=== PATIENT | female | born 1945 | race Caucasian/White ===

== ENCOUNTER → 2016-08-10 | Outpatient (CLI) | payer MEDICARE, OTHER ==
--- NOTE | 2016-08-11 11:35 | MM ---
Reason for exam: screening (asymptomatic). Last mammogram was performed 1 year and 3 months ago. History: Patient is postmenopausal. Reductions of both breasts, 2008. Excisional biopsy of the right breast, 2000. Took estrogen for 5 years 6 months. Took progesterone for 5 years 6 months. Physical Findings: A clinical breast exam by your physician is recommended on an annual basis and results should be correlated with mammographic findings. MG 3D Screening Mammo W/Cad Bilateral CC and MLO view(s) were taken. Prior study comparison: April 23, 2015, bilateral MG screening mammo w CAD. There are scattered fibroglandular densities. Finding: There are stable heterogeneous calcifications in the right breast. No significant changes in finding since April 23, 2015. ASSESSMENT: Benign, BI-RAD 2 RECOMMENDATION: Routine screening mammogram of both breasts in 1 year.
== END ==
LOC: RADMAMWWP 16:46
PROVIDERS: ATTEND Obstetrics & Gynecology
DX: Z12.31 Encounter for screening mammogram for malignant neoplasm of breast (principal)
CPT/HCPCS: 77063; G0202

== ENCOUNTER → 2018-10-19 | Outpatient (CLI) | payer MEDICARE, OTHER ==
--- NOTE | 2018-10-19 14:21 | BD ---
EXAMINATION TYPE: Axial Bone Density DATE OF EXAM: 10/19/2018 COMPARISON: NONE CLINICAL HISTORY: disorder of bone Height: 4'11 Weight: 187 FRAX RISK QUESTIONS: History of Fracture in Adulthood: y Secondary Osteoporosis: RISK FACTORS HISTORY OF: Surgery to Spine/): L spine When: 1978 Diet low in dairy products/other sources of calcium: y Postmenopausal woman: y Lost more than 2 inches in height since high school: y MEDICATIONS: Thyroid Medications: Which medication: Levothyroxine How Lon years Additional Medications: irregular heart beat, heartburn, cholesterol Additional History: kyphotic , scoliosis EXAM MEASUREMENTS: Bone mineral densitometry was performed using the [employer] System. Bone mineral density about the R hip (g/cm2): 0.844 Bone mineral density about the L hip (g/cm2): 0.701 T Score values are as follows: -----R Neck: -1.4 -----L Neck: -2.4 -----R Total: -1.3 -----L Total: -2.1 Bone mineral density about the L Wrist (g/cm2): 0.576 T Score values are as follows: -----Dist. R+U: -1.6 -----Prox. R+U: -1.5 -----Radius total: -1.6 IMPRESSION: Osteopenia (T Score between -2.5 and -1). There is slightly increased risk of fracture and the patient may be considered for treatment. Re-Screen 2-5 years. NOTE: T-SCORE=SD OF THE YOUNG ADULT MEAN.
--- NOTE | 2018-10-20 09:56 | MM ---
Reason for exam: screening (asymptomatic). Last mammogram was performed 2 years and 2 months ago. History: Patient is postmenopausal. Reductions of both breasts, 2008. Excisional biopsy of the right breast, 2000. Took estrogen for 5 years 6 months. Took progesterone for 5 years 6 months. Physical Findings: A clinical breast exam by your physician is recommended on an annual basis and results should be correlated with mammographic findings. MG 3D Screening Mammo W/Cad Bilateral CC and MLO view(s) were taken. Prior study comparison: August 10, 2016, bilateral MG 3d screening mammo w/cad. May 15, 2015, right breast MG work up mamm w CAD RT. Benign appearing bilateral calcifications. There is chronic nodularity in the right breast. No significant changes when compared with prior studies. ASSESSMENT: Benign, BI-RAD 2 RECOMMENDATION: Routine screening mammogram of both breasts in 1 year.
== END | disposition home or self-care (01) ==
LOC: RADMAMWWP 11:45
PROVIDERS: ATTEND Family Medicine
DX: Z12.31 Encounter for screening mammogram for malignant neoplasm of breast (principal); M85.852 Other specified disorders of bone density and structure, left thigh; M85.9 Disorder of bone density and structure, unspecified
CPT/HCPCS: 77063; 77067; 77080

== ENCOUNTER 2019-05-24 08:41 | Day surgery (SDC) | payer MEDICARE, OTHER ==
[2019-05-22 10:20] VITALS: BMI 32.4
--- NOTE | 2019-05-24 07:50 | P.GSHP ---
History of Present Illness H&P Date: 05/24/19 CHIEF COMPLAINT: GERD and colon screen HISTORY OF PRESENT ILLNESS: The patient is a 74-year-old female who presents with gastroesophageal reflux disease and need for colon screen. Upper and lower endoscopy were offered for further evaluation and management. PAST MEDICAL HISTORY: Please see list. PAST SURGICAL HISTORY: Please see list. MEDICATIONS: Please see list. ALLERGIES: Please see list. SOCIAL HISTORY: No illicit drug use FAMILY HISTORY: No reports of Crohn disease or ulcerative colitis. REVIEW OF ORGAN SYSTEMS: CONSTITUTIONAL: No reports of fevers or chills. GI: Denies any blood in stools or constipation. PHYSICAL EXAM: VITAL SIGNS: Stable GENERAL: Well-developed pleasant in no acute distress. HEENT: No scleral icterus. Extraocular movements grossly intact. Moist buccal mucosa. NECK: Supple without lymphadenopathy. CHEST: Unlabored respirations. Equal bilateral excursions. CARDIOVASCULAR: Regular rate and rhythm. Distal 2+ pulses. ABDOMEN: Soft, nondistended. MUSCULOSKELETAL: No clubbing, cyanosis, or edema. ASSESSMENT: 1. Gastroesophageal reflux disease 2. Colon screen. PLAN: 1. Recommend proceeding with an upper and lower endoscopy Past Medical History Past Medical History: GERD/Reflux, Hyperlipidemia, Hypertension, Skin Disorder, Thyroid Disorder Additional Past Medical History / Comment(s): Migraines, arrythmias. Poor circulation. allergic to sun. Scoliosis. Arthritis, sinus issues, History of Any Multi-Drug Resistant Organisms: None Reported Date of last positivie culture/infection: Jan 2009 MDRO Source:: patient Past Surgical History: Back Surgery, Bariatric Surgery, Breast Surgery, Cholecystectomy Additional Past Surgical History / Comment(s): Lap band 01/23/13. Sinus surgery. COLONOSCOPY. BREAST REDUCTION. 2 RT NECK LYMPH NODES REMOVED AND SALIVARY GLAND REMOVAL Past Anesthesia/Blood Transfusion Reactions: No Reported Reaction Smoking Status: Never smoker - Past Family History Daughter(s) Family Medical History: Cancer Medications and Allergies Home Medications Medication Instructions Recorded Confirmed Type Aspirin 81 mg PO DAILY 09/11/13 05/22/19 History Multivitamin [Multivitamins] 1 each PO DAILY 09/11/13 05/22/19 History Acebutolol HCl [Sectral] 200 mg PO BID 05/22/19 05/22/19 History Atorvastatin [Lipitor] 40 mg PO HS 05/22/19 05/22/19 History Hydrochlorothiazide [Hydrodiuril] 12.5 mg PO DAILY PRN 05/22/19 05/22/19 History Levothyroxine Sodium [Synthroid] 112 mcg PO DAILY 05/22/19 05/22/19 History Omeprazole 20 mg PO DAILY 05/22/19 05/22/19 History Zolpidem [Ambien] 10 mg PO HS PRN 05/22/19 05/22/19 History Allergies Allergy/AdvReac Type Severity Reaction Status Date / Time No Known Allergies Allergy Verified 05/22/19 10:06
[~2019-05-24 08:41] MED LIST: LACTATED RINGERS 1,000 ML IV SCH; LIDOCAINE 1% 20 ML VIAL (10MG/ML) FOR IV START INTRADERMA PRN
[2019-05-24 09:09] VITALS: RESP 16
[2019-05-24 09:13] VITALS: TEMP 98.6
[2019-05-24] MEDS ORDERED: LIDOCAINE 1% INJ 10MG/ML (20 ML MDV) ONE (09:33)
[2019-05-24] MEDS ORDERED: PROPOFOL 10 MG/ML 20 ML VIAL IV ONE (09:33)
--- NOTE | 2019-05-24 09:49 | P.PCN ---
Date of Procedure: 05/24/19 Description of Procedure: PREOPERATIVE DIAGNOSIS: Gastroesophageal reflux disease. Morbid obesity. History of adjustable gastric band POSTOPERATIVE DIAGNOSIS: Morbid obesity. Gastritis. Gastroesophageal reflux disease. Diaphragmatic hiatal hernia History of adjustable gastric band OPERATION: Esophagogastroduodenoscopy with biopsies along antrum. SURGEON: Giovanna Huber MD ANESTHESIA: MAC. INDICATIONS: The patient is a 74-year-old female who presents with a history of reflux disease. Benefits and risks of the procedure were described. Informed consent was obtained. DESCRIPTION: The patient was brought into the endoscopy suite and laid in the left lateral decubitus position. An Olympus gastroscope was passed along the posterior oropharynx down to the distal esophagus where the squamocolumnar junction was encountered at 34 cm from the incisors. The stomach was entered and no bile reflux was found. Additional findings are listed below. Biopsies with cold forceps were obtained of the antrum. The first through third portion of the duodenum was examined and unremarkable. Retroflexion of the scope confirmed Hill grade 2 lower esophageal valve. The squamocolumnar junction demonstrated LA grade B erosive esophagitis. The stomach was desufflated. The patient tolerated the procedure well. FINDINGS: Squamocolumnar junction 34 cm from the incisors. Diaphragmatic hiatus at 38 cm. Presence of adjustable gastric band without erosion Hill grade 2 lower esophageal valve. LA grade B erosive esophagitis. No active duodenitis. Chronic gastritis RECOMMENDATIONS: Upper endoscopy as needed.
--- NOTE | 2019-05-24 10:09 | P.PCN ---
Date of Procedure: 05/24/19 Description of Procedure: PREOPERATIVE DIAGNOSIS: Colonoscopy screening POSTOPERATIVE DIAGNOSIS: Colonoscopy screening Tubular adenoma descending colon Tubular adenoma sigmoid colon Sigmoid diverticulosis Internal hemorrhoids, grade 2 OPERATION: Colonoscopy to the ileocecal valve and appendiceal orifice. Colonoscopy with hot snare polypectomies Colonoscopy with cold forceps biopsies SURGEON: Giovanna Huber MD. ANESTHESIA: MAC. INDICATIONS: The patient is an 74-year-old male who presents for colonoscopy screening. Last colonoscopy over 5 years. Benefits and risks were described and informed consent was obtained. DESCRIPTION OF PROCEDURE: The patient had undergone Suprep. She had been brought into the operating room and laid in the left lateral decubitus position. After adequate intravenous sedation, the rectum was examined with 2% lidocaine jelly. The prostate was unremarkable. External hemorrhoids were encountered. The rectal tone was within normal limits. No lesions were palpated in the rectal vault. An Olympus colonoscope was advanced until the ileocecal valve and appendiceal orifice were clearly viewed. The prep was fair. Sigmoid diverticulosis was encountered. Multiple colonic polyps were found and snare polypectomy. No evidence of focal colitis was found. Retroflexion of the scope demonstrated grade 2 internal hemorrhoids without active bleeding or inflammation. The colon was desufflated. The patient had tolerated the procedure well. Withdrawal time was over 6 minutes. FINDINGS: Aronchick preparation quality scale 2 (1-5) Internal hemorrhoids, grade 2 External hemorrhoids, grade 2 No arteriovenous malformations Sigmoid diverticulosis Removal of 3 polyps from the proximal, mid transverse colon and descending colon: - Snare polypectomy 15 cm from the anal verge, 5 mm tubulovillous adenoma polyp, sigmoid colon - Cold forceps biopsy at 30 cm from the anal verge, 4 mm polyp. - Cold forceps biopsy at 28 cm from the anal verge, 4 mm polyp. No focal colitis. RECOMMENDATIONS: Given severity of tubular adenomas, recommend repeat colonoscopy 2 years, 2021 Plan - Discharge Summary Discharge Rx Participant: No New Discharge Prescriptions: No Action Multivitamin [Multivitamins] 1 each PO DAILY Aspirin 81 mg PO DAILY Atorvastatin [Lipitor] 40 mg PO HS Zolpidem [Ambien] 10 mg PO HS PRN PRN Reason: Insomnia Levothyroxine Sodium [Synthroid] 112 mcg PO DAILY Hydrochlorothiazide [Hydrodiuril] 12.5 mg PO DAILY PRN PRN Reason: Edema Omeprazole 20 mg PO DAILY Acebutolol HCl [Sectral] 200 mg PO BID Discharge Medication List Aspirin 81 mg PO DAILY 09/11/13 [History] Multivitamin [Multivitamins] 1 each PO DAILY 09/11/13 [History] Acebutolol HCl [Sectral] 200 mg PO BID 05/22/19 [History] Atorvastatin [Lipitor] 40 mg PO HS 05/22/19 [History] Hydrochlorothiazide [Hydrodiuril] 12.5 mg PO DAILY PRN 05/22/19 [History] Levothyroxine Sodium [Synthroid] 112 mcg PO DAILY 05/22/19 [History] Omeprazole 20 mg PO DAILY 05/22/19 [History] Zolpidem [Ambien] 10 mg PO HS PRN 05/22/19 [History] Follow up Appointment(s)/Referral(s): Giovanna Huber MD [STAFF PHYSICIAN] - 06/06/19 Patient Instructions/Handouts: Colorectal Polyps (DC), Diverticulosis Diet (GEN), Diverticulosis (DC) Activity/Diet/Wound Care/Special Instructions: Repeat colonoscopy in 5 years, 2024 Discharge Disposition: HOME SELF-CARE
[2019-05-24 10:34] VITALS: BP 104/65; PULSE 62
== END 2019-05-24 10:58 | disposition home or self-care (01) ==
LOC: ORWHC2ENDO 08:41
PROVIDERS: ATTEND Surgery Plastic and Reconstructive Surgery
DX: Z12.11 Encounter for screening for malignant neoplasm of colon (principal); K63.5 Polyp of colon; K29.50 Unspecified chronic gastritis without bleeding; K22.10 Ulcer of esophagus without bleeding; K21.9 Gastro-esophageal reflux disease without esophagitis; K44.9 Diaphragmatic hernia without obstruction or gangrene; E66.01 Morbid (severe) obesity due to excess calories; Z68.31 Body mass index [BMI] 31.0-31.9, adult; K57.30 Diverticulosis of large intestine without perforation or abscess without bleeding; K64.1 Second degree hemorrhoids; Z98.84 Bariatric surgery status; E78.5 Hyperlipidemia, unspecified; I10 Essential (primary) hypertension; E07.9 Disorder of thyroid, unspecified; G43.909 Migraine, unspecified, not intractable, without status migrainosus; M41.9 Scoliosis, unspecified; M19.90 Unspecified osteoarthritis, unspecified site; Z90.49 Acquired absence of other specified parts of digestive tract; Z80.9 Family history of malignant neoplasm, unspecified; F39 Unspecified mood [affective] disorder; Z97.2 Presence of dental prosthetic device (complete) (partial); Z79.82 Long term (current) use of aspirin; Z79.890 Hormone replacement therapy; Z79.899 Other long term (current) drug therapy
CPT/HCPCS: 88305; 45380; 45385; 43239; J2001; J2704; 80053; 80061; 82306; 82525; 82607; 82728; 82746; 83036; 83540; 83550; 83735; 83970; 84100; 84134; 84255; 84425; 84443; 84590; 84630; 85027; 86141

== ENCOUNTER → 2019-12-08 | Outpatient (CLI) | payer MEDICARE, OTHER ==
--- NOTE | 2019-12-08 13:03 | FL ---
GASTRIC BANDING ESOPHAGRAM CLINICAL HISTORY: Pain Gastric banding esophagram was performed. The patient ingested thin liquid barium without difficulty or delay. Gastric band is noted to be in place. There is no evidence for leak or obstruction. No prolapse is identified. IMPRESSION: Normal-appearing gastric banding device without leak or obstruction.
== END | disposition home or self-care (01) ==
LOC: RADUSWWP 10:47
PROVIDERS: ATTEND Surgery Plastic and Reconstructive Surgery
DX: R13.10 Dysphagia, unspecified (principal)
CPT/HCPCS: 74220

== ENCOUNTER 2020-01-11 00:05 | Emergency (ER) | payer MEDICARE, OTHER ==
[2020-01-11] MEDS ORDERED: ONDANSETRON 4 MG/2 ML VIAL IVP STA (00:19)
[2020-01-11] MEDS ORDERED: SODIUM CHLORIDE 0.9% 500 ML 500 ML IV STA (00:19)
--- NOTE | 2020-01-11 00:38 | ED ---
General Adult HPI - General Chief complaint: Nausea/Vomiting/Diarrhea Stated complaint: vomiting Time Seen by Provider: 01/11/20 00:12 Source: patient, RN notes reviewed Mode of arrival: wheelchair Limitations: no limitations - History of Present Illness Initial comments: 74-year-old female with a past medical history of hyperlipidemia, hypertension, lap band reportedly 7 years ago presents to the emergency room for nausea vomiting. Patient states she has not had her lap band filled for 6 years. States that today it was filled by Dr. Manzano. Patient reports she thinks the band is too tight. States she has not been able to eat or drink anything since the procedure. States that about an hour prior to arrival she tried to drink some tea was unable to keep it down. States she vomited about [address] to this emergency room. Patient denies any associated abdominal pain. Patient has no other complaints at this time including shortness of breath, chest pain, abdominal pain, headache, or visual changes. - Related Data Home Medications Medication Instructions Recorded Confirmed Aspirin 81 mg PO DAILY 09/11/13 01/10/20 Multivitamin [Multivitamins] 1 each PO DAILY 09/11/13 01/10/20 Acebutolol HCl [Sectral] 200 mg PO BID 05/22/19 01/10/20 Atorvastatin [Lipitor] 40 mg PO HS 05/22/19 01/10/20 Levothyroxine Sodium [Synthroid] 112 mcg PO DAILY 05/22/19 01/10/20 Omeprazole 20 mg PO DAILY 05/22/19 01/10/20 Zolpidem [Ambien] 10 mg PO HS PRN 05/22/19 01/10/20 hydroCHLOROthiazide [Hydrodiuril] 12.5 mg PO DAILY PRN 05/22/19 01/10/20 Allergies Allergy/AdvReac Type Severity Reaction Status Date / Time No Known Allergies Allergy Verified 01/11/20 00:11 Review of Systems ROS Statement: Those systems with pertinent positive or pertinent negative responses have been documented in the HPI. ROS Other: All systems not noted in ROS Statement are negative. Past Medical History Past Medical History: GERD/Reflux, Hyperlipidemia, Hypertension, Skin Disorder, Thyroid Disorder Additional Past Medical History / Comment(s): Migraines, arrythmias. Poor circulation. allergic to sun. Scoliosis. Arthritis, sinus issues, History of Any Multi-Drug Resistant Organisms: None Reported Date of last positivie culture/infection: Jan 2009 MDRO Source:: patient Past Surgical History: Back Surgery, Bariatric Surgery, Breast Surgery, Cholecystectomy Additional Past Surgical History / Comment(s): Lap band 01/23/13. Sinus surgery. COLONOSCOPY. BREAST REDUCTION. 2 RT NECK LYMPH NODES REMOVED AND SALIVARY GLAND REMOVAL Past Anesthesia/Blood Transfusion Reactions: No Reported Reaction Past Psychological History: No Psychological Hx Reported Smoking Status: Never smoker Past Alcohol Use History: None Reported Past Drug Use History: None Reported - Past Family History Daughter(s) Family Medical History: Cancer General Exam Limitations: no limitations General appearance: alert, in no apparent distress Head exam: Present: atraumatic, normocephalic, normal inspection Eye exam: Present: normal appearance, PERRL, EOMI. Absent: scleral icterus, conjunctival injection, periorbital swelling ENT exam: Present: normal exam Neck exam: Present: normal inspection, full ROM. Absent: tenderness, meningismus, lymphadenopathy Respiratory exam: Present: normal lung sounds bilaterally. Absent: respiratory distress, wheezes, rales, rhonchi, stridor Cardiovascular Exam: Present: regular rate, normal rhythm, normal heart sounds. Absent: systolic murmur, diastolic murmur, rubs, gallop, clicks GI/Abdominal exam: Present: soft, normal bowel sounds. Absent: distended, tenderness, guarding, rebound, rigid Neurological exam: Present: alert Course Vital Signs 01/11/20 00:08 Temperature 99.3 F Pulse Rate 68 Respiratory 18 Rate Blood Pressure 190/100 O2 Sat by Pulse 98 Oximetry - Reevaluation(s) Reevaluation #1: 01/11/20 01:21 Dr. Huber at bedside draining lap band Medical Decision Making - Medical Decision Making Vitals are stable. CBC unremarkable. Leukocytosis likely reactive. Patient was given fluids. Dr. Huber at bedside drained patient's lap band. Patient tolerating orals. Natacha cleared patient for discharge home. This was prior to CMP resulting given lab is having difficulty resulting this. she'll return for any worsening symptoms and otherwise follow-up. - Lab Data Result diagrams: 01/11/20 00:31 Lab Results 01/11/20 Range/Units 00:31 WBC 12.4 H (3.8-10.6) k/uL RBC 5.41 H (3.80-5.40) m/uL Hgb 16.4 H (11.4-16.0) gm/dL Hct 50.4 H (34.0-46.0) % MCV 93.3 (80.0-100.0) fL MCH 30.3 (25.0-35.0) pg MCHC 32.5 (31.0-37.0) g/dL RDW 12.8 (11.5-15.5) % Plt Count 195 (150-450) k/uL Neutrophils % 74 % Lymphocytes % 17 % Monocytes % 8 % Eosinophils % 0 % Basophils % 0 % Neutrophils # 9.2 H (1.3-7.7) k/uL Lymphocytes # 2.1 (1.0-4.8) k/uL Monocytes # 1.0 (0-1.0) k/uL Eosinophils # 0.0 (0-0.7) k/uL Basophils # 0.1 (0-0.2) k/uL Disposition Clinical Impression: Vomiting Disposition: HOME SELF-CARE Condition: Good Instructions (If sedation given, give patient instructions): Acute Nausea and Vomiting (ED) Additional Instructions: Please follow up with Dr. Huber. Return to the emergency room for any worsening symptoms. Is patient prescribed a controlled substance at d/c from ED?: No Referrals: Jovan Yanez MD [Primary Care Provider] - 1-2 days Time of Disposition: 01:21
[2020-01-11 00:51] LABS: Basophils # (A) 0.1 k/uL (0-0.2); Basophils % (A) 0 %; Eosinophils % (A) 0 %; HCT 50.4 % (34.0-46.0); HGB 16.4 gm/dL (11.4-16.0); Lymphocytes # (A) 2.1 k/uL (1.0-4.8); Lymphocytes % (A) 17 %; MCH 30.3 pg (25.0-35.0); MCHC 32.5 g/dL (31.0-37.0); MCV 93.3 fL (80.0-100.0); Mean Platelet Volume 7.6; Monocytes % (A) 8 %; Neutrophils # (A) 9.2 k/uL (1.3-7.7); Neutrophils % (A) 74 %; Platelet Count 195 k/uL (150-450); RBC 5.41 m/uL (3.80-5.40); RDW 12.8 % (11.5-15.5); WBC 12.4 k/uL (3.8-10.6)
[2020-01-11] MEDS ORDERED: LIDOCAINE 1% INJ 10MG/ML (20 ML MDV) SQ ONE (01:15)
--- NOTE | 2020-01-11 01:36 | P.GSCN ---
History of Present Illness Consult date: 01/11/20 History of present illness: Patient presents following adjustment earlier today at the bariatric center. She reported drinking her liquids prior to discharge. She then went home and was unable to tolerate anything by mouth. She presents to the emergency room for intractable nausea and vomiting following her band adjustment. At bedside, the skin was cleansed with alcohol swab and localize with 10 mL 2% lidocaine using 23-gauge needle. Next a Mark per needle 20-gauge was used to access the port. All fluid, 9 mL normal saline removed. After the procedure, patient was able to tolerate liquids and had immediate relief. Recommend future band removal as patient has recurrent problems with her band. Also with severe kyphosis the spine alters the ankle and anatomy of her band. Patient stable from a surgical standpoint for discharge home liquid diet. Past Medical History Past Medical History: GERD/Reflux, Hyperlipidemia, Hypertension, Skin Disorder, Thyroid Disorder Additional Past Medical History / Comment(s): Migraines, arrythmias. Poor circulation. allergic to sun. Scoliosis. Arthritis, sinus issues, History of Any Multi-Drug Resistant Organisms: None Reported Year Discovered:: Jan 2009 MDRO Source:: patient Past Surgical History: Back Surgery, Bariatric Surgery, Breast Surgery, Cholecystectomy Additional Past Surgical History / Comment(s): Lap band 01/23/13. Sinus surgery. COLONOSCOPY. BREAST REDUCTION. 2 RT NECK LYMPH NODES REMOVED AND SALIVARY GLAND REMOVAL Past Anesthesia/Blood Transfusion Reactions: No Reported Reaction Past Psychological History: No Psychological Hx Reported Smoking Status: Never smoker Past Alcohol Use History: None Reported Past Drug Use History: None Reported - Past Family History Daughter(s) Family Medical History: Cancer Medications and Allergies Home Medications Medication Instructions Recorded Confirmed Type Aspirin 81 mg PO DAILY 09/11/13 01/10/20 History Multivitamin [Multivitamins] 1 each PO DAILY 09/11/13 01/10/20 History Acebutolol HCl [Sectral] 200 mg PO BID 05/22/19 01/10/20 History Atorvastatin [Lipitor] 40 mg PO HS 05/22/19 01/10/20 History Levothyroxine Sodium [Synthroid] 112 mcg PO DAILY 05/22/19 01/10/20 History Omeprazole 20 mg PO DAILY 05/22/19 01/10/20 History Zolpidem [Ambien] 10 mg PO HS PRN 05/22/19 01/10/20 History hydroCHLOROthiazide [Hydrodiuril] 12.5 mg PO DAILY PRN 05/22/19 01/10/20 History Allergies Allergy/AdvReac Type Severity Reaction Status Date / Time No Known Allergies Allergy Verified 01/11/20 00:11 Surgical - Exam Vital Signs Temp Pulse Resp BP Pulse Ox 99.3 F 68 18 190/100 98 01/11/20 00:08 01/11/20 00:08 01/11/20 00:08 01/11/20 00:08 01/11/20 00:08 Results - Labs 01/11/20 00:31 Abnormal Lab Results - Last 24 Hours (Table) 01/11/20 Range/Units 00:31 WBC 12.4 H (3.8-10.6) k/uL RBC 5.41 H (3.80-5.40) m/uL Hgb 16.4 H (11.4-16.0) gm/dL Hct 50.4 H (34.0-46.0) % Neutrophils # 9.2 H (1.3-7.7) k/uL
[2020-01-11 01:41] LABS: ALT 59 U/L (4-34); AST 65 U/L (14-36); African American GFR (CKD) >90 (>60 ml/min/1.73 sqM); Albumin 4.6 g/dL (3.5-5.0); Alkaline Phosphatase 75 U/L (38-126); Amylase 63 U/L (30-110); Anion Gap 8 mmol/L; Blood Urea Nitrogen 23 mg/dL (7-17); Calcium 9.8 mg/dL (8.4-10.2); Carbon Dioxide 30 mmol/L (22-30); Chloride 104 mmol/L (98-107); Glucose 110 mg/dL (74-99); Non-African American GFR(CKD) 89 (>60 ml/min/1.73 sqM); Potassium 4.1 mmol/L (3.5-5.1); Sodium 142 mmol/L (137-145); Total Bilirubin 1.2 mg/dL (0.2-1.3); Total Protein 7.9 g/dL (6.3-8.2)
[2020-01-11 01:57] VITALS: BP 157/85; PULSE 71; RESP 19; TEMP 97.8
== END 2020-01-11 01:47 | disposition home or self-care (01) ==
LOC: EC 00:05
DX: R11.10 Vomiting, unspecified (principal); K21.9 Gastro-esophageal reflux disease without esophagitis; E78.5 Hyperlipidemia, unspecified; M19.90 Unspecified osteoarthritis, unspecified site; I10 Essential (primary) hypertension; E07.9 Disorder of thyroid, unspecified; Z79.890 Hormone replacement therapy; Z79.82 Long term (current) use of aspirin; Z79.899 Other long term (current) drug therapy; Z86.69 Personal history of other diseases of the nervous system and sense organs
CPT/HCPCS: 36415; 80053; 82150; 83690; 85025; 99284; 96374; J2405; J2001

== ENCOUNTER → 2020-03-14 | Outpatient (CLI) | payer MEDICARE, OTHER ==
--- NOTE | 2020-03-18 10:17 | MM ---
Reason for exam: screening (asymptomatic). Last mammogram was performed 1 year and 5 months ago. History: Patient is postmenopausal. Reductions of both breasts, 2008. Excisional biopsy of the right breast, 2000. Took estrogen for 5 years 6 months. Took progesterone for 5 years 6 months. Physical Findings: A clinical breast exam by your physician is recommended on an annual basis and results should be correlated with mammographic findings. MG 3D Screening Mammo W/Cad Bilateral CC and MLO view(s) were taken. XCCL view(s) were taken of the right breast. Prior study comparison: October 19, 2018, bilateral MG 3d screening mammo w/cad. August 10, 2016, bilateral MG 3d screening mammo w/cad. There are scattered fibroglandular densities. Benign appearing bilateral calcifications. No significant changes when compared with prior studies. ASSESSMENT: Benign, BI-RAD 2 RECOMMENDATION: Routine screening mammogram of both breasts in 1 year.
== END | disposition home or self-care (01) ==
LOC: RADMAMWWP 13:20
PROVIDERS: ATTEND Family Medicine
DX: Z12.31 Encounter for screening mammogram for malignant neoplasm of breast (principal)
CPT/HCPCS: 77063; 77067

== ENCOUNTER 2020-04-02 18:44 | Inpatient (IN) | payer MEDICARE, OTHER ==
[2020-04-02] MEDS ORDERED: ACETAMINOPHEN TAB 500 MG TAB PO STA (19:29)
--- NOTE | 2020-04-02 19:39 | ED ---
General Adult HPI - General Chief complaint: Recheck/Abnormal Lab/Rx Stated complaint: Recheck Labs Time Seen by Provider: 04/02/20 19:00 Source: patient, RN notes reviewed, old records reviewed Mode of arrival: ambulatory Limitations: no limitations - History of Present Illness Initial comments: This is a 75-year-old female who presents emergency Department stating that her liver enzymes are elevated and her doctor told her come here. Patient states she's had a dry cough but no fever until she got here and noted that she did have a fever. Patient denies any difficulty breathing shortness of breath per patient denies any chest pain or palpitations. Patient denies any abdominal pain and definitively say she has no right upper quadrant or back pain. Patient denies any dysuria hematuria urinary frequency. Patient denies any headache patient denies numbness weakness. Patient denies any known exposure to cold. She states she has a mild sore throat - Related Data Home Medications Medication Instructions Recorded Confirmed Aspirin 81 mg PO DAILY 09/11/13 01/10/20 Multivitamin [Multivitamins] 1 each PO DAILY 09/11/13 01/10/20 Acebutolol HCl [Sectral] 200 mg PO BID 05/22/19 01/10/20 Atorvastatin [Lipitor] 40 mg PO HS 05/22/19 01/10/20 Levothyroxine Sodium [Synthroid] 112 mcg PO DAILY 05/22/19 01/10/20 Omeprazole 20 mg PO DAILY 05/22/19 01/10/20 Zolpidem [Ambien] 10 mg PO HS PRN 05/22/19 01/10/20 hydroCHLOROthiazide [Hydrodiuril] 12.5 mg PO DAILY PRN 05/22/19 01/10/20 Allergies Allergy/AdvReac Type Severity Reaction Status Date / Time No Known Allergies Allergy Verified 01/11/20 00:11 Review of Systems ROS Statement: Those systems with pertinent positive or pertinent negative responses have been documented in the HPI. ROS Other: All systems not noted in ROS Statement are negative. Past Medical History Past Medical History: GERD/Reflux, Hyperlipidemia, Hypertension, Skin Disorder, Thyroid Disorder Additional Past Medical History / Comment(s): Migraines, arrythmias. Poor circulation. allergic to sun. Scoliosis. Arthritis, sinus issues, History of Any Multi-Drug Resistant Organisms: None Reported Date of last positivie culture/infection: Jan 2009 MDRO Source:: patient Past Surgical History: Back Surgery, Bariatric Surgery, Breast Surgery, Cholecystectomy Additional Past Surgical History / Comment(s): Lap band 01/23/13. Sinus surgery. COLONOSCOPY. BREAST REDUCTION. 2 RT NECK LYMPH NODES REMOVED AND SALIVARY GLAND REMOVAL Past Anesthesia/Blood Transfusion Reactions: No Reported Reaction Past Psychological History: No Psychological Hx Reported Smoking Status: Never smoker Past Alcohol Use History: None Reported Past Drug Use History: None Reported - Past Family History Daughter(s) Family Medical History: Cancer General Exam - General Exam Comments Initial Comments: GENERAL: Patient is well-developed and well-nourished. Patient is nontoxic and well- hydrated and is in no acute distress. ENT: Neck is soft and supple. No significant lymphadenopathy is noted. Oropharynx is clear. Moist mucous membranes. Neck has full range of motion without eliciting any pain. EYES: The sclera were anicteric and conjunctiva were pink and moist. Extraocular movements were intact and pupils were equal round and reactive to light. Eyelids were unremarkable. PULMONARY: Unlabored respirations. Good breath sounds bilaterally. No audible rales rhonchi or wheezing was noted. CARDIOVASCULAR: There is a regular rate and rhythm without any murmurs gallops or rubs. ABDOMEN: Soft and nontender with normal bowel sounds. SKIN: Skin is clear with no lesions or rashes and otherwise unremarkable. NEUROLOGIC: Patient is alert and oriented x3. Cranial nerves II through XII are grossly intact. Motor and sensory are also intact. Normal speech, volume and content. Symmetrical smile. MUSCULOSKELETAL: Normal extremities with adequate strength and full range of motion. No lower extremity swelling or edema. No calf tenderness. LYMPHATICS: No significant lymphadenopathy is noted PSYCHIATRIC: Normal psychiatric evaluation. Limitations: no limitations Course Vital Signs 04/02/20 04/02/20 18:56 21:01 Temperature 100.5 F H 98.3 F Pulse Rate 87 74 Respiratory 18 16 Rate Blood Pressure 188/97 141/80 O2 Sat by Pulse 96 97 Oximetry Medical Decision Making - Medical Decision Making EKG shows normal sinus rhythm at 70 bpm [place] interval 176 QRS is 84 QT interval 370 QTC is 433. Patient's EKG shows no ST segment elevation or depression. CT of the chest shows no PE however does show changes that are consistent with cirrhosis of the liver as well as ascites in the abdomen. I spoke with she he wanted the patient admitted to admit the patient and I wrote admitting orders. I consult the GI - Lab Data Result diagrams: 04/02/20 19:36 04/02/20 19:36 Lab Results 04/02/20 04/02/20 04/02/20 Range/Units 19:36 19:36 19:36 WBC 5.1 (3.8-10.6) k/uL RBC 4.72 (3.80-5.40) m/uL Hgb 14.7 (11.4-16.0) gm/dL Hct 45.8 (34.0-46.0) % MCV 96.9 (80.0-100.0) fL MCH 31.1 (25.0-35.0) pg MCHC 32.1 (31.0-37.0) g/dL RDW 13.9 (11.5-15.5) % Plt Count 150 (150-450) k/uL MPV 7.9 Neutrophils % (Manual) 59 % Band Neuts % (Manual) 7 % Lymphocytes % (Manual) 18 % Monocytes % (Manual) 11 % Eosinophils % (Manual) 2 % Basophils % (Manual) 3 % Neutrophils # (Manual) 3.30 (1.3-7.7) k/uL Lymphocytes # (Manual) 0.92 L (1.0-4.8) k/uL Monocytes # (Manual) 0.56 (0-1.0) k/uL Eosinophils # (Manual) 0.10 (0-0.7) k/uL Basophils # (Manual) 0.15 (0-0.2) k/uL Nucleated RBCs 0 (0-0) /100 WBC Manual Slide Review Performed Poikilocytosis (manual Present PT 11.9 (9.0-12.0) sec INR 1.2 H (<1.2) APTT 26.4 (22.0-30.0) sec D-Dimer 1.10 H (<0.60) mg/L FEU Sodium (137-145) mmol/L Potassium (3.5-5.1) mmol/L Chloride (98-107) mmol/L Carbon Dioxide (22-30) mmol/L Anion Gap mmol/L BUN (7-17) mg/dL Creatinine (0.52-1.04) mg/dL Est GFR (CKD-EPI)AfAm (>60 ml/min/1.73 sqM) Est GFR (CKD-EPI)NonAf (>60 ml/min/1.73 sqM) Glucose (74-99) mg/dL Plasma Lactic Acid Tuan (0.7-2.0) mmol/L Calcium (8.4-10.2) mg/dL Magnesium (1.6-2.3) mg/dL Total Bilirubin (0.2-1.3) mg/dL AST (14-36) U/L ALT (4-34) U/L Alkaline Phosphatase (38-126) U/L Lactate Dehydrogenase (313-618) U/L C-Reactive Protein (<10.0) mg/L Total Protein (6.3-8.2) g/dL Albumin (3.5-5.0) g/dL Heterophile Antibody Negative (Negative) Influenza Type A RNA (Not Detectd) Influenza Type B (PCR) (Not Detectd) 04/02/20 04/02/20 04/02/20 Range/Units 19:36 19:36 19:36 WBC (3.8-10.6) k/uL RBC (3.80-5.40) m/uL Hgb (11.4-16.0) gm/dL Hct (34.0-46.0) % MCV (80.0-100.0) fL MCH (25.0-35.0) pg MCHC (31.0-37.0) g/dL RDW (11.5-15.5) % Plt Count (150-450) k/uL MPV Neutrophils % (Manual) % Band Neuts % (Manual) % Lymphocytes % (Manual) % Monocytes % (Manual) % Eosinophils % (Manual) % Basophils % (Manual) % Neutrophils # (Manual) (1.3-7.7) k/uL Lymphocytes # (Manual) (1.0-4.8) k/uL Monocytes # (Manual) (0-1.0) k/uL Eosinophils # (Manual) (0-0.7) k/uL Basophils # (Manual) (0-0.2) k/uL Nucleated RBCs (0-0) /100 WBC Manual Slide Review Poikilocytosis (manual PT (9.0-12.0) sec INR (<1.2) APTT (22.0-30.0) sec D-Dimer (<0.60) mg/L FEU Sodium 139 (137-145) mmol/L Potassium 3.9 (3.5-5.1) mmol/L Chloride 107 (98-107) mmol/L Carbon Dioxide 29 (22-30) mmol/L Anion Gap 3 mmol/L BUN 18 H (7-17) mg/dL Creatinine 0.63 (0.52-1.04) mg/dL Est GFR (CKD-EPI)AfAm >90 (>60 ml/min/1.73 sqM) Est GFR (CKD-EPI)NonAf 89 (>60 ml/min/1.73 sqM) Glucose 105 H (74-99) mg/dL Plasma Lactic Acid Tuan 1.3 (0.7-2.0) mmol/L Calcium 8.6 (8.4-10.2) mg/dL Magnesium 1.9 (1.6-2.3) mg/dL Total Bilirubin 2.5 H (0.2-1.3) mg/dL AST 925 H (14-36) U/L ALT 759 H (4-34) U/L Alkaline Phosphatase 214 H (38-126) U/L Lactate Dehydrogenase 1062 H (313-618) U/L C-Reactive Protein 11.0 H (<10.0) mg/L Total Protein 7.2 (6.3-8.2) g/dL Albumin 3.0 L (3.5-5.0) g/dL Heterophile Antibody (Negative) Influenza Type A RNA Not Detected (Not Detectd) Influenza Type B (PCR) Not Detected (Not Detectd) Disposition Clinical Impression: Cirrhosis, Ascites, Hepatitis Disposition: ADMITTED IP TO THIS HOSP Referrals: Jovan Yanez MD [Primary Care Provider] - 1-2 days Time of Disposition: 21:26
[2020-04-02 20:06] LABS: HCT 45.8 % (34.0-46.0); HGB 14.7 gm/dL (11.4-16.0); MCH 31.1 pg (25.0-35.0); MCHC 32.1 g/dL (31.0-37.0); MCV 96.9 fL (80.0-100.0); Mean Platelet Volume 7.9; Platelet Count 150 k/uL (150-450); RBC 4.72 m/uL (3.80-5.40); RDW 13.9 % (11.5-15.5); WBC 5.1 k/uL (3.8-10.6)
--- NOTE | 2020-04-02 20:17 | XR ---
EXAMINATION TYPE: XR chest 1V portable DATE OF EXAM: 04/02/2020 COMPARISON: 02/20/2019 HISTORY: Cough. Pneumonia. TECHNIQUE: FINDINGS: There is poor inspiration. There is no heart failure nor confluent pneumonic infiltrate. Co stophrenic angles are clear. Thoracic aorta is intact. IMPRESSION: No active cardiopulmonary disease. Inspiration decreased slightly compared to old exam.
[2020-04-02 20:18] LABS: African American GFR (CKD) >90 (>60 ml/min/1.73 sqM); Alkaline Phosphatase 214 U/L (38-126); Anion Gap 3 mmol/L; Blood Urea Nitrogen 18 mg/dL (7-17); Calcium 8.6 mg/dL (8.4-10.2); Carbon Dioxide 29 mmol/L (22-30); Chloride 107 mmol/L (98-107); Glucose 105 mg/dL (74-99); LDH 1062 U/L (313-618); Magnesium 1.9 mg/dL (1.6-2.3); Non-African American GFR(CKD) 89 (>60 ml/min/1.73 sqM); Potassium 3.9 mmol/L (3.5-5.1); Sodium 139 mmol/L (137-145); Total Bilirubin 2.5 mg/dL (0.2-1.3); Total Protein 7.2 g/dL (6.3-8.2)
[2020-04-02 20:21] LABS: AST 925 U/L (14-36)
[2020-04-02 20:28] LABS: INR 1.2 (<1.2)
[2020-04-02 20:29] LABS: Partial Thromboplastin Time 26.4 sec (22.0-30.0); Prothrombin Time 11.9 sec (9.0-12.0)
[2020-04-02 20:32] LABS: ALT 759 U/L (4-34)
[2020-04-02 20:33] LABS: Band Neutrophils % 7 %; Basophils # (M) 0.15 k/uL (0-0.2); Lymphocytes # (M) 0.92 k/uL (1.0-4.8); Monocytes # (M) 0.56 k/uL (0-1.0); Neutrophils % (M) 59 %; Nucleated Red Blood Cells 0 /100 WBC (0-0); Total Cells Counted 100
[2020-04-02 20:34] LABS: Poikilocytosis (M) Present
[2020-04-02 20:37] LABS: D-Dimer 1.1 mg/L FEU (<0.60)
--- NOTE | 2020-04-02 21:08 | CT ---
EXAMINATION TYPE: CT chest angio for PE DATE OF EXAM: 04/02/2020 COMPARISON: None HISTORY: Elevated d-dimer CT DLP: 410.5 mGycm Automated exposure control for dose reduction was used. CONTRAST: Performed with IV Contrast, patient injected with 100 mL of Isovue 370. There are 3-D post processed images. There is no mediastinal adenopathy. Thoracic aorta is intact. There is no aneurysm or dissection. The ascending aorta measures 3.4 cm. There are no hilar masses. There is normal contrast opacification o f the pulmonary arteries. I see no filling defect. Heart size is normal. There is no pericardial effusion. There is abdominal ascites. There is irregula r liver consistent with cirrhosis. There is gastric sleeve noted. The lungs are clear of consolidation. There is no evidence of a pulmonary mass. There is no pleural e ffusion. Thoracic vertebra have normal alignment. Posterior elements are intact. Sternum is intact. IMPRESSION: No evidence of pulmonary embolism. Abdominal ascites and changes in the liver consistent with cirrhosis.
[2020-04-02] MEDS ORDERED: SODIUM CHLORIDE 0.9% 1,000 ML IV ONE (21:26)
--- NOTE | 2020-04-02 21:53 | US ---
EXAMINATION TYPE: US liver DATE OF EXAM: 04/02/2020 COMPARISON: NONE CLINICAL HISTORY: Elevated liver enzymes. Elevated liver enzymes. Hx cholecystectomy and lap band eduardo alisson. EXAM MEASUREMENTS: Liver Length: 15.1 cm Gallbladder Wall: Cholecystectomy CBD: Not visualized Right Kidney: 11.0 x 5.9 x 4.9 cm *Very limited due to patient body habitus and bowel gas. Pancreas: Limited due to gas. Liver: Limited, appears coarse and heterogeneous. There appears to be fluid anterior to the liver. Gallbladder: Cholecystectomy Evidence for sonographic Bills's sign: No CBD: Obscured by gas. Right Kidney: No hydronephrosis or masses seen IMPRESSION: Exam limited. There is abdominal ascites. There is increased echogenicity in the liver co nsistent with cirrhosis and fatty infiltration. Liver is relatively small. No dilated ducts.
[2020-04-03] MEDS ORDERED: ATORVASTATIN 40 MG TAB PO SCH (01:00)
[2020-04-03] MEDS: ZOLPIDEM 5 MG TAB PO SCH ×2 (01:20→22:06)
[2020-04-03] MEDS: LEVOTHYROXINE 112 MCG TAB PO SCH ×2 (01:40→22:06)
[2020-04-03] MEDS: ACEBUTOLOL HCL 200 MG PO SCH ×3 (01:41→22:07)
[2020-04-03 05:22] LABS: Ferritin 515.3 ng/mL (10.0-291.0)
[2020-04-03] MEDS ORDERED: ASPIRIN 81 MG PO SCH (09:00)
[2020-04-03] MEDS: PIPERACILLIN-TAZOBACTAM 3.375 GM in SODIUM CHLORIDE 0.9% 100 ML IVPB SCH ×2 (09:18→16:20)
[2020-04-03] MEDS: PANTOPRAZOLE 40 MG TABLET PO SCH (09:43)
[2020-04-03 10:47] LABS: Hepatitis A Antibody IgM Non-Reactive (Non-Reactive); Hepatitis B Core IgM Non-Reactive (Non-Reactive); Hepatitis B Surface Antigen Non-Reactive (Non-Reactive); Hepatitis C IgG Antibody Non-Reactive (Non-Reactive)
[2020-04-03] MEDS: SODIUM CHLORIDE 0.9% 1,000 ML IV SCH (13:17)
[2020-04-03] MEDS ORDERED: HYDROmorphone 0.5 MG/0.5 ML SYRINGE IVP PRN (13:28)
[2020-04-03] MEDS ORDERED: ALPRAZolam 0.25 MG TAB PO PRN (13:28)
[2020-04-03] MEDS: IOPAMIDOL CONTRAST (ORAL USE) VIAL PO PRN ×2 (14:12→14:56)
--- NOTE | 2020-04-03 14:37 | P.GSHP ---
History of Present Illness H&P Date: 04/03/20 CHIEF COMPLAINT: Elevated LFTs HISTORY OF PRESENT ILLNESS: This is a 75-year-old female with a known past medical history of hyperlipidemia, GERD, hypertension, hypothyroidism, LAP-BAND and cholecystectomy. Patient came into the emergency room because of elevated liver enzymes. Patient reports that her primary care doctor told her to come to the hospital because her liver enzymes were elevated. She denies any any abdominal pain. She does report having dark urine. She reports a dry cough and no fever at home. But she did have a temp of 100.5 on admission. She has been on 2 rounds of antibiotics recently for upper respiratory tract infection. She had a CTA of the chest which was negative for PE. It did show abdominal ascites and changes in the liver that were consistent with cirrhosis. On admission she did have elevated liver enzymes total bili 2.5 AST 925 ALT 759 alk phos 214. She reports not having any history of liver cirrhosis or liver problems. She does take statin for her hyperlipidemia and does use Tylenol 1-2 tablets daily for sinus headaches occasionally. She denies any daily alcohol use or any history of heavy alcohol use. She denies any abdominal pain. She does report not having a bowel movement in about 5 days. She is passing gas. Denies any nausea or vomiting. PAST MEDICAL HISTORY: See list. PAST SURGICAL HISTORY: See list. MEDICATIONS: See list. ALLERGIES: See list. SOCIAL HISTORY: No illicit drug use. REVIEW OF SYSTEMS: CONSTITUTIONAL: Denies fever or chills. HEENT: Denies blurred vision, vision changes, or eye pain. Denies hemoptysis ENDOCRINE: Denies heat or cold intolerance. CARDIOVASCULAR: Denies chest pain or pressure. RESPIRATORY: No shortness of breath. GASTROINTESTINAL: Denies abdominal pain. Denies nausea or vomiting. NEURO: Denies history of seizures. PSYCH: No depression or suicidal ideation HEMATOLOGIC: Denies bleeding disorders. LYMPHATIC: The patient denies any lumps and bumps around the neck. GENITOURINARY: Denies any blood in urine or increased urinary frequency. MUSCULOSKELETAL: Denies myalgias. Denies joint swelling. Denies decreased range of motion beyond patients baseline. SKIN: Denies pruitis. Denies rash. PHYSICAL EXAM: VITAL SIGNS: Reviewed GENERAL: Well-developed in no acute distress. HEENT: No sclera icterus. Extraocular movements grossly intact. Moist buccal mucosa. Head is atraumatic, normocephalic. Hears conversational speech. No nasal drainage. NECK: Supple without lymphadenopathy. CHEST: Non-labored respirations and equal bilateral excursions. CARDIOVASCULAR: Regular rate with regular rhythm. Palpable 2+ radial pulses. ABDOMEN: Soft. Mildly distended. Nontender MUSCULOSKELETAL: No clubbing or cyanosis. NEUROLOGIC: No focal or lateralizing signs. Cranial nerves II through XII grossly intact. PSYCH: Appropriate affect. Alert and oriented to person, place and time. SKIN: Well perfused. Good skin turgor. LABORATORY DATA: WBC 5.1 hemoglobin 14.7 Total bilirubin 2.5 AST 925 ALT 759 alk phos 214 lactate dehydrogenase 1062 CRP 11 pro-calcitonin 0.20, Covid negative Flu negative Hepatitis panel negative Heterophile antibody negative IMAGING: CTA of the chest which was negative for PE. It did show abdominal ascites and changes in the liver that were consistent with cirrhosis. Liver ultrasound shows abdominal ascites. Increased echogenicity in the liver consistent with cirrhosis and fatty infiltration. Liver is relatively small. No dilated ducts. Cholecystectomy. ASSESSMENT: 1. Acute Hepatitis 2. Liver cirrhosis 3. Constipation. No bowel movement for 5 days. 4. History of cholecystectomy 5. History of LAP-BAND procedure 2012 6. Hyperlipidemia 7. Hypertension 8. Hypothyroidism 9. GERD PLAN: -Computed tomography scan of the abdomen and pelvis with oral contrast ordered by admitting service. Will follow-up on results -Agree with GI consult for hepatitis -Continue IV fluids -Continue to follow LFTs -Discontinued Lipitor due to elevated LFTs -Further recommendations forthcoming per surgeon Thank you for this consultation Physician State Editor note has been reviewed by physician. Signing provider agrees with the documented findings, assessment, and plan of care. Past Medical History Past Medical History: GERD/Reflux, Hyperlipidemia, Hypertension, Skin Disorder, Thyroid Disorder Additional Past Medical History / Comment(s): MIGRAINES, ARRYTHMIA, SCOLIOSIS History of Any Multi-Drug Resistant Organisms: MRSA Date of last positivie culture/infection: 2009 MDRO Source:: BREAST-UNKNOWN WHICH SIDE Past Surgical History: Back Surgery, Bariatric Surgery, Bladder Surgery, Breast Surgery, Cholecystectomy, Hysterectomy Additional Past Surgical History / Comment(s): Lap band 01/23/13. Sinus surgery. COLONOSCOPY. BREAST REDUCTION. 2 RT NECK LYMPH NODES REMOVED AND SALIVARY GLAND REMOVAL Past Anesthesia/Blood Transfusion Reactions: No Reported Reaction Past Psychological History: No Psychological Hx Reported Smoking Status: Never smoker Past Alcohol Use History: None Reported Past Drug Use History: None Reported - Past Family History Daughter(s) Family Medical History: Cancer Medications and Allergies Home Medications Medication Instructions Recorded Confirmed Type Aspirin 81 mg PO Q72H 09/11/13 04/02/20 History Acebutolol HCl [Sectral] 200 mg PO BID 05/22/19 04/02/20 History Atorvastatin [Lipitor] 40 mg PO HS 05/22/19 04/02/20 History Omeprazole 20 mg PO DAILY 05/22/19 04/02/20 History Zolpidem [Ambien] 10 mg PO HS 05/22/19 04/02/20 History Levothyroxine Sodium [Euthyrox] 112 mcg PO HS 04/02/20 04/02/20 History Allergies Allergy/AdvReac Type Severity Reaction Status Date / Time No Known Allergies Allergy Verified 04/02/20 23:55 Surgical - Exam Vital Signs Temp Pulse Resp BP Pulse Ox 100.5 F H 87 18 188/97 96 04/02/20 18:56 04/02/20 18:56 04/02/20 18:56 04/02/20 18:56 04/02/20 18:56 Results - Labs 04/02/20 19:36 04/02/20 19:36 Abnormal Lab Results - Last 24 Hours (Table) 04/02/20 04/02/20 04/02/20 Range/Units 19:36 19:36 19:36 Lymphocytes # (Manual) 0.92 L (1.0-4.8) k/uL INR 1.2 H (<1.2) D-Dimer 1.10 H (<0.60) mg/L FEU BUN 18 H (7-17) mg/dL Glucose 105 H (74-99) mg/dL Ferritin 515.3 H (10.0-291.0) ng/mL Total Bilirubin 2.5 H (0.2-1.3) mg/dL AST 925 H (14-36) U/L ALT 759 H (4-34) U/L Alkaline Phosphatase 214 H (38-126) U/L Lactate Dehydrogenase 1062 H (313-618) U/L C-Reactive Protein 11.0 H (<10.0) mg/L Albumin 3.0 L (3.5-5.0) g/dL Procalcitonin (0.02-0.09) ng/mL 04/02/20 Range/Units 19:36 Lymphocytes # (Manual) (1.0-4.8) k/uL INR (<1.2) D-Dimer (<0.60) mg/L FEU BUN (7-17) mg/dL Glucose (74-99) mg/dL Ferritin (10.0-291.0) ng/mL Total Bilirubin (0.2-1.3) mg/dL AST (14-36) U/L ALT (4-34) U/L Alkaline Phosphatase (38-126) U/L Lactate Dehydrogenase (313-618) U/L C-Reactive Protein (<10.0) mg/L Albumin (3.5-5.0) g/dL Procalcitonin 0.20 H (0.02-0.09) ng/mL Diabetes panel 04/02/20 Range/Units 19:36 Sodium 139 (137-145) mmol/L Potassium 3.9 (3.5-5.1) mmol/L Chloride 107 (98-107) mmol/L Carbon Dioxide 29 (22-30) mmol/L BUN 18 H (7-17) mg/dL Creatinine 0.63 (0.52-1.04) mg/dL Glucose 105 H (74-99) mg/dL Calcium 8.6 (8.4-10.2) mg/dL AST 925 H (14-36) U/L ALT 759 H (4-34) U/L Alkaline Phosphatase 214 H (38-126) U/L Total Protein 7.2 (6.3-8.2) g/dL Albumin 3.0 L (3.5-5.0) g/dL Calcium panel 04/02/20 Range/Units 19:36 Calcium 8.6 (8.4-10.2) mg/dL Albumin 3.0 L (3.5-5.0) g/dL Pituitary panel 04/02/20 Range/Units 19:36 Sodium 139 (137-145) mmol/L Potassium 3.9 (3.5-5.1) mmol/L Chloride 107 (98-107) mmol/L Carbon Dioxide 29 (22-30) mmol/L BUN 18 H (7-17) mg/dL Creatinine 0.63 (0.52-1.04) mg/dL Glucose 105 H (74-99) mg/dL Calcium 8.6 (8.4-10.2) mg/dL Adrenal panel 04/02/20 Range/Units 19:36 Sodium 139 (137-145) mmol/L Potassium 3.9 (3.5-5.1) mmol/L Chloride 107 (98-107) mmol/L Carbon Dioxide 29 (22-30) mmol/L BUN 18 H (7-17) mg/dL Creatinine 0.63 (0.52-1.04) mg/dL Glucose 105 H (74-99) mg/dL Calcium 8.6 (8.4-10.2) mg/dL Total Bilirubin 2.5 H (0.2-1.3) mg/dL AST 925 H (14-36) U/L ALT 759 H (4-34) U/L Alkaline Phosphatase 214 H (38-126) U/L Total Protein 7.2 (6.3-8.2) g/dL Albumin 3.0 L (3.5-5.0) g/dL
--- NOTE | 2020-04-03 14:40 | HP ---
HISTORY AND PHYSICAL DATE OF SERVICE: 04/03/2020 CHIEF COMPLAINT: Abdominal pain, ascites. HISTORY OF PRESENT ILLNESS: This is a 75-year-old woman with a past history of GERD, hypertension, hyperlipidemia, history of migraines, history of bariatric surgery being followed by Dr. Yanez, saw the patient previously had a colonoscopy by Dr. Huber during which adenoma was discovered. Currently, the patient complaining of progressive abdominal distention and pain for the last one week. Patient came to [facility]. Patient had multiple abnormalities including features of hepatitis and the patient also had elevated D- dimer. The CT angio showed no evidence of pulmonary embolism, but had evidence of some ascites. The patient admitted for further evaluation and treatment. Liver cirrhosis was also suspected on the abdominal ultrasound also. There is no history of any fever, rigors. No history of headache, loss of consciousness, seizures. COVID-19 testing is negative at this time. PAST MEDICAL HISTORY: History of GERD, hypertension, hyperlipidemia, history of hypothyroidism, migraine attacks, back surgery, history of bariatric surgery. MEDICATIONS: Prior to admission, home medications are: 1. Ambien. 2. Omeprazole. 3. Levothyroxine. 4. Lipitor. 5. Aspirin. 6. Sectral. Doses are reviewed. ALLERGIES: None. FAMILY HISTORY: History of cancer in the family. SOCIAL HISTORY: No history of smoking. No alcohol. REVIEW OF SYSTEMS: ENT: No diminished vision. Diminished hearing. CARDIOLOGY: No angina. RESPIRATION: As mentioned earlier. GI: As mentioned earlier. ; No dysuria. NERVOUS SYSTEM: No numbness or weakness. ALLERGY/IMMUNOLOGY: No asthma or hayfever. MUSCULOSKELETAL: As mentioned earlier. HEMATOLOGY/ONCOLOGY: As mentioned earlier. ENDOCRINE: As mentioned earlier. HYPOTHYROID: As mentioned earlier. CONSTITUTIONAL: As mentioned earlier. DERMATOLOGY: Negative. RHEUMATOLOGY: Negative. PSYCHIATRY: As mentioned earlier. PHYSICAL EXAM: Patient is alert, oriented x3. Pulse is 72, blood pressure 143/84, respiration 18, temperature 98.1, pulse ox 96% on room air. HEENT: Conjunctivae normal. CARDIOVASCULAR SYSTEM: Breath sounds diminished at the bases, a few scattered rhonchi. NECK: No jugular venous distension. MUSCULOSKELETAL: As mentioned earlier. RESPIRATION: Breath sounds diminished at the bases, a few scattered rhonchi, no crackles. ABDOMEN: Soft, mild diffuse distention, mild diffuse tenderness also present in the lower part. Otherwise, no guarding, no rigidity. No mass palpable. LEGS: No edema, no swelling. NERVOUS SYSTEM: As mentioned earlier. Moves all 4 limbs. No focal motor deficits. LYMPHATICS: No lymph node enlargement in the neck or axillae. SKIN: No ulcer, no rashes. JOINTS: No active deformity. LABS: CBC within normal limits. D-dimer is 1.10, ferritin is 515, total bilirubin is 2.5, AST is 925, ALT 759, alkaline phosphatase 214, LDH is 1062. CRP is 11. Albumin is 3. Procalcitonin 0.2. ASSESSMENT: 1. Abdominal pain and ascites for evaluation, possible cirrhosis of the liver. 2. Elevated AST ALT and bilirubin suggestive of hepatitis of undetermined etiology. 3. COVID-19 ruled out. 4. Elevated ferritin and inflammatory markers. 5. History of gastroesophageal reflux disease. 6. Hypertension. 7. Hyperlipidemia. 8. History of colonoscopy with polyps. 9. Migraines. 10.Scoliosis. 11.History of MRSA. 12.History of back surgery. 13.History of bariatric surgery and lap band 2013. 14.Obesity with body mass index of 37. 15.FULL CODE. RECOMMENDATION: In this 75-year-old woman who presented with multiple complex medical issues, will monitor the patient closely. I would recommend to continue the current medications. I would also recommend a CT scan of the abdomen and pelvis without contrast. Gastroenterology consultation. Surgical evaluation. Otherwise, also recommend Interventional Radiology for ascitic aspiration and diagnostic testing including culture. Other than that, repeat labs will be ordered. Home medication will be continued. The exact etiology of the elevated LFTs are unknown at this time. I recommend to avoid hepatotoxic medications. A copy of this will be forwarded to Dr. Yanez who is the primary physician. MMODL / IJN: [id number] /
--- NOTE | 2020-04-03 16:18 | CT ---
EXAMINATION TYPE: CT abdomen pelvis wo con DATE OF EXAM: 04/03/2020 HISTORY: abdominal pain and constipation CT DLP: 1085.4 mGycm. Automated Exposure Control for Dose Reduction was Utilized. TECHNIQUE: CT scan of the abdomen and pelvis is performed with oral but without IV contrast. COMPARISON: Liver ultrasound from yesterday. FINDINGS: Within the limitations of a non-contrast study, the following observations are made. LUNG BASES: No significant abnormality is appreciated. LIVER/GB: Cholecystectomy clips.1 liver is heterogeneously slightly hypodense relative to spleen cons istent with mild diffuse fatty infiltration. Small amount of perihepatic ascites along the right supe rior margin. Liver size normal. No biliary dilatation. PANCREAS: Mild generalized fat replaced atrophy. SPLEEN: No significant abnormality is seen. ADRENALS: No significant abnormality is seen. KIDNEYS: No significant abnormality is seen. BOWEL: Contrast reaches level of rectum. No suspicious small or large bowel dilatation. Lap band posi tion satisfactory. GENITAL ORGANS: Uterus surgically absent or markedly atrophic. Trace free fluid pelvis axial image 79 . LYMPH NODES: No greater than 1cm abdominal or pelvic lymph nodes are appreciated. Mildly prominent bu t subcentimeter lymph nodes throughout the mesentery. OSSEOUS STRUCTURES: Demineralization osseous structures. Moderate compression fracture with vertebrop lasty L1 level with extruded cement into adjacent disc spaces. Slight scoliotic curvature on coronal images. Facet arthropathy lower lumbar spine. OTHER: No significant additional abnormality is seen. IMPRESSION: No bowel obstruction. Mild perihepatic and pelvic ascites. Diffuse fatty infiltration of liver confirmed.
--- NOTE | 2020-04-03 17:25 | P.CONS ---
History of Present Illness - Reason for Consult Consult date: 04/03/20 Elevated liver enzymes Requesting physician: Adilson E Sheet - Chief Complaint Elevated liver enzymes - History of Present Illness 75-year-old female with a medical history significant for hyperlipidemia, prior lap band, GERD, hypertension, hypo-thyroidism and prior cholecystectomy presented to the hospital due to abnormal labs in the outpatient setting. The patient reports she was having routine blood work performed and was found to have elevation in her liver enzymes and sent to the hospital for further evaluation. Liver enzymes on admission with total bilirubin 2.5, alkaline phosphatase 214, AST 925 and ALT 759, INR 1.2 with a platelet count of 150,000. On questioning the patient denies any prior history of hepatitis, any prior blood transfusions, history of cirrhosis, family history of liver disease, alcohol abuse or any other risk factors. She denies any signs or symptoms of decompensated liver disease with no prior upper GI bleed, encephalopathy or a scites. She does however report that she underwent 3 courses of antibiotics recently for treatment of sinusitis. Computed tomography scan of the liver did not show any CBD stones or dilation with a small amount of ascites and changes of the liver suggestive of possible fatty liver cannot rule out cirrhosis. Review of Systems REVIEW OF SYSTEMS: CONSTITUTIONAL: Denies any fevers, chills, weight change or fatigue. CARDIOVASCULAR: Denies any chest pain, palpitations high or low blood pressures RESPIRATORY: Denies any shortness of breath, hemoptysis or cough. GENITOURINARY: No dysuria or hematuria. MUSCULOSKELETAL: No weakness reported. SKIN: Denies any new rashes or lesions, jaundice or pallor. PSYCHIATRIC: Denies any depression or anxiety. NEUROLOGY: Denies headache, denies any new focal deficits. EARS/NOSE/THROAT: No recent hearing change, congestion, nasal discharge or sore throat, has recently received antibiotic therapy for sinusitis. EYES: No pain in eyes, discharge or change in vision. GASTROINTESTINAL: As per HPI. Past Medical History Past Medical History: GERD/Reflux, Hyperlipidemia, Hypertension, Skin Disorder, Thyroid Disorder Additional Past Medical History / Comment(s): MIGRAINES, ARRYTHMIA, SCOLIOSIS History of Any Multi-Drug Resistant Organisms: MRSA Year Discovered:: 2009 MDRO Source:: BREAST-UNKNOWN WHICH SIDE Past Surgical History: Back Surgery, Bariatric Surgery, Bladder Surgery, Breast Surgery, Cholecystectomy, Hysterectomy Additional Past Surgical History / Comment(s): Lap band 01/23/13. Sinus surgery. COLONOSCOPY. BREAST REDUCTION. 2 RT NECK LYMPH NODES REMOVED AND SALIVARY GLAND REMOVAL Past Anesthesia/Blood Transfusion Reactions: No Reported Reaction Past Psychological History: No Psychological Hx Reported Smoking Status: Never smoker Past Alcohol Use History: None Reported Past Drug Use History: None Reported - Past Family History Daughter(s) Family Medical History: Cancer Medications and Allergies Home Medications Medication Instructions Recorded Confirmed Type Aspirin 81 mg PO Q72H 09/11/13 04/02/20 History Acebutolol HCl [Sectral] 200 mg PO BID 05/22/19 04/02/20 History Atorvastatin [Lipitor] 40 mg PO HS 05/22/19 04/02/20 History Omeprazole 20 mg PO DAILY 05/22/19 04/02/20 History Zolpidem [Ambien] 10 mg PO HS 05/22/19 04/02/20 History Levothyroxine Sodium [Euthyrox] 112 mcg PO HS 04/02/20 04/02/20 History Allergies Allergy/AdvReac Type Severity Reaction Status Date / Time No Known Allergies Allergy Verified 04/02/20 23:55 Physical Exam Vitals: Vital Signs Temp Pulse Pulse Pulse Resp BP BP 04/03/20 12:22 98.1 F 72 18 143/84 04/03/20 09:42 66 04/03/20 08:45 98.3 F 66 16 128/80 04/03/20 06:53 97.6 F 70 20 119/79 04/03/20 00:56 98.6 F 72 18 140/84 04/02/20 21:01 98.3 F 74 16 141/80 04/02/20 18:56 100.5 F H 87 18 188/97 Pulse Ox 04/03/20 12:22 96 04/03/20 09:42 04/03/20 08:45 96 04/03/20 06:53 96 04/03/20 00:56 96 04/02/20 21:01 97 04/02/20 18:56 96 Intake and Output 04/02/20 04/03/20 04/03/20 22:59 06:59 14:59 Other: Voiding Method Toilet # Voids 1 1 Weight 94.801 kg 94.801 kg On physical examination, patient appears comfortable in no apparent distress. HEAD: Normocephalic, atraumatic. EYES: No scleral icterus. No conjunctival injection. MOUTH: No lesions, tongue midline. NECK: Trachea midline, no gross abnormalities. CHEST: Clear to auscultation with no wheezing or rhonchi appreciated. HEART: Regular rate and rhythm. ABDOMEN: Soft, obese. Bowel sounds are positive. No organomegaly. No guarding or rigidity. EXTREMITIES: No pedal edema. SKIN: No rashes, no jaundice. NEUROLOGIC: Alert and oriented x3, no asterixis or encephalopathy. No focal deficits. Results CBC & Chem 7: 04/02/20 19:36 04/02/20 19:36 Labs: Abnormal Lab Results - Last 24 Hours (Table) 04/02/20 04/02/20 04/02/20 Range/Units 19:36 19:36 19:36 Lymphocytes # (Manual) 0.92 L (1.0-4.8) k/uL INR 1.2 H (<1.2) D-Dimer 1.10 H (<0.60) mg/L FEU BUN 18 H (7-17) mg/dL Glucose 105 H (74-99) mg/dL Ferritin 515.3 H (10.0-291.0) ng/mL Total Bilirubin 2.5 H (0.2-1.3) mg/dL AST 925 H (14-36) U/L ALT 759 H (4-34) U/L Alkaline Phosphatase 214 H (38-126) U/L Lactate Dehydrogenase 1062 H (313-618) U/L C-Reactive Protein 11.0 H (<10.0) mg/L Albumin 3.0 L (3.5-5.0) g/dL Procalcitonin (0.02-0.09) ng/mL 04/02/20 Range/Units 19:36 Lymphocytes # (Manual) (1.0-4.8) k/uL INR (<1.2) D-Dimer (<0.60) mg/L FEU BUN (7-17) mg/dL Glucose (74-99) mg/dL Ferritin (10.0-291.0) ng/mL Total Bilirubin (0.2-1.3) mg/dL AST (14-36) U/L ALT (4-34) U/L Alkaline Phosphatase (38-126) U/L Lactate Dehydrogenase (313-618) U/L C-Reactive Protein (<10.0) mg/L Albumin (3.5-5.0) g/dL Procalcitonin 0.20 H (0.02-0.09) ng/mL CT scan - abdomen: report reviewed (Computed tomography scan of the abdomen with no evidence of CBD dilation, status post cholecystectomy with a small amount of ascites and a fatty appearing liver however cannot rule out cirrhosis.) Assessment and Plan (1) Elevated liver enzymes Narrative/Plan: 75-year-old female with multiple medical comorbidities presenting due to abnormal labs and outpatient setting which showed significantly elevated liver enzymes. On presentation total bilirubin was 2.5, alkaline phosphatase 214, AST 925 and ALT 759 with an INR of 1.2 and a platelet count of 150,000. She denies any prior history of elevated liver enzymes, viral hepatitis, cirrhosis, decompensated liver disease, or transfusions, any significant alcohol use or abuse or family history of liver disease. She does however report that she underwent 3 courses of antibiotics for a sinus infection recently. Unclear etiology, full serology as well as extensive viral studies will be ordered, however liver enzymes may be elevated in the setting of drug-induced liver injury given recent antibiotics (patient is unclear what antibiotic she did receive). Current Visit: Yes Status: Acute Code(s): R74.8 - ABNORMAL LEVELS OF OTHER SERUM ENZYMES SNOMED Code(s): 666070413 (2) Hepatitis Current Visit: Yes Status: Acute Code(s): K75.9 - INFLAMMATORY LIVER DISEASE , UNSPECIFIED SNOMED Code(s): 323138216 Plan: Supportive care Okay for diet as tolerated Continue to monitor CBC, BMP, LFTs, INR and for any evidence of encephalopathy Ultrasound and computed tomography scan of the abdomen reviewed Full liver serologies including extended viral studies ordered Acute viral hepatitis panel negative Acetaminophen level requested to be added onto admission labs Surgical service following the patient Thank you for allowing us to participate in the care of the patient we will continue to follow
[2020-04-03] MEDS: HEPARIN SODIUM,PORCINE 5,000 UNIT/ML 1 ML VIAL SQ SCH (22:07)
[2020-04-04] MEDS: PIPERACILLIN-TAZOBACTAM 3.375 GM in SODIUM CHLORIDE 0.9% 100 ML IVPB SCH ×2 (00:52→08:37)
[2020-04-04 07:51] LABS: INR 1.3 (<1.2); Prothrombin Time 13.3 sec (9.0-12.0)
[2020-04-04 07:59] LABS: ALT 632 U/L (4-34); African American GFR (CKD) >90 (>60 ml/min/1.73 sqM); Albumin 2.5 g/dL (3.5-5.0); Alkaline Phosphatase 157 U/L (38-126); Anion Gap -1 mmol/L; Blood Urea Nitrogen 15 mg/dL (7-17); Calcium 7.8 mg/dL (8.4-10.2); Carbon Dioxide 30 mmol/L (22-30); Chloride 107 mmol/L (98-107); Glucose 86 mg/dL (74-99); Non-African American GFR(CKD) 86 (>60 ml/min/1.73 sqM); Potassium 4.1 mmol/L (3.5-5.1); Sodium 136 mmol/L (137-145); Total Bilirubin 2.8 mg/dL (0.2-1.3); Total Protein 6.2 g/dL (6.3-8.2)
[2020-04-04 08:07] LABS: AST 785 U/L (14-36)
[2020-04-04] MEDS: ACEBUTOLOL HCL 200 MG PO SCH (08:38)
[2020-04-04] MEDS: PANTOPRAZOLE 40 MG TABLET PO SCH (08:38)
[2020-04-04] MEDS: HEPARIN SODIUM,PORCINE 5,000 UNIT/ML 1 ML VIAL SQ SCH (08:39)
[2020-04-04] MEDS: SODIUM CHLORIDE 0.9% 1,000 ML IV SCH (08:42)
[2020-04-04 09:05] LABS: Basophils % (A) 1 %; Eosinophils # (A) 0.1 k/uL (0-0.7); Eosinophils % (A) 3 %; HCT 41.4 % (34.0-46.0); HGB 12.9 gm/dL (11.4-16.0); Lymphocytes % (A) 32 %; MCH 30.7 pg (25.0-35.0); MCHC 31.2 g/dL (31.0-37.0); MCV 98.5 fL (80.0-100.0); Monocytes # (A) 0.5 k/uL (0-1.0); Monocytes % (A) 15 %; Neutrophils # (A) 1.5 k/uL (1.3-7.7); Neutrophils % (A) 45 %; Platelet Count 120 k/uL (150-450); RDW 14.3 % (11.5-15.5); WBC 3.2 k/uL (3.8-10.6)
[2020-04-04 09:21] VITALS: BP 138/84; PULSE 69; RESP 16; TEMP 98.7
[2020-04-04] MEDS ORDERED: PHYTONADIONE 10 MG in SODIUM CHLORIDE 0.9% 50 ML IVPB STA (11:21)
[2020-04-04 11:47] LABS: % Iron Saturation 52.99 (12.00-45.00); Iron 124 ug/dL (50-170); Total Iron Binding Capacity 234 ug/dL (228-460)
--- NOTE | 2020-04-04 12:05 | P.PN ---
Progress Note - Text Progress Note Date: 04/04/20 Patient is resting comfortably in her bed. She denies a significant bowel pain. On exam vessels are stable. Abdomen soft with evidence of ascites. No surgical intervention is planned. Patient will be managed medically.
[2020-04-04] MEDS ORDERED: PHYTONADIONE ORAL 5 MG/5 ML ORAL.SYRG PO STA (12:12)
[2020-04-04 13:25] LABS: Protein, Total 5.7 g/dL (6.2-8.2)
--- NOTE | 2020-04-04 15:57 | P.PN ---
Subjective Progress Note Date: 04/04/20 Principal diagnosis: Elevated liver enzymes Patient seen lying in bed tolerating diet. No acute complaints. No abdominal pain. Objective - Vital Signs Vital signs: Vital Signs Temp 98.7 F 04/04/20 08:35 Pulse 69 04/04/20 08:35 Resp 16 04/04/20 08:35 BP 138/84 04/04/20 08:35 Pulse Ox 95 04/04/20 08:35 Intake & Output 04/03/20 04/04/20 04/04/20 18:59 06:59 18:59 Intake Total 600 Balance 600 Intake: Oral 600 Other: Voiding Method Toilet Toilet # Voids 1 2 1 # Bowel Movements 1 - Exam On physical examination, patient appears comfortable in no apparent distress. HEAD: Normocephalic, atraumatic. EYES: No scleral icterus. No conjunctival injection. MOUTH: No lesions, tongue midline. NECK: Trachea midline, no gross abnormalities. CHEST: Clear to auscultation with no wheezing or rhonchi appreciated. HEART: Regular rate and rhythm. ABDOMEN: Soft, obese. Bowel sounds are positive. No organomegaly. No guarding or rigidity. EXTREMITIES: No pedal edema. SKIN: No rashes, no jaundice. NEUROLOGIC: Alert and oriented x3. No focal deficits. - Labs CBC & Chem 7: 04/04/20 07:27 04/04/20 07:27 Labs: Abnormal Lab Results - Last 24 Hours (Table) 04/04/20 04/04/20 04/04/20 Range/Units 07:27 07:27 07:27 WBC 3.2 L (3.8-10.6) k/uL Plt Count 120 L (150-450) k/uL PT 13.3 H (9.0-12.0) sec INR 1.3 H (<1.2) Sodium 136 L (137-145) mmol/L Calcium 7.8 L (8.4-10.2) mg/dL Total Bilirubin 2.8 H (0.2-1.3) mg/dL AST 785 H (14-36) U/L ALT 632 H (4-34) U/L Alkaline Phosphatase 157 H (38-126) U/L Total Protein 6.2 L (6.3-8.2) g/dL Albumin 2.5 L (3.5-5.0) g/dL Microbiology - Last 24 Hours (Table) 04/02/20 19:36 Blood Culture - Preliminary Blood No Growth after 24 hours Assessment and Plan (1) Elevated liver enzymes Narrative/Plan: 75-year-old female with multiple medical comorbidities presenting due to abnormal labs and outpatient setting which showed significantly elevated liver enzymes. On presentation total bilirubin was 2.5, alkaline phosphatase 214, AST 925 and ALT 759 with an INR of 1.2 and a platelet count of 150,000. She denies any prior history of elevated liver enzymes, viral hepatitis, cirrhosis, decompensated liver disease, or transfusions, any significant alcohol use or abuse or family history of liver disease. She does however report that she underwent 3 courses of antibiotics for a sinus infection recently. Unclear etio logy, full serology as well as extensive viral studies will be ordered, however liver enzymes may be elevated in the setting of drug-induced liver injury given recent antibiotics (patient is unclear what antibiotic she did receive). Status: Acute Code(s): R74.8 - ABNORMAL LEVELS OF OTHER SERUM ENZYMES SNOMED Code(s): 390885764 (2) Hepatitis Status: Acute Code(s): K75.9 - INFLAMMATORY LIVER DISEASE, UNSPECIFIED SNOMED Code(s): 066220494 Plan: Supportive care Okay for diet as tolerated Continue to monitor CBC, BMP, LFTs, INR and for any evidence of encephalopathy Ultrasound and computed tomography scan of the abdomen reviewed Full liver serologies including extended viral studies ordered and pending Acute viral hepatitis panel negative Acetaminophen level negative Surgical service following the patient Patient asking for discharge, recommend follow-up with the GI clinic in 1 week for further management if discharged Thank you for allowing us to participate in the care of the patient we will continue to follow
[2020-04-04 18:16] LABS: Alpha Fetoprotein, Tumor Mkr 9.2 ng/mL (0.0-7.9)
--- NOTE | 2020-04-05 09:16 | DS ---
DISCHARGE SUMMARY FINAL DIAGNOSES: 1. Abdominal pain with ascites for evaluation of possible cirrhosis of the liver or chronic liver disease. 2. Elevated AST, ALT, bilirubin suggestive of hepatitis of undetermined etiology, rule out cirrhosis liver or chronic liver disease. 3. COVID-19 ruled out. 4. Elevated ferritin and inflammatory markers. 5. History of gastroesophageal reflux disease. 6. Hypertension. 7. Hyperlipidemia. 8. History of colonoscopy with polyps. 9. History of migraine. 10.History of scoliosis. 11.History of MRSA. 12.History of back surgery. 13.History of bariatric surgery and lap band in 2013. 14.Obesity with body mass index of 37. 15.FULL CODE. DISCHARGE DISPOSITION: The patient will be discharge in a stable condition with guarded prognosis: Total time taken 35 minutes. HISTORY OF PRESENT ILLNESS: This is a 75-year-old woman with a past medical history of multiple medical problems followed by Dr. Yanez in the outpatient setting. The patient had abdominal pain. The patient had features of elevated LFTs and some features of cirrhosis of the liver. The patient was seen by Surgery and Gastroenterology. LFTs are showing diminishing trend. The AST is 785 and ALT is 632 and total bilirubin is 2.8. Recommend the patient avoid Lipitor and hepatotoxic medication. Acute hepatitis panel. Influenza and COVID tests are negative. On exam, vitals are stable. CARDIOVASCULAR: S1, S2. ABDOMEN: Soft, nontender. NERVOUS SYSTEM: No focal deficits. DISCHARGE ADVICE: 1. Diet is cardiac diet. 2. Followup with Dr. Yanez in 1-2 days. 3. Follow up with Dr. Whelan in 1 week for surgery as recommended. 4. Follow up labs CBC, CMP in the outpatient setting. MEDICATIONS: Are as follows: 1. Aspirin 81 mg daily. 2. Levothyroxine 112 mcg p.o. q.h.s. 3. Sectral 200 mg p.o. b.i.d. 4. Ambien p.r.n. 5. Protonix 40 mg p.o. b.i.d. 6. Hold Lipitor 40 mg q.h.s. and continue to monitor the CBC, CMP in the outpatient setting. Once again, the patient will be discharged in a stable condition with guarded prognosis. MMODL / IJN: [id number] /
[2020-04-05 10:50] LABS: Ceruloplasmin 23.3 mg/dL (20.0-60.0)
[2020-04-05 13:37] LABS: HIV 2 AB Non-Reactive (Non-Reactive); HIV AB P24 Non-Reactive (Non-Reactive); HIV P24 AG Non-Reactive (Non-Reactive)
[2020-04-08 02:30] LABS: Herpes simplex I and/or II IgM 0.84 INDEX (<=0.90)
[2020-04-08 03:26] LABS: EBV - VCA IgM 27.7 U/mL (<36.0)
== END 2020-04-04 15:30 | disposition home or self-care (01) | DRG 433 ==
LOC: EC 18:44 → 6PED 21:26
PROVIDERS: ADMIT Internal Medicine; ATTEND Internal Medicine
DX: K74.60 Unspecified cirrhosis of liver (principal); R18.8 Other ascites; Z20.828 Contact with and (suspected) exposure to other viral communicable diseases; K21.9 Gastro-esophageal reflux disease without esophagitis; E66.9 Obesity, unspecified; G43.909 Migraine, unspecified, not intractable, without status migrainosus; E78.5 Hyperlipidemia, unspecified; E03.9 Hypothyroidism, unspecified; M41.9 Scoliosis, unspecified; K75.9 Inflammatory liver disease, unspecified; M19.90 Unspecified osteoarthritis, unspecified site; K59.00 Constipation, unspecified; R79.89 Other specified abnormal findings of blood chemistry; I10 Essential (primary) hypertension; Z68.37 Body mass index [BMI] 37.0-37.9, adult; Z79.82 Long term (current) use of aspirin; Z79.890 Hormone replacement therapy; Z86.14 Personal history of Methicillin resistant Staphylococcus aureus infection; Z80.9 Family history of malignant neoplasm, unspecified; Z79.899 Other long term (current) drug therapy; Z90.49 Acquired absence of other specified parts of digestive tract; Z90.710 Acquired absence of both cervix and uterus; Z98.84 Bariatric surgery status; Z98.890 Other specified postprocedural states; Z86.010 Personal history of colon polyps
CPT/HCPCS: 36415; 71045; 71275; 74176; 76705; 80053; 80074; 80329; 82103; 82105; 82390; 82728; 83516; 83540; 83550; 83605; 83615; 83735; 84145; 84165; 85025; 85379; 85610; 85730; 86038; 86140; 86308; 86376; 86645; 86665; 86694; 87040; 87390; 87502; 87635; 93005; 96360; 96361; 99285

== ENCOUNTER → 2021-05-28 | Outpatient (CLI) | payer MEDICARE, OTHER ==
--- NOTE | 2021-05-29 09:29 | MM ---
Reason for exam: screening (asymptomatic). Last mammogram was performed 1 year and 2 months ago. History: Patient is postmenopausal. Reductions of both breasts, 2008. Excisional biopsy of the right breast, 2000. Took estrogen for 5 years 6 months. Took progesterone for 5 years 6 months. Physical Findings: A clinical breast exam by your physician is recommended on an annual basis and results should be correlated with mammographic findings. MG 3D Screening Mammo W/Cad Bilateral CC and MLO view(s) were taken. Prior study comparison: March 14, 2020, bilateral MG 3d screening mammo w/cad. October 19, 2018, bilateral MG 3d screening mammo w/cad. Finding: New equal architectural distortion in the anterior position of the left breast on CC view. New finding since March 14, 2020 and October 19, 2018. ASSESSMENT: Incomplete: need additional imaging evaluation, BI-RAD 0 RECOMMENDATION: Special view mammogram of the left breast. (compression, standard ML) If lesion persists on supplemental views, image directed ultrasound is recommended. [facility] will attempt to contact patient to return for supplemental views and ultrasound if indicated.
== END | disposition home or self-care (01) ==
LOC: RADMAMWWP 07:24
PROVIDERS: ATTEND Family Medicine
DX: Z12.31 Encounter for screening mammogram for malignant neoplasm of breast (principal); Z78.0 Asymptomatic menopausal state
CPT/HCPCS: 77063; 77067

== ENCOUNTER → 2021-06-04 | Outpatient (CLI) | payer MEDICARE, OTHER ==
--- NOTE | 2021-06-04 11:03 | MM ---
Reason for exam: additional evaluation requested from abnormal screening. Last mammogram was performed less than 1 month ago. History: Patient is postmenopausal. Family history of breast cancer in paternal grandmother. Reductions of both breasts, 2008. Excisional biopsy of the right breast, 2000. Took estrogen for 10 years. Took progesterone for 10 years. Physical Findings: Nurse did not find any significant physical abnormalities on exam. MG 3D Work Up W/Cad LT Spot compression CC, spot compression LM, and LM view(s) were taken of the left breast. Prior study comparison: May 28, 2021, bilateral MG 3d screening mammo w/cad. March 14, 2020, bilateral MG 3d screening mammo w/cad. There are scattered fibroglandular densities. There is no discrete abnormality including area of concern. Post reduction scarring noted. These results were verbally communicated with the patient and result sheet given to the patient on 06/04/21. ASSESSMENT: Benign, BI-RAD 2 RECOMMENDATION: Return to routine screening mammogram schedule for both breasts.
== END | disposition home or self-care (01) ==
LOC: RADMAMWWP 08:12
PROVIDERS: ATTEND Family Medicine
DX: R92.8 Other abnormal and inconclusive findings on diagnostic imaging of breast (principal); Z78.0 Asymptomatic menopausal state; Z80.3 Family history of malignant neoplasm of breast
CPT/HCPCS: 77065; G0279; 77061

== ENCOUNTER 2021-08-06 08:33 | Day surgery (SDC) | payer MEDICARE, OTHER ==
[2021-08-04 12:56] VITALS: BMI 40.4
--- NOTE | 2021-08-06 08:15 | P.GSHP ---
History of Present Illness H&P Date: 08/06/21 CHIEF COMPLAINT: Colon screen HISTORY OF PRESENT ILLNESS: The patient is a 76-year-old female who presents for colon screen. Lower endoscopy was offered for further evaluation and management. PAST MEDICAL HISTORY: Please see list. PAST SURGICAL HISTORY: Please see list. MEDICATIONS: Please see list. ALLERGIES: Please see list. SOCIAL HISTORY: No illicit drug use FAMILY HISTORY: No reports of Crohn disease or ulcerative colitis. REVIEW OF ORGAN SYSTEMS: CONSTITUTIONAL: No reports of fevers or chills. PHYSICAL EXAM: VITAL SIGNS: Stable GENERAL: Well-developed pleasant in no acute distress. HEENT: No scleral icterus. Extraocular movements grossly intact. Moist buccal mucosa. NECK: Supple without lymphadenopathy. CHEST: Unlabored respirations. Equal bilateral excursions. CARDIOVASCULAR: Regular rate and rhythm. Distal 2+ pulses. ABDOMEN: Soft, nontender, nondistended. MUSCULOSKELETAL: No clubbing, cyanosis, or edema. ASSESSMENT: 1. Colon screen. PLAN: 1. Recommend proceeding with a lower endoscopy Past Medical History Past Medical History: GERD/Reflux, Hyperlipidemia, Hypertension, Liver Disease, Musculoskeletal Disorder, Osteoarthritis (OA), Thyroid Disorder Additional Past Medical History / Comment(s): MIGRAINES, ARRYTHMIA, SCOLIOSIS, hx colon polyps, hx elevated liver enzymes - sees Dr at [facility]. History of Any Multi-Drug Resistant Organisms: MRSA Date of last positivie culture/infection: 2009 MDRO Source:: BREAST-UNKNOWN WHICH SIDE Past Surgical History: Back Surgery, Bariatric Surgery, Bladder Surgery, Breast Surgery, Cholecystectomy, Hysterectomy Additional Past Surgical History / Comment(s): Lap band 01/23/13, sinus surgery, bladder suspension, COLONOSCOPY, BREAST REDUCTION, 2 RT NECK LYMPH NODES REMOVED AND SALIVARY GLAND REMOVAL. Past Anesthesia/Blood Transfusion Reactions: No Reported Reaction Past Psychological History: No Psychological Hx Reported Smoking Status: Never smoker Past Alcohol Use History: Occasional Past Drug Use History: None Reported - Past Family History Daughter(s) Family Medical History: Cancer Medications and Allergies Home Medications Medication Instructions Recorded Confirmed Type Acebutolol HCl [Sectral] 200 mg PO BID 05/22/19 08/04/21 History Levothyroxine Sodium [Euthyrox] 112 mcg PO HS 04/02/20 08/04/21 History Cholecalciferol [Vitamin D3 (25 4,000 unit PO DAILY 06/30/21 08/04/21 History Mcg = 1000 Iu)] Furosemide [Lasix] 20 mg PO DAILY PRN 06/30/21 08/04/21 History Ibuprofen [Motrin] 800 mg PO Q6H PRN 06/30/21 08/04/21 History Multivitamins, Thera [Multivitamin 1 tab PO DAILY 06/30/21 08/04/21 History (formulary)] Pantoprazole [Protonix] 40 mg PO QAM 06/30/21 08/04/21 History diphenhydrAMINE [Benadryl] 25 mg PO HS PRN 06/30/21 08/04/21 History Allergies Allergy/AdvReac Type Severity Reaction Status Date / Time No Known Allergies Allergy Verified 08/04/21 12:49
[2021-08-06] MEDS: LACTATED RINGERS 1,000 ML IV SCH ×2 (09:26→10:10)
[2021-08-06] MEDS ORDERED: LIDOCAINE 1% (10MG/ML) FOR IV START INTRADERMA ONE (09:26)
[2021-08-06 09:33] VITALS: RESP 16; TEMP 98.4
[2021-08-06] MEDS ORDERED: PROPOFOL 10 MG/ML 20 ML VIAL IV ONE (10:14)
[2021-08-06 10:59] VITALS: BP 134/75; PULSE 72
--- NOTE | 2021-08-08 22:11 | P.PCN ---
Date of Procedure: 08/06/21 Description of Procedure: PREOPERATIVE DIAGNOSIS: Personal history of colon polyps Family history malignant colon polyps Colonoscopy screening POSTOPERATIVE DIAGNOSIS: Personal history of colon polyps Family history malignant colon polyps Colonoscopy screening Tubular adenoma hepatic flexure Tubular adenoma transverse colon Tubular adenoma at rectum Sigmoid diverticulosis OPERATION: Colonoscopy to the ileocecal valve and appendiceal orifice, cecum Colonoscopy with hot snare polypectomy SURGEON: Giovanna Huber MD. ANESTHESIA: MAC. INDICATIONS: The patient is 76-year-old female who presents family history of malignant colon polyps and personal history of colon polyps. Her last colonoscopy was 5 years ago. Benefits and risks were described and informed consent was obtained. DESCRIPTION OF PROCEDURE: The patient had undergone Sutab prep. The patient had been brought into the operating room and laid in the left lateral decubitus position. After adequate intravenous sedation, the rectum was examined with 2% lidocaine jelly. No external hemorrhoids were encountered. The rectal tone was within normal limits. No lesions were palpated in the rectal vault. An Olympus colonoscope was advanced until the cecum, ileocecal valve and appendiceal orifice were clearly viewed. The prep was fair. Sigmoid diverticulosis was encountered. Colonic polyps were found and removed. No evidence of focal colitis was found. Retroflexion of the scope demonstrated grade 1 internal hemorrhoids without active bleeding or inflammation. The colon was desufflated. The patient had tolerated the procedure well. Withdrawal time was over 6 minutes. FINDINGS: Aronchick preparation quality scale 2 (1-5) Internal hemorrhoids, grade 1 No external hemorrhoids No arteriovenous malformations. Sigmoid diverticulosis Removal of 3 polyps: - Snare polypectomy at transverse colon, 5 mm tubulovillous adenoma polyp. - Snare polypectomy at hepatic flexure, 8 mm flat villous adenoma polyp. - Snare polypectomy at 10 cm from the anal verge, 4 mm flat villous adenoma polyp at rectum. No focal colitis. RECOMMENDATIONS: Repeat colonoscopy in 3 years, 2024. Plan - Discharge Summary Discharge Rx Participant: No New Discharge Prescriptions: Continue Acebutolol HCl [Sectral] 200 mg PO BID Levothyroxine Sodium [Euthyrox] 112 mcg PO HS Cholecalciferol [Vitamin D3 (25 Mcg = 1000 Iu)] 4,000 unit PO DAILY Pantoprazole [Protonix] 40 mg PO QAM Multivitamins, Thera [Multivitamin (formulary)] 1 tab PO DAILY diphenhydrAMINE [Benadryl] 25 mg PO HS PRN PRN Reason: allergies Ibuprofen [Motrin] 800 mg PO Q6H PRN PRN Reason: Pain Furosemide [Lasix] 20 mg PO DAILY PRN PRN Reason: Edema Discharge Medication List Acebutolol HCl [Sectral] 200 mg PO BID 05/22/19 [History] Levothyroxine Sodium [Euthyrox] 112 mcg PO HS 04/02/20 [History] Cholecalciferol [Vitamin D3 (25 Mcg = 1000 Iu)] 4,000 unit PO DAILY 06/30/21 [History] Furosemide [Lasix] 20 mg PO DAILY PRN 06/30/21 [History] Ibuprofen [Motrin] 800 mg PO Q6H PRN 06/30/21 [History] Multivitamins, Thera [Multivitamin (formulary)] 1 tab PO DAILY 06/30/21 [History] Pantoprazole [Protonix] 40 mg PO QAM 06/30/21 [History] diphenhydrAMINE [Benadryl] 25 mg PO HS PRN 06/30/21 [History] Follow up Appointment(s)/Referral(s): Giovanna Huber MD [STAFF PHYSICIAN] - As Needed Patient Instructions/Handouts: *Surgery [facility] - (Anesthesia) Endoscopy Discharge Instructions, Diverticulosis (DC), Colorectal Polyps (GEN), Diverticulosis Diet (GEN) Activity/Diet/Wound Care/Special Instructions: Repeat colonoscopy in 3 years, 2024 Discharge Disposition: HOME SELF-CARE
== END 2021-08-06 11:30 | disposition home or self-care (01) ==
LOC: ORWHC2ENDO 08:33
PROVIDERS: ATTEND Surgery Plastic and Reconstructive Surgery
DX: Z12.11 Encounter for screening for malignant neoplasm of colon (principal); K63.5 Polyp of colon; Z86.010 Personal history of colon polyps; Z80.0 Family history of malignant neoplasm of digestive organs; K57.30 Diverticulosis of large intestine without perforation or abscess without bleeding; I10 Essential (primary) hypertension; K21.9 Gastro-esophageal reflux disease without esophagitis; E78.5 Hyperlipidemia, unspecified; K76.9 Liver disease, unspecified; M19.90 Unspecified osteoarthritis, unspecified site; E07.9 Disorder of thyroid, unspecified; Z90.49 Acquired absence of other specified parts of digestive tract; Z98.84 Bariatric surgery status; Z80.9 Family history of malignant neoplasm, unspecified
CPT/HCPCS: 88305; 45385; J2704

== ENCOUNTER → 2022-09-02 | Outpatient (CLI) | payer MEDICARE, OTHER ==
[2022-09-02 15:53] VITALS: BP 155/96; PULSE 84; TEMP 98.4; BMI 36.6
--- NOTE | 2022-09-02 16:06 | P.HPBAR ---
Bariatric H&P - History & Physicial H&P Date: 09/02/22 History & Physicial: Visit/CC: lap band Patient initial contact: Initial weight: 98.248 kg Initial weight in pounds: 216.60 Height: 5 ft 4 in Initial BMI: 37.1 Last weight: Current weight: 96.615 kg Current weight in pounds: 213.00 Current BMI: 36.6 [place] body weight (based on NIH guidelines): 54.431 kg Excess body weight loss: 3.7% The patient is a 77 year-old F who presents for Bariatric Assessment. She is looking to have her band out. She reports troubles with her band and is seeking removal. Band has been present for more than 8 to 10 years. Past Medical History Past Medical History: GERD/Reflux, Hyperlipidemia, Hypertension, Skin Disorder, Thyroid Disorder Additional Past Medical History / Comment(s): MIGRAINES, ARRYTHMIA, SCOLIOSIS History of Any Multi-Drug Resistant Organisms: MRSA Year Discovered:: 2009 MDRO Source:: BREAST-UNKNOWN WHICH SIDE Past Surgical History: Back Surgery, Bariatric Surgery, Bladder Surgery, Breast Surgery, Cholecystectomy, Hysterectomy Additional Past Surgical History / Comment(s): Lap band 01/23/13. Sinus surgery. COLONOSCOPY. BREAST REDUCTION. 2 RT NECK LYMPH NODES REMOVED AND SALIVARY GLAND REMOVAL Past Anesthesia/Blood Transfusion Reactions: No Reported Reaction Past Psychological History: No Psychological Hx Reported Smoking Status: Never smoker Past Alcohol Use History: None Reported Past Drug Use History: None Reported - Past Family History Daughter(s) Family Medical History: Cancer Surgical - Exam Vital Signs Temp Pulse BP 98.4 F 84 155/96 09/02/22 15:44 09/02/22 15:44 09/02/22 15:44 Bariatric Checklist Checklist: Plan: Checklist: EGD: 1. Hiatal hernia: 2. H. Pylori: HgbA1c: Vitamin D: Smoking: Never smoker Primary care physician referral: Dr Yanez Psychiatry clearance: Cardiology clearance: Sleep study: Diet journal: VTE risk score: VTE risk level: Rehab needs at discharge:
== END ==
LOC: BARWHC3 14:34
PROVIDERS: ATTEND Surgery Plastic and Reconstructive Surgery
DX: E66.01 Morbid (severe) obesity due to excess calories (principal); Z68.36 Body mass index [BMI] 36.0-36.9, adult; K21.9 Gastro-esophageal reflux disease without esophagitis; E78.5 Hyperlipidemia, unspecified; I10 Essential (primary) hypertension
CPT/HCPCS: 99211

== ENCOUNTER → 2022-09-09 | Outpatient (CLI) | payer MEDICARE, OTHER ==
--- NOTE | 2022-09-10 09:20 | MM ---
Reason for Exam: Screening (asymptomatic). Last mammogram was performed 1 year(s) and 4 month(s) ago. Patient History: Menarche at age 13. First Full-Term at age 21. Left ovary removed at age 69. Right ovary removed at age 69. Hysterectomy at age 69. Postmenopausal. Patient used Estrogen for 10 years. Patient used Progesterone for 10 years. 2008, Bilateral Reduction. 2000, Excisional Biopsy on the Right side. Paternal grandmother had breast cancer. Risk Values: Rola 5 year model risk: 1.9%. NCI Lifetime model risk: 3.8%. Prior Study Comparison: 03/14/2020 Bilateral Screening Mammogram, [facility]. 05/28/2021 Bilateral Screening Mammogram, [facility]. 06/04/2021 Left Diagnostic Mammogram, [facility]. Tissue Density: There are scattered fibroglandular densities. Findings: Analyzed By CAD. There are a few scattered small benign-appearing round and dystrophic calcifications bilaterally redemonstrated. Stable distortion in the outer aspect right breast stable distortion inferiorly in the left breast. There is Prominent vessel in the inferior outer left breast near skin lesion. There is no suspicious new group of microcalcifications or new suspicious mass in either breast. Overall Assessment: Benign, BI-RAD 2 Management: Screening Mammogram of both breasts in 1 year. . Patient should continue monthly self-breast exams. A clinical breast exam by your physician is recommended on an annual basis. This exam should not preclude additional follow-up of suspicious palpable abnormalities. Note on Rola scores and lifetime risk: 1. A Rola score greater than 3% is considered moderate risk. If this is the case, consider specialist referral to assess eligibility for a risk reducing agent. 2. If overall lifetime risk for the development of breast cancer is 20% or higher, the patient may qualify for future screening with alternating mammogram and breast MRI. Electronically signed and approved by: Omari Villegas M.D.
== END | disposition home or self-care (01) ==
LOC: RADMAMWWP 13:20
PROVIDERS: ATTEND Family Medicine
DX: Z12.31 Encounter for screening mammogram for malignant neoplasm of breast (principal); Z78.0 Asymptomatic menopausal state; Z80.3 Family history of malignant neoplasm of breast
CPT/HCPCS: 77063; 77067

== ENCOUNTER → 2022-10-07 | Outpatient (CLI) | payer MEDICARE, OTHER ==
[2022-10-07 15:38] VITALS: BP 137/83; PULSE 79; TEMP 98.5; BMI 34.3
--- NOTE | 2022-10-07 16:16 | P.BASOAP ---
Subjective Progress Note Date: 10/07/22 She is losing weight. EKG reviewed. Her port is present. Recommend port removal. Objective - Vital Signs Vital signs: Vital Signs Temp 98.5 F 10/07/22 15:35 Pulse 79 10/07/22 15:35 Resp BP 137/83 10/07/22 15:35 Pulse Ox FiO2 Intake & Output 10/06/22 10/07/22 10/07/22 18:59 06:59 18:59 Weight 90.718 kg Assessment/Plan Plan: Date: 10/07/22 Initial Weight: 98.248 kg Initial BMI: 37.1 Current Weight: 90.718 kg Current BMI: 34.3 Type of Surgery: Total Volume in Band: 9 Previous Volume: Volume Removed: Volume Added: Band Size:
== END ==
LOC: BARWHC3 14:53
PROVIDERS: ATTEND Surgery Plastic and Reconstructive Surgery
DX: E66.01 Morbid (severe) obesity due to excess calories (principal); Z68.34 Body mass index [BMI] 34.0-34.9, adult
CPT/HCPCS: 99211

== ENCOUNTER → 2022-10-07 | Outpatient (CLI) | payer MEDICARE, OTHER ==
[2022-10-08 02:15] LABS: African American GFR (CKD) 97.5 (60.0-200.0); Albumin 3.5 g/dL (3.8-4.9); Albumin/Globulin Ratio 1.35 (1.60-3.17); Anion Gap 8.1 mmol/L (10.00-18.00); BUN/Creat Ratio 26.14 Ratio (12.00-20.00); Blood Urea Nitrogen 18.3 mg/dL (9.0-27.0); Calcium 8.9 mg/dL (8.7-10.3); Carbon Dioxide 31.9 mmol/L (20.0-27.5); Globulin 2.6 g/dL (1.6-3.3); Non-African American GFR(CKD) 84.2 (60.0-200.0); Potassium 4.3 mmol/L (3.5-5.5); Total Bilirubin 1.7 mg/dL (0.30-1.20); Total Protein 6.1 g/dL (6.2-8.2)
[2022-10-08 02:19] LABS: Basophils # (A) 0.03 X 10*3/uL (0.00-0.10); Basophils % (A) 0.5 %; Eosinophils # (A) 0.13 X 10*3/uL (0.04-0.35); Eosinophils % (A) 2.3 %; HCT 42.4 % (37.2-46.3); HGB 13.8 g/dL (12.0-15.0); Immature Grans, Automated 0.2 %; Lymphocytes # (A) 0.74 X 10*3/uL (0.90-5.00); MCH 33.9 pg (27.0-32.0); MCHC 32.5 g/dL (32.0-37.0); MCV 104.2 fL (80.0-97.0); Monocytes % (A) 17.6 %; NRBC Per 100 WBC 0 /100 WBCS (0.0-0.0); Neutrophils # (A) 3.77 X 10*3/uL (1.80-7.70); Neutrophils % (A) 66.4 %; Platelet Count 108 X 10*3/uL (140-440); RBC 4.07 X 10*6/uL (4.10-5.20); RDW 14.5 % (11.5-14.5); WBC 5.68 X 10*3/uL (4.50-10.00)
== END | disposition home or self-care (01) ==
LOC: LABPAT 16:23
PROVIDERS: ATTEND Surgery Plastic and Reconstructive Surgery
DX: Z01.812 Encounter for preprocedural laboratory examination (principal)
CPT/HCPCS: 80053; 85025

== ENCOUNTER → 2022-11-24 | Outpatient (CLI) | payer MEDICARE, OTHER ==
[2022-11-24 13:53] LABS: African American GFR (CKD) >90 (>60 ml/min/1.73 sqM); Blood Urea Nitrogen 16 mg/dL (7-17); Non-African American GFR(CKD) 89 (>60 ml/min/1.73 sqM)
--- NOTE | 2022-11-24 23:17 | CT ---
EXAMINATION TYPE: CT chest w con DATE OF EXAM: 11/24/2022 COMPARISON: Chest x-ray 09/10/2022 HISTORY: h/o pneumonia CT DLP: 716 mGycm, Automated exposure control for dose reduction was used. CONTRAST: Performed injected with 100 mL of Isovue 300. TECHNIQUE: Axial images were obtained at 5 mm thick sections. Reconstructed images are reviewed on [employer] computer in the coronal plane. FINDINGS: Portion of the thyroid visualized is normal. There is elevation of the right diaphragm. There is some streak opacities at the lung bases. Correlat e for atelectasis. No suspicious lung nodules or focal infiltrates are present. No enlarged mediastinal or hilar adenopathy is evident. The ascending aorta diameter at the level o f the main pulmonary artery is 3.4 cm. The main pulmonary artery diameter at the bifurcation is 2.[address] sections are obtained through the upper abdomen. Ascites is present. There is some lobatio n of the liver. Consider cirrhosis. IMPRESSIONS: 1. Mild streak atelectasis bilateral lung bases. 2. Elevation of the right diaphragm. 3. Ascites
== END | disposition home or self-care (01) ==
LOC: RADCTMAIN 12:27
PROVIDERS: ATTEND Internal Medicine
DX: J98.11 Atelectasis (principal); J98.6 Disorders of diaphragm; J18.9 Pneumonia, unspecified organism; R18.8 Other ascites
CPT/HCPCS: 82565; 84520; 71260; 36415; Q9967

== ENCOUNTER → 2022-12-16 | Outpatient (CLI) | payer MEDICARE, OTHER ==
[2022-12-16 10:12] VITALS: BP 137/86; PULSE 109; TEMP 98; BMI 35.2
--- NOTE | 2022-12-17 21:57 | P.BASOAP ---
Subjective Progress Note Date: 12/16/22 Patient presents complaining of increased abdominal swelling. CT of the abdomen and pelvis which demonstrated moderate abdominal ascites including severe liver cirrhosis. Recommend follow-up with a pharmacy cashier due to accelerated liver disease. Also, removal of adjustable gastric band is now contraindicated in light of acute liver disease. Do recommend close management of her primary care provider. Recommend follow-up as needed. Again elective surgical removal of adjustable gastric band contraindicated with accelerated liver disease. Objective - Vital Signs Vital signs: Vital Signs Temp 98 F 12/16/22 10:03 Pulse 109 H 12/16/22 10:03 Resp BP 137/86 12/16/22 10:03 Pulse Ox FiO2 Assessment/Plan Plan: Date: 12/16/22 Initial Weight: 98.248 kg Initial BMI: 37.1 Current Weight: 92.986 kg Current BMI: 35.2 Type of Surgery: Total Volume in Band: 9 Previous Volume: Volume Removed: Volume Added: Band Size:
== END ==
LOC: BARWHC3 09:48
PROVIDERS: ATTEND Surgery Plastic and Reconstructive Surgery
DX: Z53.9 Procedure and treatment not carried out, unspecified reason (principal)
CPT/HCPCS: 99211

== ENCOUNTER 2023-01-18 12:08 | Inpatient (IN) | payer MEDICARE, OTHER ==
[2023-01-18 13:11] LABS: ALT 15 U/L (4-34); AST 30 U/L (14-36); African American GFR (CKD) >90 (>60 ml/min/1.73 sqM); Albumin 3.4 g/dL (3.5-5.0); Alkaline Phosphatase 50 U/L (38-126); Anion Gap 8 mmol/L; Blood Urea Nitrogen 21 mg/dL (7-17); Calcium 8.7 mg/dL (8.4-10.2); Carbon Dioxide 33 mmol/L (22-30); Chloride 99 mmol/L (98-107); Glucose 121 mg/dL (74-99); Non-African American GFR(CKD) 85 (>60 ml/min/1.73 sqM); Sodium 140 mmol/L (137-145); Total Bilirubin 2.3 mg/dL (0.2-1.3); Total Protein 6.9 g/dL (6.3-8.2)
[2023-01-18 13:20] LABS: Basophils % (A) 0 %; Eosinophils # (A) 0.1 k/uL (0-0.7); Eosinophils % (A) 1 %; HCT 48.5 % (34.0-46.0); HGB 15.5 gm/dL (11.4-16.0); Hypochromasia Slight; Lymphocytes # (A) 0.6 k/uL (1.0-4.8); Lymphocytes % (A) 9 %; MCH 34.2 pg (25.0-35.0); Macrocytosis Marked; Mean Platelet Volume 7.8; Monocytes # (A) 0.7 k/uL (0-1.0); Monocytes % (A) 11 %; NT-Pro-B-Type Natriuretic Pept 723 pg/mL; Neutrophils % (A) 78 %; Platelet Count 148 k/uL (150-450); RBC 4.53 m/uL (3.80-5.40); RDW 15.1 % (11.5-15.5); WBC 6.5 k/uL (3.8-10.6)
--- NOTE | 2023-01-18 13:29 | ED ---
General Adult HPI - General Chief complaint: Shortness of Breath Stated complaint: liver/SOB Time Seen by Provider: 01/18/23 13:10 Source: patient, RN notes reviewed, old records reviewed Mode of arrival: ambulatory Limitations: no limitations - History of Present Illness Initial comments: 78-year-old female presents for evaluation of progressive dyspnea, and abdominal distention. Patient states her symptoms have progressed over the past several months. She reports a cough which is been present for the past 4 months she reports this is dry nature. She also has had increasing abdominal distention and states she had an outpatient CAT scan showing abdominal ascites. She reports bilateral lower extremity edema. No fever. No central chest pain. - Related Data Home Medications Medication Instructions Recorded Confirmed Levothyroxine Sodium [Euthyrox] 112 mcg PO HS 04/02/20 12/16/22 Cholecalciferol [Vitamin D3 (25 2,000 unit PO DAILY 06/30/21 12/16/22 Mcg = 1000 Iu)] Furosemide [Lasix] 20 mg PO DAILY PRN 06/30/21 12/16/22 Ibuprofen [Motrin] 800 mg PO Q6H PRN 06/30/21 12/16/22 Multivitamins, Thera [Multivitamin 1 tab PO DAILY 06/30/21 12/16/22 (formulary)] Pantoprazole [Protonix] 80 mg PO QAM 06/30/21 12/16/22 Acebutolol HCl [Sectral] 400 mg PO DAILY 09/02/22 12/16/22 Ascorbic Acid [Vitamin C] 250 mg PO DAILY 09/02/22 12/16/22 Atorvastatin [Lipitor] 20 mg PO DAILY 09/02/22 12/16/22 Cyanocobalamin (Vitamin B-12) 1,000 mcg PO DAILY 09/02/22 12/16/22 [Vitamin B-12] Ubidecarenone [Co Q-10] 200 mg PO DAILY 09/02/22 12/16/22 Vitamin E Acetate [Vitamin E] 180 mg PO DAILY 09/02/22 12/16/22 azaTHIOprine [Imuran] 50 mg PO DAILY 09/02/22 12/16/22 Albuterol Nebulized [Ventolin 2.5 mg INHALATION BID 12/16/22 12/16/22 Nebulized] Levofloxacin [Levaquin] 750 mg PO DAILY 12/16/22 12/16/22 Nystatin 1 applic TOPICAL BID 12/16/22 12/16/22 predniSONE 5 mg PO DIRECTED 12/16/22 12/16/22 Allergies Allergy/AdvReac Type Severity Reaction Status Date / Time No Known Allergies Allergy Verified 01/18/23 12:26 Review of Systems ROS Statement: Those systems with pertinent positive or pertinent negative responses have been documented in the HPI. ROS Other: All systems not noted in ROS Statement are negative. Past Medical History Past Medical History: GERD/Reflux, Hyperlipidemia, Hypertension, Pneumonia, Skin Disorder, Thyroid Disorder Additional Past Medical History / Comment(s): MIGRAINES, ARRYTHMIA, SCOLIOSIS History of Any Multi-Drug Resistant Organisms: MRSA Date of last positivie culture/infection: 2009 MDRO Source:: BREAST-UNKNOWN WHICH SIDE Past Surgical History: Back Surgery, Bariatric Surgery, Bladder Surgery, Breast Surgery, Cholecystectomy, Hysterectomy Additional Past Surgical History / Comment(s): Lap band 01/23/13. Sinus surgery. COLONOSCOPY. BREAST REDUCTION. 2 RT NECK LYMPH NODES REMOVED AND SALIVARY GLAND REMOVAL Past Anesthesia/Blood Transfusion Reactions: No Reported Reaction Past Psychological History: No Psychological Hx Reported Smoking Status: Never smoker Past Alcohol Use History: None Reported Past Drug Use History: None Reported - Past Family History Daughter(s) Family Medical History: Cancer General Exam Limitations: no limitations General appearance: alert, in distress Head exam: Present: atraumatic, normocephalic Eye exam: Present: normal appearance, PERRL Neck exam: Present: normal inspection. Absent: tenderness, meningismus Respiratory exam: Present: respiratory distress, rales, decreased breath sounds Cardiovascular Exam: Present: regular rate, normal rhythm GI/Abdominal exam: Present: distended, rigid. Absent: tenderness Extremities exam: Present: pedal edema Neurological exam: Present: alert, oriented X3, CN II-XII intact. Absent: motor sensory deficit Psychiatric exam: Present: normal affect, normal mood Skin exam: Present: warm, dry, intact. Absent: cyanosis, diaphoretic Course Vital Signs 01/18/23 01/18/23 12:26 13:08 Temperature 97.5 F L Pulse Rate 81 80 Respiratory 16 18 Rate Blood Pressure 126/81 110/88 O2 Sat by Pulse 80 L 93 L Oximetry - Reevaluation(s) Reevaluation #1: 01/18/23 1400 Patient has followed with Dr. Thomas from gastroenterology and is aware that Dr. Thomas is not currently available this week for gastroenterology evaluation. Medical Decision Making - Medical Decision Making Was pt. sent in by a medical professional or institution (JEFF Dickson, ORAL SURGERY PHYSICIAN, urgent care, hospital, or halfway...) When possible be specific @ -No Did you speak to anyone other than the patient for history (EMS, parent, family, police, friend...)? What history was obtained from this source @ -No Did you review nursing and triage notes (agree or disagree)? Why? @ -I reviewed and agree with nursing and triage notes Were old charts reviewed (outside hosp., previous admission, EMS record, old EKG , old radiological studies, urgent care reports/EKG's, halfway records)? Report findings @ -No old charts were reviewed Differential Diagnosis (chest pain, altered mental status, abdominal pain women, abdominal pain men, vaginal bleeding, weakness, fever, dyspnea, syncope, headache, dizziness, GI bleed, back pain, seizure, CVA, palpatations, mental health, musculoskeletal)? @ -Differential Dyspnea: Coronary syndrome, arrhythmia, tamponade, asthma, COPD, pulmonary embolism, pneumonia, pneumothorax, pulmonary effusion, anaphylaxis, diabetic ketoacidosis, flailed chest, pulmonary contusion, diaphragmatic rupture, anemia, neuromusc ular, this is not meant to be an all-inclusive list. EKG interpreted by me (3pts min.). @ Sinus rhythm rate of 81, MA interval 171, QRS duration 102, QTC 314, no ST segment elevation. X-rays interpreted by me (1pt min.). @ -[Chest x-ray showing diminished lung volumes, no large effusion, no focal pneumonia CT interpreted by me (1pt min.). @ -None done U/S interpreted by me (1pt. min.). @ To sound of the abdomen has been ordered, results pending What testing was considered but not performed or refused? (CT, X-rays, U/S, lab s)? Why? @ -None What meds were considered but not given or refused? Why? @ -None Did you discuss the management of the patient with other professionals (professionals i.e. JEFF Dickson, ORAL SURGERY PHYSICIAN, lab, RT, psych nurse, director social service, ct technician, teacher, boat officer, lining caser)? Give summary @ -Is discussed with Dr. Mathur who will admit Was smoking cessation discussed for >3mins.? @ -No Was critical care preformed (if so, how long)? @ -No Were there social determinants of health that impacted care today? How? (H omelessness, low income, unemployed, alcoholism, drug addiction, transportation, low edu. Level, literacy, decrease access to med. care, long-term, rehab)? @ -No Was there de-escalation of care discussed even if they declined (Discuss DNR or withdrawal of care, Hospice)? DNR status @ -No What co-morbidities impacted this encounter? (DM, HTN, Smoking, COPD, CAD, Cancer, CVA, ARF, Chemo, Hep., AIDS, mental health diagnosis, sleep apnea, morbid obesity)? @ -Nonalcoholic fatty liver disease, hypertension Was patient admitted / discharged? Hospital course, mention meds given and route, prescriptions, significant lab abnormalities, going to OR and other pertinent info. @ -78-year-old female with increased dyspnea, increased abdominal distention. I do feel that her dyspnea is related to abdominal distention. She had an outpatient CT which showed ascites this was of the chest and was not encompassing the entire abdomen. I will order ultrasound of the abdomen to confirm this diagnosis, these results are pending. She'll be admitted to internal medicine with likely plan for paracentesis. Undiagnosed new problem with uncertain prognosis? @ -No Drug Therapy requiring intensive monitoring for toxicity (Heparin, Nitro, Insulin, Cardizem)? @ -No Were any procedures done? @ -No Diagnosis/symptom? @ -Dyspnea secondary to abdominal distention and ascites Acute, or Chronic, or Acute on Chronic? @Acute Uncomplicated (without systemic symptoms) or Complicated (systemic symptoms)? @ -default Side effects of treatment? @ -No Exacerbation, Progression, or Severe Exacerbation? @ -No Poses a threat to life or bodily function? How? (Chest pain, [place], [place], pneumonia, PE, COPD, DKA, ARF, appy, cholecystitis, CVA, Diverticulitis, Homicidal, Suicidal, threat to staff... and all critical care pts) @ -[Yes, worsening dyspnea, respiratory failure - Lab Data Result diagrams: 01/18/23 12:53 01/18/23 12:53 Lab Results 0901/18/23 01/18/23 Range/Units 12:53 12:53 12:53 WBC 6.5 (3.8-10.6) k/uL RBC 4.53 (3.80-5.40) m/uL Hgb 15.5 (11.4-16.0) gm/dL Hct 48.5 H (34.0-46.0) % MCV 107.0 H (80.0-100.0) fL MCH 34.2 (25.0-35.0) pg MCHC 32.0 (31.0-37.0) g/dL RDW 15.1 (11.5-15.5) % Plt Count 148 L (150-450) k/uL MPV 7.8 Neutrophils % 78 % Lymphocytes % 9 % Monocytes % 11 % Eosinophils % 1 % Basophils % 0 % Neutrophils # 5.0 (1.3-7.7) k/uL Lymphocytes # 0.6 L (1.0-4.8) k/uL Monocytes # 0.7 (0-1.0) k/uL Eosinophils # 0.1 (0-0.7) k/uL Basophils # 0.0 (0-0.2) k/uL Manual Slide Review Performed Hypochromasia Slight Macrocytosis Marked A Sodium 140 (137-145) mmol/L Potassium 4.0 (3.5-5.1) mmol/L Chloride 99 (98-107) mmol/L Carbon Dioxide 33 H (22-30) mmol/L Anion Gap 8 mmol/L BUN 21 H (7-17) mg/dL Creatinine 0.67 (0.52-1.04) mg/dL Est GFR (CKD-EPI)AfAm >90 (>60 ml/min/1.73 sqM) Est GFR (CKD-EPI)NonAf 85 (>60 ml/min/1.73 sqM) Glucose 121 H (74-99) mg/dL Calcium 8.7 (8.4-10.2) mg/dL Total Bilirubin 2.3 H (0.2-1.3) mg/dL AST 30 (14-36) U/L ALT 15 (4-34) U/L Alkaline Phosphatase 50 (38-126) U/L Troponin I <0.012 (0.000-0.034) ng/mL NT-Pro-B Natriuret Pep 723 pg/mL Total Protein 6.9 (6.3-8.2) g/dL Albumin 3.4 L (3.5-5.0) g/dL Disposition Clinical Impression: Ascites, Dyspnea Disposition: ADMITTED IP TO THIS HOSP Condition: Stable Is patient prescribed a controlled substance at d/c from ED?: No Referrals: Jovan Yanez MD [Primary Care Provider] - 1-2 days Time of Disposition: 15:53
--- NOTE | 2023-01-18 13:38 | XR ---
EXAMINATION TYPE: XR chest 2V DATE OF EXAM: 01/18/2023 COMPARISON: 04/02/2020 HISTORY: Shortness of breath TECHNIQUE: Frontal and lateral views of the chest are obtained. FINDINGS: Scattered senescent parenchymal changes noted. Lung volumes are diminished. There is basilar atelecta sis or developing infiltrate. Heart size is stable. Mediastinal structures are stable and grossly unremarkable. No evidence for hilar prominence. Degenerative changes dorsal spine. IMPRESSION: 1. Diminished lung volumes limit evaluation. Increased basilar markings may reflect atelectasis and l ess likely infiltrate.
[2023-01-18] MEDS ORDERED: FUROSEMIDE 10 MG/ML 4 ML VIAL IV STA (14:03)
[2023-01-18] MEDS ORDERED: NALOXONE 0.4 MG/ML 1 ML VIAL IV PRN (15:53)
[2023-01-18] MEDS ORDERED: ACETAMINOPHEN TAB 325 MG TAB PO PRN (15:53)
--- NOTE | 2023-01-18 17:50 | US ---
EXAMINATION TYPE: US abdomen limited DATE OF EXAM: 01/18/2023 COMPARISON: 04/02/20 CLINICAL INDICATION: Female, 78 years old with history of Abdominal distention; abd distention. Arabella cystectomy TECHNIQUE: Multiple sonographic images of the right upper quadrant are obtained. FINDINGS: EXAM MEASUREMENTS: Liver Length: 11.9 cm Gallbladder Wall: Surgically absent CBD: 0.17 cm Right Kidney: 10.8 x 4.7 x 4.7 cm DENTAL TECHNICIAN NOTES: Pancreas: Not well seen. Appears wnl Liver: Nodular appearance compatible with cirrhosis. No suspicious observation period Gallbladder: Surgically absent Evidence for sonographic Bills's sign: No CBD: Not well seen Right Kidney: wnl Large amount of free fluid seen in RUQ IMPRESSION: Hepatic cirrhosis with large abdominal ascites.
[2023-01-18] MEDS: LEVOTHYROXINE 112 MCG TAB PO SCH (19:43)
[2023-01-18] MEDS: PANTOPRAZOLE 40 MG TABLET PO SCH (19:43)
[2023-01-18] MEDS: FUROSEMIDE 10 MG/ML 4 ML VIAL IV SCH (19:43)
[2023-01-18] MEDS: ACEBUTOLOL HCL 200 MG PO SCH (20:48)
--- NOTE | 2023-01-18 22:41 | P.HPIM ---
History of Present Illness H&P Date: 01/18/23 Chief Complaint: Short of breath Pleasant 78-year-old patient who follows with Dr. Yanez. Patient presents with increasing shortness of breath going for at least 2 months. Also got a significant cough. Appetite is okay. No fever or chills. Abdomen has been getting distended. Ultrasound in the ER showed the patient to have hepatic cirrhosis with ascites. Patient has also lower extremity edema. Has a known history of LAP-BAND and is followed by Dr. Manzano, seen last month. In the present of cirrhosis and large ascites she stated removal of LAP- BAND is contraindicated. Patient is informed that GI services not available in the hospital. Review of systems: GEN.: Tired EYES: None HEENT: None NECK: None RESPIRATORY: Short of breath CARDIOVASCULAR: None GASTROINTESTINAL: Angelo distention GENITOURINARY: None MUSCULOSKELETAL: Joint pains LYMPHATICS: None HEMATOLOGICAL: None PSYCHIATRY: None NEUROLOGICAL: None. Past medical history to include: GERD, hypertension, hyperlipidemia, hypothyroid, arrhythmia, scoliosis, LAP-BAND in 2012 Social history: Lives alone. Does use a 4 wheeled walker. No smoking or alcohol. Physical examination: VITAL SIGNS: 97.5, 85, 18, 105/62, 93% on 2 L GENERAL: BMI 39.1, sitting up in a chair awake tired. EYES: [Pupils equal. Conjunctiva pale l. HEENT: External appearance of nose and ears normal, oral cavity grossly normal. NECK: JVD unable to assess; masses not palpable. HEART: First and second heart sounds are normal; edema present. LUNGS: Respiratory rate increased; increased breath sound. ABDOMEN: Soft, distended, liver spleen not palpable, no masses palpable. PSYCH: Alert and oriented x3; mood and affect normal. MUSCULOSKELETAL:No Clubbing/cyanosis;muscles-grossly intact. OA NEUROLOGICAL: Cranial nerves grossly intact; no facial asymmetry, power and sensation grossly intact. LYMPHATICS: No lymph nodes palpable in the axilla and neck INVESTIGATIONS, reviewed in the clinical context: January 18: White count 6.5 hemoglobin 15.5 platelets 148 sodium 140 potassium BUN 21 creatinine 0.67 Troponin I less than 0.012 ProBNP 723 EKG tracing personally reviewed by me-normal sinus rhythm. Chest x-ray film personally reviewed by me-possible elevation of right diaphragm. Possible cardiomegaly. Assessment and plan: -Acute on chronic shortness of breath because of progressive ascites secondary cirrhosis. -Cirrhosis. Cause unknown. GI services available hospital. Further workup outpatient. -Suspect secondary portal hypertension from cirrhosis. -Moderate to severe ascites secondary to cirrhosis. A large volume paracentesis is by interventional radiologist IV Lasix. Aldactone 100 mg twice a day. Fluid restriction. -LAP-BAND. Patient being followed by Dr. Manzano. Patient was seen last month by her and LAP-BAND report is a contraindication setting of ascites and cirrhosis. -Chronic gait dysfunction uses a 4 wheel walker -GERD PPI -Hypothyroid Levothyroxine 112 g a day Care was discussed with the patient. Questions answered. Given the complexity and severity of patient's condition expect the patient to be in the hospital at least for 2 overnights Past Medical History Past Medical History: GERD/Reflux, Hyperlipidemia, Hypertension, Pneumonia, Skin Disorder, Thyroid Disorder Additional Past Medical History / Comment(s): MIGRAINES, ARRYTHMIA, SCOLIOSIS History of Any Multi-Drug Resistant Organisms: MRSA Date of last positivie culture/infection: 2009 MDRO Source:: BREAST-UNKNOWN WHICH SIDE Past Surgical History: Back Surgery, Bariatric Surgery, Bladder Surgery, Breast Surgery, Cholecystectomy, Hysterectomy Additional Past Surgical History / Comment(s): Lap band 01/23/13. Sinus surgery. COLONOSCOPY. BREAST REDUCTION. 2 RT NECK LYMPH NODES REMOVED AND SALIVARY GLAND REMOVAL Past Anesthesia/Blood Transfusion Reactions: No Reported Reaction Past Psychological History: No Psychological Hx Reported Smoking Status: Never smoker Past Alcohol Use History: None Reported Past Drug Use History: None Reported - Past Family History Daughter(s) Family Medical History: Cancer Medications and Allergies Home Medications Medication Instructions Recorded Confirmed Type Levothyroxine Sodium [Euthyrox] 112 mcg PO HS 04/02/20 01/18/23 History Furosemide [Lasix] 20 mg PO DAILY PRN 06/30/21 01/18/23 History Pantoprazole [Protonix] 40 mg PO BID 06/30/21 01/18/23 History Acebutolol HCl [Sectral] 200 mg PO BID 09/02/22 01/18/23 History Atorvastatin [Lipitor] 20 mg PO DAILY 09/02/22 01/18/23 History azaTHIOprine [Imuran] 50 mg PO DAILY 09/02/22 01/18/23 History Ipratropium-Albuterol Nebulize 3 ml INHALATION RT-Q6H PRN 01/18/23 01/18/23 History [Duoneb 0.5 mg-3 mg/3 ml Soln] Spironolactone 50 mg PO DAILY 01/18/23 01/18/23 History Allergies Allergy/AdvReac Type Severity Reaction Status Date / Time No Known Allergies Allergy Verified 01/18/23 16:33 Physical Exam Vitals: Vital Signs Temp Pulse Resp BP Pulse Ox 01/18/23 18:15 75 18 117/79 97 01/18/23 17:30 87 18 01/18/23 17:00 79 18 01/18/23 16:30 77 18 01/18/23 16:00 78 18 01/18/23 15:30 85 18 106/72 01/18/23 13:30 84 16 110/88 01/18/23 13:08 80 18 110/88 93 L 01/18/23 12:26 97.5 F L 81 16 126/81 80 L Intake and Output 01/18/23 01/18/23 01/18/23 06:59 14:59 22:59 Other: Weight 93.894 kg Results CBC & Chem 7: 01/18/23 12:53 01/18/23 12:53 Labs: Abnormal Lab Results - Last 24 Hours (Table) 01/18/23 01/18/23 Range/Units 12:53 12:53 Hct 48.5 H (34.0-46.0) % MCV 107.0 H (80.0-100.0) fL Plt Count 148 L (150-450) k/uL Lymphocytes # 0.6 L (1.0-4.8) k/uL Macrocytosis Marked A Carbon Dioxide 33 H (22-30) mmol/L BUN 21 H (7-17) mg/dL Glucose 121 H (74-99) mg/dL Total Bilirubin 2.3 H (0.2-1.3) mg/dL Albumin 3.4 L (3.5-5.0) g/dL
[2023-01-19] MEDS: SPIRONOLACTONE 25 MG TAB PO SCH ×3 (01:08→21:23)
[2023-01-19 05:49] LABS: African American GFR (CKD) >90 (>60 ml/min/1.73 sqM); Anion Gap 6 mmol/L; Blood Urea Nitrogen 22 mg/dL (7-17); Calcium 8.5 mg/dL (8.4-10.2); Carbon Dioxide 30 mmol/L (22-30); Chloride 101 mmol/L (98-107); Glucose 100 mg/dL (74-99); Non-African American GFR(CKD) 85 (>60 ml/min/1.73 sqM); Potassium 4.4 mmol/L (3.5-5.1); Sodium 137 mmol/L (137-145)
--- NOTE | 2023-01-19 08:16 | CT ---
EXAMINATION TYPE: CT abdomen pelvis w con DATE OF EXAM: 01/19/2023 COMPARISON: 04/03/2020 HISTORY: Abdominal pain, questionable mass CT DLP: 2687.6 mGycm CONTRAST: CT scan of the abdomen and pelvis is performed without Oral Contrast and with IV Contrast, patient in jected with 100ml mL of Isovue 300. FINDINGS: LUNG BASES-: No visible nodule. No infiltrate. LIVER/GB: The gallbladder is surgically absent. Diffuse nodularity of the liver felt to reflect und erlying cirrhotic liver disease. No space occupying hepatic lesion. Biliary tree is of normal caliber . PANCREAS: No inflammation. No distinct mass. SPLEEN: No splenic enlargement. No lesion seen. ADRENALS: No nodule. No thickening. KIDNEYS/BLADDER: No hydronephrosis. No nephrolithiasis. No distinct renal mass. Urinary bladder g rossly unremarkable. BOWEL: Normal appendix. Normal bowel caliber. No inflammation. Gastric banding device noted to be i n place. GENITAL ORGANS: Hysterectomy changes noted. No evidence for definite adnexal mass. LYMPH NODES: No greater than 1cm abdominal or pelvic lymph nodes are appreciated. AORTA: No significant abnormality. OSSEOUS STRUCTURES: No significant abnormality is seen. OTHER: There is a large amount of ascites throughout the abdomen and pelvis. IMPRESSION: 1. Massive ascites noted. 2. Cirrhotic liver disease.
[2023-01-19] MEDS ORDERED: SPIRONOLACTONE 25 MG TAB PO SCH (09:00)
[2023-01-19] MEDS ORDERED: ATORVASTATIN 20 MG TAB PO SCH (09:00)
[2023-01-19] MEDS: IPRATROPIUM-ALBUTEROL 3 ML NEB INHALATION PRN ×2 (09:23→12:18)
[2023-01-19] MEDS: ACEBUTOLOL HCL 200 MG PO SCH ×2 (10:00→22:33)
[2023-01-19] MEDS: FUROSEMIDE 10 MG/ML 4 ML VIAL IV SCH ×2 (10:24→21:19)
[2023-01-19] MEDS: azaTHIOprine 50 MG TAB PO SCH (10:24)
[2023-01-19] MEDS: PANTOPRAZOLE 40 MG TABLET PO SCH ×2 (10:25→21:19)
[2023-01-19 10:59] LABS: INR 1.2 (<1.2); Prothrombin Time 11.9 sec (9.0-12.0)
--- NOTE | 2023-01-19 13:31 | CA ---
Transthoracic Echo Report Name: Glendy Soto Age: 78 Gender: F : 1945 Exam Date: 01/19/2023 10:08 Exam Location: [facility] Ht (in): 61 Wt (lb): 207 Ordering Physician: Javier Mathur MD Attending/Referring Phys: Scientific Investigator Peggy Melendez [facility] Procedure CPT: Indications: Cardiomegaly Cardiac Hx: Technical Quality: Technically difficult study Contrast 1: Total Dose (mL): Contrast 2: Total Dose (mL): MEASUREMENTS (Male / Female) Normal Values 2D ECHO LV Diastolic Diameter PLAX 3.8 cm 4.2 - 5.9 / 3.9 - 5.3 cm LV Systolic Diameter PLAX 2.3 cm IVS Diastolic Thickness 0.7 cm 0.6 - 1.0 / 0.6 - 0.9 cm LVPW Diastolic Thickness 0.8 cm 0.6 - 1.0 / 0.6 - 0.9 cm LV Relative Wall Thickness 0.4 LVOT Diameter 2.0 cm Ascending Aorta Diameter 3.1 cm M-MODE Aortic Root Diameter MM 2.7 cm LA Systolic Diameter MM 4.9 cm LA Ao Ratio MM 1.8 AV Cusp Separation MM 1.8 cm DOPPLER AV Peak Velocity 202.2 cm/s AV Peak Gradient 16.4 mmHg AV Mean Velocity 162.5 cm/s AV Mean Gradient 11.2 mmHg AV Velocity Time Integral 35.9 cm LVOT Peak Velocity 185.4 cm/s LVOT Peak Gradient 13.8 mmHg LVOT Velocity Time Integral 35.4 cm LVOT Stroke Volume 115.7 cm??? LVOT Stroke Volume Index 60.4 ml/m??? LVOT Cardiac Index 4997.4 cm???/min???m??? AV Area Cont Eq vti 3.2 cm??? AV Area Cont Eq pk 3.0 cm??? Mitral E Point Velocity 58.3 cm/s Mitral A Point Velocity 70.7 cm/s Mitral E to A Ratio 0.8 MV Deceleration Time 195.9 ms LV E' Lateral Velocity 10.9 cm/s Mitral E to LV E' Lateral Ratio 5.4 LV E' Septal Velocity 8.2 cm/s Mitral E to LV E' Septal Ratio 7.1 TR Peak Velocity 178.7 cm/s TR Peak Gradient 12.8 mmHg Right Atrial Pressure 8.0 mmHg Pulmonary Artery Systolic Pressu 20.8 mmHg Right Ventricular Systolic Press 20.8 mmHg FINDINGS Left Ventricle Normal Left ventricular size, wall thickness, systolic function with no obvious regional wall motion abnormalities. Left ventricular ejection fraction is estimated at 60-65%. Right Ventricle Right ventricle not well visualized. Right Atrium Normal right atrial size. Left Atrium Normal left atrial size. Mitral Valve Mitral valve not well visualized. Trace mitral regurgitation. Aortic Valve Trileaflet aortic valve. Aortic valve sclerosis. No aortic regurgitation. Tricuspid Valve Tricuspid valve not well visualized. Trace tricuspid regurgitation. Pulmonic Valve Pulmonic valve not well visualized. Pericardium No pericardial effusion. Aorta Normal size aortic root and proximal ascending aorta. CONCLUSIONS Technically difficult study. 1. Normal left ventricle size and systolic function 2. Limited Doppler study with trace mitral and tricuspid regurgitation Previewed by: Dr. Kvng Geronimo MD (Electronically Signed) Final Date: 19 January 2023 13:31
--- NOTE | 2023-01-19 17:48 | P.PN ---
Progress Note - Text Progress Note Date: 01/19/23 Chief Complaint: Short of breath Pleasant 78-year-old patient who follows with Dr. Yanez. Patient presents with increasing shortness of breath going for at least 2 months. Also got a significant cough. Appetite is okay. No fever or chills. Abdomen has been getting distended. Ultrasound in the ER showed the patient to have hepatic cirrhosis with ascites. Patient has also lower extremity edema. Has a known history of LAP-BAND and is followed by Dr. Manzano, seen last month. In the present of cirrhosis and large ascites she stated removal of LAP- BAND is contraindicated. Patient is informed that GI services not available in the hospital. January 19: Patient seen in the ER today. Breathing paracentesis. Computed tomography scan of the abdomen provided no new information. Some improvement in shortness of breath. Active Medications Acetaminophen (Acetaminophen Tab 325 Mg Tab) 650 mg PO Q6HR PRN PRN Reason: Mild Pain or Fever > 100.5 Albuterol/Ipratropium (Ipratropium-Albuterol 3 Ml Neb) 3 ml INHALATION RT-Q6H PRN PRN Reason: Shortness Of Breath Last Admin: 01/19/23 12:18 Dose: 3 ml Azathioprine (Azathioprine 50 Mg Tab) 50 mg PO DAILY [facility] Last Admin: 01/19/23 10:24 Dose: 50 mg Furosemide (Furosemide 10 Mg/Ml 4 Ml Vial) 40 mg IV Q12HR [facility] Last Admin: 01/19/23 10:24 Dose: 40 mg Levothyroxine Sodium (Levothyroxine 112 Mcg Tab) 112 mcg PO HS [facility] Last Admin: 01/18/23 19:43 Dose: 112 mcg Naloxone HCl (Naloxone 0.4 Mg/Ml 1 Ml Vial) 0.2 mg IV Q2M PRN PRN Reason: Opioid Reversal Non-Formulary Medication (Acebutolol Hcl [Sectral]) 200 mg PO BID [facility] Last Admin: 01/19/23 10:00 Dose: Not Given Pantoprazole Sodium (Pantoprazole 40 Mg Tablet) 40 mg PO BID [facility] Last Admin: 01/19/23 10:25 Dose: 40 mg Spironolactone (Spironolactone 25 Mg Tab) 100 mg PO BID [facility] Last Admin: 01/19/23 10:25 Dose: 100 mg Past medical history to include: GERD, hypertension, hyperlipidemia, hypothyroid, arrhythmia, scoliosis, LAP-BAND in 2013 Social history: Lives alone. Does use a 4 wheeled walker. No smoking or alcohol. Physical examination: VITAL SIGNS: 97.9, 84, 18, 11 2 x 73, 94% on 2 L GENERAL: BMI 39.1, sitting up in a chair awake EYES: [Pupils equal. Conjunctiva pale l. HEENT: External appearance of nose and ears normal, oral cavity grossly normal. NECK: JVD unable to assess; masses not palpable. HEART: First and second heart sounds are normal; edema present. LUNGS: Respiratory rate increased; increased breath sound. ABDOMEN: Soft, distended, liver spleen not palpable, no masses palpable. PSYCH: Alert and oriented x3; mood and affect normal. MUSCULOSKELETAL:No Clubbing/cyanosis;muscles-grossly intact. OA INVESTIGATIONS, reviewed in the clinical context: January 18: White count 6.5 hemoglobin 15.5 platelets 148 sodium 140 potassium BUN 21 creatinine 0.67 Troponin I less than 0.012 ProBNP 723 EKG tracing personally reviewed by me-normal sinus rhythm. Chest x-ray film personally reviewed by me-possible elevation of right diaphragm. Possible cardiomegaly. Assessment and plan: -Acute on chronic shortness of breath because of progressive ascites secondary cirrhosis: Slow to respond. Continue diuresis. Pending paracentesis. -Cirrhosis. Cause unknown. GI services not available in the hospital. Further workup outpatient. -Suspect secondary portal hypertension from cirrhosis. -Moderate to severe ascites secondary to cirrhosis. Pending paracentesis - by interventional radiologist IV Lasix. Aldactone 100 mg twice a day. Fluid restriction. -LAP-BAND. Patient being followed by Dr. Manzano. Patient was seen last month by her and LAP-BAND report is a contraindication setting of ascites and cirrhosis. -Chronic gait dysfunction uses a 4 wheel walker -GERD PPI -Hypothyroid Levothyroxine 112 g a day Discussed with patient and family at the bedside. Pending paracentesis. Diuresis to continue. Past Medical History Past Medical History: GERD/Reflux, Hyperlipidemia, Hypertension, Pneumonia, Skin Disorder, Thyroid Disorder Additional Past Medical History / Comment(s): MIGRAINES, ARRYTHMIA, SCOLIOSIS History of Any Multi-Drug Resistant Organisms: MRSA Date of last positivie culture/infection: 2009 MDRO Source:: BREAST-UNKNOWN WHICH SIDE Past Surgical History: Back Surgery, Bariatric Surgery, Bladder Surgery, Breast Surgery, Cholecystectomy, Hysterectomy Additional Past Surgical History / Comment(s): Lap band 01/23/13. Sinus surgery. COLONOSCOPY. BREAST REDUCTION. 2 RT NECK LYMPH NODES REMOVED AND SALIVARY GLAND REMOVAL Past Anesthesia/Blood Transfusion Reactions: No Reported Reaction Past Psychological History: No Psychological Hx Reported Smoking Status: Never smoker Past Alcohol Use History: None Reported Past Drug Use History: None Reported - Past Family History Daughter(s) Family Medical History: Cancer Medications and Allergies Home Medications Medication Instructions Recorded Confirmed Type Levothyroxine Sodium [Euthyrox] 112 mcg PO HS 04/02/20 01/18/23 History Furosemide [Lasix] 20 mg PO DAILY PRN 06/30/21 01/18/23 History Pantoprazole [Protonix] 40 mg PO BID 06/30/21 01/18/23 History Acebutolol HCl [Sectral] 200 mg PO BID 09/02/22 01/18/23 History Atorvastatin [Lipitor] 20 mg PO DAILY 09/02/22 01/18/23 History azaTHIOprine [Imuran] 50 mg PO DAILY 09/02/22 01/18/23 History Ipratropium-Albuterol Nebulize 3 ml INHALATION RT-Q6H PRN 01/18/23 01/18/23 History [Duoneb 0.5 mg-3 mg/3 ml Soln] Spironolactone 50 mg PO DAILY 01/18/23 01/18/23 History Allergies Allergy/AdvReac Type Severity Reaction Status Date / Time No Known Allergies Allergy Verified 01/18/23 16:33
[2023-01-19] MEDS: LEVOTHYROXINE 112 MCG TAB PO SCH (21:19)
[2023-01-20 05:04] LABS: Basophils % (A) 0 %; Eosinophils # (A) 0.1 k/uL (0-0.7); Eosinophils % (A) 1 %; HCT 42.6 % (34.0-46.0); HGB 13.6 gm/dL (11.4-16.0); Hypochromasia Slight; Lymphocytes # (A) 0.5 k/uL (1.0-4.8); Lymphocytes % (A) 9 %; MCH 34.4 pg (25.0-35.0); MCHC 31.9 g/dL (31.0-37.0); MCV 107.8 fL (80.0-100.0); Macrocytosis Marked; Mean Platelet Volume 7.8; Monocytes # (A) 0.7 k/uL (0-1.0); Monocytes % (A) 14 %; Neutrophils # (A) 4.1 k/uL (1.3-7.7); Neutrophils % (A) 74 %; Platelet Count 107 k/uL (150-450); RBC 3.95 m/uL (3.80-5.40); RDW 15.2 % (11.5-15.5); WBC 5.5 k/uL (3.8-10.6)
[2023-01-20 05:14] LABS: African American GFR (CKD) 85 (>60 ml/min/1.73 sqM); Blood Urea Nitrogen 20 mg/dL (7-17); Calcium 8.2 mg/dL (8.4-10.2); Chloride 94 mmol/L (98-107); Glucose 112 mg/dL (74-99); Non-African American GFR(CKD) 74 (>60 ml/min/1.73 sqM); Potassium 3.9 mmol/L (3.5-5.1); Sodium 138 mmol/L (137-145)
[2023-01-20 05:21] LABS: Anion Gap 6 mmol/L; Carbon Dioxide 38 mmol/L (22-30)
[2023-01-20] MEDS: PANTOPRAZOLE 40 MG TABLET PO SCH ×2 (09:16→22:11)
[2023-01-20] MEDS: FUROSEMIDE 10 MG/ML 4 ML VIAL IV SCH ×3 (09:16→22:11)
[2023-01-20] MEDS: azaTHIOprine 50 MG TAB PO SCH (09:16)
[2023-01-20] MEDS: ACEBUTOLOL HCL 200 MG PO SCH ×2 (09:16→22:12)
[2023-01-20] MEDS: SPIRONOLACTONE 25 MG TAB PO SCH ×2 (09:16→22:11)
[2023-01-20 12:16] VITALS: BMI 39.1
--- NOTE | 2023-01-20 12:30 | US ---
Ultrasound-guided paracentesis. DATE OF EXAM: 01/20/2023 CLINICAL HISTORY: Ascites The procedure was discussed with the patient. The risks, complications, benefits, and alternatives we re discussed and any questions were answered. Informed consent was obtained. The patient was placed s upine on the ultrasound table and prepped and draped in the usual sterile fashion. All elements of maximal barrier technique were utilized. Under ultrasound guidance, access into the right lower quadrant was obtained, via the paracentesis catheter system and direct ultrasound guidanc e. Approximately 8.1 liters of straw-colored fluid was removed. The patient was stable throughout the pr ocedure and remained stable upon discharge from Department of Radiology. IMPRESSION: Successful paracentesis under ultrasound guidance.
--- NOTE | 2023-01-20 13:09 | CDI ---
Documentation Clarification Form Date: 01/20/2023 12:30:16 PM From: Cyndee Ziegler RN, CCDS Phone: [phone] Admit Date: 01/18/2023 03:53:00 PM Patient Name: Glendy Soto Visit Number: [id number] Discharge Date: ATTENTION: The Clinical Documentation Specialists (CDI) and [facility] Coding Staff appreciate your assistance in clarifying documentation. Please respond to the clarification below the line at the bottom and electronically sign. The CDI & [facility] Coding staff will review the response and follow-up if needed. Please note: Queries are made part of the Legal Health Record. If you have any questions, please contact the author of this message via ITS. Dr. Javier Mathur Your patient has acute on chronic shortness of breath documentation in the H/P and subsequent progress notes. Based on this information and the findings below, is there an additional diagnosis that is clinically appropriate for this patient? History/Risk Factors: GERD/Reflux, Hyperlipidemia, Hypertension, Thyroid Disorder Clinical Indicators: 78-year-old male presents with increasing shortness of breath, progressive dyspnea, and abdominal distention, going for at least 2 months. 01/18 Vital signs: 126/81 8116 97.5 80% RA, 93% 2/L Chest x-ray showing diminished lung volumes, no large effusion, no focal pneumonia. 01/18 Abdomen US: Hepatic cirrhosis with large abdominal ascites. 01/18 WBC 6.5, BUN 21, Cr 067 01/18 Respiratory exam ED: respiratory distress, rales decreased breath sounds. 01/19 Abdomen/pelvis CT: Massive ascites noted. Cirrhotic liver disease. Treatment: Duoneb 0.5 Mg-3 Mg/3 ml Arlene Q6H PRN Lasix 40 MG IV Q 12HR Aldactone 100MG PO BID Is there an additional diagnosis that is clinically appropriate for this patient? [ + ] Acute Hypoxic Respiratory Failure (pO2 <60 mm Hg or SpO2 <91% on room air) [ ] Acute Hypercapnic Respiratory Failure (pCO2 >50 and pH <7.35) [ ] Acute on Chronic Hypoxic Respiratory Failure [ ] Other Diagnosis, please specify [ ] Unable to determine (Template Last Revised: July 2020) MTDD
[2023-01-20] MEDS: ALBUMIN HUMAN 25% 50 ML in EMPTY BAG 1 BAG IVPB SCH ×4 (13:25→17:57)
--- NOTE | 2023-01-20 15:54 | P.PN ---
Progress Note - Text Progress Note Date: 01/20/23 Chief Complaint: Short of breath Pleasant 78-year-old patient who follows with Dr. Yanez. Patient presents with increasing shortness of breath going for at least 2 months. Also got a significant cough. Appetite is okay. No fever or chills. Abdomen has been getting distended. Ultrasound in the ER showed the patient to have hepatic cirrhosis with ascites. Patient has also lower extremity edema. Has a known history of LAP-BAND and is followed by Dr. Manzano, seen last month. In the present of cirrhosis and large ascites she stated removal of LAP- BAND is contraindicated. Patient is informed that GI services not available in the hospital. January 19: Patient seen in the ER today. Breathing paracentesis. Computed tomography scan of the abdomen provided no new information. Some improvement in shortness of breath. January 20: 8.1 L of straw-colored paracentesis is done today. Albumin IV ordered. Postprocedure right diet. Breathing better. On diuretics. Active Medications Acetaminophen (Acetaminophen Tab 325 Mg Tab) 650 mg PO Q6HR PRN PRN Reason: Mild Pain or Fever > 100.5 Albuterol/Ipratropium (Ipratropium-Albuterol 3 Ml Neb) 3 ml INHALATION RT-Q6H PRN PRN Reason: Shortness Of Breath Last Admin: 01/19/23 12:18 Dose: 3 ml Azathioprine (Azathioprine 50 Mg Tab) 50 mg PO DAILY [facility] Last Admin: 01/20/23 09:16 Dose: 50 mg Furosemide (Furosemide 10 Mg/Ml 4 Ml Vial) 40 mg IV Q12HR [facility] Last Admin: 01/20/23 13:05 Dose: Not Given Albumin Human 50 ml/ IV (Solution) 50 mls @ 50 mls/hr IVPB Q1H [facility] Stop: 01/20/23 16:59 Last Admin: 01/20/23 14:53 Dose: 50 mls/hr Levothyroxine Sodium (Levothyroxine 112 Mcg Tab) 112 mcg PO HS [facility] Last Admin: 01/19/23 21:19 Dose: 112 mcg Naloxone HCl (Naloxone 0.4 Mg/Ml 1 Ml Vial) 0.2 mg IV Q2M PRN PRN Reason: Opioid Reversal Non-Formulary Medication (Acebutolol Hcl [Sectral]) 200 mg PO BID [facility] Last Admin: 01/20/23 09:16 Dose: 200 mg Pantoprazole Sodium (Pantoprazole 40 Mg Tablet) 40 mg PO BID [facility] Last Admin: 01/20/23 09:16 Dose: 40 mg Spironolactone (Spironolactone 25 Mg Tab) 100 mg PO BID [facility] Last Admin: 01/20/23 09:16 Dose: Not Given Past medical history to include: GERD, hypertension, hyperlipidemia, hypothyroid, arrhythmia, scoliosis, LAP-BAND in 2012 Social history: Lives alone. Does use a 4 wheeled walker. No smoking or alcohol. Physical examination: VITAL SIGNS: 98.3, 73, 16, 99/64, 93% on 3 L GENERAL: BMI 39.1, laying in bed, tired EYES: [Pupils equal. Conjunctiva pale l. HEENT: External appearance of nose and ears normal, oral cavity grossly normal. NECK: JVD unable to assess; masses not palpable. HEART: First and second heart sounds are normal; edema present. LUNGS: Respiratory rate increased; increased breath sound. ABDOMEN: Soft, distended, liver spleen not palpable, no masses palpable. PSYCH: Alert and oriented x3; mood and affect normal. MUSCULOSKELETAL:No Clubbing/cyanosis;muscles-grossly intact. OA INVESTIGATIONS, reviewed in the clinical context: January 20: White count 5.5 hemoglobin 10.6 platelets 107 potassium 3.9 creatinine 0.78 January 18: White count 6.5 hemoglobin 15.5 platelets 148 sodium 140 potassium BUN 21 creatinine 0.67 Troponin I less than 0.012 ProBNP 723 EKG tracing personally reviewed by me-normal sinus rhythm. Chest x-ray film personally reviewed by me-possible elevation of right diaphragm. Possible cardiomegaly. Assessment and plan: -Acute on chronic shortness of breath because of progressive ascites secondary cirrhosis: Better Continue diuresis. Underwent paracentesis. -Cirrhosis. Cause unknown. GI services not available in the hospital. Further workup outpatient. -Suspect secondary portal hypertension from cirrhosis. -Moderate to severe ascites secondary to cirrhosis. Today underwent paracentesis. 8.1 L removed. IV Lasix. Aldactone 100 mg twice a day. Fluid restriction. -LAP-BAND. Patient being followed by Dr. Manzano. Patient was seen last month by her and LAP-BAND report is a contraindication setting of ascites and cirrhosis. -Chronic gait dysfunction uses a 4 wheel walker -GERD PPI -Hypothyroid Levothyroxine 112 g a day Paracentesis done today. IV albumin. Repeat labs tomorrow. Hopefully discharge tomorrow. Past Medical History Past Medical History: GERD/Reflux, Hyperlipidemia, Hypertension, Pneumonia, Skin Disorder, Thyroid Disorder Additional Past Medical History / Comment(s): MIGRAINES, ARRYTHMIA, SCOLIOSIS History of Any Multi-Drug Resistant Organisms: MRSA Date of last positivie culture/infection: 2009 MDRO Source:: BREAST-UNKNOWN WHICH SIDE Past Surgical History: Back Surgery, Bariatric Surgery, Bladder Surgery, Breast Surgery, Cholecystectomy, Hysterectomy Additional Past Surgical History / Comment(s): Lap band 01/23/13. Sinus surgery. COLONOSCOPY. BREAST REDUCTION. 2 RT NECK LYMPH NODES REMOVED AND SALIVARY GLAND REMOVAL Past Anesthesia/Blood Transfusion Reactions: No Reported Reaction Past Psychological History: No Psychological Hx Reported Smoking Status: Never smoker Past Alcohol Use History: None Reported Past Drug Use History: None Reported - Past Family History Daughter(s) Family Medical History: Cancer Medications and Allergies Home Medications Medication Instructions Recorded Confirmed Type Levothyroxine Sodium [Euthyrox] 112 mcg PO HS 04/02/20 01/18/23 History Furosemide [Lasix] 20 mg PO DAILY PRN 06/30/21 01/18/23 History Pantoprazole [Protonix] 40 mg PO BID 06/30/21 01/18/23 History Acebutolol HCl [Sectral] 200 mg PO BID 09/02/22 01/18/23 History Atorvastatin [Lipitor] 20 mg PO DAILY 09/02/22 01/18/23 History azaTHIOprine [Imuran] 50 mg PO DAILY 09/02/22 01/18/23 History Ipratropium-Albuterol Nebulize 3 ml INHALATION RT-Q6H PRN 01/18/23 01/18/23 History [Duoneb 0.5 mg-3 mg/3 ml Soln] Spironolactone 50 mg PO DAILY 01/18/23 01/18/23 History Allergies Allergy/AdvReac Type Severity Reaction Status Date / Time No Known Allergies Allergy Verified 01/18/23 16:33
[2023-01-20] MEDS: LEVOTHYROXINE 112 MCG TAB PO SCH (22:41)
[2023-01-21 06:25] LABS: African American GFR (CKD) >90 (>60 ml/min/1.73 sqM); Blood Urea Nitrogen 18 mg/dL (7-17); Calcium 8.1 mg/dL (8.4-10.2); Chloride 96 mmol/L (98-107); Glucose 121 mg/dL (74-99); Non-African American GFR(CKD) >90 (>60 ml/min/1.73 sqM); Potassium 3.8 mmol/L (3.5-5.1); Sodium 138 mmol/L (137-145)
[2023-01-21 06:32] LABS: Anion Gap 5 mmol/L
[2023-01-21 07:10] LABS: Carbon Dioxide 37 mmol/L (22-30)
[2023-01-21] MEDS: FUROSEMIDE 10 MG/ML 4 ML VIAL IV SCH (08:59)
[2023-01-21] MEDS: ACEBUTOLOL HCL 200 MG PO SCH (08:59)
[2023-01-21] MEDS: SPIRONOLACTONE 25 MG TAB PO SCH (08:59)
[2023-01-21] MEDS: PANTOPRAZOLE 40 MG TABLET PO SCH (10:39)
[2023-01-21] MEDS: azaTHIOprine 50 MG TAB PO SCH (10:39)
[2023-01-21 13:50] LABS: LDH, Body Fluid Source Paracentesis Fl; T. Protein, Body Fluid Source Paracentesis Fl; Total Protein, Body Fluid 1760 mg/dL
--- NOTE | 2023-01-21 15:28 | P.DS ---
Providers Date of admission: 01/18/23 15:53 Expected date of discharge: 01/21/23 Attending physician: Javier Mathur Primary care physician: [facility] Hospital Course: Chief Complaint: Short of breath Pleasant 78-year-old patient who follows with Dr. Yanez. Patient presents with increasing shortness of breath going for at least 2 months. Also got a significant cough. Appetite is okay. No fever or chills. Abdomen has been getting distended. Ultrasound in the ER showed the patient to have hepatic cirrhosis with ascites. Patient has also lower extremity edema. Has a known history of LAP-BAND and is followed by Dr. Manzano, seen last month. In the present of cirrhosis and large ascites she stated removal of LAP- BAND is contraindicated. Patient is informed that GI services not available in the hospital. January 19: Patient seen in the ER today. Breathing paracentesis. Computed tomography scan of the abdomen provided no new information. Some improvement in shortness of breath. January 20: 8.1 L of straw-colored paracentesis is done today. Albumin IV ordered. Postprocedure right diet. Breathing better. On diuretics. January 21: His pulse ox 86% room air. Likely underlying COPD. We will arrange for home oxygen. Medications reviewed. Patient follow-up with Dr. Yazan Thomas outpatient. Discussed. Discussed with social welfare research worker. And the nurse. Discussion and discharge planning more than 35 minutes Past medical history to include: GERD, hypertension, hyperlipidemia, hypothyroid, arrhythmia, scoliosis, LAP-BAND in 2012 Social history: Lives alone. Does use a 4 wheeled walker. No smoking or alcohol. Physical examination: VITAL SIGNS: 38.9, 89, 18, 98/64, 86% room air. GENERAL: BMI 39.1, laying in bed, tired EYES: [Pupils equal. Conjunctiva pale l. HEENT: External appearance of nose and ears normal, oral cavity grossly normal. NECK: JVD unable to assess; masses not palpable. HEART: First and second heart sounds are normal; edema present. LUNGS: Respiratory rate increased; increased breath sound. ABDOMEN: Soft, much less distended., liver spleen not palpable, no masses palpable. PSYCH: Alert and oriented x3; mood and affect normal. MUSCULOSKELETAL:No Clubbing/cyanosis;muscles-grossly intact. OA INVESTIGATIONS, reviewed in the clinical context: January 20: White count 5.5 hemoglobin 10.6 platelets 107 potassium 3.9 creatinine 0.78 January 18: White count 6.5 hemoglobin 15.5 platelets 148 sodium 140 potassium BUN 21 creatinine 0.67 Troponin I less than 0.012 ProBNP 723 EKG tracing personally reviewed by me-normal sinus rhythm. Chest x-ray film personally reviewed by me-possible elevation of right diaphragm. Possible cardiomegaly. Assessment and plan: -Acute on chronic shortness of breath because of progressive ascites secondary cirrhosis: Better Continue diuresis. Underwent paracentesis. -Probably underlying COPD in a nonsmoker, likely from restrictive lung disease. Causing chronic hypoxic respiratory failure. Arrange home oxygen -Cirrhosis. Cause unknown. GI services not available in the hospital. Further workup outpatient. -Suspect secondary portal hypertension from cirrhosis. -Moderate to severe ascites secondary to cirrhosis. Today underwent paracentesis. 8.1 L removed. IV Lasix. Aldactone 100 mg twice a day. Fluid restriction. -LAP-BAND. Patient being followed by Dr. Manzano. Patient was seen last month by her and LAP-BAND report is a contraindication setting of ascites and cirrhosis. -Chronic gait dysfunction uses a 4 wheel walker -GERD PPI -Hypothyroid Levothyroxine 112 g a day Disposition: Home Past Medical History Past Medical History: GERD/Reflux, Hyperlipidemia, Hypertension, Pneumonia, Skin Disorder, Thyroid Disorder Additional Past Medical History / Comment(s): MIGRAINES, ARRYTHMIA, SCOLIOSIS History of Any Multi-Drug Resistant Organisms: MRSA Date of last positivie culture/infection: 2009 MDRO Source:: BREAST-UNKNOWN WHICH SIDE Past Surgical History: Back Surgery, Bariatric Surgery, Bladder Surgery, Breast Surgery, Cholecystectomy, Hysterectomy Additional Past Surgical History / Comment(s): Lap band 01/23/13. Sinus surgery. COLONOSCOPY. BREAST REDUCTION. 2 RT NECK LYMPH NODES REMOVED AND SALIVARY GLAND REMOVAL Past Anesthesia/Blood Transfusion Reactions: No Reported Reaction Past Psychological History: No Psychological Hx Reported Smoking Status: Never smoker Past Alcohol Use History: None Reported Past Drug Use History: None Reported - Past Family History Daughter(s) Family Medical History: Cancer Medications and Allergies Home Medications Medication Instructions Recorded Confirmed Type Levothyroxine Sodium [Euthyrox] 112 mcg PO HS 04/02/20 01/18/23 History Furosemide [Lasix] 20 mg PO DAILY PRN 06/30/21 01/18/23 History Pantoprazole [Protonix] 40 mg PO BID 06/30/21 01/18/23 History Acebutolol HCl [Sectral] 200 mg PO BID 09/02/22 01/18/23 History Atorvastatin [Lipitor] 20 mg PO DAILY 09/02/22 01/18/23 History azaTHIOprine [Imuran] 50 mg PO DAILY 09/02/22 01/18/23 History Ipratropium-Albuterol Nebulize 3 ml INHALATION RT-Q6H PRN 01/18/23 01/18/23 History [Duoneb 0.5 mg-3 mg/3 ml Soln] Spironolactone 50 mg PO DAILY 01/18/23 01/18/23 History Allergies Allergy/AdvReac Type Severity Reaction Status Date / Time No Known Allergies Allergy Verified 01/18/23 16:33 Patient Condition at Discharge: Stable Plan - Discharge Summary Discharge Rx Participant: Yes New Discharge Prescriptions: New Spironolactone [Aldactone] 100 mg PO BID #60 tab Continue Levothyroxine Sodium [Euthyrox] 112 mcg PO HS azaTHIOprine [Imuran] 50 mg PO DAILY Ipratropium-Albuterol Nebulize [Duoneb 0.5 mg-3 mg/3 ml Soln] 3 ml INHALATION RT-Q6H PRN PRN Reason: Shortness Of Breath Pantoprazole [Protonix] 40 mg PO BID Acebutolol HCl [Sectral] 200 mg PO BID Atorvastatin [Lipitor] 20 mg PO DAILY Changed Furosemide [Lasix] 20 mg PO DAILY #30 tab Discontinued Spironolactone 50 mg PO DAILY Discharge Medication List Levothyroxine Sodium [Euthyrox] 112 mcg PO HS 04/02/20 [History] Pantoprazole [Protonix] 40 mg PO BID 06/30/21 [History] Acebutolol HCl [Sectral] 200 mg PO BID 09/02/22 [History] Atorvastatin [Lipitor] 20 mg PO DAILY 09/02/22 [History] azaTHIOprine [Imuran] 50 mg PO DAILY 09/02/22 [History] Ipratropium-Albuterol Nebulize [Duoneb 0.5 mg-3 mg/3 ml Soln] 3 ml INHALATION RT-Q6H PRN 01/18/23 [History] Furosemide [Lasix] 20 mg PO DAILY #30 tab 01/21/23 [Rx] Spironolactone [Aldactone] 100 mg PO BID #60 tab 01/21/23 [Rx] Follow up Appointment(s)/Referral(s): [facility] [NON-STAFF] - 1 Week Jovan Yanez MD [Primary Care Provider] - 01/28/23 3:00 pm (appointment is in the [place] office) Tata Thomas MD [STAFF PHYSICIAN] - 02/11/23 3:00 pm Patient Instructions/Handouts: Spironolactone (By mouth), Furosemide (By mouth) Activity/Diet/Wound Care/Special Instructions: fluid restrict 1800 cc/day
[2023-01-21 15:42] VITALS: BP 98/64; PULSE 89; TEMP 98.9
[2023-01-21 15:53] VITALS: RESP 18
== END 2023-01-21 17:17 | disposition home health service (06) | DRG 432 ==
LOC: EC 12:08 → 5NMEDONC 15:53
PROVIDERS: ADMIT Hospitalist; ATTEND Hospitalist
PROC: 0W9G3ZZ Drainage of Peritoneal Cavity, Percutaneous Approach (ICD-10-PCS; principal; 2023-01-20)
DX: K74.60 Unspecified cirrhosis of liver (principal); J96.21 Acute and chronic respiratory failure with hypoxia; R18.8 Other ascites; K76.6 Portal hypertension; E03.9 Hypothyroidism, unspecified; E78.5 Hyperlipidemia, unspecified; I10 Essential (primary) hypertension; Z87.01 Personal history of pneumonia (recurrent); J44.9 Chronic obstructive pulmonary disease, unspecified; Z60.2 Problems related to living alone; K21.9 Gastro-esophageal reflux disease without esophagitis; Z98.84 Bariatric surgery status; M41.9 Scoliosis, unspecified; Z79.890 Hormone replacement therapy; Z79.899 Other long term (current) drug therapy; R26.9 Unspecified abnormalities of gait and mobility; Z86.14 Personal history of Methicillin resistant Staphylococcus aureus infection; Z79.624 Long term (current) use of inhibitors of nucleotide synthesis
CPT/HCPCS: 36415; 49083; 71046; 74177; 76705; 80048; 80053; 82042; 83615; 83880; 84157; 84484; 85025; 85610; 87070; 87075; 87205; 89050; 93005; 93306; 94760; 96374; 96376; 99285

== ENCOUNTER 2023-03-17 11:45 | Inpatient (IN) | payer MEDICARE, OTHER ==
--- NOTE | 2023-03-17 11:51 | ED ---
General Adult HPI - General Source: RN notes reviewed <Elly Mcbride - Last Filed: 03/17/23 16:02> - General Source: patient, RN notes reviewed Limitations: no limitations <Roberto Quintero - Last Filed: 03/17/23 18:36> - General Stated complaint: swollen left leg Time Seen by Provider: 03/17/23 11:48 - History of Present Illness Initial comments: 78-year-old female presents to the emergency department with left leg swelling 3 days. She denies injury or trauma. She admits she takes Lasix. She does report feeling slightly short of breath. (Elly Mcbride) Patient is a pleasant 78-year-old female presenting to the emergency department with concerns with left leg swelling. Onset of symptoms was around 3-4 days ago. Patient has chronic dyspnea without any change in her chronic dyspnea. Patient states there is mild discomfort in the leg, increased with movement. Patient states she does have history of chronic liver disease and has had previous paracentesis. Patient had some swelling at that time as well. No chest pain. (Roberto Quintero) - Related Data Home Medications Medication Instructions Recorded Confirmed Levothyroxine Sodium [Euthyrox] 112 mcg PO HS 04/02/20 01/18/23 Pantoprazole [Protonix] 40 mg PO BID 06/30/21 01/18/23 Acebutolol HCl [Sectral] 200 mg PO BID 09/02/22 01/18/23 Atorvastatin [Lipitor] 20 mg PO DAILY 09/02/22 01/18/23 azaTHIOprine [Imuran] 50 mg PO DAILY 09/02/22 01/18/23 Ipratropium-Albuterol Nebulize 3 ml INHALATION RT-Q6H PRN 01/18/23 01/18/23 [Duoneb 0.5 mg-3 mg/3 ml Soln] Previous Rx's Medication Instructions Recorded Furosemide [Lasix] 20 mg PO DAILY #30 tab 01/21/23 Spironolactone [Aldactone] 100 mg PO BID #60 tab 01/21/23 Allergies Allergy/AdvReac Type Severity Reaction Status Date / Time No Known Allergies Allergy Verified 03/17/23 12:39 Review of Systems ROS Other: All systems not noted in ROS Statement are negative. <Elly Mcbride - Last Filed: 03/17/23 16:02> ROS Other: All systems not noted in ROS Statement are negative. Constitutional: Denies: fever Eyes: Denies: eye pain ENT: Denies: ear pain Respiratory: Reports: as per HPI. Denies: cough Cardiovascular: Denies: chest pain Endocrine: Denies: fatigue Gastrointestinal: Denies: abdominal pain Genitourinary: Denies: urgency Musculoskeletal: Denies: back pain Skin: Denies: rash Neurological: Denies: weakness <Roberto Quintero - Last Filed: 03/17/23 18:36> ROS Statement: Those systems with pertinent positive or pertinent negative responses have been documented in the HPI. Past Medical History Past Medical History: GERD/Reflux, Hyperlipidemia, Hypertension, Pneumonia, Skin Disorder, Thyroid Disorder Additional Past Medical History / Comment(s): MIGRAINES, ARRYTHMIA, SCOLIOSIS, ascites History of Any Multi-Drug Resistant Organisms: MRSA Date of last positivie culture/infection: 2009 MDRO Source:: BREAST-UNKNOWN WHICH SIDE Past Surgical History: Back Surgery, Bariatric Surgery, Bladder Surgery, Breast Surgery, Cholecystectomy, Hysterectomy Additional Past Surgical History / Comment(s): Lap band 01/23/13. Sinus surgery. COLONOSCOPY. BREAST REDUCTION. 2 RT NECK LYMPH NODES REMOVED AND SALIVARY GLAND REMOVAL Past Anesthesia/Blood Transfusion Reactions: No Reported Reaction Past Psychological History: No Psychological Hx Reported Smoking Status: Never smoker Past Alcohol Use History: None Reported Past Drug Use History: None Reported - Past Family History Daughter(s) Family Medical History: Cancer <Elly Mcbride - Last Filed: 03/17/23 16:02> General Exam <Elly Mcbride - Last Filed: 03/17/23 16:02> Limitations: no limitations General appearance: alert, in no apparent distress Head exam: Present: normocephalic Eye exam: Present: normal appearance Neck exam: Present: normal inspection Respiratory exam: Present: normal lung sounds bilaterally Cardiovascular Exam: Present: regular rate, normal rhythm Expanded Peripheral pulses: 2+: Dorsalis Pedis (R), Dorsalis Pedis (L) GI/Abdominal exam: Present: soft. Absent: distended, tenderness Extremities exam: Present: pedal edema (Left leg moderate, right leg mild). Absent: calf tenderness Neurological exam: Present: alert Psychiatric exam: Present: normal affect, normal mood Skin exam: Present: normal color <Roberto Quintero - Last Filed: 03/17/23 18:36> - General Exam Comments Initial Comments: Visual Physical Exam Vital signs reviewed General: Well-appearing, nontoxic, no acute distress. Head: Normocephalic, atraumatic Eyes: PERRLA, EOMI ENT: Airway patent Chest: Nonlabored breathing Skin: No visual rash, normal skin tone Neuro: Alert and oriented 3 Musculoskeletal: No gross abnormalities I performed the quick note portion of this exam, verbal signature Elly Mcbride PA-C (Elly Mcbride) Course Vital Signs 03/17/23 03/17/23 03/17/23 12:32 18:21 18:28 Temperature 99.5 F Pulse Rate 85 82 82 Respiratory 20 Rate Blood Pressure 125/82 O2 Sat by Pulse 96 Oximetry Medical Decision Making - Lab Data Result diagrams: 03/17/23 13:05 03/17/23 13:05 <Elly Mcbride - Last Filed: 03/17/23 16:02> - Lab Data Result diagrams: 03/17/23 13:05 03/17/23 13:05 <Roberto Quintero - Last Filed: 03/17/23 18:36> - Medical Decision Making Was pt. sent in by a medical professional or institution (JEFF Dickson, REPORTING MANAGER, urgent care, hospital, or [facility]...) When possible be specific @ -No Did you speak to anyone other than the patient for history (EMS, parent, family, police, friend...)? What history was obtained from this source @ -Family is present and helps confirm history Did you review nursing and triage notes (agree or disagree)? Why? @ -I reviewed and agree with nursing and triage notes Were old charts reviewed (outside hosp., previous admission, EMS record, old EKG, old radiological studies, urgent care reports/EKG's, [facility] records)? Report findings @ -No old charts were reviewed Differential Diagnosis (chest pain, altered mental status, abdominal pain women, abdominal pain men, vaginal bleeding, weakness, fever, dyspnea, syncope, headache, dizziness, GI bleed, back pain, seizure, CVA, palpatations, mental health, musculoskeletal)? @ -ifferential Muculoskeletal Muscular strain, contusion,ligamentsprain, fracture, arthritis, septic arthriis, bursiis, cellulitis, muscle spasm, nerve copression,DVT, arterial occlusion, herpes zoster, lectrolyt abnormality, tumor.... This is not meant to be in all inclusive list EKG interpreted by me (pts in.). @ -As above X-rays interpreted by me (1pt min.). @ -Chest x-ray shows limited inspiration. Possible lower mild opacities CT interpreted by me (1pt min.). report reviewed uS interpreted by me (1pt. min.).report reviewed @ -None done What testing was considered but not performed or refused? (CT, X-rays, U/S, l abs)? Why? @ -None Wht eds were considered but not given or refused? Why?@ -None Did you discuss the management of the patien wth other professionals (professionals i.e. , PA, REPORTING MANAGER, lab, RT, psych nurse, social media senior associate, certified professional controller, teacher, logistics officer, case checker)? Give summary @ -[ case was discussed with Dr. Mathur who will admit covering Dr. Yanez. He agrees with heparin and is made aware of platelet count. Case also discussed with Dr. Marquis, who will consult. Was smoking cessation discussed for >3mins.? @ -No Was critical care preformed (if so, how long)? @ -32 minutes of critical care time Were there social determinants of health that impacted care today? How? (Homelessness, low income, unemployed, alcoholism, drug addiction, transportation, low edu. Level, literacy, decrease access to med. care, correction, rehab)? @ -No Was there de-escalation of care discussed even if they declined (Discuss DNR or withdrawal of care, Hospice)? DNR status @ -No What co-morbidities impacted this encounter? (DM, HTN, Smoking, COPD, CAD, Cancer, CVA, ARF, Chemo, Hep., AIDS, mental health diagnosis, sleep apnea, morbid obesity)? @ -None Was patient admitted / discharged? Hospital course, mention meds given and route, prescriptions, significant lab abnormalities, going to OR and other pertinent info. @ - Patient reevaluated. Patient and family updated on results and plan. Patient will be admitted. Heparin started. Uniagnose new problem with uncertain prognosis? @ -No Drug Therapy requiring intensive moitoringfor toxicity (Heparin, Nitro, Inuln, Cardizem)? @patient will need monitoring for IV heparine any procedures done? @ -[No Dagnosis/symptom? @ -Proximal left leg DVT Acute, or Chronic, or Acute on Chronic? @ -Acute Uncomplicated (without systemic symptoms) or Complicated (systemic symptoms)? @ -default Side effects of treatment? @ -No Excebation, Progression, or Severe Exacerbation? @ -No Poses a threat to life or bodily function? How? (Chest pain, [place], [place], pneumonia, PE, COPD, DKA, ARF, appy, cholecystitis, CVA, Diverticulitis, Homicidal, Suicidal, threat to staff... and all critical care pts) @ -No (Roberto Quintero) - Lab Data Lab Results 03/17/23 03/17/23 03/17/23 Range/Units 13:05 13:05 13:05 WBC 7.9 (3.8-10.6) k/uL RBC 3.57 L (3.80-5.40) m/uL Hgb 12.5 (11.4-16.0) gm/dL Hct 36.7 (34.0-46.0) % MCV 102.9 H (80.0-100.0) fL MCH 35.0 (25.0-35.0) pg MCHC 34.0 (31.0-37.0) g/dL RDW 15.1 (11.5-15.5) % Plt Count 84 L (150-450) k/uL MPV 8.5 Neutrophils % 77 % Lymphocytes % 7 % Monocytes % 13 % Eosinophils % 0 % Basophils % 0 % Neutrophils # 6.1 (1.3-7.7) k/uL Lymphocytes # 0.6 L (1.0-4.8) k/uL Monocytes # 1.0 (0-1.0) k/uL Eosinophils # 0.0 (0-0.7) k/uL Basophils # 0.0 (0-0.2) k/uL Manual Slide Review Performed Macrocytosis Slight Sodium 135 L (137-145) mmol/L Potassium 3.2 L (3.5-5.1) mmol/L Chloride 92 L (98-107) mmol/L Carbon Dioxide 36 H (22-30) mmol/L Anion Gap 7 mmol/L BUN 28 H (7-17) mg/dL Creatinine 0.63 (0.52-1.04) mg/dL Est GFR (CKD-EPI)AfAm >90 (>60 ml/min/1.73 sqM) Est GFR (CKD-EPI)NonAf 87 (>60 ml/min/1.73 sqM) Glucose 111 H (74-99) mg/dL Calcium 8.3 L (8.4-10.2) mg/dL Total Bilirubin 2.8 H (0.2-1.3) mg/dL AST 26 (14-36) U/L ALT 12 (4-34) U/L Alkaline Phosphatase 48 (38-126) U/L NT-Pro-B Natriuret Pep 1180 pg/mL Total Protein 6.0 L (6.3-8.2) g/dL Albumin 3.0 L (3.5-5.0) g/dL Influenza Type A (PCR) Not Detected (Not Detectd) Influenza Type B (PCR) Not Detected (Not Detectd) RSV (PCR) Not Detected (Not Detectd) SARS-CoV-2 (PCR) Not Detected (Not Detectd) Critical Care Time Critical Care Time: Yes Total Critical Care Time: 32 <Roberto Quintero - Last Filed: 03/17/23 18:36> Disposition <Elly Mcbride - Last Filed: 03/17/23 16:02> Is patient prescribed a controlled substance at d/c from ED?: No Time of Disposition: 18:35 <Roberto Quintero - Last Filed: 03/17/23 18:36> Clinical Impression: Deep vein thrombosis of proximal end of left lower extremity Disposition: ADMITTED IP TO THIS HOSP Referrals: Jovan Yanez MD [Primary Care Provider] - 1-2 days
[2023-03-17 13:27] LABS: ALT 12 U/L (4-34); AST 26 U/L (14-36); African American GFR (CKD) >90 (>60 ml/min/1.73 sqM); Alkaline Phosphatase 48 U/L (38-126); Anion Gap 7 mmol/L; Blood Urea Nitrogen 28 mg/dL (7-17); Calcium 8.3 mg/dL (8.4-10.2); Carbon Dioxide 36 mmol/L (22-30); Chloride 92 mmol/L (98-107); Glucose 111 mg/dL (74-99); Non-African American GFR(CKD) 87 (>60 ml/min/1.73 sqM); Potassium 3.2 mmol/L (3.5-5.1); Sodium 135 mmol/L (137-145); Total Bilirubin 2.8 mg/dL (0.2-1.3)
[2023-03-17 13:32] LABS: NT-Pro-B-Type Natriuretic Pept 1180 pg/mL
--- NOTE | 2023-03-17 13:34 | XR ---
EXAMINATION TYPE: XR chest 2V DATE OF EXAM: 03/17/2023 COMPARISON: 01/18/2023 TECHNIQUE: PA and lateral views submitted. HISTORY: Leg swelling FINDINGS: Limited inspiration with bilateral consolidation and tiny effusion. No overt failure or pneumothorax. Previous lap band surgery suggested prominent bowel loops in the upper abdomen. Hypertrophic and deg enerative change of the spine with wedge fractures of thoracolumbar junction of indeterminate age. IMPRESSION: 1. Limited inspiration with bilateral lower lobe infiltrate or atelectasis and tiny effusion.
[2023-03-17 13:36] LABS: Basophils % (A) 0 %; Eosinophils % (A) 0 %; HCT 36.7 % (34.0-46.0); HGB 12.5 gm/dL (11.4-16.0); Lymphocytes # (A) 0.6 k/uL (1.0-4.8); Lymphocytes % (A) 7 %; MCV 102.9 fL (80.0-100.0); Macrocytosis Slight; Mean Platelet Volume 8.5; Monocytes % (A) 13 %; Neutrophils # (A) 6.1 k/uL (1.3-7.7); Neutrophils % (A) 77 %; RBC 3.57 m/uL (3.80-5.40); RDW 15.1 % (11.5-15.5); WBC 7.9 k/uL (3.8-10.6)
[2023-03-17 14:04] LABS: Platelet Count 84 k/uL (150-450)
--- NOTE | 2023-03-17 15:49 | US ---
EXAMINATION TYPE: US venous doppler duplex LE LT DATE OF EXAM: 03/17/2023 3:37 PM COMPARISON: NONE CLINICAL INDICATION: Female, 78 years old with history of swelling; Swelling x 4 days. No hx of DVT. Patient does not take blood thinners. SIDE PERFORMED: Left TECHNIQUE: The lower extremity deep venous system is examined utilizing real time linear array sonog lia with graded compression, doppler sonography and color-flow sonography. VESSELS IMAGED: Common Femoral Vein Deep Femoral Vein Greater Saphenous Vein * Femoral Vein Popliteal Vein Small Saphenous Vein * Proximal Calf Veins (* superficial vessels) Left Leg: Positive for DVT. Internal echoes seen from CFV/GSV down through femoral vein, deep femo ral vein, popliteal vein, and prox calf veins. Color flow not seen within veins visualized. Veins jeniffer ged do not compress. IMPRESSION: Positive deep venous thrombosis throughout the left lower extremity. Findings called to and discussed with Dr. Roberto Quintero at 3:47 PM on 03/17/2023.
[2023-03-17] MEDS ORDERED: IPRATROPIUM-ALBUTEROL 3 ML NEB INHALATION STA (17:20)
--- NOTE | 2023-03-17 17:25 | CT ---
EXAMINATION TYPE: CT abdomen pelvis w con DATE OF EXAM: 03/17/2023 COMPARISON: 01/19/2023 HISTORY: 78-year-old female left leg swelling and edema, venous embolism TECHNIQUE: Contiguous axial scanning of the abdomen and pelvis following administration of 100 ml Iso nikia 300 IV contrast. Delayed images through the kidneys and coronal/sagittal reconstructions perform ed. CT DLP: 1555.8 mGycm Automated exposure control for dose reduction was used. FINDINGS: The heart is borderline enlarged without pericardial effusion. r large caliber to the main right and left pulmonary arteries and 2.6 cm suggesting pulmonary hypertension. Volume loss at the lung bases l ikely relating to elevated hemidiaphragms with secondary patchy bibasilar opacities, likely large are as of subsegmental atelectasis. No pleural effusion. Shrunken, cirrhotic morphology of the liver. Portal venous system is patent. No focal liver lesion se en. Cholecystectomy clips. A lap band device is present. 2.2 cm cortical cyst medial left kidney. Somewhat delayed excretion of contrast material. Correlate w ith patient's kidney function to exclude JENAE. Spleen borderline enlarged at 13.6 cm. Mildly atrophic pancreas. No dilated small bowel or free air. There is large abdominal ascites. No obvious abdominal adenopathy . The ascites fluid has increased from prior. Moderate stool in the right-sided colon. Sigmoid divert iculosis. Ongoing generalized anasarca change. Small umbilical hernia containing ascites fluid redemonstrated m easuring 3.2 cm wide. Bladder partially distended. Uterus appears surgically absent. There is pelvic floor relaxation. Ther e is increased size of the mid to lower left common iliac vein as well as the left external iliac vei n, see if the, and femoral vein. Some surrounding fat stranding is present here as well. Diffuse generalized soft tissue swelling left lower extremity along with edema along the deeper fasci al planes. Bones: Degenerative changes both hips. There is vertebroplasty change L1. Osteopenia. Moderately adva nced spondylotic changes lumbar spine. IMPRESSION: 1. FINDINGS OF LEFT COMMON AND EXTERNAL ILIAC VEIN THROMBOSIS. DVT CONTINUES INTO THE LEFT CFV AND FE MORAL VEIN. SECONDARY MARKED LEFT LOWER EXTREMITY SWELLING. 2. WORSENING LARGE ABDOMINOPELVIC ASCITES. ONGOING GENERALIZED ANASARCA. 3. CIRRHOTIC MORPHOLOGY OF THE LIVER. 4. SIGMOID DIVERTICULOSIS. 5. SUSPECT PROMINENT PATCHY BIBASILAR OPACITIES SECONDARY TO ELEVATED HEMIDIAPHRAGMS FROM THE LARGE A SCITES FLUID. 6. CORRELATE WITH RENAL FUNCTION TO EXCLUDE JENAE. THERE IS SLIGHTLY DELAYED EXCRETION OF CONTRAST FROM THE KIDNEYS.
[2023-03-17] MEDS ORDERED: HEPARIN SODIUM 1,000 UN/ML (10ML VL) IV ONE (18:36)
[2023-03-17] MEDS ORDERED: HEPARIN SODIUM 1,000 UN/ML (10ML VL) IV PRN (18:36)
[2023-03-17] MEDS ORDERED: NALOXONE 0.4 MG/ML 1 ML VIAL IV PRN (18:36)
[2023-03-17] MEDS ORDERED: ACETAMINOPHEN TAB 325 MG TAB PO PRN (18:36)
[2023-03-17] MEDS ORDERED: HYDROmorphone 0.5 MG/0.5 ML SYRINGE IVP PRN (18:36)
[2023-03-17] MEDS ORDERED: PANTOPRAZOLE 40 MG/10 ML VIAL IV SCH (18:45)
[2023-03-17] MEDS: HEPARIN SOD,PORK IN 0.45% NACL 25,000 UNIT in 0.45% NACL 1 250ML.BAG IV SCH (19:15)
[2023-03-17 19:33] LABS: INR 1.2 (<1.2); Prothrombin Time 12.3 sec (10.0-12.5)
[2023-03-17] MEDS ORDERED: ALPRAZolam 0.25 MG TAB PO PRN (21:54)
[2023-03-17] MEDS ORDERED: MELATONIN 3 MG TABLET PO PRN (21:54)
[2023-03-17] MEDS ORDERED: CALCIUM CARBONATE 500 MG CHEWABLE PO PRN (21:54)
[2023-03-17] MEDS ORDERED: ONDANSETRON 4 MG/2 ML VIAL IVP PRN (21:54)
--- NOTE | 2023-03-17 21:56 | P.HPIM ---
History of Present Illness H&P Date: 03/17/23 Chief Complaint: Left leg swelling Pleasant 78-year-old patient who follows with Dr. Yanez. Also Dr. Yazan Thomas for a cirrhosis. Prior paracentesis. Has underlying COPD with home oxygen. Patient does take diuretics for ascites. 3-4 days notice increasing swelling of the left lower extreme D. Extended up to the groin. No shortness of breath. No fever no chills. No pain. Computed tomography scan in the ER showed left common and external iliac vein thrombosis DVT into the left, femoral vein and femoral vein. Started IV heparin. Vascular Dr. Marquis was consulted. Review of systems: GEN.: Tired EYES: None HEENT: None NECK: None RESPIRATORY: None CARDIOVASCULAR: None GASTROINTESTINAL: Some distention GENITOURINARY: None MUSCULOSKELETAL: Joint pains LYMPHATICS: None HEMATOLOGICAL: None PSYCHIATRY: None NEUROLOGICAL: None. Past medical history to include: GERD, hypertension, hyperlipidemia, hypothyroid, arrhythmia, scoliosis, LAP-BAND in 2013. Cirrhosis. Ascites. Social history: Lives alone. Does use a 4 wheeled walker. No smoking or alcohol. Physical examination: VITAL SIGNS: 98.7, 82, 18, 100/66, 97% on 2 L GENERAL: Reclining in bed, awake EYES: [Pupils equal. Conjunctiva pale l. HEENT: External appearance of nose and ears normal, oral cavity grossly normal. NECK: JVD unable to assess; masses not palpable. HEART: First and second heart sounds are normal; edema present. LUNGS: Respiratory rate increased; increased breath sound. ABDOMEN: Soft, no distention, liver spleen not palpable, no masses palpable. PSYCH: Alert and oriented x3; mood and affect normal. MUSCULOSKELETAL:No Clubbing/cyanosis;muscles-grossly intact. OA NEUROLOGICAL: Cranial nerves grossly intact; no facial asymmetry, power and sensation grossly intact. LYMPHATICS: No lymph nodes palpable in the axilla and neck EXTREMITY: Left extremity swollen compared to the right INVESTIGATIONS, reviewed in the clinical context: March 17 dose: White count 7.9 hemoglobin 12.5 platelets 84 sodium 135 potassium 3.2 BUN 28 creatinine 0.63 albumin 3 Chest x-ray film personally reviewed by me-possible atelectasis Venous Doppler left lower extremity: Positive for DVT., And femoral joselito, great saphenous vein down to femoral vein. The femoral vein. Popliteal vein. Proximal calf veins. Computed tomography scan abdomen and pelvis with contrast: Some suggestion of pulmonary hypertension. Some elevation of hemidiaphragm. Mildly atrophic pancreas. Spleen enlarged to 13.6 cm. Large abdominal ascites. Left common and external iliac vein thrombosis DVT. Extending into the left common femoral vein and femoral vein. Cirrhosis. Sigmoid diverticulosis. Assessment and plan: -Acute DVT Left common and external iliac vein thrombosis DVT. Extending into the left common femoral vein and femoral vein, precipitated in a patient with decreased activity. IV heparin. We'll order MARTA stockings. Vascular surgery consulted for possible thrombolysis/evacuation - COPD in a nonsmoker, likely from restrictive lung disease. Causing chronic hypoxic respiratory failure. home oxygen -IV heparin monitoring Follow PTT -Chronic thrombocytopenia due to underlying cirrhosis -Cirrhosis. Cause unknown. Follows with Dr. Yazan Thomas Salt diet. Diuretics. 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 Splenomegaly -Large ascites secondary to cirrhosis. Aldactone 100 mg twice a day. Fluid restriction. -LAP-BAND. Patient being followed by Dr. Manzano. Patient was seen last month by her and LAP-BAND report is a contraindication setting of ascites and cirrhosis. -Chronic gait dysfunction uses a 4 wheel walker -GERD PPI -Hypothyroid Levothyroxine 112 g a day -Full code-discussed with the patient Discussed with patient. Past Medical History Past Medical History: GERD/Reflux, Hyperlipidemia, Hypertension, Pneumonia, Skin Disorder, Thyroid Disorder Additional Past Medical History / Comment(s): MIGRAINES, ARRYTHMIA, SCOLIOSIS, ascites History of Any Multi-Drug Resistant Organisms: MRSA Date of last positivie culture/infection: 2009 MDRO Source:: BREAST-UNKNOWN WHICH SIDE Past Surgical History: Back Surgery, Bariatric Surgery, Bladder Surgery, Breast Surgery, Cholecystectomy, Hysterectomy Additional Past Surgical History / Comment(s): Lap band 01/23/13. Sinus surgery. COLONOSCOPY. BREAST REDUCTION. 2 RT NECK LYMPH NODES REMOVED AND SALIVARY GLAND REMOVAL Past Anesthesia/Blood Transfusion Reactions: No Reported Reaction Past Psychological History: No Psychological Hx Reported Smoking Status: Never smoker Past Alcohol Use History: None Reported Past Drug Use History: None Reported - Past Family History Daughter(s) Family Medical History: Cancer Medications and Allergies Home Medications Medication Instructions Recorded Confirmed Type Levothyroxine Sodium [Euthyrox] 112 mcg PO DAILY 04/02/20 03/17/23 History Pantoprazole [Protonix] 40 mg PO BID 06/30/21 03/17/23 History Acebutolol HCl [Sectral] 200 mg PO BID 09/02/22 03/17/23 History Atorvastatin [Lipitor] 20 mg PO DAILY 09/02/22 03/17/23 History azaTHIOprine [Imuran] 50 mg PO DAILY 09/02/22 03/17/23 History Ipratropium-Albuterol Nebulize 3 ml INHALATION RT-Q6H PRN 01/18/23 03/17/23 History [Duoneb 0.5 mg-3 mg/3 ml Soln] Furosemide [Lasix] 20 mg PO BID 03/17/23 03/17/23 History Spironolactone [Aldactone] 25 mg PO DAILY 03/17/23 03/17/23 History Allergies Allergy/AdvReac Type Severity Reaction Status Date / Time No Known Allergies Allergy Verified 03/17/23 12:39 Physical Exam Vitals: Vital Signs Temp Pulse Pulse Resp BP BP Pulse Ox 03/17/23 20:00 98.7 F 82 18 100/66 97 03/17/23 19:23 98.5 F 03/17/23 19:05 81 18 97/64 97 03/17/23 18:28 82 03/17/23 18:21 82 03/17/23 12:32 99.5 F 85 20 125/82 96 Intake and Output 03/17/23 03/17/23 03/17/23 06:59 14:59 22:59 Other: Weight 86.183 kg Results CBC & Chem 7: 03/17/23 13:05 03/17/23 13:05 Labs: Abnormal Lab Results - Last 24 Hours (Table) 03/17/23 03/17/23 03/17/23 Range/Units 13:05 13:05 19:14 RBC 3.57 L (3.80-5.40) m/uL MCV 102.9 H (80.0-100.0) fL Plt Count 84 L (150-450) k/uL Lymphocytes # 0.6 L (1.0-4.8) k/uL INR 1.2 H (<1.2) Sodium 135 L (137-145) mmol/L Potassium 3.2 L (3.5-5.1) mmol/L Chloride 92 L (98-107) mmol/L Carbon Dioxide 36 H (22-30) mmol/L BUN 28 H (7-17) mg/dL Glucose 111 H (74-99) mg/dL Calcium 8.3 L (8.4-10.2) mg/dL Total Bilirubin 2.8 H (0.2-1.3) mg/dL Total Protein 6.0 L (6.3-8.2) g/dL Albumin 3.0 L (3.5-5.0) g/dL
[2023-03-18 02:41] LABS: Basophils % (A) 0 %; Eosinophils % (A) 0 %; HCT 34.9 % (34.0-46.0); HGB 11.4 gm/dL (11.4-16.0); Lymphocytes # (A) 0.5 k/uL (1.0-4.8); Lymphocytes % (A) 8 %; MCH 34.6 pg (25.0-35.0); MCHC 32.8 g/dL (31.0-37.0); MCV 105.5 fL (80.0-100.0); Macrocytosis Moderate; Monocytes # (A) 0.9 k/uL (0-1.0); Monocytes % (A) 13 %; Neutrophils # (A) 5.3 k/uL (1.3-7.7); Neutrophils % (A) 75 %; RBC 3.31 m/uL (3.80-5.40); RDW 15.2 % (11.5-15.5)
[2023-03-18 02:48] LABS: Platelet Count 78 k/uL (150-450)
[2023-03-18] MEDS ORDERED: POTASSIUM CHLORIDE ER 20 MEQ TAB.ER PO STA (07:50)
[2023-03-18] MEDS ORDERED: LACTULOSE 20 GM/30 ML CUP PO PRN (09:00)
--- NOTE | 2023-03-18 09:08 | P.GSCN ---
History of Present Illness Consult date: 03/18/23 Reason for Consult: Left lower extremity DVT Requesting physician: Roberto Quintero History of present illness: This is a pleasant 78-year-old female who presented to the emergency department with concerns of left lower extremity swelling. She has a past medical history including chronic liver disease, hyperlipidemia, hypertension, hypothyroidism, and GERD. Patient states she started noticing her left foot swelling more 3-4 days ago and then it continued up her leg and into her thigh. She states the swelling into her thigh made it difficult for her to move her leg. She states that while laying down she does not have any pain however she does have some discomfort with ambulating. She had a venous duplex of the left lower extremity and that reported positive deep venous thrombosis throughout the left lower ext remity. She also underwent a CT of the abdomen and pelvis that reported left common and external iliac vein thrombosis with DVT continuing through the common femoral vein and femoral vein. She was started on IV heparin. She denies any previous history of DVT or pulmonary embolism. Denies any family history of clotting disorders or known DVTs. She does state that she leaks more of a sedentary life due to low back pain and numbness that radiates down the left lower extremity. She currently denies any shortness of breath, chest pain, or abdominal pain. Denies any pain in her left lower extremity. She has been afebrile. Review of Systems A 14 point review systems was completed all pertinent positives and negatives as stated in the HPI. Past Medical History Past Medical History: GERD/Reflux, Hyperlipidemia, Hypertension, Pneumonia, Skin Disorder, Thyroid Disorder Additional Past Medical History / Comment(s): MIGRAINES, ARRYTHMIA, SCOLIOSIS, ascites History of Any Multi-Drug Resistant Organisms: MRSA Year Discovered:: 2009 MDRO Source:: BREAST-UNKNOWN WHICH SIDE Past Surgical History: Back Surgery, Bariatric Surgery, Bladder Surgery, Breast Surgery, Cholecystectomy, Hysterectomy Additional Past Surgical History / Comment(s): Lap band 01/23/13. Sinus surgery. COLONOSCOPY. BREAST REDUCTION. 2 RT NECK LYMPH NODES REMOVED AND SALIVARY GLAND REMOVAL Past Anesthesia/Blood Transfusion Reactions: No Reported Reaction Past Psychological History: No Psychological Hx Reported Smoking Status: Never smoker Past Alcohol Use History: None Reported Past Drug Use History: None Reported - Past Family History Daughter(s) Family Medical History: Cancer Medications and Allergies Home Medications Medication Instructions Recorded Confirmed Type Levothyroxine Sodium [Euthyrox] 112 mcg PO DAILY 04/02/20 03/17/23 History Pantoprazole [Protonix] 40 mg PO BID 06/30/21 03/17/23 History Acebutolol HCl [Sectral] 200 mg PO BID 09/02/22 03/17/23 History Atorvastatin [Lipitor] 20 mg PO DAILY 09/02/22 03/17/23 History azaTHIOprine [Imuran] 50 mg PO DAILY 09/02/22 03/17/23 History Ipratropium-Albuterol Nebulize 3 ml INHALATION RT-Q6H PRN 01/18/23 03/17/23 History [Duoneb 0.5 mg-3 mg/3 ml Soln] Furosemide [Lasix] 20 mg PO BID 03/17/23 03/17/23 History Spironolactone [Aldactone] 25 mg PO DAILY 03/17/23 03/17/23 History Allergies Allergy/AdvReac Type Severity Reaction Status Date / Time No Known Allergies Allergy Verified 03/17/23 12:39 Surgical - Exam Vital Signs Temp Pulse Resp BP Pulse Ox 99.5 F 85 20 125/82 96 03/17/23 12:32 03/17/23 12:32 03/17/23 12:32 03/17/23 12:32 03/17/23 12:32 General appearance: The patient is alert, oriented, appears in no acute distress. Obese. HET: Head is normocephalic and atraumatic. Pupils are equal and reactive. Neck: Supple. Heart: Regular. Lungs: Equal expansion, normal respiratory effort. Abdomen: Soft, nontender, nondistended. Extremities: Left lower extremity swelling from thigh down through the foot. Erythema along her cheung, with pitting edema. Palpable DP pulse. Neurological: No focal deficits. Alert and oriented 3. Results - Labs 03/18/23 02:21 03/17/23 13:05 Abnormal Lab Results - Last 24 Hours (Table) 03/17/23 03/17/23 03/17/23 Range/Units 13:05 13:05 19:14 RBC 3.57 L (3.80-5.40) m/uL MCV 102.9 H (80.0-100.0) fL Plt Count 84 L (150-450) k/uL Lymphocytes # 0.6 L (1.0-4.8) k/uL INR 1.2 H (<1.2) APTT (22.0-30.0) sec Sodium 135 L (137-145) mmol/L Potassium 3.2 L (3.5-5.1) mmol/L Chloride 92 L (98-107) mmol/L Carbon Dioxide 36 H (22-30) mmol/L BUN 28 H (7-17) mg/dL Glucose 111 H (74-99) mg/dL Calcium 8.3 L (8.4-10.2) mg/dL Total Bilirubin 2.8 H (0.2-1.3) mg/dL Total Protein 6.0 L (6.3-8.2) g/dL Albumin 3.0 L (3.5-5.0) g/dL 03/18/23 03/18/23 Range/Units 02:21 02:21 RBC 3.31 L (3.80-5.40) m/uL MCV 105.5 H (80.0-100.0) fL Plt Count 78 L (150-450) k/uL Lymphocytes # 0.5 L (1.0-4.8) k/uL INR (<1.2) APTT >200.0 H* (22.0-30.0) sec Sodium (137-145) mmol/L Potassium (3.5-5.1) mmol/L Chloride (98-107) mmol/L Carbon Dioxide (22-30) mmol/L BUN (7-17) mg/dL Glucose (74-99) mg/dL Calcium (8.4-10.2) mg/dL Total Bilirubin (0.2-1.3) mg/dL Total Protein (6.3-8.2) g/dL Albumin (3.5-5.0) g/dL Diabetes panel 03/17/23 Range/Units 13:05 Sodium 135 L (137-145) mmol/L Potassium 3.2 L (3.5-5.1) mmol/L Chloride 92 L (98-107) mmol/L Carbon Dioxide 36 H (22-30) mmol/L BUN 28 H (7-17) mg/dL Creatinine 0.63 (0.52-1.04) mg/dL Glucose 111 H (74-99) mg/dL Calcium 8.3 L (8.4-10.2) mg/dL AST 26 (14-36) U/L ALT 12 (4-34) U/L Alkaline Phosphatase 48 (38-126) U/L Total Protein 6.0 L (6.3-8.2) g/dL Albumin 3.0 L (3.5-5.0) g/dL Calcium panel 03/17/23 Range/Units 13:05 Calcium 8.3 L (8.4-10.2) mg/dL Albumin 3.0 L (3.5-5.0) g/dL Pituitary panel 03/17/23 Range/Units 13:05 Sodium 135 L (137-145) mmol/L Potassium 3.2 L (3.5-5.1) mmol/L Chloride 92 L (98-107) mmol/L Carbon Dioxide 36 H (22-30) mmol/L BUN 28 H (7-17) mg/dL Creatinine 0.63 (0.52-1.04) mg/dL Glucose 111 H (74-99) mg/dL Calcium 8.3 L (8.4-10.2) mg/dL Adrenal panel 03/17/23 Range/Units 13:05 Sodium 135 L (137-145) mmol/L Potassium 3.2 L (3.5-5.1) mmol/L Chloride 92 L (98-107) mmol/L Carbon Dioxide 36 H (22-30) mmol/L BUN 28 H (7-17) mg/dL Creatinine 0.63 (0.52-1.04) mg/dL Glucose 111 H (74-99) mg/dL Calcium 8.3 L (8.4-10.2) mg/dL Total Bilirubin 2.8 H (0.2-1.3) mg/dL AST 26 (14-36) U/L ALT 12 (4-34) U/L Alkaline Phosphatase 48 (38-126) U/L Total Protein 6.0 L (6.3-8.2) g/dL Albumin 3.0 L (3.5-5.0) g/dL - Imaging Comments: Left lower extremity venous duplex: Positive deep venous thrombosis throughout the left lower extremity CT abdomen and pelvis with contrast: No findings of left common and external iliac vein thrombosis. DVT continues into the left CF the and femoral vein. Secondary marked left lower extremity swelling. Worsening large abdominopelvic ascites. Ongoing generalized anasarca. Cirrhotic morphology of the liver. Sigmoid diverticulosis. Suspect prominent patchy bibasal or alcohol 50s secondary to elevated hemidiaphragm from the large ascites fluid. Correlate with renal function to exclude AK I. There is slightly delayed excretion of contrast from the kidneys. Assessment and Plan Assessment: 1. Extensive left lower extremity deep venous thrombosis 2. Thrombocytopenia likely secondary to underlying chronic liver disease 3. Ascites 4. Chronic liver disease 5. Hypothyroidism 6. Hypertension 7. Hyperlipidemia Plan: 1. Continue heparin drip for now, may transition to oral anticoagulation of your choice 2. Patient may continue heart healthy diet 3. Please apply left lower extremity thigh-high compression stocking and elevate left lower extremity 4. No plans for surgical intervention at this time. Will have patient follow- up with Dr. Marquis next week, if swelling does not improve consider thrombectomy at that time. 6. Rest of medical management per primary medical team Thank you for this consultation. The impression and plan of care has been dictated as directed. I performed a history and examination of this patient, discussed the same with the dictator. I agree with the dictator's note ,documented as a scribe. Any additional findings or plans will be noted.
--- NOTE | 2023-03-18 09:12 | US ---
EXAMINATION TYPE: US abdomen limited DATE OF EXAM: 03/18/2023 COMPARISON: CT abdomen pelvis 03/17/2023 CLINICAL INDICATION: Female, 78 years old with history of assess for fluid pocket please; ascites Technique: Multiple grayscale ultrasound images of the 4 quadrants of the abdomen for the assessment of ascites was obtained. FINDINGS/IMPRESSION: Moderate volume ascites.
[2023-03-18] MEDS: IPRATROPIUM-ALBUTEROL 3 ML NEB INHALATION PRN ×3 (11:00→20:59)
[2023-03-18 12:09] LABS: African American GFR (CKD) >90 (>60 ml/min/1.73 sqM); Anion Gap 5 mmol/L; Blood Urea Nitrogen 26 mg/dL (7-17); Calcium 8.3 mg/dL (8.4-10.2); Carbon Dioxide 38 mmol/L (22-30); Chloride 94 mmol/L (98-107); Glucose 123 mg/dL (74-99); Non-African American GFR(CKD) >90 (>60 ml/min/1.73 sqM); Potassium 3.8 mmol/L (3.5-5.1); Sodium 137 mmol/L (137-145)
[2023-03-18 12:24] LABS: Basophils # (A) 0.02 X 10*3/uL (0.00-0.10); Basophils % (A) 0.3 %; Elliptocytes 2+; Eosinophils # (A) 0.03 X 10*3/uL (0.04-0.35); Eosinophils % (A) 0.4 %; HCT 37.4 % (37.2-46.3); Lymphocytes # (A) 0.53 X 10*3/uL (0.90-5.00); Lymphocytes % (A) 7.5 %; MCH 34.5 pg (27.0-32.0); MCHC 32.1 g/dL (32.0-37.0); MCV 107.5 FL (80.0-97.0); Macrocytosis (M) 2+; Mean Platelet Volume 11.1 FL (9.5-12.2); Monocytes # (A) 1.47 X 10*3/uL (0.20-1.00); Monocytes % (A) 20.8 %; NRBC Per 100 WBC 0 X 10*3/uL (0.00-0.01); Neutrophils % (A) 70.7 %; Platelet Count 88 X 10*3/uL (140-440); RBC 3.48 X 10*6/uL (4.10-5.20); RDW 15.2 % (11.5-14.5); WBC 7.07 X 10*3/uL (4.50-10.00)
--- NOTE | 2023-03-18 15:10 | P.PN ---
Progress Note - Text Progress Note Date: 03/18/23 Chief Complaint: Left leg swelling Pleasant 78-year-old patient who follows with Dr. Yanez. Also Dr. Yazan Thomas for a cirrhosis. Prior paracentesis. Has underlying COPD with home oxygen. Patient does take diuretics for ascites. 3-4 days notice increasing swelling of the left lower extreme D. Extended up to the groin. No shortness of breath. No fever no chills. No pain. Computed tomography scan in the ER showed left common and external iliac vein thrombosis DVT into the left, femoral vein and femoral vein. Started IV heparin. Vascular Dr. Marquis was consulted. March 18: Patient remains on IV heparin. Seen by Dr. Marquis from vascular. Not fitting further intervention. This point. Continue with IV heparin until tomorrow morning. To stabilize the blood clot. We'll hold the heparin for 4 hours prior to paracentesis. Then we will change release manager to oral anticoagulation. Patient be given IV albumin following the paracentesis. Discussed with patient. Active Medications Acetaminophen (Acetaminophen Tab 325 Mg Tab) 650 mg PO Q6HR PRN PRN Reason: Mild Pain or Fever > 100.5 Albuterol/Ipratropium (Ipratropium-Albuterol 3 Ml Neb) 3 ml INHALATION RT-QID PRN PRN Reason: Shortness Of Breath Or Wheezing Last Admin: 03/18/23 15:06 Dose: 3 ml Alprazolam (Alprazolam 0.25 Mg Tab) 0.25 mg PO Q6HR PRN PRN Reason: Anxiety Calcium Carbonate/Glycine (Calcium Carbonate 500 Mg Chewable) 1,000 mg PO Q4HR PRN PRN Reason: Dyspepsia Heparin Sodium (Porcine) (Heparin Sodium 1,000 Un/Ml (10ml Vl)) 0 unit IV PER PROTOCOL PRN; Protocol PRN Reason: Low PTT Hydromorphone HCl (Hydromorphone 0.5 Mg/0.5 Ml Syringe) 0.5 mg IVP Q3HR PRN PRN Reason: Moderate Pain (Scale 4 to 6) Heparin Sodium/Sodium Chloride (25,000 unit/ Sodium Chloride) 250 mls @ 15.513 mls/hr IV .Q16H7M CARO; Protocol Last Titration: 03/18/23 05:36 Dose: 14 units/kg/hr, 12.066 mls/hr Albumin Human 50 ml/ IV (Solution) 50 mls @ 200 mls/hr IVPB Q15M [facility] Stop: 03/19/23 14:59 Lactulose (Lactulose 20 Gm/30 Ml Cup) 20 gm PO DAILY PRN PRN Reason: Constipation Melatonin (Melatonin 3 Mg Tablet) 3 mg PO HS PRN PRN Reason: Insomnia Naloxone HCl (Naloxone 0.4 Mg/Ml 1 Ml Vial) 0.2 mg IV Q2M PRN PRN Reason: Opioid Reversal Ondansetron HCl (Ondansetron 4 Mg/2 Ml Vial) 4 mg IVP Q8HR PRN PRN Reason: Nausea And Vomiting Past medical history to include: GERD, hypertension, hyperlipidemia, hypothyroid, arrhythmia, scoliosis, LAP-BAND in 2012. Cirrhosis. Ascites. Social history: Lives alone. Does use a 4 wheeled walker. No smoking or alcohol. Physical examination: VITAL SIGNS: 98.4, 86, 16, 99/62, 99% on 2 L GENERAL: Reclining in bed, awake EYES: [Pupils equal. Conjunctiva pale l. HEENT: External appearance of nose and ears normal, oral cavity grossly normal. NECK: JVD unable to assess; masses not palpable. HEART: First and second heart sounds are normal; edema present. LUNGS: Respiratory rate increased; increased breath sound. ABDOMEN: Soft, no distention, liver spleen not palpable, no masses palpable. PSYCH: Alert and oriented x3; mood and affect normal. MUSCULOSKELETAL:No Clubbing/cyanosis;muscles-grossly intact. OA EXTREMITY: Left extremity swollen compared to the right INVESTIGATIONS, reviewed in the clinical context: March 18: White count 7.0 hemoglobin 12 platelets 88 potassium 3.8 creatinine 0.5 for March 17 dose: White count 7.9 hemoglobin 12.5 platelets 84 sodium 135 potassium 3.2 BUN 28 creatinine 0.63 albumin 3 Chest x-ray film personally reviewed by me-possible atelectasis Venous Doppler left lower extremity: Positive for DVT., And femoral joselito, great saphenous vein down to femoral vein. The femoral vein. Popliteal vein. Proximal calf veins. Computed tomography scan abdomen and pelvis with contrast: Some suggestion of pulmonary hypertension. Some elevation of hemidiaphragm. Mildly atrophic pancreas. Spleen enlarged to 13.6 cm. Large abdominal ascites. Left common and external iliac vein thrombosis DVT. Extending into the left common femoral vein and femoral vein. Cirrhosis. Sigmoid diverticulosis. Assessment and plan: -Acute DVT Left common and external iliac vein thrombosis DVT. Extending into the left common femoral vein and femoral vein, precipitated in a patient with decreased activity. IV heparin. MARTA stockings. Seen by Dr. Marquis from vascular: No further surgical intervention presently - COPD in a nonsmoker, likely from restrictive lung disease. Causing chronic hypoxic respiratory failure. home oxygen -IV heparin monitoring Follow PTT -Chronic thrombocytopenia due to underlying cirrhosis Follow CBC -Chronic Cirrhosis. Cause unknown. Follows outpatient Dr. Yazan Thomas Restricted Salt diet. Diuretics. 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 With Splenomegaly -Large ascites secondary to cirrhosis.: Slow to respond Aldactone 100 mg twice a day. Fluid restriction. For paracentesis tomorrow followed by albumin -LAP-BAND. Patient being followed by Dr. Manzano. Patient was seen last month by her and LAP-BAND report is a contraindication setting of ascites and cirrhosis. -Chronic gait dysfunction uses a 4 wheel walker -GERD PPI -Hypothyroid Levothyroxine 112 g a day -Full code-discussed with the patient For paracentesis tomorrow and will change release manager to oral anticoagulation. Discussed with patient.
[2023-03-18] MEDS: ATORVASTATIN 20 MG TAB PO SCH (16:52)
[2023-03-18] MEDS: PANTOPRAZOLE 40 MG TABLET PO SCH (16:52)
[2023-03-18] MEDS: SPIRONOLACTONE 25 MG TAB PO SCH (16:53)
[2023-03-18] MEDS: LEVOTHYROXINE 112 MCG TAB PO SCH (17:22)
[2023-03-18] MEDS: FUROSEMIDE 20 MG TAB PO SCH (17:52)
[2023-03-18] MEDS: azaTHIOprine 50 MG TAB PO SCH (17:52)
[2023-03-18] MEDS: ACEBUTOLOL 200 MG PO SCH (20:55)
[2023-03-18] MEDS: HEPARIN SOD,PORK IN 0.45% NACL 25,000 UNIT in 0.45% NACL 1 250ML.BAG IV SCH (20:56)
[2023-03-18] MEDS ORDERED: ACEBUTOLOL HCL 200 MG PO SCH (21:00)
[2023-03-19] MEDS: HEPARIN SOD,PORK IN 0.45% NACL 25,000 UNIT in 0.45% NACL 1 250ML.BAG IV SCH (03:19)
[2023-03-19] MEDS: LEVOTHYROXINE 112 MCG TAB PO SCH (05:50)
[2023-03-19] MEDS: IPRATROPIUM-ALBUTEROL 3 ML NEB INHALATION PRN ×2 (07:21→15:33)
[2023-03-19] MEDS ORDERED: APIXABAN 5 MG TAB PO SCH (10:30)
[2023-03-19] MEDS: ALBUMIN HUMAN 25% 50 ML in EMPTY BAG 1 BAG IVPB SCH ×6 (10:38→15:13)
[2023-03-19 10:52] VITALS: TEMP 98.7
[2023-03-19 11:16] VITALS: RESP 24
[2023-03-19] MEDS: azaTHIOprine 50 MG TAB PO SCH (12:04)
[2023-03-19] MEDS: ATORVASTATIN 20 MG TAB PO SCH (12:04)
--- NOTE | 2023-03-19 12:14 | US ---
Ultrasound-guided paracentesis. DATE OF EXAM: 03/19/2023 CLINICAL HISTORY: Ascites The procedure was discussed with the patient. The risks, complications, benefits, and alternatives we re discussed and any questions were answered. Informed consent was obtained. The patient was placed s upine on the ultrasound table and prepped and draped in the usual sterile fashion. All elements of maximal barrier technique were utilized. Under ultrasound guidance, access into the right lower quadrant was obtained, via the paracentesis catheter system and direct ultrasound guidanc e. Approximately 8.2 liters of straw-colored fluid was removed. The patient was stable throughout the pr ocedure and remained stable upon discharge from Department of Radiology. IMPRESSION: Successful paracentesis under ultrasound guidance.
[2023-03-19] MEDS: ACEBUTOLOL 200 MG PO SCH (12:16)
[2023-03-19] MEDS: PANTOPRAZOLE 40 MG TABLET PO SCH ×2 (12:26→16:14)
[2023-03-19] MEDS: FUROSEMIDE 20 MG TAB PO SCH ×2 (12:29→15:12)
[2023-03-19 12:53] VITALS: BP 88/51
[2023-03-19] MEDS: SPIRONOLACTONE 25 MG TAB PO SCH (13:56)
[2023-03-19 15:15] VITALS: BMI 37.0
[2023-03-19 15:38] VITALS: PULSE 80
--- NOTE | 2023-03-19 16:45 | P.DS ---
Providers Date of admission: 03/17/23 18:36 Expected date of discharge: 03/19/23 Attending physician: Javier Mathur Consults: 03/17/23 18:36 Consult Physician Urgent Consulting Provider: Regine Marquis Consult Reason/Comments: dvt Do you want consulting provider notified?: Already Contacted Primary care physician: [facility] Course: Chief Complaint: Left leg swelling Pleasant 78-year-old patient who follows with Dr. Yanez. Also Dr. Yazan Thomas for a cirrhosis. Prior paracentesis. Has underlying COPD with home oxygen. Patient does take diuretics for ascites. 3-4 days notice increasing swelling of the left lower extreme D. Extended up to the groin. No shortness of breath. No fever no chills. No pain. Computed tomography scan in the ER showed left common and external iliac vein thrombosis DVT into the left, femoral vein and femoral vein. Started IV heparin. Vascular Dr. Marquis was consulted. March 18: Patient remains on IV heparin. Seen by Dr. Marquis from vascular. Not fitting further intervention. This point. Continue with IV heparin until tomorrow morning. To stabilize the blood clot. We'll hold the heparin for 4 hours prior to paracentesis. Then we will record changer to oral anticoagulation. Patient be given IV albumin following the paracentesis. Discussed with patient. March 19: Patient had paracentesis done today 8.2 L removed. Stroke alert. Postprocedure given IV albumin. Patient exertion eliquis in because of cirrhosis dose will be half. I.e. off eliquis. Discussed with pharmacy. Discussed with patient. And the nurse. MARTA stockings. Discussion and discharge planning more than 35 minutes Past medical history to include: GERD, hypertension, hyperlipidemia, hypothyroid, arrhythmia, scoliosis, LAP-BAND in 2012. Cirrhosis. Ascites. Social history: Lives alone. Does use a 4 wheeled walker. No smoking or alcohol. Physical examination: VITAL SIGNS: 98.7, 70, 24, 93/66,. 93% room air GENERAL: Reclining in bed, comfortable EYES: [Pupils equal. Conjunctiva pale HEENT: External appearance of nose and ears normal, oral cavity grossly normal. NECK: JVD unable to assess; masses not palpable. HEART: First and second heart sounds are normal; edema present. LUNGS: Respiratory rate normal; decreased breath sound. ABDOMEN: Soft, no distention, liver spleen not palpable, no masses palpable. PSYCH: Alert and oriented x3; mood and affect normal. MUSCULOSKELETAL:No Clubbing/cyanosis;muscles-grossly intact. OA EXTREMITY: Left extremity swollen compared to the right INVESTIGATIONS, reviewed in the clinical context: March 18: White count 7.0 hemoglobin 12 platelets 88 potassium 3.8 creatinine 0.5 for March 17 dose: White count 7.9 hemoglobin 12.5 platelets 84 sodium 135 potassium 3.2 BUN 28 creatinine 0.63 albumin 3 Chest x-ray film personally reviewed by me-possible atelectasis Venous Doppler left lower extremity: Positive for DVT., And femoral joselito, great saphenous vein down to femoral vein. The femoral vein. Popliteal vein. Proximal calf veins. Computed tomography scan abdomen and pelvis with contrast: Some suggestion of pulmonary hypertension. Some elevation of hemidiaphragm. Mildly atrophic pancreas. Spleen enlarged to 13.6 cm. Large abdominal ascites. Left common and external iliac vein thrombosis DVT. Extending into the left common femoral vein and femoral vein. Cirrhosis. Sigmoid diverticulosis. Assessment and plan: -Acute DVT Left common and external iliac vein thrombosis DVT. Extending into the left common femoral vein and femoral vein, precipitated in a patient with decreased activity. IV heparin. MARTA stockings. Seen by Dr. Marquis from vascular: No further surgical intervention presently Eliquis 5 mg twice a day for 7 days then 2.5 mg twice a day because of underlying cirrhosis - COPD in a nonsmoker, likely from restrictive lung disease. Causing chronic hypoxic respiratory failure. home oxygen -IV heparin monitoring Follow PTT -Chronic thrombocytopenia due to underlying cirrhosis Follow CBC -Chronic Cirrhosis. Cause unknown. Follows outpatient Dr. Yazan Thomas Restricted Salt diet. Diuretics. 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 With Splenomegaly -Large ascites secondary to cirrhosis.: Aldactone 100 mg twice a day. Fluid restriction. 8.2 L of ascites removed. Followed by albumin. -LAP-BAND. Patient being followed by Dr. Manzano. Patient was seen last month by her and LAP-BAND report is a contraindication setting of ascites and cirrhosis. -Chronic gait dysfunction uses a 4 wheel walker -GERD PPI -Hypothyroid Levothyroxine 112 g a day -Full code- Disposition: Home Plan - Discharge Summary Discharge Rx Participant: No New Discharge Prescriptions: New Apixaban [Eliquis] 2.5 mg PO BID #60 tab Apixaban [Eliquis] 5 mg PO BID #14 tab Continue Levothyroxine Sodium [Euthyrox] 112 mcg PO DAILY azaTHIOprine [Imuran] 50 mg PO DAILY Ipratropium-Albuterol Nebulize [Duoneb 0.5 mg-3 mg/3 ml Soln] 3 ml INHALATION RT-Q6H PRN PRN Reason: Shortness Of Breath Pantoprazole [Protonix] 40 mg PO BID Acebutolol HCl [Sectral] 200 mg PO BID Atorvastatin [Lipitor] 20 mg PO DAILY Furosemide [Lasix] 20 mg PO BID Changed Spironolactone [Aldactone] 25 mg PO BID #0 Discharge Medication List Levothyroxine Sodium [Euthyrox] 112 mcg PO DAILY 04/02/20 [History] Pantoprazole [Protonix] 40 mg PO BID 06/30/21 [History] Acebutolol HCl [Sectral] 200 mg PO BID 09/02/22 [History] Atorvastatin [Lipitor] 20 mg PO DAILY 09/02/22 [History] azaTHIOprine [Imuran] 50 mg PO DAILY 09/02/22 [History] Ipratropium-Albuterol Nebulize [Duoneb 0.5 mg-3 mg/3 ml Soln] 3 ml INHALATION RT-Q6H PRN 01/18/23 [History] Furosemide [Lasix] 20 mg PO BID 03/17/23 [History] Apixaban [Eliquis] 2.5 mg PO BID #60 tab 03/19/23 [Rx] Apixaban [Eliquis] 5 mg PO BID #14 tab 03/19/23 [Rx] Spironolactone [Aldactone] 25 mg PO BID #0 03/19/23 [Rx] Follow up Appointment(s)/Referral(s): Jovan Yanez MD [Primary Care Provider] - 03/24/23 11:00 am (appointment is with Maral LOU) Regine Marquis DO [STAFF PHYSICIAN] - 1 Week (please call the office on Wednesday to schedule a follow up appointment. ) Activity/Diet/Wound Care/Special Instructions: fluid restrict 1800 cc/day low salt diet cbc/bmp - 7 days
== END 2023-03-19 19:03 | disposition home or self-care (01) | DRG 300 ==
LOC: EC 11:45 → 5NMEDONC 18:36
PROVIDERS: ADMIT Hospitalist; ATTEND Hospitalist
PROC: 0W9G3ZZ Drainage of Peritoneal Cavity, Percutaneous Approach (ICD-10-PCS; principal; 2023-03-19)
DX: I82.422 Acute embolism and thrombosis of left iliac vein (principal); J96.11 Chronic respiratory failure with hypoxia; R18.8 Other ascites; I82.412 Acute embolism and thrombosis of left femoral vein; K21.9 Gastro-esophageal reflux disease without esophagitis; Z71.3 Dietary counseling and surveillance; J44.9 Chronic obstructive pulmonary disease, unspecified; Z20.822 Contact with and (suspected) exposure to COVID-19; K74.60 Unspecified cirrhosis of liver; G43.909 Migraine, unspecified, not intractable, without status migrainosus; R26.9 Unspecified abnormalities of gait and mobility; Z99.81 Dependence on supplemental oxygen; Z79.890 Hormone replacement therapy; E03.9 Hypothyroidism, unspecified; I10 Essential (primary) hypertension; D69.59 Other secondary thrombocytopenia; E78.5 Hyperlipidemia, unspecified; M41.9 Scoliosis, unspecified; Z86.14 Personal history of Methicillin resistant Staphylococcus aureus infection; Z87.01 Personal history of pneumonia (recurrent); K59.00 Constipation, unspecified; Z79.624 Long term (current) use of inhibitors of nucleotide synthesis; Z79.899 Other long term (current) drug therapy; Z98.84 Bariatric surgery status
CPT/HCPCS: 36415; 49083; 71046; 74177; 76705; 80048; 80053; 83880; 85025; 85610; 85730; 87636; 94640; 94760; 96365; 96366; 96375; 99291

== ENCOUNTER 2023-05-05 10:55 | Observation (INO) | payer MEDICARE, OTHER ==
--- NOTE | 2023-05-05 10:58 | ED ---
General Adult HPI - General Source: patient, RN notes reviewed Mode of arrival: ambulatory Limitations: no limitations <Art Sneed - Last Filed: 05/05/23 10:57> - General Source: RN notes reviewed, old records reviewed Mode of arrival: ambulatory Limitations: no limitations - History of Present Illness -: days(s) Location: head Radiation: non-radiation Severity scale (1-10): 4 Quality: burning Consistency: constant Improves with: none Worsens with: none Associated Symptoms: denies other symptoms Treatments Prior to Arrival: none <Rocky Sharma - Last Filed: 05/09/23 13:25> - General Stated complaint: Abn labs Time Seen by Provider: 05/05/23 10:57 - History of Present Illness Initial comments: 78-year-old female sent emergency Department with chief complaint of abdominal discomfort. 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 Patient states last time was approximatelymal one month ago last time she had this done. Patient states she feels like she is to have drained again. (Art Sneed) This is a 78-year-old female sent to the emergency department for evaluation of abdominal pain with liver failure needing paracentesis for ascites (Rocky Sharma) - Related Data Home Medications Medication Instructions Recorded Confirmed Levothyroxine Sodium [Euthyrox] 112 mcg PO DAILY 04/02/20 05/05/23 Pantoprazole [Protonix] 40 mg PO BID 06/30/21 05/05/23 Acebutolol HCl [Sectral] 200 mg PO HS 09/02/22 05/05/23 azaTHIOprine [Imuran] 50 mg PO DAILY 09/02/22 05/05/23 Ipratropium-Albuterol Nebulize 3 ml INHALATION RT-QID 01/18/23 05/05/23 [Duoneb 0.5 mg-3 mg/3 ml Soln] Apixaban [Eliquis] 2.5 mg PO BID 05/05/23 05/05/23 Previous Rx's Medication Instructions Recorded Furosemide [Lasix] 40 mg PO BID #60 tablet 05/07/23 Spironolactone [Aldactone] 100 mg PO DAILY #30 tab 05/07/23 Allergies Allergy/AdvReac Type Severity Reaction Status Date / Time No Known Allergies Allergy Verified 05/05/23 11:44 Review of Systems ROS Other: All systems not noted in ROS Statement are negative. <Art Sneed - Last Filed: 05/05/23 10:57> ROS Other: All systems not noted in ROS Statement are negative. <Rocky Sharma - Last Filed: 05/09/23 13:25> ROS Statement: Those systems with pertinent positive or pertinent negative responses have been documented in the HPI. Past Medical History Past Medical History: GERD/Reflux, Hyperlipidemia, Hypertension, Pneumonia, Skin Disorder, Thyroid Disorder Additional Past Medical History / Comment(s): MIGRAINES, ARRYTHMIA, SCOLIOSIS, ascites History of Any Multi-Drug Resistant Organisms: MRSA Date of last positivie culture/infection: 2009 MDRO Source:: BREAST-UNKNOWN WHICH SIDE Past Surgical History: Back Surgery, Bariatric Surgery, Bladder Surgery, Breast Surgery, Cholecystectomy, Hysterectomy Additional Past Surgical History / Comment(s): Lap band 01/23/13. Sinus surgery. COLONOSCOPY. BREAST REDUCTION. 2 RT NECK LYMPH NODES REMOVED AND SALIVARY GLAND REMOVAL Past Anesthesia/Blood Transfusion Reactions: No Reported Reaction Smoking Status: Former smoker - Past Family History Daughter(s) Family Medical History: Cancer <Art Sneed - Last Filed: 05/05/23 10:57> General Exam <Art Sneed - Last Filed: 05/05/23 10:57> General appearance: alert, in no apparent distress Head exam: Present: atraumatic, normocephalic, normal inspection Eye exam: Present: normal appearance, PERRL, EOMI. Absent: scleral icterus, con junctival injection, periorbital swelling ENT exam: Present: normal exam, mucous membranes moist Neck exam: Present: normal inspection. Absent: tenderness, meningismus, lymphadenopathy Respiratory exam: Present: normal lung sounds bilaterally. Absent: respiratory distress, wheezes, rales, rhonchi, stridor Cardiovascular Exam: Present: regular rate, normal rhythm, normal heart sounds. Absent: systolic murmur, diastolic murmur, rubs, gallop, clicks GI/Abdominal exam: Present: soft, normal bowel sounds. Absent: distended, tenderness, guarding, rebound, rigid Extremities exam: Present: normal inspection, full ROM, normal capillary refill. Absent: tenderness, pedal edema, joint swelling, calf tenderness Back exam: Present: normal inspection Neurological exam: Present: alert, oriented X3, CN II-XII intact Psychiatric exam: Present: normal affect, normal mood Skin exam: Present: warm, dry, intact, normal color. Absent: rash <Rocky Sharma - Last Filed: 05/09/23 13:25> - General Exam Comments Initial Comments: Visual Physical Exam Vital signs reviewed General: Well-appearing, nontoxic, no acute distress. Head: Normocephalic, atraumatic Eyes: PERRLA, EOMI ENT: Airway patent Chest: Nonlabored breathing Skin: No visual rash, normal skin tone Neuro: Alert and oriented 3 Musculoskeletal: No gross abnormalities (Art Sneed) Course <Rocky Sharma - Last Filed: 05/09/23 13:25> Vital Signs 05/05/23 05/05/23 11:42 16:44 Temperature 98 F Pulse Rate 78 Respiratory 18 Rate Blood Pressure 101/60 125/89 O2 Sat by Pulse 95 Oximetry - Reevaluation(s) Reevaluation #1: 05/05/23 20:15 Medical record is reviewed (Rocyk Sharma) Reevaluation #2: 05/05/23 20:15 Patient symptoms are improving (Rocky Sharma) Reevaluation #3: 05/05/23 20:15 Patient informed results and questions answered (Rocky Sharma) Reevaluation #4: 05/05/23 20:15 Was pt. sent in by a medical professional or institution (, PA, [employer], urgent care, hospital, or snf...) When possible be specific @ -no Did you speak to anyone other than the patient for history (EMS, parent, family, police, friend...)? What history was obtained from this source @ -no Did you review nursing and triage notes (agree or disagree)? Why? @ -agree Are old charts reviewed (outside hosp., previous admission, EMS record, old EKG, old radiological studies, urgent care reports/EKG's, snf records)? Report findings @ -yes Differential Diagnosis (chest pain, altered mental status, abdominal pain women, abdominal pain men, vaginal bleeding, weakness, fever, dyspnea, syncope, headache, dizziness, GI bleed, back pain, seizure, CVA, palpatations, mental health, musculoskeletal)? @ -prior EKG interpreted by me (3pts min.). @ -no X-rays interpreted by me (1pt min.). @ -no CT interpreted by me (1pt min.). @ -no U/S interpreted by me (1pt. min.). @ -no What testing was considered but not performed or refused? (CT, X-rays, U/S, labs)? Why? @ -none What meds were considered but not given or refused? Why? @ -none Did you discuss the management of the patient with other professionals (professionals i.e. Dr., PA, [employer], lab, RT, psych nurse, manager social work, sales record clerk, teacher, property disposal officer, correctional counselor/case manager)? Give summary @ -no Was smoking cessation discussed for >3mins.? @ -no Was critical care preformed (if so, how long)? @ -no Were there social determinants of health that impacted care today? How? (Homelessness, low income, unemployed, alcoholism, drug addiction, transportation, low edu. Level, literacy, decrease access to med. care, fpc, rehab)? @ -none Was there de-escalation of care discussed even if they declined (Discuss DNR or withdrawal of care, Hospice)? DNR status @ -no What co-morbidities impacted this encounter? (DM, HTN, Smoking, COPD, CAD, Cancer, CVA, ARF, Chemo, Hep., AIDS, mental health diagnosis, sleep apnea, morbid obesity)? @ -none Was patient admitted / discharged? Hospital course, mention meds given and route, prescriptions, significant lab abnormalities, going to OR and other pertinent info. @ - 78 female to the emergency department for evaluation today. Patient will be admitted for abdominal pain with ascites and paracentesis Admitted Undiagnosed new problem with uncertain prognosis? @ -no Drug Therapy requiring intensive monitoring for toxicity (Heparin, Nitro, Insulin, Cardizem)? @ -no Were any procedures done? @ -no Diagnosis/symptom? @ -Liver failure with ascites Acute, or Chronic, or Acute on Chronic? @ -Acute Uncomplicated (without systemic symptoms) or Complicated (systemic symptoms)? @ -Complicated Side effects of treatment? @ -no Exacerbation, Progression, or Severe Exacerbation? @ -exacerbation Poses a threat to life or bodily function? How? (Chest pain, USA, NM, pneumonia, PE, COPD, DKA, ARF, appy, cholecystitis, CVA, Diverticulitis, Homicidal, Suicidal, threat to staff... and all critical care pts) @ -yes significant chronic disease (Rocky Sharma) Reevaluation #5: 05/05/23 20:16 Differential Abdominal Pain Women: Appendicitis, Cholecystitis, diverticulosis, ischemic bowel, pancreatitis, hepatitis, UTI, gastroenteritis, AAA, incarcerated hernia, bowel obstruction, constipation, inflammatory bowel, hepatitis, peptic ulcer disease, splenic infarction, perforated viscus, vulvitis, ovarian torsion, PID, kidney stone, placenta abruption, this is not meant to be an all-inclusive list (Rocky Sharma) - Consultations Consultation #1: spoke w Dr Mathur who agrees to admit this patient (Rocky Sharma) Medical Decision Making <Art Sneed - Last Filed: 05/05/23 10:57> - Lab Data Result diagrams: 05/06/23 05:50 05/06/23 05:50 <Rokcy Sharma - Last Filed: 05/09/23 13:25> - Medical Decision Making I completed the quick note portion of this chart signed Art Sneed PA-C (Art Sneed) 78 female to the emergency department for evaluation today. Patient will be admitted for abdominal pain with ascites and paracentesis (Rocky Sharma) - Lab Data Lab Results 05/05/23 05/05/23 05/05/23 Range/Units 11:45 11:45 11:45 WBC 4.7 (3.8-10.6) k/uL RBC 3.87 (3.80-5.40) m/uL Hgb 13.6 (11.4-16.0) gm/dL Hct 41.0 (34.0-46.0) % MCV 105.9 H (80.0-100.0) fL MCH 35.1 H (25.0-35.0) pg MCHC 33.2 (31.0-37.0) g/dL RDW 13.9 (11.5-15.5) % Plt Count 160 D (150-450) k/uL MPV 7.8 Neutrophils % 70 % Lymphocytes % 15 % Monocytes % 11 % Eosinophils % 1 % Basophils % 1 % Neutrophils # 3.3 (1.3-7.7) k/uL Lymphocytes # 0.7 L (1.0-4.8) k/uL Monocytes # 0.5 (0-1.0) k/uL Eosinophils # 0.1 (0-0.7) k/uL Basophils # 0.0 (0-0.2) k/uL Macrocytosis Moderate PT 12.0 (10.0-12.5) sec INR 1.1 (<1.2) APTT 25.5 (22.0-30.0) sec Sodium 136 L (137-145) mmol/L Potassium 3.2 L (3.5-5.1) mmol/L Chloride 91 L (98-107) mmol/L Carbon Dioxide 39 H (22-30) mmol/L Anion Gap 6 mmol/L BUN 25 H (7-17) mg/dL Creatinine 0.88 (0.52-1.04) mg/dL Est GFR (CKD-EPI)AfAm 74 (>60 ml/min/1.73 sqM) Est GFR (CKD-EPI)NonAf 64 (>60 ml/min/1.73 sqM) Glucose 104 H (74-99) mg/dL Calcium 8.5 (8.4-10.2) mg/dL Total Bilirubin 1.9 H (0.2-1.3) mg/dL AST 31 (14-36) U/L ALT 13 (4-34) U/L Alkaline Phosphatase 51 (38-126) U/L Total Protein 6.6 (6.3-8.2) g/dL Albumin 3.4 L (3.5-5.0) g/dL Lipase 54 (23-300) U/L Disposition <Art Sneed - Last Filed: 05/05/23 10:57> Is patient prescribed a controlled substance at d/c from ED?: No Time of Disposition: 17:25 <Rocky Sharma - Last Filed: 05/09/23 13:25> Clinical Impression: Ascites, Hepatitis, Abdominal pain Disposition: ADMITTED IP TO THIS HOSP
[2023-05-05 12:17] LABS: ALT 13 U/L (4-34); AST 31 U/L (14-36); African American GFR (CKD) 74 (>60 ml/min/1.73 sqM); Albumin 3.4 g/dL (3.5-5.0); Alkaline Phosphatase 51 U/L (38-126); Anion Gap 6 mmol/L; Blood Urea Nitrogen 25 mg/dL (7-17); Calcium 8.5 mg/dL (8.4-10.2); Carbon Dioxide 39 mmol/L (22-30); Chloride 91 mmol/L (98-107); Glucose 104 mg/dL (74-99); Lipase 54 U/L (23-300); Non-African American GFR(CKD) 64 (>60 ml/min/1.73 sqM); Potassium 3.2 mmol/L (3.5-5.1); Sodium 136 mmol/L (137-145); Total Bilirubin 1.9 mg/dL (0.2-1.3); Total Protein 6.6 g/dL (6.3-8.2)
[2023-05-05 12:31] LABS: Basophils % (A) 1 %; Eosinophils # (A) 0.1 k/uL (0-0.7); Eosinophils % (A) 1 %; HGB 13.6 gm/dL (11.4-16.0); Lymphocytes # (A) 0.7 k/uL (1.0-4.8); Lymphocytes % (A) 15 %; MCH 35.1 pg (25.0-35.0); MCHC 33.2 g/dL (31.0-37.0); MCV 105.9 fL (80.0-100.0); Macrocytosis Moderate; Mean Platelet Volume 7.8; Monocytes # (A) 0.5 k/uL (0-1.0); Monocytes % (A) 11 %; Neutrophils # (A) 3.3 k/uL (1.3-7.7); Neutrophils % (A) 70 %; RBC 3.87 m/uL (3.80-5.40); RDW 13.9 % (11.5-15.5); WBC 4.7 k/uL (3.8-10.6)
[2023-05-05 12:34] LABS: Platelet Count 160 k/uL (150-450)
[2023-05-05 12:38] LABS: INR 1.1 (<1.2); Partial Thromboplastin Time 25.5 sec (22.0-30.0)
[2023-05-05] MEDS ORDERED: NALOXONE 0.4 MG/ML 1 ML VIAL IV PRN (17:24)
[2023-05-05] MEDS ORDERED: ONDANSETRON 4 MG/2 ML VIAL IVP PRN (17:24)
[2023-05-05] MEDS ORDERED: POTASSIUM BICARBONATE/CIT AC 20 MEQ TABLET.EFF PO ONE (17:24)
[2023-05-05] MEDS ORDERED: MORPHINE SULFATE 4 MG/ML SYRINGE IV PRN (17:24)
[2023-05-05] MEDS: APIXABAN 2.5 MG TABLET PO SCH (22:07)
[2023-05-05] MEDS: ACEBUTOLOL HCL 200 MG PO SCH (22:07)
[2023-05-05] MEDS: PANTOPRAZOLE 40 MG TABLET PO SCH (22:07)
[2023-05-06] MEDS ORDERED: IPRATROPIUM-ALBUTEROL 3 ML NEB INHALATION PRN (02:43)
[2023-05-06] MEDS: SPIRONOLACTONE 25 MG TAB PO SCH ×2 (06:44→09:54)
[2023-05-06] MEDS: LEVOTHYROXINE 112 MCG TAB PO SCH ×2 (06:44→09:53)
[2023-05-06] MEDS: PANTOPRAZOLE 40 MG TABLET PO SCH ×3 (06:44→16:51)
[2023-05-06] MEDS: IPRATROPIUM-ALBUTEROL 3 ML NEB INHALATION SCH ×4 (08:15→18:18)
[2023-05-06] MEDS ORDERED: FUROSEMIDE 20 MG TAB PO SCH (09:00)
[2023-05-06] MEDS: azaTHIOprine 50 MG TAB PO SCH (09:58)
[2023-05-06] MEDS: APIXABAN 2.5 MG TABLET PO SCH (10:01)
--- NOTE | 2023-05-06 10:30 | US ---
EXAMINATION TYPE: US abdomen limited DATE OF EXAM: 05/06/2023 COMPARISON: 03/17/2023 CLINICAL INDICATION: Female, 78 years old with history of assess for fluid pocket please; Hx ascites with drainage Technique: Grayscale imaging of the abdomen for ascites. Findings: Anechoic free fluid seen in all 4 quadrants the abdomen. IMPRESSION: Moderate ascites.
[2023-05-06 10:58] LABS: Basophils # (A) 0.04 X 10*3/uL (0.00-0.10); Basophils % (A) 1.3 %; Eosinophils # (A) 0.05 X 10*3/uL (0.04-0.35); Eosinophils % (A) 1.6 %; HCT 33.1 % (37.2-46.3); HGB 10.5 g/dL (12.0-15.0); Lymphocytes # (A) 0.57 X 10*3/uL (0.90-5.00); Lymphocytes % (A) 17.9 %; MCH 34.8 pg (27.0-32.0); MCHC 31.7 g/dL (32.0-37.0); MCV 109.6 FL (80.0-97.0); Mean Platelet Volume 10.9 FL (9.5-12.2); Monocytes # (A) 0.55 X 10*3/uL (0.20-1.00); Monocytes % (A) 17.3 %; NRBC Per 100 WBC 0 X 10*3/uL (0.00-0.01); Neutrophils # (A) 1.96 X 10*3/uL (1.80-7.70); Neutrophils % (A) 61.6 %; Platelet Count 99 X 10*3/uL (140-440); RBC 3.02 X 10*6/uL (4.10-5.20); RDW 14.5 % (11.5-14.5); WBC 3.18 X 10*3/uL (4.50-10.00)
[2023-05-06 11:09] LABS: ALT 6 U/L (8-44); AST 18 U/L (13-35); Albumin 2.7 g/dL (3.8-4.9); Albumin/Globulin Ratio 1.29 Ratio (1.60-3.17); Alkaline Phosphatase 35 U/L (41-126); Blood Urea Nitrogen 20.3 mg/dL (9.0-27.0); Calcium 8.4 mg/dL (8.7-10.3); Carbon Dioxide 36.1 mmol/L (21.6-31.8); Chloride 98 mmol/L (96-109); Globulin 2.1 g/dL (1.6-3.3); Glucose 86 mg/dL (70-110); Magnesium 1.6 mg/dL (1.5-2.4); Phosphorus 3.2 mg/dL (2.4-5.1); Potassium 3.6 mmol/L (3.5-5.5); Sodium 144 mmol/L (135-145); Total Bilirubin 1.1 mg/dL (0.3-1.2); Total Protein 4.8 g/dL (6.2-8.2)
[2023-05-06] MEDS: FUROSEMIDE 20 MG TAB PO SCH (16:04)
--- NOTE | 2023-05-06 21:38 | P.HPIM ---
History of Present Illness H&P Date: 05/06/23 Chief Complaint: Abdominal distention Pleasant 78-year-old patient who follows with Dr. Yanez. Dr. Yazan Thomas for - cirrhosis. Prior paracentesis. Has underlying COPD with home oxygen. March 2023: Computed tomography scan in the ER showed left common and external iliac vein thrombosis DVT into the left, femoral vein and femoral vein. On eliquis Patient is about 6 weeks ago had his last paracentesis. Now presents with progressive increasing distending abdomen with ascites. Some decrease appetite. No edema. No fever and chills. Tired. Does use a 4 wheeled walker. Review of systems: GEN.: Tired EYES: None HEENT: None NECK: None RESPIRATORY: None CARDIOVASCULAR: Edema GASTROINTESTINAL: distention GENITOURINARY: None MUSCULOSKELETAL: Joint pains LYMPHATICS: None HEMATOLOGICAL: None PSYCHIATRY: None NEUROLOGICAL: None. Past medical history to include: GERD, hypertension, hyperlipidemia, hypothyroid, arrhythmia, scoliosis, LAP-BAND in 2013. Cirrhosis. Ascites. Social history: Lives alone. Does use a 4 wheeled walker. No smoking or alcohol. Physical examination: VITAL SIGNS: 98, 82, 17, 81/46, 94% on 2 L GENERAL: Reclining in bed, awake EYES: [Pupils equal. Conjunctiva pale l. HEENT: External appearance of nose and ears normal, oral cavity grossly normal. NECK: JVD unable to assess; masses not palpable. HEART: First and second heart sounds are normal; edema present. LUNGS: Respiratory rate increased; increased breath sound. ABDOMEN: Soft, no distention, liver spleen not palpable, no masses palpable. PSYCH: Alert and oriented x3; mood and affect normal. MUSCULOSKELETAL:No Clubbing/cyanosis;muscles-grossly intact. OA NEUROLOGICAL: Cranial nerves grossly intact; no facial asymmetry, power and sensation grossly intact. LYMPHATICS: No lymph nodes palpable in the axilla and neck EXTREMITY: Left extremity swollen compared to the right INVESTIGATIONS, reviewed in the clinical context: 05/06/2023: White count 3.1 hemoglobin 10.5 platelets 99 sodium 144 potassium 3.6 creatinine 1 albumin 2.7 Doppler ultrasound: Moderate ascites March 2023 Venous Doppler left lower extremity: Positive for DVT., And femoral joselito, great saphenous vein down to femoral vein. The femoral vein. Popliteal vein. Proximal calf veins. Computed tomography scan abdomen and pelvis with contrast: Some suggestion of pulmonary hypertension. Some elevation of hemidiaphragm. Mildly atrophic pancreas. Spleen enlarged to 13.6 cm. Large abdominal ascites. Left common and external iliac vein thrombosis DVT. Extending into the left common femoral vein and femoral vein. Cirrhosis. Sigmoid diverticulosis. Assessment and plan: --Large ascites secondary to cirrhosis.: Aldactone 100 mg a day. Fluid restriction. Lasix During paracentesis -Acute DVT Left common and external iliac vein thrombosis DVT. Extending into the left common femoral vein and femoral vein, precipitated in a patient with decreased activity. Eliquis was held for paracentesis - COPD in a nonsmoker, likely from restrictive lung disease. Causing chronic hypoxic respiratory failure. home oxygen -Chronic thrombocytopenia due to underlying cirrhosis Follow CBC -Chronic Cirrhosis. Cause unknown. Follows outpatient Dr. Yazan Thomas Restricted Salt diet. Diuretics. 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 With Splenomegaly -LAP-BAND. Patient being followed by Dr. Manzano. Patient was seen last month by her and LAP-BAND report is a contraindication setting of ascites and cirrhosis. -Chronic gait dysfunction uses a 4 wheel walker -GERD PPI -Hypothyroid Levothyroxine 112 g a day -Full code- Increased diuretics. Pending paracentesis. Eliquis held. Fluid restriction Past Medical History Past Medical History: GERD/Reflux, Hyperlipidemia, Hypertension, Pneumonia, Skin Disorder, Thyroid Disorder Additional Past Medical History / Comment(s): MIGRAINES, ARRYTHMIA, SCOLIOSIS, ascites History of Any Multi-Drug Resistant Organisms: MRSA Date of last positivie culture/infection: 2009 MDRO Source:: BREAST-UNKNOWN WHICH SIDE Past Surgical History: Back Surgery, Bariatric Surgery, Bladder Surgery, Breast Surgery, Cholecystectomy, Hysterectomy Additional Past Surgical History / Comment(s): Lap band 01/23/13. Sinus surgery. COLONOSCOPY. BREAST REDUCTION. 2 RT NECK LYMPH NODES REMOVED AND SALIVARY GLAND REMOVAL Past Anesthesia/Blood Transfusion Reactions: No Reported Reaction Past Psychological History: No Psychological Hx Reported Smoking Status: Never smoker Past Alcohol Use History: None Reported Past Drug Use History: None Reported - Past Family History Daughter(s) Family Medical History: Cancer Medications and Allergies Home Medications Medication Instructions Recorded Confirmed Type Levothyroxine Sodium [Euthyrox] 112 mcg PO DAILY 04/02/20 05/05/23 History Pantoprazole [Protonix] 40 mg PO BID 06/30/21 05/05/23 History Acebutolol HCl [Sectral] 200 mg PO HS 09/02/22 05/05/23 History azaTHIOprine [Imuran] 50 mg PO DAILY 09/02/22 05/05/23 History Ipratropium-Albuterol Nebulize 3 ml INHALATION RT-QID 01/18/23 05/05/23 History [Duoneb 0.5 mg-3 mg/3 ml Soln] Furosemide [Lasix] 20 mg PO DAILY 03/17/23 05/05/23 History Apixaban [Eliquis] 2.5 mg PO BID 05/05/23 05/05/23 History Spironolactone [Aldactone] 25 mg PO AC-BRKFST 05/05/23 05/05/23 History Allergies Allergy/AdvReac Type Severity Reaction Status Date / Time No Known Allergies Allergy Verified 05/05/23 11:44 Physical Exam Vitals: Vital Signs Temp Pulse Pulse Resp BP BP Pulse Ox 05/06/23 08:57 97/62 05/06/23 08:55 95/60 05/06/23 08:27 84 05/06/23 08:15 80 05/06/23 08:00 98.2 F 74 17 88/48 97 05/06/23 03:23 94 05/06/23 03:17 94 L 05/06/23 03:12 94 05/06/23 01:27 92/59 05/06/23 00:56 98.0 F 82 17 81/46 94 L 05/05/23 20:55 97.9 F 83 15 131/87 93 L 05/05/23 16:44 125/89 05/05/23 11:42 98 F 78 18 101/60 95 Intake and Output 05/05/23 05/06/23 05/06/23 22:59 06:59 14:59 Intake Total 100 Balance 100 Intake: Oral 100 Other: # Voids 1 Weight 81.647 kg Results CBC & Chem 7: 05/06/23 05:50 05/06/23 05:50 Labs: Abnormal Lab Results - Last 24 Hours (Table) 05/05/23 05/05/23 Range/Units 11:45 11:45 MCV 105.9 H (80.0-100.0) fL MCH 35.1 H (25.0-35.0) pg Lymphocytes # 0.7 L (1.0-4.8) k/uL Sodium 136 L (137-145) mmol/L Potassium 3.2 L (3.5-5.1) mmol/L Chloride 91 L (98-107) mmol/L Carbon Dioxide 39 H (22-30) mmol/L BUN 25 H (7-17) mg/dL Glucose 104 H (74-99) mg/dL Total Bilirubin 1.9 H (0.2-1.3) mg/dL Albumin 3.4 L (3.5-5.0) g/dL Thrombosis Risk Factor Assmnt - Choose All That Apply Any of the Below Risk Factors Present?: No Other Risk Factors: No Thrombosis Risk Factor Assessment Level: Very Low Risk
[2023-05-06] MEDS: ACEBUTOLOL HCL 200 MG PO SCH (21:52)
[2023-05-06] MEDS ORDERED: IPRATROPIUM-ALBUTEROL 3 ML NEB INHALATION STA (23:47)
[2023-05-07] MEDS: PANTOPRAZOLE 40 MG TABLET PO SCH ×2 (06:14→16:52)
[2023-05-07] MEDS: LEVOTHYROXINE 112 MCG TAB PO SCH (06:15)
[2023-05-07] MEDS: IPRATROPIUM-ALBUTEROL 3 ML NEB INHALATION SCH ×3 (08:36→15:48)
[2023-05-07] MEDS ORDERED: SPIRONOLACTONE 25 MG TAB PO SCH (09:00)
[2023-05-07] MEDS: FUROSEMIDE 20 MG TAB PO SCH ×2 (09:02→16:52)
[2023-05-07] MEDS: azaTHIOprine 50 MG TAB PO SCH (09:03)
[2023-05-07] MEDS: ALBUMIN HUMAN 25% 50 ML in EMPTY BAG 1 BAG IVPB SCH ×4 (13:33→17:33)
[2023-05-07 17:06] VITALS: BP 92/60; PULSE 79; RESP 17; TEMP 98.5
--- NOTE | 2023-05-07 21:25 | P.DS ---
Providers Date of admission: 05/05/23 17:26 Expected date of discharge: 05/07/23 Attending physician: Javier Mathur Primary care physician: Jovan [facility] Course: Chief Complaint: Abdominal distention Pleasant 78-year-old patient who follows with Dr. Yanez. Dr. Yazan Thomas for - cirrhosis. Prior paracentesis. Has underlying COPD with home oxygen. March 2023: Computed tomography scan in the ER showed left common and external iliac vein thrombosis DVT into the left, femoral vein and femoral vein. On eliquis Patient is about 6 weeks ago had his last paracentesis. Now presents with progressive increasing distending abdomen with ascites. Some decrease appetite. No edema. No fever and chills. Tired. Does use a 4 wheeled walker. 05/07/2023: Large-volume paracentesis carried out. 50 g of albumin was given after that. Patient diuretics have been adjusted. Fluid restriction. Patient to follow-up with Dr. Yazan Thomas upon discharge. Past medical history to include: GERD, hypertension, hyperlipidemia, hypothyroid, arrhythmia, scoliosis, LAP-BAND in 2012. Cirrhosis. Ascites. Social history: Lives alone. Does use a 4 wheeled walker. No smoking or alcohol. Physical examination: VITAL SIGNS: 98.5, 79, 17, 92/60, 98% on 2 L GENERAL: Reclining in bed, awake EYES: [Pupils equal. Conjunctiva pale l. HEENT: External appearance of nose and ears normal, oral cavity grossly normal. NECK: JVD unable to assess; masses not palpable. HEART: First and second heart sounds are normal; edema present. LUNGS: Respiratory rate increased; increased breath sound. ABDOMEN: Soft, less distention, liver spleen not palpable, no masses palpable. PSYCH: Alert and oriented x3; mood and affect normal. MUSCULOSKELETAL:No Clubbing/cyanosis;muscles-grossly intact. OA NEUROLOGICAL: Cranial nerves grossly intact; no facial asymmetry, power and sensation grossly intact. EXTREMITY: Left extremity swollen compared to the right INVESTIGATIONS, reviewed in the clinical context: 05/06/2023: White count 3.1 hemoglobin 10.5 platelets 99 sodium 144 potassium 3.6 creatinine 1 albumin 2.7 Doppler ultrasound: Moderate ascites March 2023 Venous Doppler left lower extremity: Positive for DVT., And femoral joselito, great saphenous vein down to femoral vein. The femoral vein. Popliteal vein. Proximal calf veins. Computed tomography scan abdomen and pelvis with contrast: Some suggestion of p ulmonary hypertension. Some elevation of hemidiaphragm. Mildly atrophic pancreas. Spleen enlarged to 13.6 cm. Large abdominal ascites. Left common and external iliac vein thrombosis DVT. Extending into the left common femoral vein and femoral vein. Cirrhosis. Sigmoid diverticulosis. Assessment and plan: --Large ascites secondary to cirrhosis.: Aldactone 100 mg a day. Fluid restriction. 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 Extending into the left common femoral vein and femoral vein, precipitated in a patient with decreased activity. Eliquis - COPD in a nonsmoker, likely from restrictive lung disease. Causing chronic hypoxic respiratory failure. home oxygen -Chronic thrombocytopenia due to underlying cirrhosis Follow CBC -Chronic Cirrhosis. Cause unknown. Follows outpatient Dr. Yazan Thomas Restricted Salt diet. Diuretics. 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 With Splenomegaly -LAP-BAND. Patient being followed by Dr. Manzano. Patient was seen last month by her and LAP-BAND report is a contraindication setting of ascites and cirrhosis. -Chronic gait dysfunction uses a 4 wheel walker -GERD PPI -Hypothyroid Levothyroxine 112 g a day -Full code- Disposition: Home Past Medical History Past Medical History: GERD/Reflux, Hyperlipidemia, Hypertension, Pneumonia, Skin Disorder, Thyroid Disorder Additional Past Medical History / Comment(s): MIGRAINES, ARRYTHMIA, SCOLIOSIS, ascites History of Any Multi-Drug Resistant Organisms: MRSA Date of last positivie culture/infection: 2009 MDRO Source:: BREAST-UNKNOWN WHICH SIDE Past Surgical History: Back Surgery, Bariatric Surgery, Bladder Surgery, Breast Surgery, Cholecystectomy, Hysterectomy Additional Past Surgical History / Comment(s): Lap band 01/23/13. Sinus surgery. COLONOSCOPY. BREAST REDUCTION. 2 RT NECK LYMPH NODES REMOVED AND SALIVARY GLAND REMOVAL Past Anesthesia/Blood Transfusion Reactions: No Reported Reaction Past Psychological History: No Psychological Hx Reported Smoking Status: Never smoker Past Alcohol Use History: None Reported Past Drug Use History: None Reported Plan - Discharge Summary Discharge Rx Participant: Yes New Discharge Prescriptions: New Spironolactone [Aldactone] 100 mg PO DAILY #30 tab Furosemide [Lasix] 40 mg PO BID #60 tablet Continue Levothyroxine Sodium [Euthyrox] 112 mcg PO DAILY azaTHIOprine [Imuran] 50 mg PO DAILY Ipratropium-Albuterol Nebulize [Duoneb 0.5 mg-3 mg/3 ml Soln] 3 ml INHALATION RT-QID Pantoprazole [Protonix] 40 mg PO BID Acebutolol HCl [Sectral] 200 mg PO HS Apixaban [Eliquis] 2.5 mg PO BID Discontinued Spironolactone [Aldactone] 25 mg PO AC-BRKFST Furosemide [Lasix] 20 mg PO DAILY Discharge Medication List Levothyroxine Sodium [Euthyrox] 112 mcg PO DAILY 04/02/20 [History] Pantoprazole [Protonix] 40 mg PO BID 06/30/21 [History] Acebutolol HCl [Sectral] 200 mg PO HS 09/02/22 [History] azaTHIOprine [Imuran] 50 mg PO DAILY 09/02/22 [History] Ipratropium-Albuterol Nebulize [Duoneb 0.5 mg-3 mg/3 ml Soln] 3 ml INHALATION RT-QID 01/18/23 [History] Apixaban [Eliquis] 2.5 mg PO BID 05/05/23 [History] Furosemide [Lasix] 40 mg PO BID #60 tablet 05/07/23 [Rx] Spironolactone [Aldactone] 100 mg PO DAILY #30 tab 05/07/23 [Rx] Follow up Appointment(s)/Referral(s): Jovan Yanez MD [Primary Care Provider] - 1-2 days (office closed at time of discharge Please call to schedule appointment ) Tata Thomas MD [STAFF PHYSICIAN] - 2 Weeks (office not answereing Please call to schedule appointment) Patient Instructions/Handouts: Ascites (DC), Paracentesis (DC) Activity/Diet/Wound Care/Special Instructions: fluid restrict 1500 cc/day
--- NOTE | 2023-05-11 09:28 | US ---
EXAMINATION TYPE: US paracentesis abd w/image DATE OF EXAM: 05/07/2023 10:26 AM CLINICAL INDICATION:Female, 78 years old with history of ascites; COMPARISON: 03/19/2023 ATTENDING: Dr. Tyree Portillo PROCEDURE: Informed consent was obtained. The risks of the procedure were extensively explained incl uding risk of damage to surrounding bowel with perforation and need for additional procedures. Proced ure was performed in the ultrasound procedure suite. Ultrasound imaging of the abdomen demonstrate as citic fluid. An appropriate access site was localized to the right lower abdomen. Timeout was taken p er protocol. The skin was prepped and draped in the usual sterile fashion and then locally anesthetiz ed with 1% lidocaine. The peritoneal cavity was then accessed via a 5-[place] one-step needle/cathete r. Approximately 8600 cc of clear straw-colored fluid was obtained. Postprocedural imaging of the a bdomen demonstrate a minimal amount of abdominal fluid. Patient tolerated procedure well without immediate complication. Hemostasis at the procedural site w as obtained with a sterile bandage placed. The patient was monitored in the holding area following th e procedure and was subsequently discharged in stable condition. IMPRESSION: Ultrasound guided paracentesis, with approximately 8600 cc of clear straw-colored fluid drained. No immediate complications were evident.
== END 2023-05-07 19:00 | disposition home or self-care (01) ==
LOC: EC 10:55 → 5NMEDONC 17:26 → 4SSUR 19:01
PROVIDERS: ADMIT Hospitalist; ATTEND Hospitalist
DX: K74.60 Unspecified cirrhosis of liver (principal); D69.59 Other secondary thrombocytopenia; E03.9 Hypothyroidism, unspecified; E78.5 Hyperlipidemia, unspecified; I10 Essential (primary) hypertension; I82.429 Acute embolism and thrombosis of unspecified iliac vein; J96.11 Chronic respiratory failure with hypoxia; J98.4 Other disorders of lung; K72.90 Hepatic failure, unspecified without coma; K76.6 Portal hypertension; Z79.01 Long term (current) use of anticoagulants; Z79.624 Long term (current) use of inhibitors of nucleotide synthesis; Z79.890 Hormone replacement therapy; Z79.899 Other long term (current) drug therapy; Z87.891 Personal history of nicotine dependence; Z90.710 Acquired absence of both cervix and uterus; Z98.84 Bariatric surgery status
CPT/HCPCS: 36415; 94640 ×4; 94760; 80053 ×2; 83690; 83735; 84100; 85025 ×2; 85610; 85730; 76705; 49083; G0378 ×4; J7500 ×2; P9047

== ENCOUNTER 2023-06-24 08:39 | Day surgery (SDC) | payer MEDICARE, OTHER ==
[2023-06-24 09:22] LABS: Mean Platelet Volume 7.9; Platelet Count 117 k/uL (150-450)
[2023-06-24 09:26] LABS: INR 1.1 (<1.2); Prothrombin Time 11.8 sec (10.0-12.5)
[2023-06-24 09:52] VITALS: TEMP 97.8
[2023-06-24 09:53] LABS: African American GFR (CKD) 82 (>60 ml/min/1.73 sqM); Non-African American GFR(CKD) 72 (>60 ml/min/1.73 sqM)
[2023-06-24] MEDS: ALBUMIN HUMAN 25% 50 ML in EMPTY BAG 1 BAG IVPB SCH (09:56)
[2023-06-24 10:53] VITALS: BP 91/43; PULSE 70; RESP 2
--- NOTE | 2023-06-24 11:46 | US ---
EXAMINATION TYPE: US paracentesis abd w/image DATE OF EXAM: 06/24/2023 9:59 AM CLINICAL INDICATION:Female, 78 years old with history of ascites; COMPARISON: 05/07/2023. ATTENDING: Dr. Tyree Portillo PROCEDURE: Informed consent was obtained. The risks of the procedure were extensively explained incl uding risk of damage to surrounding bowel with perforation and need for additional procedures. Proced ure was performed in the ultrasound procedure suite. Ultrasound imaging of the abdomen demonstrate as citic fluid. An appropriate access site was localized to the right lower abdomen. Timeout was taken p er protocol. The skin was prepped and draped in the usual sterile fashion and then locally anesthetiz ed with 1% lidocaine. The peritoneal cavity was then accessed via a 5-Greek one-step needle/cathete r. Approximately 7700 cc of clear straw-colored fluid was obtained. Postprocedural imaging of the a bdomen demonstrate a minimal amount of abdominal fluid. Patient tolerated procedure well without immediate complication. Hemostasis at the procedural site w as obtained with a sterile bandage placed. The patient was monitored in the holding area following th e procedure and was subsequently discharged in stable condition. IMPRESSION: Ultrasound guided paracentesis, with approximately 7700 cc of clear straw-colored fluid drained. No immediate complications were evident.
== END 2023-06-24 11:25 | disposition home or self-care (01) ==
LOC: RADPROMAIN 08:39
PROVIDERS: ATTEND Internal Medicine
DX: K70.31 Alcoholic cirrhosis of liver with ascites (principal); K71.51 Toxic liver disease with chronic active hepatitis with ascites; I10 Essential (primary) hypertension; E78.5 Hyperlipidemia, unspecified; E03.9 Hypothyroidism, unspecified; K21.9 Gastro-esophageal reflux disease without esophagitis; J45.909 Unspecified asthma, uncomplicated; E56.9 Vitamin deficiency, unspecified; J90 Pleural effusion, not elsewhere classified; J45.991 Cough variant asthma; Z79.01 Long term (current) use of anticoagulants; Z79.899 Other long term (current) drug therapy; Z79.890 Hormone replacement therapy
CPT/HCPCS: 82565; 85049; 85610; 36415; 49083; P9047

== ENCOUNTER 2023-07-05 12:22 | Day surgery (SDC) | payer MEDICARE, OTHER ==
[2023-07-05 13:09] VITALS: TEMP 98.2
[2023-07-05 14:10] VITALS: BP 101/68; PULSE 69; RESP 20
--- NOTE | 2023-07-05 14:12 | XR ---
EXAMINATION TYPE: XR chest 1V portable DATE OF EXAM: 07/05/2023 1:58 PM CLINICAL INDICATION:Female, 78 years old with history of post thora; COMPARISON: Chest radiographs from 03/17/2023 TECHNIQUE: XR chest 1V portable Frontal view of the chest. FINDINGS: Lungs/Pleura: Decrease in right pleural effusion, There is no evidence of left pleural effusion, foca l consolidation, or pneumothorax. Pulmonary vascularity: Unremarkable. Heart/mediastinum: Cardiomediastinal silhouette is unremarkable. Musculoskeletal: No acute osseous pathology. Other findings: Gastric lap band is present. IMPRESSION: Decreased right pleural effusion no evidence for pneumothorax.
--- NOTE | 2023-07-05 14:20 | US ---
EXAMINATION TYPE: US thoracentesis DATE OF EXAM: 07/05/2023 1:57 PM CLINICAL INDICATION:Female, 78 years old with history of J90 pleural effusion; COMPARISON: 03/17/2023 ATTENDING: Dr. Tyree Portillo PROCEDURE: Informed consent was obtained. The risks of the procedure were extensively explained incl uding risk of pneumothorax and need for chest tube placement. Procedure was performed in the Ultraso und procedure suite. Ultrasound imaging of the chest demonstrates right pleural effusion. An approp riate access site was localized to the posterior right pleural space. Timeout was taken per protocol . The skin was prepped and draped in the usual sterile fashion and then locally anesthetized with 1% lidocaine. The pleural cavity was then accessed via a 5-[place] Island[place] one-step needle/catheter. Approxima tely 1200 cc of clear straw-colored fluid was obtained. Samples were sent to the lab for analysis. P ostprocedural imaging of the chest demonstrate a decreased amount of pleural fluid. Patient tolerated procedure well without immediate complication. Hemostasis at the procedural site w as obtained with a sterile bandage placed. Immediate following the procedure, an inspiratory and expi ratory chest x-ray was reviewed. No post procedure pneumothorax was identified. The patient was monit ored in the holding area for approximately one hour following the procedure and was subsequently disc harged in stable condition. IMPRESSION: Ultrasound guided thoracentesis, with approximately 1200 cc of clear straw-colored fluid drained. Pathology results pending. No immediate complications were evident.
[2023-07-05 20:29] LABS: Appearance,BF Cloudy (Clear)
[2023-07-06 00:53] LABS: Glucose, BF Source Pleural fluid; Glucose, Body Fluid 106 mg/dL; LDH, Body Fluid Source Pleural fluid; T. Protein, Body Fluid Source Pleural fluid; Total Protein, Body Fluid 1850 mg/dL
== END 2023-07-05 14:31 | disposition home or self-care (01) ==
LOC: RADPROMAIN 12:22
PROVIDERS: ATTEND Internal Medicine
DX: J90 Pleural effusion, not elsewhere classified (principal)
CPT/HCPCS: 32555; 71045; 82945; 83615; 84157; 87070; 87075; 87116; 87205; 87206; 88108; 88305; 89050

== ENCOUNTER 2023-07-21 12:51 | Day surgery (SDC) | payer MEDICARE, OTHER ==
[2023-07-21 13:41] LABS: Platelet Count 115 k/uL (150-450)
[2023-07-21 13:54] LABS: African American GFR (CKD) >90 (>60 ml/min/1.73 sqM); Glucose 120 mg/dL (74-99); Non-African American GFR(CKD) 84 (>60 ml/min/1.73 sqM)
[2023-07-21 13:57] LABS: Prothrombin Time 10.6 sec (10.0-12.5)
[2023-07-21 14:00] VITALS: TEMP 97.6
[2023-07-21] MEDS: ALBUMIN HUMAN 25% 50 ML in EMPTY BAG 1 BAG IVPB SCH (14:22)
[2023-07-21 16:22] VITALS: BP 98/63; PULSE 70; RESP 16
--- NOTE | 2023-07-22 15:35 | US ---
EXAMINATION TYPE: US paracentesis abd w/image DATE OF EXAM: 07/21/2023 2:21 PM CLINICAL INDICATION:Female, 78 years old with history of R18.8 OTHER ASCITES; COMPARISON: 06/24/2023 ATTENDING: Dr. Tyree Portillo PROCEDURE: Informed consent was obtained. The risks of the procedure were extensively explained incl uding risk of damage to surrounding bowel with perforation and need for additional procedures. Proced ure was performed in the ultrasound procedure suite. Ultrasound imaging of the abdomen demonstrate as citic fluid. An appropriate access site was localized to the right lower abdomen. Timeout was taken p er protocol. The skin was prepped and draped in the usual sterile fashion and then locally anesthetiz ed with 1% lidocaine. The peritoneal cavity was then accessed via a 5-[place]izen [place] one-step needle/cathete r. Approximately 7500 cc of clear straw-colored fluid was obtained. Postprocedural imaging of the ab domen demonstrate a minimal amount of abdominal fluid. Patient tolerated procedure well without immediate complication. Hemostasis at the procedural site w as obtained with a sterile bandage placed. The patient was monitored in the holding area following th e procedure and was subsequently discharged in stable condition. IMPRESSION: Ultrasound guided paracentesis, with approximately 7500 cc of clear straw-colored fluid drained. No i mmediate complications were evident.
== END 2023-07-21 15:50 | disposition home or self-care (01) ==
LOC: RADPROMAIN 12:51
PROVIDERS: ATTEND Internal Medicine Gastroenterology
DX: R18.8 Other ascites (principal)
CPT/HCPCS: 82565; 82947; 85049; 85610; 36415; 49083; P9047

== ENCOUNTER 2023-08-25 12:48 | Day surgery (SDC) | payer MEDICARE, OTHER ==
[2023-08-25 13:39] LABS: African American GFR (CKD) 76 (>60 ml/min/1.73 sqM); Non-African American GFR(CKD) 66 (>60 ml/min/1.73 sqM)
[2023-08-25 13:54] LABS: INR 1.1 (<1.2); Platelet Count 196 k/uL (150-450); Prothrombin Time 11.7 sec (10.0-12.5)
[2023-08-25 14:08] VITALS: RESP 18; TEMP 98.4
[2023-08-25] MEDS: ALBUMIN HUMAN 25% 50 ML in EMPTY BAG 1 BAG IVPB SCH (14:13)
--- NOTE | 2023-08-25 16:58 | US ---
EXAMINATION TYPE: US paracentesis abd w/image DATE OF EXAM: 08/25/2023 2:04 PM CLINICAL INDICATION:Female, 78 years old with history of R18.8 OTHER ASCITES; COMPARISON: 07/21/2023 ATTENDING: Dr. Tyree Portillo PROCEDURE: Informed consent was obtained. The risks of the procedure were extensively explained incl uding risk of damage to surrounding bowel with perforation and need for additional procedures. Proced ure was performed in the ultrasound procedure suite. Ultrasound imaging of the abdomen demonstrate as citic fluid. An appropriate access site was localized to the right lower abdomen. Timeout was taken p er protocol. The skin was prepped and draped in the usual sterile fashion and then locally anesthetiz ed with 1% lidocaine. The peritoneal cavity was then accessed via a 5-Martiniquais one-step needle/cathete r. Approximately 8900 cc of clear straw-colored fluid was obtained. Postprocedural imaging of the a bdomen demonstrate a minimal amount of abdominal fluid. Patient tolerated procedure well without immediate complication. Hemostasis at the procedural site w as obtained with a sterile bandage placed. The patient was monitored in the holding area following th e procedure and was subsequently discharged in stable condition. IMPRESSION: Ultrasound guided paracentesis, with approximately 8900 cc of clear straw-colored fluid drained. No immediate complications were evident.
[2023-08-25 17:29] VITALS: BP 75/41; PULSE 76
== END 2023-08-25 16:20 | disposition home or self-care (01) ==
LOC: RADPROMAIN 12:48
PROVIDERS: ATTEND Internal Medicine Gastroenterology
DX: R18.8 Other ascites (principal)
CPT/HCPCS: 82565; 85049; 85610; 36415; 49083; P9047

== ENCOUNTER 2023-08-25 16:19 | Observation (INO) | payer MEDICARE, OTHER ==
--- NOTE | 2023-08-25 16:50 | ED ---
General Adult HPI - General Chief complaint: Recheck/Abnormal Lab/Rx Stated complaint: Low blood pressure Time Seen by Provider: 08/25/23 16:32 Source: patient, family, RN/MD Mode of arrival: wheelchair Limitations: no limitations - History of Present Illness Initial comments: Dictation was produced using V[employer] dictation software. please excuse any gramma tical, word or spelling errors. Chief Complaint: 78-year-old female presents with hypertension History of Present Illness: Patient 78-year-old female she apparently gets paracenteses every 4 to 5 weeks. This time she was unable to make it last week and decided to get it today. She had 9 L of ascites removed. She typically gets around 11 L however she started to become hypotensive. She was given albumin 50 g. She was then brought to the emergency department. Patient has no complaints at this time. States that her ascites is secondary to liver toxicity from statin use. The ROS documented in this emergency department record has been reviewed and confirmed by me. Those systems with pertinent positive or negative responses have been documented in the HPI. All other systems are other negative and/or noncontributory. - Related Data Home Medications Medication Instructions Recorded Confirmed Levothyroxine Sodium [Euthyrox] 112 mcg PO DAILY 04/02/20 08/25/23 Pantoprazole [Protonix] 40 mg PO BID 06/30/21 08/25/23 Acebutolol HCl [Sectral] 200 mg PO HS 09/02/22 08/25/23 azaTHIOprine [Imuran] 50 mg PO DAILY 09/02/22 08/25/23 Ipratropium-Albuterol Nebulize 3 ml INHALATION RT-QID 01/18/23 08/25/23 [Duoneb 0.5 mg-3 mg/3 ml Soln] Apixaban [Eliquis] 5 mg PO BID 05/05/23 08/25/23 Furosemide [Lasix] 40 mg PO BID 06/15/23 08/25/23 Previous Rx's Medication Instructions Recorded Spironolactone [Aldactone] 100 mg PO DAILY #30 tab 05/07/23 Allergies Allergy/AdvReac Type Severity Reaction Status Date / Time No Known Allergies Allergy Verified 08/25/23 13:28 Review of Systems ROS Statement: Those systems with pertinent positive or pertinent negative responses have been documented in the HPI. ROS Other: All systems not noted in ROS Statement are negative. Past Medical History Past Medical History: GERD/Reflux, Hyperlipidemia, Hypertension, Pneumonia, Skin Disorder, Thyroid Disorder Additional Past Medical History / Comment(s): MIGRAINES, ARRYTHMIA, SCOLIOSIS, ascites History of Any Multi-Drug Resistant Organisms: MRSA Date of last positivie culture/infection: 2009 MDRO Source:: BREAST-UNKNOWN WHICH SIDE Past Surgical History: Back Surgery, Bariatric Surgery, Bladder Surgery, Breast Surgery, Cholecystectomy, Hysterectomy Additional Past Surgical History / Comment(s): Lap band 01/23/13. Sinus surgery. COLONOSCOPY. BREAST REDUCTION. 2 RT NECK LYMPH NODES REMOVED AND SALIVARY GLAND REMOVAL Past Anesthesia/Blood Transfusion Reactions: No Reported Reaction Past Psychological History: No Psychological Hx Reported Smoking Status: Never smoker Past Alcohol Use History: None Reported Past Drug Use History: None Reported - Past Family History Daughter(s) Family Medical History: Cancer General Exam - General Exam Comments Initial Comments: PHYSICAL EXAM: General Impression: Alert and oriented x3, not in acute distress HEENT: Normocephalic atraumatic, extra-ocular movements intact, pupils equal and reactive to light bilaterally, mucous membranes moist. Cardiovascular: Heart regular rate and rhythm Chest: Able to complete full sentences, no retractions, no tachypnea Abdomen: abdomen soft, non-tender, non-distended, no organomegaly Musculoskeletal: Pulses present and equal in all extremities, no peripheral edema Motor: no focal deficits noted Neurological: CN II-XII grossly intact, no focal motor or sensory deficits noted Skin: Intact with no visualized rashes Psych: Normal affect and mood Limitations: no limitations Course Vital Signs 08/25/23 08/25/23 08/25/23 16:23 16:47 17:12 Temperature 98.1 F Pulse Rate 79 84 82 Respiratory 18 20 16 Rate Blood Pressure 69/43 77/47 83/49 O2 Sat by Pulse 94 L 96 97 Oximetry 08/25/23 18:45 Temperature Pulse Rate 78 Respiratory 20 Rate Blood Pressure 77/50 O2 Sat by Pulse 95 Oximetry Medical Decision Making - Medical Decision Making Was pt. sent in by a medical professional or institution (, PA, FLAME PLANER, urgent care, hospital, or penitentiary...) When possible be specific @ -No Did you speak to anyone other than the patient for history (EMS, parent, family, police, friend...)? What history was obtained from this source @ -No Did you review nursing and triage notes (agree or disagree)? Why? @ -I reviewed and agree with nursing and triage notes Were old charts reviewed (outside hosp., previous admission, EMS record, old EKG, old radiological studies, urgent care reports/EKG's, penitentiary records)? Report findings @ -No old charts were reviewed Differential Diagnosis (chest pain, altered mental status, abdominal pain women, abdominal pain men, vaginal bleeding, musculoskeletal, weakness, fever, dyspnea, syncope, headache, dizziness, GI bleed, back pain, seizure, CVA, p alpatations, mental health)? @ -Not applicable EKG interpreted by me (3pts min.). @ -None done X-rays interpreted by me (1pt min.). @ -None done CT interpreted by me (1pt min.). @ -None done U/S interpreted by me (1pt. min.). @ -None done What testing was considered but not performed or refused? (CT, X-rays, U/S, labs)? Why? @ -None What meds were considered but not given or refused? Why? @ -None Did you discuss the management of the patient with other professionals (professionals i.e. , PA, FLAME PLANER, lab, RT, psych nurse, group social worker, bass singer, teacher, guest services officer, shoe caser)? Give summary @ -Case discussed with hospitalist for admission Was smoking cessation discussed for >3mins.? @ -No Was critical care preformed (if so, how long)? @ -No Were there social determinants of health that impacted care today? How? (Homelessness, low income, unemployed, alcoholism, drug addiction, transportation, low edu. Level, literacy, decrease access to med. care, [facility], rehab)? @ -No Was there de-escalation of care discussed even if they declined (Discuss DNR or withdrawal of care, Hospice)? DNR status @ -No What co-morbidities impacted this encounter? (DM, HTN, Smoking, COPD, CAD, Cancer, CVA, ARF, Chemo, Hep., AIDS, mental health diagnosis, sleep apnea, morbid obesity)? @ -None Was patient admitted / discharged? Hospital course, mention meds given and route, prescriptions, significant lab abnormalities, going to OR and other pertinent info. @ -78-year-old female presents emergency department for low blood pressure during and after paracentesis. Vital signs upon arrival shows blood pressure 69/43. She was given 1 L of normal saline with improvement to 83/49 however r epeat blood pressures after that still 77/50. Patient labs are unremarkable. Will be admitted for continued IV fluids and medical monitoring. Undiagnosed new problem with uncertain prognosis? @ -No Drug Therapy requiring intensive monitoring for toxicity (Heparin, Nitro, Insulin, Cardizem)? @ -No Were any procedures done? @ -No Diagnosis/symptom? Acute, or Chronic, or Acute on Chronic? Uncomplicated (without systemic symptoms) or Complicated (systemic symptoms)? @ -Hypotension status post paracentesis Side effects of treatment? @ -No Exacerbation, Progression, or Severe Exacerbation? @ -No Poses a threat to life or bodily function? How? (Chest pain, USA, MS, pneumonia, PE, COPD, DKA, ARF, appy, cholecystitis, CVA, Diverticulitis, Homicidal, Suicidal, threat to staff... and all critical care pts) @ -yes - Lab Data Result diagrams: 08/25/23 16:47 08/25/23 16:47 Lab Results 08/25/23 08/25/23 08/25/23 Range/Units 16:47 16:47 16:47 WBC 3.4 L (3.8-10.6) k/uL RBC 2.66 L (3.80-5.40) m/uL Hgb 9.9 L (11.4-16.0) gm/dL Hct 28.4 L (34.0-46.0) % MCV 106.8 H (80.0-100.0) fL MCH 37.2 H (25.0-35.0) pg MCHC 34.8 (31.0-37.0) g/dL RDW 14.9 (11.5-15.5) % Plt Count 114 L (150-450) k/uL MPV 8.1 Neutrophils % 79 % Lymphocytes % 11 % Monocytes % 8 % Eosinophils % 1 % Basophils % 0 % Neutrophils # 2.7 (1.3-7.7) k/uL Lymphocytes # 0.4 L (1.0-4.8) k/uL Monocytes # 0.3 (0-1.0) k/uL Eosinophils # 0.0 (0-0.7) k/uL Basophils # 0.0 (0-0.2) k/uL Macrocytosis Moderate PT 12.3 (10.0-12.5) sec INR 1.1 (<1.2) APTT 22.6 (22.0-30.0) sec Sodium 139 (137-145) mmol/L Potassium 3.2 L (3.5-5.1) mmol/L Chloride 96 L (98-107) mmol/L Carbon Dioxide 38 H (22-30) mmol/L Anion Gap 5 mmol/L BUN 26 H (7-17) mg/dL Creatinine 0.81 (0.52-1.04) mg/dL Est GFR (CKD-EPI)AfAm 82 (>60 ml/min/1.73 sqM) Est GFR (CKD-EPI)NonAf 71 (>60 ml/min/1.73 sqM) Glucose 92 (74-99) mg/dL Calcium 8.7 (8.4-10.2) mg/dL Magnesium 1.8 (1.6-2.3) mg/dL Total Bilirubin 1.5 H (0.2-1.3) mg/dL AST 21 (14-36) U/L ALT 9 (4-34) U/L Alkaline Phosphatase 40 (38-126) U/L Total Protein 5.9 L (6.3-8.2) g/dL Albumin 3.6 (3.5-5.0) g/dL Disposition Clinical Impression: Hypotension Disposition: ADMITTED IP TO THIS HOSP Condition: Fair Referrals: Jovan Yanez MD [Primary Care Provider] - 1-2 days Decision Time: 19:14
[2023-08-25 16:51] VITALS: TEMP 98.1
[2023-08-25] MEDS: SODIUM CHLORIDE 0.9% 500 ML 500 ML IV STA (16:56)
[2023-08-25 17:23] LABS: Basophils % (A) 0 %; Eosinophils % (A) 1 %; HCT 28.4 % (34.0-46.0); HGB 9.9 gm/dL (11.4-16.0); Lymphocytes # (A) 0.4 k/uL (1.0-4.8); Lymphocytes % (A) 11 %; MCH 37.2 pg (25.0-35.0); MCHC 34.8 g/dL (31.0-37.0); MCV 106.8 fL (80.0-100.0); Macrocytosis Moderate; Mean Platelet Volume 8.1; Monocytes # (A) 0.3 k/uL (0-1.0); Monocytes % (A) 8 %; Neutrophils # (A) 2.7 k/uL (1.3-7.7); Neutrophils % (A) 79 %; Platelet Count 114 k/uL (150-450); RBC 2.66 m/uL (3.80-5.40); RDW 14.9 % (11.5-15.5); WBC 3.4 k/uL (3.8-10.6)
[2023-08-25 17:24] LABS: ALT 9 U/L (4-34); AST 21 U/L (14-36); African American GFR (CKD) 82 (>60 ml/min/1.73 sqM); Albumin 3.6 g/dL (3.5-5.0); Alkaline Phosphatase 40 U/L (38-126); Anion Gap 5 mmol/L; Blood Urea Nitrogen 26 mg/dL (7-17); Calcium 8.7 mg/dL (8.4-10.2); Carbon Dioxide 38 mmol/L (22-30); Chloride 96 mmol/L (98-107); Glucose 92 mg/dL (74-99); Magnesium 1.8 mg/dL (1.6-2.3); Non-African American GFR(CKD) 71 (>60 ml/min/1.73 sqM); Potassium 3.2 mmol/L (3.5-5.1); Sodium 139 mmol/L (137-145); Total Bilirubin 1.5 mg/dL (0.2-1.3); Total Protein 5.9 g/dL (6.3-8.2)
[2023-08-25 17:26] LABS: INR 1.1 (<1.2); Partial Thromboplastin Time 22.6 sec (22.0-30.0); Prothrombin Time 12.3 sec (10.0-12.5)
[2023-08-25] MEDS: SODIUM CHLORIDE 0.9% 500 ML 500 ML IV ONE (18:35)
[2023-08-25] MEDS ORDERED: NALOXONE 0.4 MG/ML 1 ML VIAL IV PRN (19:11)
[2023-08-25] MEDS: SODIUM CHLORIDE 0.9% 1,000 ML IV SCH (22:00)
[2023-08-26 06:14] VITALS: RESP 18
[2023-08-26] MEDS: ALBUMIN HUMAN 25% 50 ML in EMPTY BAG 1 BAG IVPB SCH (10:36)
[2023-08-26] MEDS: PANTOPRAZOLE 40 MG TABLET PO SCH (10:44)
[2023-08-26] MEDS: APIXABAN 5 MG TAB PO SCH (11:47)
[2023-08-26] MEDS: azaTHIOprine 50 MG TAB PO SCH (11:48)
[2023-08-26] MEDS: LEVOTHYROXINE 112 MCG TAB PO SCH (11:48)
--- NOTE | 2023-08-26 12:23 | P.HPIM ---
History of Present Illness H&P Date: 08/26/23 History of present illness; patient is 78-year-old lady with past medical significant for cirrhosis, COPD, DVT who presented to the ER because of hypotension following paracentesis. Patient normally gets paracentesis every 4 to 5 weeks, normally follows with Dr. Rogers. Patient had paracentesis yesterday with removal of 9 L of fluid, during the procedure patient became hypotensive. Patient was given albumin and was sent to the ER for further evaluation. Patient denies any abdominal pain , there is no complaint of nausea, vomiting. Denies any diaphoresis or dizziness. There was no complaint of chest pain or shortness of breath. Patient denies any blood in her stools. There was no complaint of altered bowel movements. Initial lab work done in the ER showed WBC 3.4, hemoglobin 0.9, platelet count 114, sodium 139, potassium 3.2, BUN 26, creatinine 0.81, bilirubin 1.5, EKG done in the ER showed heart rate of 84, no ST segment elevation or depression seen, no T-wave inversions seen. Patient admitted to internal medicine service REVIEW OF SYSTEMS: CONSTITUTIONAL: No fever, no malaise, no fatigue. HEENT: No recent visual problems or hearing problems. Denied any sore throat. CARDIOVASCULAR: No chest pain, orthopnea, PND, no palpitations, no syncope. PULMONARY: As mentioned above GASTROINTESTINAL: As mentioned above NEUROLOGICAL: No headaches, no weakness, no numbness. HEMATOLOGICAL: Denies any bleeding or petechiae. GENITOURINARY: Denies any burning micturition, frequency, or urgency. MUSCULOSKELETAL/RHEUMATOLOGICAL: Denies any joint pain, swelling, or any muscle pain. ENDOCRINE: Denies any polyuria or polydipsia. The rest of the 14-point review of systems is negative. PHYSICAL EXAMINATION: GENERAL: The patient is alert and oriented x3, not in any acute distress. Well developed, well nourished. HEENT: Pupils are round and equally reacting to light. EOMI. No scleral icterus. No conjunctival pallor. Normocephalic, atraumatic. No pharyngeal erythema. No t hyromegaly. CARDIOVASCULAR: S1 and S2 present. No murmurs, rubs, or gallops. PULMONARY: Chest is clear to auscultation, no wheezing or crackles. ABDOMEN: distended, nontender normoactive bowel sounds. No palpable organomegaly. MUSCULOSKELETAL: No joint swelling or deformity. EXTREMITIES: No cyanosis, clubbing, or pedal edema. NEUROLOGICAL: Gross neurological examination did not reveal any focal deficits. SKIN: No rashes. 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 Extending into the left common femoral vein and femoral vein, precipitated in a patient with decreased activity. COPD chronic hypoxic respiratory failure. Chronic thrombocytopenia due to underlying cirrhosis secondary portal hypertension from cirrhosis. With Splenomegaly Chronic gait dysfunction -GERD Hypothyroid Hypokalemia Thrombocytopenia Monitor vital signs Monitor CBC Monitor CMP Continue telemetry monitoring Avoid hepatotoxic agents Resume Synthroid Resume Eliquis Continue Protonix Strict I's and O's, daily weights Ordered IV albumin Consult GI Labs and medication were reviewed.. Continue same treatment. Continue with symptomatic treatment. Resume home medication. Monitor labs and vitals. DVT and GI prophylaxis. Further recommendations as per clinical course of the patient Dictation was produced using [employer] dictation software. please excuse any grammatical, word or spelling errors. Past Medical History Past Medical History: GERD/Reflux, Hyperlipidemia, Hypertension, Pneumonia, Skin Disorder, Thyroid Disorder Additional Past Medical History / Comment(s): MIGRAINES, ARRYTHMIA, SCOLIOSIS, ascites History of Any Multi-Drug Resistant Organisms: MRSA Date of last positivie culture/infection: 2009 MDRO Source:: BREAST-UNKNOWN WHICH SIDE Past Surgical History: Back Surgery, Bariatric Surgery, Bladder Surgery, Breast Surgery, Cholecystectomy, Hysterectomy Additional Past Surgical History / Comment(s): Lap band 01/23/13. Sinus surgery. COLONOSCOPY. BREAST REDUCTION. 2 RT NECK LYMPH NODES REMOVED AND SALIVARY GLAND REMOVAL Past Anesthesia/Blood Transfusion Reactions: No Reported Reaction Past Psychological History: No Psychological Hx Reported Smoking Status: Never smoker Past Alcohol Use History: None Reported Past Drug Use History: None Reported - Past Family History Daughter(s) Family Medical History: Cancer Medications and Allergies Home Medications Medication Instructions Recorded Confirmed Type Levothyroxine Sodium [Euthyrox] 112 mcg PO DAILY 04/02/20 08/25/23 History Pantoprazole [Protonix] 40 mg PO DAILY 06/30/21 08/25/23 History Acebutolol HCl [Sectral] 200 mg PO HS 09/02/22 08/25/23 History azaTHIOprine [Imuran] 50 mg PO DAILY 09/02/22 08/25/23 History Apixaban [Eliquis] 5 mg PO BID 05/05/23 08/25/23 History Spironolactone [Aldactone] 100 mg PO DAILY #30 tab 05/07/23 08/25/23 Rx Furosemide [Lasix] 40 mg PO BID 06/15/23 08/25/23 History Allergies Allergy/AdvReac Type Severity Reaction Status Date / Time No Known Allergies Allergy Verified 08/25/23 19:58 Physical Exam Vitals: Vital Signs Temp Pulse Resp BP Pulse Ox 08/26/23 09:00 72 18 96/62 99 08/26/23 08:00 73 18 93/62 98 08/26/23 07:47 100 08/26/23 05:44 69 18 93/61 100 08/26/23 03:00 73 16 95/60 97 08/26/23 02:00 91/59 08/26/23 01:00 94/55 08/26/23 00:00 96/69 08/25/23 23:00 77/57 08/25/23 22:00 78/50 08/25/23 21:38 76 18 91/57 98 08/25/23 21:00 84/51 08/25/23 20:00 84/54 08/25/23 18:45 78 20 77/50 95 08/25/23 18:20 85/51 08/25/23 17:12 82 16 83/49 97 08/25/23 16:47 84 20 77/47 96 08/25/23 16:23 98.1 F 79 18 69/43 94 L Intake and Output 08/25/23 08/26/23 08/26/23 22:59 06:59 14:59 Other: Weight 72.575 kg Results CBC & Chem 7: 08/25/23 16:47 08/25/23 16:47 Labs: Abnormal Lab Results - Last 24 Hours (Table) 08/25/23 08/25/23 Range/Units 16:47 16:47 WBC 3.4 L (3.8-10.6) k/uL RBC 2.66 L (3.80-5.40) m/uL Hgb 9.9 L (11.4-16.0) gm/dL Hct 28.4 L (34.0-46.0) % MCV 106.8 H (80.0-100.0) fL MCH 37.2 H (25.0-35.0) pg Plt Count 114 L (150-450) k/uL Lymphocytes # 0.4 L (1.0-4.8) k/uL Potassium 3.2 L (3.5-5.1) mmol/L Chloride 96 L (98-107) mmol/L Carbon Dioxide 38 H (22-30) mmol/L BUN 26 H (7-17) mg/dL Total Bilirubin 1.5 H (0.2-1.3) mg/dL Total Protein 5.9 L (6.3-8.2) g/dL
[2023-08-26] MEDS: IPRATROPIUM-ALBUTEROL 3 ML NEB INHALATION SCH (15:35)
--- NOTE | 2023-08-26 16:01 | P.CONS ---
History of Present Illness - Reason for Consult Consult date: 08/26/23 Ascites Requesting physician: Gabriel Rios - Chief Complaint Hypotension - History of Present Illness Is a pleasant 78-year-old female with a history of nonalcoholic fatty liver disease who was getting her scheduled paracentesis and had 8.9 L removed and apparently was hypotensive after. She was sent over to the emergency department for further evaluation. Patient denies any shortness of breath, chest pain, abdominal pain, nausea or vomiting. States that she generally gets her paracentesis about every 4 weeks however she missed a week and it had been 5 weeks. They took off a little more fluid than normal and she was found to be hypotensive. She is on Lasix 40 mg twice daily and Aldactone 100 mg daily for maintenance of her ascites. She is currently on her #2 back of albumin. Review of Systems REVIEW OF SYSTEMS: CARDIOPULMONARY: No chest pain or shortness of breath. Gastrointestinal: No abdominal pain. No nausea or vomiting. No hematemesis, coffee-ground emesis. No rectal bleeding, or melena. GENITOURINARY: No dysuria or hematuria. MUSCULOSKELETAL: Reports normal range of motion., Joint pain. SKIN: No rashes. No jaundice. ENDOCRINE: No chills, fevers. No excessive weight gain or loss. No polydipsia or polyuria. PSYCHIATRIC: Unremarkable. NEUROLOGY: No change in mental status. Denies dizziness, headache. ENT: Vision unremarkable. CONSTITUTIONAL: No recent weight loss. No fever, chills, night sweats. Past Medical History Past Medical History: GERD/Reflux, Hyperlipidemia, Hypertension, Pneumonia, Skin Disorder, Thyroid Disorder Additional Past Medical History / Comment(s): MIGRAINES, ARRYTHMIA, SCOLIOSIS, ascites History of Any Multi-Drug Resistant Organisms: MRSA Year Discovered:: 2009 MDRO Source:: BREAST-UNKNOWN WHICH SIDE Past Surgical History: Back Surgery, Bariatric Surgery, Bladder Surgery, Breast Surgery, Cholecystectomy, Hysterectomy Additional Past Surgical History / Comment(s): Lap band 01/23/13. Sinus surgery. COLONOSCOPY. BREAST REDUCTION. 2 RT NECK LYMPH NODES REMOVED AND SALIVARY GLAND REMOVAL Past Anesthesia/Blood Transfusion Reactions: No Reported Reaction Past Psychological History: No Psychological Hx Reported Smoking Status: Never smoker Past Alcohol Use History: None Reported Past Drug Use History: None Reported - Past Family History Daughter(s) Family Medical History: Cancer Medications and Allergies Home Medications Medication Instructions Recorded Confirmed Type Levothyroxine Sodium [Euthyrox] 112 mcg PO DAILY 04/02/20 08/25/23 History Pantoprazole [Protonix] 40 mg PO DAILY 06/30/21 08/25/23 History Acebutolol HCl [Sectral] 200 mg PO HS 09/02/22 08/25/23 History azaTHIOprine [Imuran] 50 mg PO DAILY 09/02/22 08/25/23 History Apixaban [Eliquis] 5 mg PO BID 05/05/23 08/25/23 History Spironolactone [Aldactone] 100 mg PO DAILY #30 tab 05/07/23 08/25/23 Rx Furosemide [Lasix] 40 mg PO BID 06/15/23 08/25/23 History Allergies Allergy/AdvReac Type Severity Reaction Status Date / Time No Known Allergies Allergy Verified 08/25/23 19:58 Physical Exam Vitals: Vital Signs Temp Pulse Resp BP Pulse Ox 08/26/23 09:00 72 18 96/62 99 08/26/23 08:00 73 18 93/62 98 08/26/23 07:47 100 08/26/23 05:44 69 18 93/61 100 08/26/23 03:00 73 16 95/60 97 08/26/23 02:00 91/59 08/26/23 01:00 94/55 08/26/23 00:00 96/69 08/25/23 23:00 77/57 08/25/23 22:00 78/50 08/25/23 21:38 76 18 91/57 98 08/25/23 21:00 84/51 08/25/23 20:00 84/54 08/25/23 18:45 78 20 77/50 95 08/25/23 18:20 85/51 08/25/23 17:12 82 16 83/49 97 08/25/23 16:47 84 20 77/47 96 08/25/23 16:23 98.1 F 79 18 69/43 94 L Intake and Output 08/25/23 08/26/23 08/26/23 22:59 06:59 14:59 Other: Weight 72.575 kg General appearance: The patient is alert, oriented, appears in no acute distress. HET: Head is normocephalic and atraumatic. Conjunctiva pink. Sclera anicteric. Neck: Supple without lymphadenopathy. Trachea midline. Heart: Regular. Lungs: Equal expansion, normal respiratory effort. Abdomen: Soft, nontender, ascites, nondistended. Skin: No rashes. No jaundice. Extremities: Normal skin color and turgor. No pedal edema. Neurological: No focal deficits. Alert and oriented x3. Results CBC & Chem 7: 08/25/23 16:47 08/25/23 16:47 Labs: Abnormal Lab Results - Last 24 Hours (Table) 08/25/23 08/25/23 Range/Units 16:47 16:47 WBC 3.4 L (3.8-10.6) k/uL RBC 2.66 L (3.80-5.40) m/uL Hgb 9.9 L (11.4-16.0) gm/dL Hct 28.4 L (34.0-46.0) % MCV 106.8 H (80.0-100.0) fL MCH 37.2 H (25.0-35.0) pg Plt Count 114 L (150-450) k/uL Lymphocytes # 0.4 L (1.0-4.8) k/uL Potassium 3.2 L (3.5-5.1) mmol/L Chloride 96 L (98-107) mmol/L Carbon Dioxide 38 H (22-30) mmol/L BUN 26 H (7-17) mg/dL Total Bilirubin 1.5 H (0.2-1.3) mg/dL Total Protein 5.9 L (6.3-8.2) g/dL Assessment and Plan (1) Ascites Narrative/Plan: 78-year-old female with a history of cirrhosis of the liver from nonalcoholic fatty liver disease with ascites who has been getting ongoing paracentesis every 4 weeks. Unfortunately patient had missed a week and apparently had more fluid than usual. They removed 8.9 L of fluid and patient had become hypotensive. Patient is now received 2 bags of albumin and blood pressures have improved. There is no abdominal pain, fevers or chills. Recommend continuing diuretics as scheduled. Follow-up with Dr. Thomas as scheduled. And continue with paracentesis, and apparently patient will be going every 2 weeks instead of every 4 weeks. Current Visit: No Status: Acute Code(s): R18.8 - OTHER ASCITES SNOMED Code(s): 398040408 (2) Hypotension Current Visit: Yes Status: Acute Code(s): I95.9 - HYPOTENSION, UNSPECIFIED SNOMED Code(s): 17356151 (3) Cirrhosis Current Visit: No Status: Acute Code(s): K74.60 - UNSPECIFIED CIRRHOSIS OF LIVER SNOMED Code(s): 73280503 Plan: 1. Continue symptomatic and supportive care 2. Agree with albumin 3. Agree with more frequent paracentesis to avoid large-volume paracentesis and hypotension 4. Continue diuretics as ordered 5. Patient may have a low-sodium diet 6. Recommend outpatient follow-up with gastroenterology. Patient is otherwise cleared by gastroenterology Thank you for this consultation, we will sign off at this time. Dr. Yazan Thomas I agree with the dictator's note, documented as a scribe by Ariadne Barber.
[2023-08-26 16:37] VITALS: BP 104/62; PULSE 78
[2023-08-26] MEDS ORDERED: APIXABAN 5 MG TAB PO SCH (21:00)
[2023-08-27] MEDS ORDERED: LEVOTHYROXINE 112 MCG TAB PO SCH (06:30)
[2023-08-27] MEDS ORDERED: azaTHIOprine 50 MG TAB PO SCH (09:00)
--- NOTE | 2023-08-28 08:47 | P.DS ---
Providers Date of admission: 08/25/23 19:12 Expected date of discharge: 08/26/23 Attending physician: Blake Orellana Consults: 08/26/23 09:13 Consult Physician Urgent Consulting Provider: Tata Thomas Consult Reason/Comments: ascites Do you want consulting provider notified?: Yes Primary care physician: 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 Extending into the left common femoral vein and femoral vein, precipitated in a patient with decreased activity. COPD chronic hypoxic respiratory failure. Chronic thrombocytopenia due to underlying cirrhosis secondary portal hypertension from cirrhosis. With Splenomegaly Chronic gait dysfunction -GERD Hypothyroid Hypokalemia Thrombocytopenia Hospital course; patient is 78-year-old lady with past medical significant for cirrhosis, COPD, DVT who presented to the ER because of hypotension following paracentesis. Kenny stephan normally gets paracentesis every 4 to 5 weeks, normally follows with Dr. Rogers. Patient had paracentesis yesterday with removal of 9 L of fluid, during the procedure patient became hypotensive. Patient was given albumin and was sent to the ER for further evaluation. Patient denies any abdominal pain , there is no complaint of nausea, vomiting. Denies any diaphoresis or dizziness. There was no complaint of chest pain or shortness of breath. Patient denies any blood in her stools. There was no complaint of altered bowel movements. Initial lab work done in the ER showed WBC 3.4, hemoglobin 0.9, platelet count 114, sodium 139, potassium 3.2, BUN 26, creatinine 0.81, bilirubin 1.5, EKG done in the ER showed heart rate of 84, no ST segment elevation or depression seen, no T-wave inversions seen. Patient admitted to internal medicine service Patient was eval by GI, they recommended frequent paracentesis to avoid large- volume paracentesis and hypotension. Patient was doing much better. GI cleared the patient for discharge PHYSICAL EXAMINATION: GENERAL: The patient is alert and oriented x3, not in any acute distress. Well developed, well nourished. HEENT: Pupils are round and equally reacting to light. EOMI. No scleral icterus. No conjunctival pallor. Normocephalic, atraumatic. No pharyngeal erythema. No thyromegaly. CARDIOVASCULAR: S1 and S2 present. No murmurs, rubs, or gallops. PULMONARY: Chest is clear to auscultation, no wheezing or crackles. ABDOMEN: distended, nontender normoactive bowel sounds. No palpable organomegaly. MUSCULOSKELETAL: No joint swelling or deformity. EXTREMITIES: No cyanosis, clubbing, or pedal edema. NEUROLOGICAL: Gross neurological examination did not reveal any focal deficits. SKIN: No rashes. Dictation was produced using [employer] dictation software. please excuse any grammatical, word or spelling errors. Patient Condition at Discharge: Fair Plan - Discharge Summary New Discharge Prescriptions: Continue Levothyroxine Sodium [Euthyrox] 112 mcg PO DAILY azaTHIOprine [Imuran] 50 mg PO DAILY Furosemide [Lasix] 40 mg PO BID Pantoprazole [Protonix] 40 mg PO DAILY Acebutolol HCl [Sectral] 200 mg PO HS Apixaban [Eliquis] 5 mg PO BID Spironolactone [Aldactone] 100 mg PO DAILY #30 tab Discharge Medication List Levothyroxine Sodium [Euthyrox] 112 mcg PO DAILY 04/02/20 [History] Pantoprazole [Protonix] 40 mg PO DAILY 06/30/21 [History] Acebutolol HCl [Sectral] 200 mg PO HS 09/02/22 [History] azaTHIOprine [Imuran] 50 mg PO DAILY 09/02/22 [History] Apixaban [Eliquis] 5 mg PO BID 05/05/23 [History] Spironolactone [Aldactone] 100 mg PO DAILY #30 tab 05/07/23 [Rx] Furosemide [Lasix] 40 mg PO BID 06/15/23 [History] Follow up Appointment(s)/Referral(s): Jovan Yanez MD [Primary Care Provider] - 1-2 days Tata Thomas MD [STAFF PHYSICIAN] - 1 Week Patient Instructions/Handouts: Ascites (ED) Activity/Diet/Wound Care/Special Instructions: Outpatient follow up with GI. Discharge Disposition: HOME SELF-CARE
== END 2023-08-26 19:02 | disposition home or self-care (01) ==
LOC: EC 16:19 → 3SCARD 19:12 → 5NMEDONC 08-26 11:10
PROVIDERS: ADMIT Hospitalist; ATTEND Hospitalist
DX: R18.8 Other ascites (principal); I95.9 Hypotension, unspecified; K74.60 Unspecified cirrhosis of liver; J44.9 Chronic obstructive pulmonary disease, unspecified; J96.11 Chronic respiratory failure with hypoxia; K21.9 Gastro-esophageal reflux disease without esophagitis; E78.5 Hyperlipidemia, unspecified; I10 Essential (primary) hypertension; D69.59 Other secondary thrombocytopenia; K76.6 Portal hypertension; R16.1 Splenomegaly, not elsewhere classified; R26.9 Unspecified abnormalities of gait and mobility; E03.9 Hypothyroidism, unspecified; E87.6 Hypokalemia; Z86.718 Personal history of other venous thrombosis and embolism; Z79.890 Hormone replacement therapy; Z79.899 Other long term (current) drug therapy; Z79.624 Long term (current) use of inhibitors of nucleotide synthesis; Z79.01 Long term (current) use of anticoagulants
CPT/HCPCS: 96361 ×2; 96365; 96366; 99285; 36415; 94640; 94760; 93005; 80053; 83735; 85025; 85610; 85730; G0378 ×3; J7500; P9047

== ENCOUNTER 2023-09-08 08:14 | Day surgery (SDC) | payer MEDICARE, OTHER ==
[2023-09-08 09:00] VITALS: RESP 18; TEMP 98
[2023-09-08 09:04] LABS: Mean Platelet Volume 8.7; Platelet Count 130 k/uL (150-450)
[2023-09-08 09:15] LABS: Prothrombin Time 11.1 sec (10.0-12.5)
[2023-09-08 09:18] LABS: African American GFR (CKD) 86 (>60 ml/min/1.73 sqM); Non-African American GFR(CKD) 75 (>60 ml/min/1.73 sqM)
[2023-09-08] MEDS: ALBUMIN HUMAN 25% 50 ML in EMPTY BAG 1 BAG IVPB SCH (10:45)
--- NOTE | 2023-09-08 11:22 | US ---
Ultrasound-guided paracentesis. DATE OF EXAM: 09/08/2023 CLINICAL HISTORY: Ascites The procedure was discussed with the patient. The risks, complications, benefits, and alternatives we re discussed and any questions were answered. Informed consent was obtained. The patient was placed s upine on the ultrasound table and prepped and draped in the usual sterile fashion. All elements of maximal barrier technique were utilized. Under ultrasound guidance, access into the right lower quadrant was obtained, via the paracentesis catheter system and direct ultrasound guidanc e. Approximately 7.4 liters of straw-colored fluid was removed. The patient was stable throughout the pr ocedure and remained stable upon discharge from Department of Radiology. IMPRESSION: Successful paracentesis under ultrasound guidance.
[2023-09-08 11:38] VITALS: PULSE 78
[2023-09-08 12:29] VITALS: BP 105/66
== END 2023-09-08 11:35 | disposition home or self-care (01) ==
LOC: RADPROMAIN 08:14
PROVIDERS: ATTEND Internal Medicine Gastroenterology
DX: R18.8 Other ascites (principal)
CPT/HCPCS: 82565; 85049; 85610; 36415; 49083; P9047

== ENCOUNTER 2023-09-10 16:41 | Observation (INO) | payer MEDICARE, OTHER ==
--- NOTE | 2023-09-10 17:18 | ED ---
General Adult HPI - General Chief complaint: Neuro Symptoms/Deficit Stated complaint: Bilateral leg swelling Time Seen by Provider: 09/10/23 16:47 Source: patient, RN notes reviewed, old records reviewed Mode of arrival: EMS Limitations: no limitations - History of Present Illness Initial comments: 78-year-old female history of DVT on Eliquis presenting with right-sided numbness and tingling. Symptoms began prior to arrival and are currently resolved with the exception of some tingling to the right foot. There was reported weakness on the right side as well which is also resolved. Patient has history of liver failure with fluid overload and abdominal ascites requiring paracentesis. She is on continuous oxygen. She denies headache. Denies chest pain or abdominal pain. Denies fever. - Related Data Home Medications Medication Instructions Recorded Confirmed Levothyroxine Sodium [Euthyrox] 112 mcg PO DAILY 04/02/20 09/08/23 Pantoprazole [Protonix] 40 mg PO DAILY 06/30/21 09/08/23 azaTHIOprine [Imuran] 50 mg PO DAILY 09/02/22 09/08/23 Apixaban [Eliquis] 5 mg PO BID 05/05/23 09/08/23 Furosemide [Lasix] 40 mg PO BID 06/15/23 09/08/23 Previous Rx's Medication Instructions Recorded Spironolactone [Aldactone] 100 mg PO DAILY #30 tab 05/07/23 Allergies Allergy/AdvReac Type Severity Reaction Status Date / Time No Known Allergies Allergy Verified 08/27/23 13:06 Review of Systems ROS Statement: Those systems with pertinent positive or pertinent negative responses have been documented in the HPI. ROS Other: All systems not noted in ROS Statement are negative. Past Medical History Past Medical History: GERD/Reflux, Hyperlipidemia, Hypertension, Pneumonia, Skin Disorder, Thyroid Disorder Additional Past Medical History / Comment(s): MIGRAINES, ARRYTHMIA, SCOLIOSIS, ascites, cirrhosis History of Any Multi-Drug Resistant Organisms: MRSA Date of last positivie culture/infection: 2009 MDRO Source:: BREAST-UNKNOWN WHICH SIDE Past Surgical History: Cholecystectomy, Hysterectomy, Orthopedic Surgery Additional Past Surgical History / Comment(s): Lap band 01/23/13. Sinus surgery. COLONOSCOPY. BREAST REDUCTION. 2 RT NECK LYMPH NODES REMOVED AND SALIVARY GLAND REMOVAL Past Anesthesia/Blood Transfusion Reactions: No Reported Reaction Past Psychological History: No Psychological Hx Reported Smoking Status: Never smoker Past Alcohol Use History: None Reported Past Drug Use History: None Reported - Past Family History Daughter(s) Family Medical History: Cancer General Exam Limitations: no limitations General appearance: alert, in no apparent distress Head exam: Present: atraumatic, normocephalic Eye exam: Present: normal appearance, PERRL ENT exam: Present: normal exam Neck exam: Present: normal inspection. Absent: tenderness, meningismus Respiratory exam: Present: normal lung sounds bilaterally, decreased breath sounds. Absent: respiratory distress Cardiovascular Exam: Present: regular rate, normal rhythm GI/Abdominal exam: Present: soft, distended. Absent: tenderness Extremities exam: Present: pedal edema (Worse on the left) Neurological exam: Present: alert, oriented X3, CN II-XII intact. Absent: motor sensory deficit Psychiatric exam: Present: normal affect, normal mood Skin exam: Present: warm, dry, intact. Absent: cyanosis, diaphoretic Course Vital Signs 09/10/23 09/10/23 09/10/23 16:49 16:53 17:53 Temperature 98 F Pulse Rate 104 H 100 80 Respiratory 20 20 16 Rate Blood Pressure 104/66 104/66 95/45 O2 Sat by Pulse 98 98 96 Oximetry 09/10/23 19:21 Temperature Pulse Rate 83 Respiratory 20 Rate Blood Pressure 85/53 O2 Sat by Pulse 98 Oximetry - Reevaluation(s) Reevaluation #1: 09/10/23 20:10 Patient reevaluated, resting comfortably, no further weakness or numbness. Medical Decision Making - Medical Decision Making Was pt. sent in by a medical professional or institution (, PA, VASCULAR RADIOLOGIST, urgent care, hospital, or prison...) When possible be specific @ -No Did you speak to anyone other than the patient for history (EMS, parent, family, police, friend...)? What history was obtained from this source @ -No Did you review nursing and triage notes (agree or disagree)? Why? @ -I reviewed and agree with nursing and triage notes Were old charts reviewed (outside hosp., previous admission, EMS record, old EKG, old radiological studies, urgent care reports/EKG's, prison records)? Report findings @ -No old charts were reviewed Differential CVA Ischemic stroke, hemorrhagic stroke, brain tumor, atypical migraine, Wernicke's encephalopathy, seizure, multiple sclerosis, meningitis, encephalitis, hypoglycemia, Guillain-Huang, electrolytes disturbance, myasthenia gravis.... This is not meant to be an all-inclusive list EKG interpreted by me (3pts min.). @EKG: Sinus rhythm rate of 99, MA interval 191, QRS duration 93, QTc [address] segment elevation. X-rays interpreted by me (1pt min.). @ -[Chest x-ray negative for acute cardiopulmonary disease. CT interpreted by me (1pt min.). @CT brain negative for intracranial hemorrhage or mass effect U/S interpreted by me (1pt. min.). @ -None done What testing was considered but not performed or refused? (CT, X-rays, U/S, labs)? Why? @ -None What meds were considered but not given or refused? Why? @ -None Did you discuss the management of the patient with other professionals (professionals i.e. , PA, VASCULAR RADIOLOGIST, lab, RT, psych nurse, social science research assistant, assistant sales director, teacher, compliance officer, special education case manager)? Give summary @ -No Was smoking cessation discussed for >3mins.? @ -No Was critical care preformed (if so, how long)? @ -No Were there social determinants of health that impacted care today? How? (Homelessness, low income, unemployed, alcoholism, drug addiction, transportation, low edu. Level, literacy, decrease access to med. care, residential, rehab)? @ -No Was there de-escalation of care discussed even if they declined (Discuss DNR or withdrawal of care, Hospice)? DNR status @ -No What co-morbidities impacted this encounter? (DM, HTN, Smoking, COPD, CAD, Cancer, CVA, ARF, Chemo, Hep., AIDS, mental health diagnosis, sleep apnea, morbid obesity)? @ -Nonalcoholic fatty liver with liver failure, ascites Was patient admitted / discharged? Hospital course, mention meds given and route, prescriptions, significant lab abnormalities, going to OR and other pertinent info. @ -78-year-old female presenting with right-sided numbness and weakness, resolved at the time of arrival. Concerning for CVA or TIA. Patient taken for CT imaging which is negative for intracranial hemorrhage or mass effect. She has baseline lab abnormalities including anemia and hypoalbuminemia. Given aspirin and IV fluids in the emergency department. She will benefit from admission with neurology consultation. Case discussed with Charlie denis [facility]. Undiagnosed new problem with uncertain prognosis? @ -No Drug Therapy requiring intensive monitoring for toxicity (Heparin, Nitro, Insulin, Cardizem)? @ -No Were any procedures done? @ -No Diagnosis/symptom? @ -TIA Acute, or Chronic, or Acute on Chronic? @ -Acute Uncomplicated (without systemic symptoms) or Complicated (systemic symptoms)? @ -Default Side effects of treatment? @ -No Exacerbation, Progression, or Severe Exacerbation? @ -No Poses a threat to life or bodily function? How? (Chest pain, [place], [place], pneumonia, PE, COPD, DKA, ARF, appy, cholecystitis, CVA, Diverticulitis, Homicidal, Suicidal, threat to staff... and all critical care pts) @ -[Yes, CVA - Lab Data Result diagrams: 09/10/23 17:12 09/10/23 17:12 Lab Results 09/10/23 09/10/23 09/10/23 Range/Units 17:12 17:12 17:12 WBC 4.1 (3.8-10.6) k/uL RBC 2.98 L (3.80-5.40) m/uL Hgb 10.4 L (11.4-16.0) gm/dL Hct 31.7 L (34.0-46.0) % MCV 106.4 H (80.0-100.0) fL MCH 34.9 (25.0-35.0) pg MCHC 32.8 (31.0-37.0) g/dL RDW 13.9 (11.5-15.5) % Plt Count 112 L (150-450) k/uL MPV 8.7 Neutrophils % 76 % Lymphocytes % 11 % Monocytes % 11 % Eosinophils % 1 % Basophils % 1 % Neutrophils # 3.1 (1.3-7.7) k/uL Lymphocytes # 0.4 L (1.0-4.8) k/uL Monocytes # 0.4 (0-1.0) k/uL Eosinophils # 0.1 (0-0.7) k/uL Basophils # 0.0 (0-0.2) k/uL Macrocytosis Moderate PT 11.4 (10.0-12.5) sec INR 1.0 (<1.2) APTT 25.9 (22.0-30.0) sec Sodium 137 (137-145) mmol/L Potassium 3.8 (3.5-5.1) mmol/L Chloride 97 L (98-107) mmol/L Carbon Dioxide 40 H (22-30) mmol/L Anion Gap 0 mmol/L BUN 26 H (7-17) mg/dL Creatinine 0.83 (0.52-1.04) mg/dL Est GFR (CKD-EPI)AfAm 79 (>60 ml/min/1.73 sqM) Est GFR (CKD-EPI)NonAf 69 (>60 ml/min/1.73 sqM) Glucose 117 H (74-99) mg/dL Calcium 8.3 L (8.4-10.2) mg/dL Total Bilirubin 0.8 (0.2-1.3) mg/dL AST 24 (14-36) U/L ALT 11 (4-34) U/L Alkaline Phosphatase 43 (38-126) U/L Creatine Kinase 49 (30-135) U/L Troponin I (0.000-0.034) ng/mL Total Protein 5.6 L (6.3-8.2) g/dL Albumin 3.0 L (3.5-5.0) g/dL 09/10/23 Range/Units 17:12 WBC (3.8-10.6) k/uL RBC (3.80-5.40) m/uL Hgb (11.4-16.0) gm/dL Hct (34.0-46.0) % MCV (80.0-100.0) fL MCH (25.0-35.0) pg MCHC (31.0-37.0) g/dL RDW (11.5-15.5) % Plt Count (150-450) k/uL MPV Neutrophils % % Lymphocytes % % Monocytes % % Eosinophils % % Basophils % % Neutrophils # (1.3-7.7) k/uL Lymphocytes # (1.0-4.8) k/uL Monocytes # (0-1.0) k/uL Eosinophils # (0-0.7) k/uL Basophils # (0-0.2) k/uL Macrocytosis PT (10.0-12.5) sec INR (<1.2) APTT (22.0-30.0) sec Sodium (137-145) mmol/L Potassium (3.5-5.1) mmol/L Chloride (98-107) mmol/L Carbon Dioxide (22-30) mmol/L Anion Gap mmol/L BUN (7-17) mg/dL Creatinine (0.52-1.04) mg/dL Est GFR (CKD-EPI)AfAm (>60 ml/min/1.73 sqM) Est GFR (CKD-EPI)NonAf (>60 ml/min/1.73 sqM) Glucose (74-99) mg/dL Calcium (8.4-10.2) mg/dL Total Bilirubin (0.2-1.3) mg/dL AST (14-36) U/L ALT (4-34) U/L Alkaline Phosphatase (38-126) U/L Creatine Kinase (30-135) U/L Troponin I <0.012 (0.000-0.034) ng/mL Total Protein (6.3-8.2) g/dL Albumin (3.5-5.0) g/dL Disposition Clinical Impression: Hypotension, Ascites, Transient cerebral ischemia Disposition: ADMITTED IP TO THIS HOSP Condition: Stable Is patient prescribed a controlled substance at d/c from ED?: No Referrals: Jovan Yanez MD [Primary Care Provider] - 1-2 days Time of Disposition: 20:12
[2023-09-10 17:25] LABS: Basophils % (A) 1 %; Eosinophils # (A) 0.1 k/uL (0-0.7); Eosinophils % (A) 1 %; HCT 31.7 % (34.0-46.0); HGB 10.4 gm/dL (11.4-16.0); Lymphocytes # (A) 0.4 k/uL (1.0-4.8); Lymphocytes % (A) 11 %; MCH 34.9 pg (25.0-35.0); MCHC 32.8 g/dL (31.0-37.0); MCV 106.4 fL (80.0-100.0); Macrocytosis Moderate; Mean Platelet Volume 8.7; Monocytes # (A) 0.4 k/uL (0-1.0); Monocytes % (A) 11 %; Neutrophils # (A) 3.1 k/uL (1.3-7.7); Neutrophils % (A) 76 %; Platelet Count 112 k/uL (150-450); RBC 2.98 m/uL (3.80-5.40); RDW 13.9 % (11.5-15.5); WBC 4.1 k/uL (3.8-10.6)
[2023-09-10 17:34] LABS: Partial Thromboplastin Time 25.9 sec (22.0-30.0); Prothrombin Time 11.4 sec (10.0-12.5)
--- NOTE | 2023-09-10 17:56 | CT ---
EXAMINATION TYPE: CT brain wo con DATE OF EXAM: 09/10/2023 COMPARISON: None INDICATION: weakness DLP: 1091.4 mGycm, Automated exposure control for dose reduction was used. CONTRAST: None CT of the brain is performed utilizing 3 mm thick sections through the posterior fossa and 3 mm thick sections through the remaining calvarium. Study is performed within 24 hours of arrival to the hosp ital. No abnormal hyperdensity is present to suggest an acute intracranial hemorrhage. No mass lesion is evident. No acute infarcts are evident. Ventricles and sulci are appropriate for the patient age. Paranasal sinuses and mastoid air cells within the [id number] are clear. IMPRESSION: 1. No acute intracranial process. Follow-up MRI can be performed as clinically indicated.
--- NOTE | 2023-09-10 18:15 | XR ---
EXAMINATION TYPE: XR chest 2V DATE OF EXAM: 09/10/2023 COMPARISON: 07/05/2023 INDICATION: Acute mental status changes TECHNIQUE: Frontal and lateral views of the chest are obtained. FINDINGS: The heart size is normal. The pulmonary vasculature is normal. Some minimal linear opacities may be at the diaphragms. Some mild atelectasis may be present.. LAP-B AND position is stable from comparison IMPRESSION: 1. Suggestion of mild platelike atelectasis bilateral lung bases
[2023-09-10 19:29] LABS: ALT 11 U/L (4-34); AST 24 U/L (14-36); African American GFR (CKD) 79 (>60 ml/min/1.73 sqM); Alkaline Phosphatase 43 U/L (38-126); Anion Gap 0 mmol/L; Blood Urea Nitrogen 26 mg/dL (7-17); Calcium 8.3 mg/dL (8.4-10.2); Carbon Dioxide 40 mmol/L (22-30); Chloride 97 mmol/L (98-107); Creatine Kinase 49 U/L (30-135); Glucose 117 mg/dL (74-99); Non-African American GFR(CKD) 69 (>60 ml/min/1.73 sqM); Potassium 3.8 mmol/L (3.5-5.1); Sodium 137 mmol/L (137-145); Total Bilirubin 0.8 mg/dL (0.2-1.3); Total Protein 5.6 g/dL (6.3-8.2)
[2023-09-10] MEDS ORDERED: NALOXONE 0.4 MG/ML 1 ML VIAL IV PRN (20:12)
[2023-09-10] MEDS: SODIUM CHLORIDE 0.9% 500 ML 500 ML IV ONE (20:13)
[2023-09-10] MEDS: ASPIRIN 325 MG TAB PO STA (21:05)
[2023-09-10] MEDS: SODIUM CHLORIDE 0.9% 1,000 ML IV SCH (21:06)
[2023-09-10] MEDS: IPRATROPIUM-ALBUTEROL 3 ML NEB INHALATION PRN (23:35)
[2023-09-11] MEDS: PANTOPRAZOLE 40 MG TABLET PO SCH (09:19)
[2023-09-11] MEDS: LEVOTHYROXINE 112 MCG TAB PO SCH (09:19)
[2023-09-11] MEDS: ASPIRIN 81 MG PO SCH (09:19)
[2023-09-11] MEDS: APIXABAN 5 MG TAB PO SCH (12:53)
--- NOTE | 2023-09-11 13:45 | CA ---
Transthoracic Echo Report Name: Glendy Soto Age: 78 Gender: F : 1945 Exam Date: 09/11/2023 11:09 Exam Location: [facility] Ht (in): 60 Wt (lb): 155 Ordering Physician: Gabriel Rios MD Attending/Referring Phys: Gambling Box Person Yamini Matamoros RDCS Procedure CPT: Indications: Right-sided numbness Cardiac Hx: Technical Quality: Fair Contrast 1: Total Dose (mL): Contrast 2: Total Dose (mL): MEASUREMENTS (Male / Female) Normal Values 2D ECHO LV Diastolic Diameter PLAX 3.5 cm 4.2 - 5.9 / 3.9 - 5.3 cm LV Systolic Diameter PLAX 2.4 cm IVS Diastolic Thickness 1.3 cm 0.6 - 1.0 / 0.6 - 0.9 cm LVPW Diastolic Thickness 1.3 cm 0.6 - 1.0 / 0.6 - 0.9 cm LV Relative Wall Thickness 0.7 RV Internal Dim ED PLAX 3.1 cm LA Systolic Diameter LX 4.2 cm 3.0 - 4.0 / 2.7 - 3.8 cm LA Volume 41.3 cm??? 18 - 58 / 22 - 52 cm??? LA Volume Index 23.6 cm???/m??? 16 - 28 cm???/m??? M-MODE Aortic Root Diameter MM 2.9 cm MV E Point Septal Separation 0.3 cm AV Cusp Separation MM 2.3 cm DOPPLER AV Peak Velocity 136.2 cm/s AV Peak Gradient 7.4 mmHg MV Area PHT 2.9 cm??? Mitral E Point Velocity 69.1 cm/s Mitral A Point Velocity 66.4 cm/s Mitral E to A Ratio 1.0 MV Deceleration Time 263.9 ms FINDINGS Left Ventricle Left ventricular ejection fraction is estimated at 60-65 %. No obvious regional wall motion abnormalities. Mildly increased left ventricular wall thickness. Right Ventricle Normal right ventricular size and function. Unable to estimate the right ventricular systolic pressure. Right Atrium Normal right atrial size. No right atrial thrombus or mass seen. Left Atrium Mildly increased left atrial diameter. No left atrial thrombus or mass present. Mitral Valve Mitral valve thickened. No mitral stenosis, or prolapse.trace mitral regurgitation. Aortic Valve Trileaflet aortic valve. Thickened aortic valve without stenosis.aortic valve sclerosis. Tricuspid Valve Structurally normal tricuspid valve. No tricuspid regurgitation. Pulmonic Valve Structurally normal pulmonic valve. No pulmonic regurgitation. Pericardium No pericardial effusion. Aorta Normal size aortic root and proximal ascending aorta. CONCLUSIONS 1. Normal ventricle size and systolic function with mild left ventricular hypertrophy 2. Trace mitral regurgitation Previewed by: Dr. Kvng Geronimo MD (Electronically Signed) Final Date: 11 Sep 2023 13:44
--- NOTE | 2023-09-11 14:01 | P.HPIM ---
History of Present Illness H&P Date: 09/11/23 History of present illness; patient is a 78-year-old lady with past medical history significant for cirrhosis, COPD, DVT who presented to the ER because of complaint of right-sided tingling and numbness. Patient stated that she started experiencing that she was having right-sided numbness and tingling. There was no complaint of slurred speech. There was no complaint of facial droop patient did complain of weakness of right side. Before coming to the hospital patient symptoms improved patient only has some residual numbness in right foot. There was no complaint of chest pain. Denies any shortness of breath. There was no complaint of nausea, vomiting or abdominal pain. Because of symptoms, patient presented to ER Initial lab work done in the ER showed WBC 4.1, hemoglobin 10.4, platelet count 05/10/2011, sodium 137 potassium 3.8, BUN 26, creatinine 0.83, glucose 117, calcium 8.3, EKG done in the ER showed heart rate of 99, no ST segment elevation or depression seen, no T-wave inversions seen. Chest x-ray done in the ER showed mild platelike right atelectasis at bilateral lung bases CT head done showed no acute intracranial process Patient admitted to internal medicine service REVIEW OF SYSTEMS: CONSTITUTIONAL: No fever, no malaise, no fatigue. HEENT: No recent visual problems or hearing problems. Denied any sore throat. CARDIOVASCULAR: No chest pain, orthopnea, PND, no palpitations, no syncope. PULMONARY: No shortness of breath, no cough, no hemoptysis. GASTROINTESTINAL: No diarrhea, no nausea, no vomiting, no abdominal pain. NEUROLOGICAL: As mentioned above HEMATOLOGICAL: Denies any bleeding or petechiae. GENITOURINARY: Denies any burning micturition, frequency, or urgency. MUSCULOSKELETAL/RHEUMATOLOGICAL: Denies any joint pain, swelling, or any muscle pain. ENDOCRINE: Denies any polyuria or polydipsia. The rest of the 14-point review of systems is negative. PHYSICAL EXAMINATION: GENERAL: The patient is alert and oriented x3, not in any acute distress. Well developed, well nourished. HEENT: Pupils are round and equally reacting to light. EOMI. No scleral icterus. No conjunctival pallor. Normocephalic, atraumatic. No pharyngeal erythema. No thyromegaly. CARDIOVASCULAR: S1 and S2 present. No murmurs, rubs, or gallops. PULMONARY: Chest is clear to auscultation, no wheezing or crackles. ABDOMEN: Distended, no tenderness, normoactive bowel sounds. No palpable organomegaly. MUSCULOSKELETAL: No joint swelling or deformity. EXTREMITIES: No cyanosis, clubbing, or pedal edema. NEUROLOGICAL: Gross neurological examination did not reveal any focal deficits. SKIN: No rashes. 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 Extending into the left common femoral vein and femoral vein, precipitated in a patient with decreased activity. COPD chronic hypoxic respiratory failure. Chronic thrombocytopenia due to underlying cirrhosis secondary portal hypertension from cirrhosis. With Splenomegaly Chronic gait dysfunction -GERD Hypothyroid Hypokalemia Thrombocytopenia Monitor vital signs Monitor CBC Monitor CMP Continue telemetry monitoring Continue neurochecks Ordered 2D echo Ordered ultrasound of carotids Resume home meds Consult neurology Labs and medication were reviewed.. Continue same treatment. Continue with symptomatic treatment. Resume home medication. Monitor labs and vitals. DVT and GI prophylaxis. Further recommendations as per clinical course of the patient Dictation was produced using [employer] dictation software. please excuse any grammatical, word or spelling errors. Past Medical History Past Medical History: GERD/Reflux, Hyperlipidemia, Pneumonia, Skin Disorder, Thyroid Disorder Additional Past Medical History / Comment(s): MIGRAINES, ARRYTHMIA, SCOLIOSIS, ascites, cirrhosis History of Any Multi-Drug Resistant Organisms: MRSA Date of last positivie culture/infection: 2009 MDRO Source:: BREAST-UNKNOWN WHICH SIDE Past Surgical History: Cholecystectomy, Hysterectomy, Orthopedic Surgery Additional Past Surgical History / Comment(s): Lap band 01/23/13. Sinus surgery. COLONOSCOPY. BREAST REDUCTION. 2 RT NECK LYMPH NODES REMOVED AND SALIVARY GLAND REMOVAL. bladder lift Past Anesthesia/Blood Transfusion Reactions: No Reported Reaction Past Psychological History: No Psychological Hx Reported Additional Psychological History / Comment(s): flat affect, flat tone of voice Smoking Status: Never smoker Past Alcohol Use History: None Reported Past Drug Use History: None Reported - Past Family History Daughter(s) Family Medical History: Cancer Medications and Allergies Home Medications Medication Instructions Recorded Confirmed Type Levothyroxine Sodium [Euthyrox] 112 mcg PO DAILY 04/02/20 09/10/23 History Pantoprazole [Protonix] 40 mg PO DAILY 06/30/21 09/10/23 History azaTHIOprine [Imuran] 50 mg PO DAILY 09/02/22 09/10/23 History Apixaban [Eliquis] 5 mg PO BID 05/05/23 09/10/23 History Spironolactone [Aldactone] 100 mg PO DAILY #30 tab 05/07/23 09/10/23 Rx Furosemide [Lasix] 40 mg PO BID 06/15/23 09/10/23 History Ipratropium-Albuterol Nebulize 3 ml INHALATION RT-QID PRN 09/10/23 09/10/23 History [Duoneb 0.5 mg-3 mg/3 ml Soln] Allergies Allergy/AdvReac Type Severity Reaction Status Date / Time No Known Allergies Allergy Verified 09/10/23 20:37 Physical Exam Vitals: Vital Signs Temp Pulse Pulse Resp BP BP Pulse Ox 09/11/23 08:35 77 97 09/11/23 07:00 98.3 F 77 16 86/54 100 09/11/23 02:01 98.4 F 85 15 92/61 97 09/10/23 23:44 87 09/10/23 23:36 85 09/10/23 23:00 98.3 F 89 15 87/54 93 L 09/10/23 22:19 74 13 86/56 100 09/10/23 21:48 85 20 89/52 99 09/10/23 19:21 83 20 85/53 98 09/10/23 17:53 80 16 95/45 96 09/10/23 16:53 100 20 104/66 98 09/10/23 16:49 98 F 104 H 20 104/66 98 Intake and Output 09/10/23 09/11/23 09/11/23 22:59 06:59 14:59 Other: Voiding Method External Catheter Weight 70.307 kg Results CBC & Chem 7: 09/10/23 17:12 09/10/23 17:12 Labs: Abnormal Lab Results - Last 24 Hours (Table) 09/10/23 09/10/23 Range/Units 17:12 17:12 RBC 2.98 L (3.80-5.40) m/uL Hgb 10.4 L (11.4-16.0) gm/dL Hct 31.7 L (34.0-46.0) % MCV 106.4 H (80.0-100.0) fL Plt Count 112 L (150-450) k/uL Lymphocytes # 0.4 L (1.0-4.8) k/uL Chloride 97 L (98-107) mmol/L Carbon Dioxide 40 H (22-30) mmol/L BUN 26 H (7-17) mg/dL Glucose 117 H (74-99) mg/dL Calcium 8.3 L (8.4-10.2) mg/dL Total Protein 5.6 L (6.3-8.2) g/dL Albumin 3.0 L (3.5-5.0) g/dL
--- NOTE | 2023-09-11 14:11 | US ---
EXAMINATION TYPE: US carotid duplex BILAT DATE OF EXAM: 09/11/2023 Exam done portable COMPARISON: NONE CLINICAL INDICATION: Female, 78 years old with history of Right-sided numbness; TECHNIQUE: Carotid duplex ultrasound examination. Indirect Doppler criteria was utilized. FINDINGS: EXAM MEASUREMENTS: RIGHT: Peak Systolic Velocity (PSV) cm/sec ----- Right CCA: 55.2 ----- Right ICA: 56.5 ----- Right ECA: 80.9 ICA/CCA ratio: 1.0 RIGHT: End Diastole cm/sec ----- Right CCA: 19.7 ----- Right ICA: 24.8 ----- Right ECA: 11.5 LEFT: Peak Systolic Velocity (PSV) cm/sec ----- Left CCA: 70.8 ----- Left ICA: 101.0 ----- Left ECA: 83.2 ICA/CCA ratio: 1.4 LEFT: End Diastole cm/sec ----- Left CCA: 24.4 ----- Left ICA: 33.6 ----- Left ECA: 16.0 VERTEBRALS (direction of flow): Right Vertebral: Antegrade Left Vertebral: Antegrade Rhythm: Normal No significant stenosis IMPRESSION: No significant flow-limiting stenosis based on velocities. Criteria for Assigning % of Stenosis / Diameter reduction (Estimation based on the indirect measurements of the internal carotid artery velocities (ICA PSV). 1. Normal (no stenosis)=ICA PSV < 125 cm/s: ratio < 2.0: ICA EDV<40 cm/s. 2. Less than 50% stenosis=ICA PSV < 125 cm/s: ratio < 2.0: ICA EDV<40 cm/s. 3. 50 to 69% stenosis=ICA PSV of 125 to 230 cm/s: ration 2.0 ? 4.0: ICA EDV 40-100 cm/s. 4. Greater than 70% stenosis to near occlusion= ICA PSV > 230 cm/s: ratio > 4.0: ICA EDV > 100 cm/s. 5. Near occlusion= ICA PSV velocities may be low or undetectable: variable ratio and ICA EDV. 6. Total occlusion=unable to detect flow.
[2023-09-11 23:08] LABS: Chol/HDL Ratio 3.29 Ratio; LDL Cholesterol,Calculated 102.2 mg/dL (0.0-131.0)
[2023-09-12 08:24] VITALS: RESP 16
--- NOTE | 2023-09-12 08:53 | P.CNNES ---
History of Present Illness Consult date: 09/11/23 Requesting physician: Tyree Terrell Reason for Consult: TIA History of Present Illness: Patient is a 78-year-old right-handed female came to the hospital by ambulance yesterday at 4:41 PM for lightheadedness. EMS flowsheet not available in the chart. Patient states that she came because she had just done with her dishes, heading to the living room when at around little after 1 PM, she felt funny, had felt lightheaded. Then she had a warmth sensation started from top and inside of the head to the right side and then went down her right arm and leg to the right foot. Her foot felt about two thirds sleep. Patient also felt weak, like will fall down or pass out, therefore she sat down. She called her daughter, who called the ambulance. Patient was not confused, not disoriented. She felt her heart was beating irregular. Patient states that her symptoms were still present when she came here to the hospital. However overnight the symptoms have gone away. At present she has no symptoms. Patient has history of irregular heart rate, for which she is on Eliquis, which she claims is because of "blood clots in the legs". She was also on acebutolol, but her pulmonologist stopped this medication recently. Vital signs arrival blood pressure 104/66 pulse rate 104 temperature 98.0. Blood test shows normal WBC, hemoglobin 10.4 with elevated MCV 106.4. Platelets are 1 and 12. PT PTT normal, sodium and potassium are normal, renal functions are normal hepatic panel normal. CK, troponin negative. EKG shows sinus rhythm with occasional supraventricular premature complexes. CT head revealed no acute intracranial process. I personally reviewed CT head agree with the findings. Chest x-ray showed suggestion of mild platelike atelectasis bilateral lung bases. Patient's home medications include Eliquis 5 mg twice daily, Imuran 50 mg daily, pantoprazole, levothyroxine, spironolactone, Lasix and DuoNeb. Patient denies any tobacco use, no alcohol. She has hypertension and hyperlipidemia but no diabetes. She lives by herself. She has been using walker all the time since last fall. Review of Systems Constitutional: Denies chills ([place] cold), Denies fever Eyes: denies blurred vision, denies diplopia, denies pain, denies loss of vision Ears: deny: decreased hearing, ear discharge Ears, nose, mouth and throat: Reports headache (hx of migraines, does have sinus [place]), Reports sinus pressure, Reports vertigo (in am some days when gets up, gets spinning for a short while and goes away), Denies sore throat Cardiovascular: Denies chest pain, Denies shortness of breath Respiratory: Reports cough, Reports excessive sputum Gastrointestinal: Denies abdominal pain, Denies diarrhea, Denies nausea, Denies vomiting Genitourinary: Denies dysuria, Denies urge incontinence Musculoskeletal: Reports low back pain, Denies neck pain Integumentary: Denies pruritus, Denies rash Neurological: Reports as per HPI Psychiatric: Denies anxiety, Denies depression Hematologic/Lymphatic: Reports easy bruising, Denies easy bleeding Past Medical History Past Medical History: GERD/Reflux, Hyperlipidemia, Pneumonia, Skin Disorder, Thyroid Disorder Additional Past Medical History / Comment(s): MIGRAINES, ARRYTHMIA, SCOLIOSIS, ascites, cirrhosis History of Any Multi-Drug Resistant Organisms: MRSA Date of last positivie culture/infection: 2009 MDRO Source:: BREAST-UNKNOWN WHICH SIDE Past Surgical History: Cholecystectomy, Hysterectomy, Orthopedic Surgery Additional Past Surgical History / Comment(s): Lap band 01/23/13. Sinus surgery. COLONOSCOPY. BREAST REDUCTION. 2 RT NECK LYMPH NODES REMOVED AND SALIVARY GLAND REMOVAL. bladder lift Past Anesthesia/Blood Transfusion Reactions: No Reported Reaction Past Psychological History: No Psychological Hx Reported Additional Psychological History / Comment(s): flat affect, flat tone of voice Smoking Status: Never smoker Past Alcohol Use History: None Reported Past Drug Use History: None Reported - Past Family History Daughter(s) Family Medical History: Cancer Medications and Allergies Home Medications Medication Instructions Recorded Confirmed Type Levothyroxine Sodium [Euthyrox] 112 mcg PO DAILY 04/02/20 09/10/23 History Pantoprazole [Protonix] 40 mg PO DAILY 06/30/21 09/10/23 History azaTHIOprine [Imuran] 50 mg PO DAILY 09/02/22 09/10/23 History Apixaban [Eliquis] 5 mg PO BID 05/05/23 09/10/23 History Spironolactone [Aldactone] 100 mg PO DAILY #30 tab 05/07/23 09/10/23 Rx Furosemide [Lasix] 40 mg PO BID 06/15/23 09/10/23 History Ipratropium-Albuterol Nebulize 3 ml INHALATION RT-QID PRN 09/10/23 09/10/23 His tory [Duoneb 0.5 mg-3 mg/3 ml Soln] Allergies Allergy/AdvReac Type Severity Reaction Status Date / Time No Known Allergies Allergy Verified 09/10/23 20:37 Physical Examination - Vital Signs Vital Signs: Vital Signs Temp Pulse Pulse Resp BP BP Pulse Ox 09/11/23 09:01 76 09/11/23 08:35 77 97 09/11/23 07:00 98.3 F 77 16 86/54 100 09/11/23 02:01 98.4 F 85 15 92/61 97 09/10/23 23:44 87 09/10/23 23:36 85 09/10/23 23:00 98.3 F 89 15 87/54 93 L 09/10/23 22:19 74 13 86/56 100 09/10/23 21:48 85 20 89/52 99 09/10/23 19:21 83 20 85/53 98 09/10/23 17:53 80 16 95/45 96 09/10/23 16:53 100 20 104/66 98 09/10/23 16:49 98 F 104 H 20 104/66 98 Intake and Output 09/10/23 09/11/23 09/11/23 22:59 06:59 14:59 Other: Voiding Method External Catheter External Catheter Weight 70.307 kg Patient is an elderly female, very pleasant, in no acute distress. Patient is alert awake oriented to time place and person. Speech and language functions are normal. Patient can name and repeat very well. No aphasia or dysarthria. Attention, concentration and fund of knowledge is adequate. On cranial nerve examination, pupils are equal, round and reacting to light, visual [place] are full on confrontation, with no neglect on double simultaneous stimulation. Extraocular muscles are intact with no nystagmus. Face is symmetric, tongue protrudes to the midline. Palatal elevation and sensation normal, hearing and shoulder shrug normal, facial sensation normal. On muscle strength testing, there is no pronator drift and the strength is normal in arms and legs distally and proximally. Deep tendon reflexes are symmetric, but hypoactive and plantars downgoing. Sensory to touch is equal with no neglect on double simultaneous stimulation. Cerebellar function showed no ataxia for [id number] testing. No dysdiadochokinesia. No ataxia for [id number] testing on either side. Tone and bulk of muscles normal. Gait deferred.. On general examination, there is no carotid bruit or murmur, S1-S2 audible. Chest is clear on consultation. Abdomen is soft nontender. No organomegaly, bowel sounds present. Peripheral pulses are present. No peripheral edema. Results - Laboratory Findings CBC and BMP: 09/10/23 17:12 09/10/23 17:12 Abnormal Lab Findings: Abnormal Labs 09/10/23 09/10/23 17:12 17:12 RBC 2.98 L Hgb 10.4 L Hct 31.7 L MCV 106.4 H Plt Count 112 L Lymphocytes # 0.4 L Chloride 97 L Carbon Dioxide 40 H BUN 26 H Glucose 117 H Calcium 8.3 L Total Protein 5.6 L Albumin 3.0 L Assessment and Plan Assessment: * Possible TIA, manifesting with numbness/warmth sensation right side of the [place] dy. Symptoms started at around 1 PM and then went away overnight. At present her NIH stroke scale is 0. * Hypertension * Hyperlipidemia * Macrocytic anemia * History of DVT, on Eliquis * Thrombocytopenia Plan: * Patient has history of DVT, will be resumed on Eliquis 5 mg twice daily. * Carotid Doppler revealed no significant flow-limiting stenosis based on velocities. Antegrade flow in both vertebral arteries. * 2D echo revealed normal ventricle size and systolic function with mild left ventricular hypertrophy. EF is normal 60 to 65%. No obvious regional wall motion abnormalities. Mildly increased left atrial diameter. * Fasting lipid panel with cholesterol 168, LDL 102, HDL 51, triglycerides 74. Start Lipitor 20 mg daily. * Hemoglobin A1c 4.8 * Blood pressure is well-controlled. * Because of thrombocytopenia, perhaps continue Eliquis, and no need for antiplatelet medication. * All stroke workup has essentially come back negative. * Telemetry monitoring. * DVT prophylaxis: Patient on Eliquis. * Neurologically clear for discharge. Thank you for the consult
--- NOTE | 2023-09-12 12:45 | P.DS ---
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 Extending into the left common femoral vein and femoral vein, precipitated in a patient with decreased activity. COPD chronic hypoxic respiratory failure. Chronic thrombocytopenia due to underlying cirrhosis secondary portal hypertension from cirrhosis. With Splenomegaly Chronic gait dysfunction -GERD Hypothyroid Hypokalemia Thrombocytopenia Hospital course; patient is a 78-year-old lady with past medical history significant for cirrhosis, COPD, DVT who presented to the ER because of complaint of right-sided tingling and numbness. Patient stated that she started experiencing that she was having right-sided numbness and tingling. There was no complaint of slurred speech. There was no complaint of facial droop patient did complain of weakness of right side. Before coming to the hospital patient symptoms improved patient only has some residual numbness in right foot. There was no complaint of chest pain. Denies any shortness of breath. There was no complaint of nausea, vomiting or abdominal pain. Because of symptoms, patient presented to ER Initial lab work done in the ER showed WBC 4.1, hemoglobin 10.4, platelet count 05/10/2011, sodium 137 potassium 3.8, BUN 26, creatinine 0.83, glucose 117, calcium 8.3, EKG done in the ER showed heart rate of 99, no ST segment elevation or depression seen, no T-wave inversions seen. Chest x-ray done in the ER showed mild platelike right atelectasis at bilateral lung bases CT head done showed no acute intracranial process Patient admitted to internal medicine service 09/11. Patient seen and examined. 2D echo done showed normal ventricle size and systolic function with mild LV hypertrophy. Ultrasound carotids done showed no significant flow-limiting stenosis. Neurology recommended keeping patient on Eliquis and Lipitor. Patient was cleared for discharge PHYSICAL EXAMINATION: GENERAL: The patient is alert and oriented x3, not in any acute distress. Well developed, well nourished. HEENT: Pupils are round and equally reacting to light. EOMI. No scleral icterus. No conjunctival pallor. Normocephalic, atraumatic. No pharyngeal erythema. No thyromegaly. CARDIOVASCULAR: S1 and S2 present. No murmurs, rubs, or gallops. PULMONARY: Chest is clear to auscultation, no wheezing or crackles. ABDOMEN: Distended , normoactive bowel sounds. No palpable organomegaly. MUSCULOSKELETAL: No joint swelling or deformity. EXTREMITIES: No cyanosis, clubbing, or pedal edema. NEUROLOGICAL: Gross neurological examination did not reveal any focal deficits. SKIN: No rashes. Dictation was produced using [employer] dictation software. please excuse any grammatical, word or spelling errors. Patient Condition at Discharge: Stable Plan - Discharge Summary New Discharge Prescriptions: No Action Levothyroxine Sodium [Euthyrox] 112 mcg PO DAILY azaTHIOprine [Imuran] 50 mg PO DAILY Furosemide [Lasix] 40 mg PO BID Ipratropium-Albuterol Nebulize [Duoneb 0.5 mg-3 mg/3 ml Soln] 3 ml INHALATION RT-QID PRN PRN Reason: Shortness Of Breath Pantoprazole [Protonix] 40 mg PO DAILY Apixaban [Eliquis] 5 mg PO BID Spironolactone [Aldactone] 100 mg PO DAILY #30 tab Discharge Medication List Levothyroxine Sodium [Euthyrox] 112 mcg PO DAILY 04/02/20 [History] Pantoprazole [Protonix] 40 mg PO DAILY 06/30/21 [History] azaTHIOprine [Imuran] 50 mg PO DAILY 09/02/22 [History] Apixaban [Eliquis] 5 mg PO BID 05/05/23 [History] Spironolactone [Aldactone] 100 mg PO DAILY #30 tab 05/07/23 [Rx] Furosemide [Lasix] 40 mg PO BID 06/15/23 [History] Ipratropium-Albuterol Nebulize [Duoneb 0.5 mg-3 mg/3 ml Soln] 3 ml INHALATION RT-QID PRN 09/10/23 [History] Follow up Appointment(s)/Referral(s): Jovan Yanez MD [Primary Care Provider] - 1-2 days
[2023-09-12 15:06] VITALS: BP 102/68; PULSE 60; TEMP 97.7
[2023-09-12] MEDS ORDERED: ATORVASTATIN 20 MG TAB PO SCH (21:00)
== END 2023-09-12 15:21 | disposition home or self-care (01) ==
LOC: EC 16:41 → 6NMEDSUR 20:12
PROVIDERS: ADMIT Hospitalist; ATTEND Hospitalist
DX: R20.0 Anesthesia of skin (principal); I95.9 Hypotension, unspecified; R18.8 Other ascites; K21.9 Gastro-esophageal reflux disease without esophagitis; E78.5 Hyperlipidemia, unspecified; I10 Essential (primary) hypertension; D53.9 Nutritional anemia, unspecified; D69.59 Other secondary thrombocytopenia; K74.60 Unspecified cirrhosis of liver; J96.11 Chronic respiratory failure with hypoxia; K76.6 Portal hypertension; R16.1 Splenomegaly, not elsewhere classified; E03.9 Hypothyroidism, unspecified; E87.6 Hypokalemia; J44.9 Chronic obstructive pulmonary disease, unspecified; R26.9 Unspecified abnormalities of gait and mobility; Z86.718 Personal history of other venous thrombosis and embolism; Z79.01 Long term (current) use of anticoagulants; Z79.890 Hormone replacement therapy; Z79.899 Other long term (current) drug therapy; Z79.624 Long term (current) use of inhibitors of nucleotide synthesis
CPT/HCPCS: 96360; 96361; 99285; 36415; 94640 ×5; 94760 ×2; 93005; 93306; 80061; 80053; 82607; 82550; 82746; 84484; 85025; 85610; 85730; 83036; 71046; 93880; 70450; G0378 ×3

== ENCOUNTER 2023-09-22 13:05 | Day surgery (SDC) | payer MEDICARE, OTHER ==
[2023-09-22 13:47] LABS: Platelet Count 156 k/uL (150-450)
[2023-09-22 13:51] LABS: Prothrombin Time 11.2 sec (10.0-12.5)
[2023-09-22] MEDS: ALBUMIN HUMAN 25% 50 ML in EMPTY BAG 1 BAG IVPB SCH (13:57)
[2023-09-22 14:03] LABS: African American GFR (CKD) >90 (>60 ml/min/1.73 sqM); Non-African American GFR(CKD) 79 (>60 ml/min/1.73 sqM)
[2023-09-22 14:30] VITALS: TEMP 98.2
[2023-09-22 15:22] VITALS: PULSE 85
[2023-09-22 16:14] VITALS: BP 94/69; RESP 18
--- NOTE | 2023-09-23 13:12 | US ---
EXAMINATION TYPE: US paracentesis abd w/image DATE OF EXAM: 09/22/2023 2:29 PM CLINICAL INDICATION:Female, 78 years old with history of R18.8 OTHER ASCITES; COMPARISON: 09/08/2023 ATTENDING: Dr. Tyree Portillo PROCEDURE: Informed consent was obtained. The risks of the procedure were extensively explained incl uding risk of damage to surrounding bowel with perforation and need for additional procedures. Proced ure was performed in the ultrasound procedure suite. Ultrasound imaging of the abdomen demonstrate as citic fluid. An appropriate access site was localized to the right lower abdomen. Timeout was taken p er protocol. The skin was prepped and draped in the usual sterile fashion and then locally anesthetiz ed with 1% lidocaine. The peritoneal cavity was then accessed via a 5-Bel[place]ian one-step needle/cathete r. Approximately 9100 cc of clear straw-colored fluid was obtained. Postprocedural imaging of the a bdomen demonstrate a minimal amount of abdominal fluid. Patient tolerated procedure well without immediate complication. Hemostasis at the procedural site w as obtained with a sterile bandage placed. The patient was monitored in the holding area following th e procedure and was subsequently discharged in stable condition. IMPRESSION: Ultrasound guided paracentesis, with approximately 9100 cc of clear straw-colored fluid drained. No immediate complications were evident.
== END 2023-09-22 16:10 | disposition home or self-care (01) ==
LOC: RADPROMAIN 13:05
PROVIDERS: ATTEND Internal Medicine Gastroenterology
DX: R18.8 Other ascites (principal)
CPT/HCPCS: 82565; 85049; 85610; 36415; 49083; P9047

== ENCOUNTER 2023-10-06 12:31 | Day surgery (SDC) | payer MEDICARE, OTHER ==
[2023-10-06 14:00] LABS: Mean Platelet Volume 8.2; Platelet Count 145 k/uL (150-450)
[2023-10-06 14:18] LABS: African American GFR (CKD) 67 (>60 ml/min/1.73 sqM); Non-African American GFR(CKD) 58 (>60 ml/min/1.73 sqM)
[2023-10-06 14:27] VITALS: RESP 16; TEMP 98
[2023-10-06 14:36] LABS: Prothrombin Time 10.6 sec (10.0-12.5)
[2023-10-06] MEDS: ALBUMIN HUMAN 25% 50 ML in EMPTY BAG 1 BAG IVPB SCH (15:00)
[2023-10-06 16:14] VITALS: BP 105/56; PULSE 74
--- NOTE | 2023-10-07 11:05 | US ---
Ultrasound-guided paracentesis. DATE OF EXAM: 10/06/2023 CLINICAL HISTORY: Ascites The procedure was discussed with the patient. The risks, complications, benefits, and alternatives we re discussed and any questions were answered. Informed consent was obtained. The patient was placed s upine on the ultrasound table and prepped and draped in the usual sterile fashion. All elements of maximal barrier technique were utilized. Under ultrasound guidance, access into the right lower quadrant was obtained, via the paracentesis catheter system and direct ultrasound guidanc e. Approximately 8.5 liters of straw-colored fluid was removed. The patient was stable throughout the pr ocedure and remained stable upon discharge from Department of Radiology. IMPRESSION: Successful paracentesis under ultrasound guidance.
== END 2023-10-06 16:26 | disposition home or self-care (01) ==
LOC: RADPROMAIN 12:31
PROVIDERS: ATTEND Internal Medicine Gastroenterology
DX: R18.8 Other ascites (principal)
CPT/HCPCS: 82565; 85049; 85610; 36415; 49083; P9047

== ENCOUNTER → 2023-10-13 | Outpatient (CLI) | payer MEDICARE, OTHER ==
--- NOTE | 2023-10-13 11:49 | US ---
EXAMINATION TYPE: US liver DATE OF EXAM: 10/13/2023 COMPARISON: 10/06/2023 CLINICAL INDICATION: Female, 78 years old with history of K74.60 CIRRHOSIS OF LIVER; cirrhosis TECHNIQUE: Multiple sonographic images of the right upper quadrant are obtained. FINDINGS: EXAM MEASUREMENTS: Liver Length: 9.1 cm Gallbladder Wall: Surgically absent CBD: .4 cm Right Kidney: 6.9 x 4.0 x 3.9 cm CONVENTIONAL UNDERWRITER NOTES: Pancreas: Obscured by bowel gas Liver: Lobulated atropic heterogenous no suspicious masses dilated ducts or suspicious structures. Gallbladder: Surgically absent Evidence for sonographic Bills's sign: no CBD: wnl Right Kidney: Atrophic IMPRESSION: 1. No evidence for acute process. 2. Hepatic cirrhosis with small ascites.
== END ==
LOC: RADUSWWP 10:35
PROVIDERS: ATTEND Internal Medicine Gastroenterology
DX: K74.60 Unspecified cirrhosis of liver (principal); R18.8 Other ascites
CPT/HCPCS: 76705

== ENCOUNTER 2023-10-20 12:59 | Day surgery (SDC) | payer MEDICARE, OTHER ==
[2023-10-20 13:36] LABS: Mean Platelet Volume 7.9; Platelet Count 150 k/uL (150-450)
[2023-10-20 13:39] VITALS: RESP 16; TEMP 98.3
[2023-10-20 13:46] LABS: African American GFR (CKD) 76 (>60 ml/min/1.73 sqM); Non-African American GFR(CKD) 66 (>60 ml/min/1.73 sqM); Prothrombin Time 10.9 sec (10.0-12.5)
[2023-10-20] MEDS: ALBUMIN HUMAN 25% 50 ML in EMPTY BAG 1 BAG IVPB SCH (13:50)
[2023-10-20 14:54] VITALS: BP 119/69; PULSE 89
--- NOTE | 2023-10-20 15:12 | US ---
Ultrasound-guided paracentesis. DATE OF EXAM: 10/20/2023 CLINICAL HISTORY: Ascites The procedure was discussed with the patient. The risks, complications, benefits, and alternatives we re discussed and any questions were answered. Informed consent was obtained. The patient was placed s upine on the ultrasound table and prepped and draped in the usual sterile fashion. All elements of maximal barrier technique were utilized. Under ultrasound guidance, access into the right lower quadrant was obtained, via the paracentesis catheter system and direct ultrasound guidanc e. Approximately 7.5 liters of straw-colored fluid was removed. The patient was stable throughout the pr ocedure and remained stable upon discharge from Department of Radiology. IMPRESSION: Successful paracentesis under ultrasound guidance.
== END 2023-10-20 15:10 | disposition home or self-care (01) ==
LOC: RADPROMAIN 12:59
PROVIDERS: ATTEND Internal Medicine Gastroenterology
DX: R18.8 Other ascites (principal)
CPT/HCPCS: 82565; 85049; 85610; 36415; 49083; P9047

== ENCOUNTER 2023-11-03 12:35 | Day surgery (SDC) | payer MEDICARE, OTHER ==
[2023-11-03 13:04] VITALS: PULSE 56; RESP 12; TEMP 97.7
[2023-11-03 13:11] LABS: Mean Platelet Volume 8.7; Platelet Count 179 k/uL (150-450)
[2023-11-03 13:20] LABS: INR 0.9 (<1.2); Prothrombin Time 10.4 sec (10.0-12.5)
[2023-11-03 13:21] LABS: African American GFR (CKD) 56 (>60 ml/min/1.73 sqM); Non-African American GFR(CKD) 48 (>60 ml/min/1.73 sqM)
[2023-11-03 13:54] VITALS: BP 95/59
[2023-11-03] MEDS: ALBUMIN HUMAN 25% 50 ML in EMPTY BAG 1 BAG IVPB SCH (13:56)
== END 2023-11-03 13:50 | disposition home or self-care (01) ==
LOC: RADPROMAIN 12:35
PROVIDERS: ATTEND Internal Medicine Gastroenterology
DX: Z53.8 Procedure and treatment not carried out for other reasons (principal); R18.8 Other ascites
CPT/HCPCS: 36415; 82565; 85049; 85610

== ENCOUNTER 2023-11-09 07:59 | Day surgery (SDC) | payer MEDICARE, OTHER ==
[2023-11-09 08:37] VITALS: TEMP 98
[2023-11-09 08:47] LABS: Mean Platelet Volume 8.1; Platelet Count 149 k/uL (150-450)
[2023-11-09 08:56] LABS: Prothrombin Time 11.3 sec (10.0-12.5)
[2023-11-09 09:08] LABS: African American GFR (CKD) 57 (>60 ml/min/1.73 sqM); Non-African American GFR(CKD) 50 (>60 ml/min/1.73 sqM)
[2023-11-09] MEDS: ALBUMIN HUMAN 25% 50 ML in EMPTY BAG 1 BAG IVPB SCH (09:10)
[2023-11-09 09:36] VITALS: RESP 16
[2023-11-09 11:06] VITALS: BP 84/53; PULSE 63
--- NOTE | 2023-11-09 12:09 | US ---
Ultrasound-guided paracentesis. DATE OF EXAM: 11/09/2023 CLINICAL HISTORY: Ascites The procedure was discussed with the patient. The risks, complications, benefits, and alternatives we re discussed and any questions were answered. Informed consent was obtained. The patient was placed s upine on the ultrasound table and prepped and draped in the usual sterile fashion. All elements of maximal barrier technique were utilized. Under ultrasound guidance, access into the right lower quadrant was obtained, via the paracentesis catheter system and direct ultrasound guidanc e. Approximately 8.1 liters of straw-colored fluid was removed. The patient was stable throughout the pr ocedure and remained stable upon discharge from Department of Radiology. IMPRESSION: Successful paracentesis under ultrasound guidance.
== END 2023-11-09 11:10 | disposition home or self-care (01) ==
LOC: RADPROMAIN 07:59
PROVIDERS: ATTEND Internal Medicine Gastroenterology
DX: R18.8 Other ascites (principal)
CPT/HCPCS: 82565; 85049; 85610; 36415; 49083; P9047

== ENCOUNTER 2023-11-24 12:41 | Day surgery (SDC) | payer MEDICARE, OTHER ==
[2023-11-24 13:22] VITALS: TEMP 98.9
[2023-11-24 13:29] LABS: Mean Platelet Volume 8.4; Platelet Count 173 k/uL (150-450)
[2023-11-24 13:34] LABS: INR 1.1 (<1.2); Prothrombin Time 11.7 sec (10.0-12.5)
[2023-11-24 13:42] LABS: African American GFR (CKD) 64 (>60 ml/min/1.73 sqM); Non-African American GFR(CKD) 55 (>60 ml/min/1.73 sqM)
[2023-11-24] MEDS: ALBUMIN HUMAN 25% 50 ML in EMPTY BAG 1 BAG IVPB SCH (14:23)
[2023-11-24 14:47] VITALS: RESP 12
[2023-11-24 15:30] VITALS: BP 96/57; PULSE 76
--- NOTE | 2023-11-24 21:19 | US ---
EXAMINATION TYPE: US paracentesis abd w/image DATE OF EXAM: 11/24/2023 CLINICAL HISTORY: 78-year-old female R18.8, or ascites The procedure was discussed with the patient. The risks, complications, benefits, and alternatives we re discussed and any questions were answered. Informed consent was obtained. The patient was placed s upine on the ultrasound table and prepped and draped in the usual sterile fashion. All elements of maximal barrier technique were utilized. Ultrasound was utilized to determine the precise skin entry site along the right lower quadrant. A 5 Venezuelan One-Step catheter and trocar technique was utilized to access the ascites collection under direct ultrasound guidance. Approximately 9.9 liters of clear, straw-colored fluid was removed. Catheter was removed, hemostasis obtained, and a dressing placed. The patient was stable throughout the procedure and remained stable upon discharge from Department of Radiology. IMPRESSION: Successful therapeutic paracentesis under ultrasound guidance. 9.9 L of fluid removed.
== END 2023-11-24 15:45 | disposition home or self-care (01) ==
LOC: RADPROMAIN 12:41
PROVIDERS: ATTEND Internal Medicine Gastroenterology
DX: R18.8 Other ascites (principal)
CPT/HCPCS: 82565; 85049; 85610; 36415; 49083; P9047

== ENCOUNTER → 2023-12-22 | Day surgery (SDC) | payer MEDICARE, OTHER ==
[~2023-12-22] MED LIST changes: +ALBUMIN HUMAN 25% (12.5gm) 50 ML VIAL ONE; -LACTATED RINGERS 1,000 ML IV SCH; -LIDOCAINE 1% 20 ML VIAL (10MG/ML) FOR IV START INTRADERMA PRN
--- NOTE | 2024-01-25 15:49 | US ---
Patient: Glendy Soto J Ordering Physician: Unknown, Unknown ID: [id number] Phone, Pager: Phon e: N/A Pager: N/A : [phone] Age/Gender: 78Y, F Primary Location: N/A Procedure: US paracentesis a bd w/image Study Date: 12/22/2023 1:35:00 PM EXAMINATION TYPE: US paracentesis abd w/image DATE OF EXAM: 01/03/2024 10:17 AM CLINICAL INDICATION:Ascites COMPARISON: 12/08/2023 ATTENDING: Dr. Tyree Portillo PROCEDURE: Informed consent was obtained. The risks of the procedure were extensively explained incl uding risk of damage to surrounding bowel with perforation and need for additional procedures. Proced ure was performed in the ultrasound procedure suite. Ultrasound imaging of the abdomen demonstrate as citic fluid. An appropriate access site was localized to the right lower abdomen. Timeout was taken p er protocol. The skin was prepped and draped in the usual sterile fashion and then locally anesthetiz ed with 1% lidocaine. The peritoneal cavity was then accessed via a 5-[place] one-step needle/cathete r. Approximately 8600 cc of clear straw-colored fluid was obtained. Postprocedural imaging of the a bdomen demonstrate a minimal amount of abdominal fluid. Patient tolerated procedure well without immediate complication. Hemostasis at the procedural site w as obtained with a sterile bandage placed. The patient was monitored in the holding area following th e procedure and was subsequently discharged in stable condition. IMPRESSION: Ultrasound guided paracentesis, with approximately 8600 cc of clear straw-colored fluid drained. No immediate complications were evident.
== END ==
LOC: RADPROMAIN 14:15
PROVIDERS: ATTEND Internal Medicine Gastroenterology
DX: R18.8 Other ascites (principal)
CPT/HCPCS: 49083

== ENCOUNTER 2024-01-05 12:36 | Day surgery (SDC) | payer MEDICARE, OTHER ==
[2024-01-05 13:21] LABS: Mean Platelet Volume 7.8; Platelet Count 145 k/uL (150-450)
[2024-01-05] MEDS: ALBUMIN HUMAN 25% 50 ML in EMPTY BAG 1 BAG IVPB SCH (13:21)
[2024-01-05 13:22] VITALS: TEMP 98.2
[2024-01-05 13:31] LABS: African American GFR (CKD) 74 (>60 ml/min/1.73 sqM); Non-African American GFR(CKD) 64 (>60 ml/min/1.73 sqM)
[2024-01-05 13:46] LABS: Prothrombin Time 10.7 sec (10.0-12.5)
[2024-01-05 15:45] VITALS: BP 108/69; PULSE 77; RESP 18
--- NOTE | 2024-01-06 10:52 | US ---
EXAMINATION TYPE: US paracentesis abd w/image DATE OF EXAM: 01/05/2024 1:49 PM CLINICAL INDICATION:Female, 78 years old with history of K74.60 UNSPECIFIED CIRRHOSIS OF LIVER; COMPARISON: 12/22/2023 ATTENDING: Dr. Tyree Portillo PROCEDURE: Informed consent was obtained. The risks of the procedure were extensively explained incl uding risk of damage to surrounding bowel with perforation and need for additional procedures. Proced ure was performed in the ultrasound procedure suite. Ultrasound imaging of the abdomen demonstrate as citic fluid. An appropriate access site was localized to the right lower abdomen. Timeout was taken p er protocol. The skin was prepped and draped in the usual sterile fashion and then locally anesthetiz ed with 1% lidocaine. The peritoneal cavity was then accessed via a 5-[place]icar[place] one-step needle/cathete r. Approximately 9300 cc of clear straw-colored fluid was obtained. Postprocedural imaging of the a bdomen demonstrate a minimal amount of abdominal fluid. Patient tolerated procedure well without immediate complication. Hemostasis at the procedural site w as obtained with a sterile bandage placed. The patient was monitored in the holding area following th e procedure and was subsequently discharged in stable condition. IMPRESSION: Ultrasound guided paracentesis, with approximately 9300 cc of clear straw-colored fluid drained. No immediate complications were evident.
== END 2024-01-05 15:25 | disposition home or self-care (01) ==
LOC: RADPROMAIN 12:36
PROVIDERS: ATTEND Internal Medicine Gastroenterology
DX: K74.60 Unspecified cirrhosis of liver (principal)

== ENCOUNTER 2024-01-19 12:44 | Day surgery (SDC) | payer MEDICARE, OTHER ==
[2024-01-19 13:29] VITALS: TEMP 97.6
[2024-01-19 13:30] LABS: Mean Platelet Volume 8.2; Platelet Count 157 k/uL (150-450)
[2024-01-19 13:32] LABS: INR 1.1 (<1.2); Prothrombin Time 11.6 sec (10.0-12.5)
[2024-01-19] MEDS: ALBUMIN HUMAN 25% 50 ML in EMPTY BAG 1 BAG IVPB SCH (13:35)
[2024-01-19 13:42] LABS: African American GFR (CKD) 63 (>60 ml/min/1.73 sqM); Non-African American GFR(CKD) 55 (>60 ml/min/1.73 sqM)
[2024-01-19 14:58] VITALS: BP 90/52; PULSE 66; RESP 16
--- NOTE | 2024-01-19 15:47 | US ---
EXAMINATION TYPE: US paracentesis abd w/image DATE OF EXAM: 01/19/2024 CLINICAL HISTORY: 79-year-old female K74.60 UNSPECIFIED CIRRHOSIS OF LIVER, routine paracentesis The procedure was discussed with the patient. The risks, complications, benefits, and alternatives we re discussed and any questions were answered. Informed consent was obtained. The patient was placed s upine on the ultrasound table and prepped and draped in the usual sterile fashion. All elements of maximal barrier technique were utilized. Ultrasound was utilized to determine the precise skin entry site along the right lower quadrant. Subsequently, a 6 Setswana safety centesis catheter and trocar technique was used to gain access to the ascites fluid. Approximately 7.9 L of slightly opaque yellow fluid was removed. Catheter was removed, hemostasis obtained, and a dressing placed. The patient was stable throughout the procedure and remained stable upon discharge from Department of Radiology. IMPRESSION: Successful therapeutic paracentesis under ultrasound guidance. 7.9 L of fluid removed.
== END 2024-01-19 15:28 | disposition home or self-care (01) ==
LOC: RADPROMAIN 12:44
PROVIDERS: ATTEND Internal Medicine Gastroenterology
DX: K74.60 Unspecified cirrhosis of liver
CPT/HCPCS: 36415; 49083; 82565; 85049; 85610

== ENCOUNTER 2024-02-02 12:29 | Day surgery (SDC) | payer MEDICARE, OTHER ==
[2024-02-02 13:15] LABS: Mean Platelet Volume 7.9; Platelet Count 195 k/uL (150-450)
[2024-02-02 13:37] LABS: African American GFR (CKD) 60 (>60 ml/min/1.73 sqM); Non-African American GFR(CKD) 52 (>60 ml/min/1.73 sqM)
[2024-02-02 13:39] LABS: Prothrombin Time 10.6 sec (10.0-12.5)
[2024-02-02 14:12] VITALS: RESP 18
[2024-02-02 14:14] VITALS: TEMP 97.9
[2024-02-02] MEDS: ALBUMIN HUMAN 25% 50 ML in EMPTY BAG 1 BAG IVPB SCH (14:30)
[2024-02-02 16:01] VITALS: BP 98/60; PULSE 74
--- NOTE | 2024-02-03 08:16 | US ---
Ultrasound-guided paracentesis. DATE OF EXAM: 02/02/2024 CLINICAL HISTORY: Ascites The procedure was discussed with the patient. The risks, complications, benefits, and alternatives we re discussed and any questions were answered. Informed consent was obtained. The patient was placed s upine on the ultrasound table and prepped and draped in the usual sterile fashion. All elements of maximal barrier technique were utilized. Under ultrasound guidance, access into the right lower quadrant was obtained, via the paracentesis catheter system and direct ultrasound guidanc e. Approximately 9 liters of straw-colored fluid was removed. The patient was stable throughout the proc edure and remained stable upon discharge from Department of Radiology. IMPRESSION: Successful paracentesis under ultrasound guidance. [facility], , 02/03/2024 8:14 AM
== END 2024-02-02 15:50 | disposition home or self-care (01) ==
LOC: RADPROMAIN 12:29
PROVIDERS: ATTEND Internal Medicine Gastroenterology
DX: R18.8 Other ascites (principal)
CPT/HCPCS: 36415; 49083; 82565; 85049; 85610

== ENCOUNTER 2024-02-09 12:14 | Day surgery (SDC) | payer MEDICARE, OTHER ==
[2024-02-09 12:45] VITALS: RESP 12; TEMP 98.1
[2024-02-09 13:14] LABS: Mean Platelet Volume 7.9; Platelet Count 160 k/uL (150-450)
[2024-02-09 13:18] LABS: African American GFR (CKD) 61 (>60 ml/min/1.73 sqM); Non-African American GFR(CKD) 53 (>60 ml/min/1.73 sqM)
[2024-02-09] MEDS: ALBUMIN HUMAN 25% 50 ML in EMPTY BAG 1 BAG IVPB SCH (13:21)
[2024-02-09 13:22] LABS: Prothrombin Time 11.1 sec (10.0-12.5)
[2024-02-09 14:03] VITALS: BP 89/55; PULSE 68
--- NOTE | 2024-02-10 09:16 | US ---
EXAMINATION TYPE: US paracentesis abd w/image DATE OF EXAM: 02/09/2024 1:18 PM CLINICAL INDICATION:Female, 79 years old with history of K74.60 UNSPECIFIED CIRRHOSIS OF LIVER; COMPARISON: prior paracentesis. ATTENDING: Dr. Tyree Portillo PROCEDURE: Informed consent was obtained. The risks of the procedure were extensively explained incl uding risk of damage to surrounding bowel with perforation and need for additional procedures. Proced ure was performed in the ultrasound procedure suite. Ultrasound imaging of the abdomen demonstrate as citic fluid. An appropriate access site was localized to the right lower abdomen. Timeout was taken p er protocol. The skin was prepped and draped in the usual sterile fashion and then locally anesthetiz ed with 1% lidocaine. The peritoneal cavity was then accessed via a 5-Yi one-step needle/cathete r. Approximately 6400 cc of clear straw-colored fluid was obtained. Postprocedural imaging of the a bdomen demonstrate a minimal amount of abdominal fluid. Patient tolerated procedure well without immediate complication. Hemostasis at the procedural site w as obtained with a sterile bandage placed. The patient was monitored in the holding area following th e procedure and was subsequently discharged in stable condition. IMPRESSION: Ultrasound guided paracentesis, with approximately 6400 cc of clear straw-colored fluid drained. No immediate complications were evident. [facility], , 02/10/2024 9:14 AM
== END 2024-02-09 14:15 | disposition home or self-care (01) ==
LOC: RADPROMAIN 12:14
PROVIDERS: ATTEND Internal Medicine Gastroenterology
DX: K74.60 Unspecified cirrhosis of liver (principal)
CPT/HCPCS: 36415; 49083; 82565; 85049; 85610

== ENCOUNTER → 2024-02-16 | Day surgery (SDC) | payer MEDICARE, OTHER ==
[2024-02-16 13:17] LABS: Mean Platelet Volume 8.2; Platelet Count 165 k/uL (150-450)
[2024-02-16 13:18] VITALS: RESP 16; TEMP 98
[2024-02-16 13:37] LABS: African American GFR (CKD) 60 (>60 ml/min/1.73 sqM); Non-African American GFR(CKD) 52 (>60 ml/min/1.73 sqM)
[2024-02-16 13:40] LABS: INR 1.1 (<1.2); Prothrombin Time 11.5 sec (10.0-12.5)
[2024-02-16] MEDS: ALBUMIN HUMAN 25% 50 ML in EMPTY BAG 1 BAG IVPB SCH (13:49)
[2024-02-16 14:26] VITALS: BP 94/55; PULSE 55
--- NOTE | 2024-02-16 17:04 | US ---
EXAMINATION TYPE: US paracentesis abd w/image DATE OF EXAM: 02/16/2024 CLINICAL HISTORY: 79-year-old female K74.60, unspecified cirrhosis of liver, here for outpatient par acentesis The procedure was discussed with the patient. The risks, complications, benefits, and alternatives we re discussed and any questions were answered. Informed consent was obtained. The patient was placed s upine on the ultrasound table and prepped and draped in the usual sterile fashion. All elements of maximal barrier technique were utilized. Ultrasound was utilized to determine the precise skin entry site along the left lower quadrant/left f lank. Utilizing trocar technique and a 6 Lao safety centesis catheter system, access into the ascites co llection was obtained. Approximately 6.0 liters of clear, straw-colored fluid was removed. Catheter was removed, hemostasis obtained, and a dressing placed. The patient was stable throughout the procedure and remained stable upon discharge from Department of Radiology. IMPRESSION: Successful therapeutic paracentesis under ultrasound guidance. 6.0 L of fluid removed. [facility], , 02/16/2024 5:02 PM
== END ==
LOC: RADPROMAIN 12:08
PROVIDERS: ATTEND Internal Medicine Gastroenterology
CPT/HCPCS: 36415; 49083; 82565; 85049; 85610

== ENCOUNTER 2024-02-23 12:31 | Day surgery (SDC) | payer MEDICARE, OTHER ==
[2024-02-23 13:04] LABS: Mean Platelet Volume 7.9; Platelet Count 171 k/uL (150-450)
[2024-02-23 13:14] LABS: African American GFR (CKD) 58 (>60 ml/min/1.73 sqM); Non-African American GFR(CKD) 51 (>60 ml/min/1.73 sqM)
[2024-02-23 13:43] VITALS: TEMP 98.1
[2024-02-23] MEDS: ALBUMIN HUMAN 25% 50 ML in EMPTY BAG 1 BAG IVPB SCH (14:09)
[2024-02-23 14:17] VITALS: RESP 24
[2024-02-23 15:37] VITALS: BP 106/53; PULSE 64
--- NOTE | 2024-02-24 08:09 | US ---
Ultrasound-guided paracentesis. DATE OF EXAM: 02/23/2024 CLINICAL HISTORY: Ascites The procedure was discussed with the patient. The risks, complications, benefits, and alternatives we re discussed and any questions were answered. Informed consent was obtained. The patient was placed s upine on the ultrasound table and prepped and draped in the usual sterile fashion. All elements of maximal barrier technique were utilized. Under ultrasound guidance, access into the right lower quadrant was obtained, via the paracentesis catheter system and direct ultrasound guidanc e. Approximately 5 liters of straw-colored fluid was removed. The patient was stable throughout the proc edure and remained stable upon discharge from Department of Radiology. IMPRESSION: Successful paracentesis under ultrasound guidance. [facility], , 02/24/2024 8:06 AM
== END 2024-02-23 15:20 | disposition home or self-care (01) ==
LOC: RADPROMAIN 12:31
PROVIDERS: ATTEND Internal Medicine Gastroenterology
DX: R18.8 Other ascites (principal)
CPT/HCPCS: 36415; 49083; 82565; 85049; 85610

== ENCOUNTER 2024-03-01 12:22 | Day surgery (SDC) | payer MEDICARE, OTHER ==
[2024-03-01 13:27] VITALS: RESP 16; TEMP 97.6
[2024-03-01] MEDS: ALBUMIN HUMAN 25% 50 ML in EMPTY BAG 1 BAG IVPB SCH (13:30)
[2024-03-01 13:58] LABS: Mean Platelet Volume 8.5; Platelet Count 152 k/uL (150-450)
[2024-03-01 14:15] LABS: African American GFR (CKD) 54 (>60 ml/min/1.73 sqM); Non-African American GFR(CKD) 46 (>60 ml/min/1.73 sqM)
[2024-03-01 14:28] LABS: Prothrombin Time 10.5 sec (10.0-12.5)
[2024-03-01 15:17] VITALS: BP 96/51; PULSE 65
--- NOTE | 2024-03-01 15:45 | US ---
EXAMINATION TYPE: US paracentesis abd w/image DATE OF EXAM: 03/01/2024 CLINICAL HISTORY: 79-year-old female unspecified cirrhosis of liver, K74.60. Referred for routine pa racentesis. The procedure was discussed with the patient. The risks, complications, benefits, and alternatives we re discussed and any questions were answered. Informed consent was obtained. The patient was placed s upine on the ultrasound table and prepped and draped in the usual sterile fashion. All elements of maximal barrier technique were utilized. Ultrasound was utilized to determine the precise skin entry site along the right lower quadrant. Utilizing trocar technique and a 6 [place] safety centesis catheter, access into the right lower quadr ant ascites fluid was obtained. Approximately 5.9 liters of clear, slightly opaque yellow fluid was removed. Catheter was removed, hemostasis obtained, and a dressing placed. There is mild puffiness which developed at the skin surface likely due to some mild subcutaneous blee ding. This is controlled with direct pressure. Incidentally, before starting the procedure, we noted a nodular firmness just adjacent at the site of previous paracentesis likely due to a small subcutane ous hematoma. The patient confirms being off Eliquis for 2 days. The patient was stable throughout the procedure and remained stable upon discharge from Department of Radiology. IMPRESSION: Successful therapeutic paracentesis under ultrasound guidance. 5.9 L of fluid removed. [facility], , 03/01/2024 3:43 PM
== END 2024-03-01 15:19 | disposition home or self-care (01) ==
LOC: RADPROMAIN 12:22
PROVIDERS: ATTEND Internal Medicine Gastroenterology
DX: K74.60 Unspecified cirrhosis of liver (principal)
CPT/HCPCS: 36415; 49083; 82565; 85049; 85610

== ENCOUNTER 2024-03-08 12:17 | Day surgery (SDC) | payer MEDICARE, OTHER ==
[2024-03-08 13:31] VITALS: RESP 18; TEMP 98.1
[2024-03-08 13:35] LABS: Mean Platelet Volume 8.5; Platelet Count 133 k/uL (150-450)
[2024-03-08 13:46] LABS: African American GFR (CKD) 61 (>60 ml/min/1.73 sqM); Non-African American GFR(CKD) 53 (>60 ml/min/1.73 sqM)
[2024-03-08 13:52] LABS: INR 0.9 (<1.2); Prothrombin Time 10.4 sec (10.0-12.5)
[2024-03-08] MEDS: ALBUMIN HUMAN 25% 50 ML in EMPTY BAG 1 BAG IVPB SCH (14:15)
[2024-03-08 15:01] VITALS: BP 101/57; PULSE 68
--- NOTE | 2024-03-08 15:26 | US ---
EXAMINATION TYPE: US paracentesis abd w/image DATE OF EXAM: 03/08/2024 2:19 PM COMPARISON: prior paracentesis. CLINICAL INDICATION:Female, 79 years old with history of K74.60 UNSPECIFIED CIRRHOSIS OF LIVER; , asc ites ATTENDING: Dr. Tyree Portillo PROCEDURE: Informed consent was obtained. The risks of the procedure were extensively explained incl uding risk of damage to surrounding bowel with perforation and need for additional procedures. Proced ure was performed in the ultrasound procedure suite. Ultrasound imaging of the abdomen demonstrate as citic fluid. An appropriate access site was localized to the right lower abdomen. Timeout was taken p er protocol. The skin was prepped and draped in the usual sterile fashion and then locally anesthetiz ed with 1% lidocaine. The peritoneal cavity was then accessed via a 5-[place]ian one-step needle/cathete r. Approximately 6100 cc of clear straw-colored fluid was obtained. Postprocedural imaging of the ab domen demonstrate a minimal amount of abdominal fluid. Patient tolerated procedure well without immediate complication. Hemostasis at the procedural site w as obtained with a sterile bandage placed. The patient was monitored in the holding area following th e procedure and was subsequently discharged in stable condition. IMPRESSION: Ultrasound guided paracentesis, with approximately 6100 cc of clear straw-colored fluid drained. No immediate complications were evident. [facility], , 03/08/2024 3:24 PM
== END 2024-03-08 15:15 | disposition home or self-care (01) ==
LOC: RADPROMAIN 12:17
PROVIDERS: ATTEND Internal Medicine Gastroenterology
DX: K74.60 Unspecified cirrhosis of liver (principal)
CPT/HCPCS: 82565; 85049; 85610; 36415; 49083; P9047

== ENCOUNTER → 2024-03-15 | Day surgery (SDC) | payer MEDICARE, OTHER ==
[2024-03-15 13:26] LABS: Mean Platelet Volume 8.1; Platelet Count 130 k/uL (150-450)
[2024-03-15 13:35] LABS: African American GFR (CKD) 67 (>60 ml/min/1.73 sqM); Non-African American GFR(CKD) 58 (>60 ml/min/1.73 sqM)
[2024-03-15] MEDS: ALBUMIN HUMAN 25% 50 ML in EMPTY BAG 1 BAG IVPB SCH (13:52)
[2024-03-15 13:55] VITALS: RESP 16; TEMP 97.6
[2024-03-15 14:39] VITALS: BP 106/52; PULSE 60
--- NOTE | 2024-03-15 14:51 | US ---
EXAMINATION TYPE: US paracentesis abd w/image DATE OF EXAM: 03/15/2024 1:46 PM COMPARISON: None. Previous Paracentesis CLINICAL INDICATION: Female, 79 years old with history of K74.60 UNSPECIFIED CIRRHOSIS OF LIVER; , as cites TECHNIQUE/FINDINGS: The procedure was discussed with the patient. The risks, complications, benefits, and alternatives we re discussed and any questions were answered. Informed consent was obtained. The patient was placed s upine on the ultrasound table and prepped and draped in the usual sterile fashion. All elements of maximal barrier technique were utilized. Under ultrasound guidance, access into the right lower quadrant was obtained, via the paracentesis catheter system and direct ultrasound guidanc e. Approximately 5.4 liters of straw-colored fluid was removed. The patient was stable throughout the pr ocedure and remained stable upon discharge from Department of Radiology. IMPRESSION: Successful paracentesis under ultrasound guidance. [facility], , 03/15/2024 2:49 PM
== END ==
LOC: RADPROMAIN 12:34
PROVIDERS: ATTEND Internal Medicine Gastroenterology
DX: R18.8 Other ascites (principal); K74.60 Unspecified cirrhosis of liver
CPT/HCPCS: 82565; 85049; 85610; 36415; 49083; P9047

== ENCOUNTER 2024-03-22 12:26 | Day surgery (SDC) | payer MEDICARE, OTHER ==
[2024-03-22 13:16] VITALS: TEMP 98.4
[2024-03-22 13:59] LABS: Platelet Count 131 k/uL (150-450)
[2024-03-22 14:02] LABS: INR 1.1 (<1.2); Prothrombin Time 11.5 sec (10.0-12.5)
[2024-03-22] MEDS: ALBUMIN HUMAN 25% 50 ML in EMPTY BAG 1 BAG IVPB SCH (14:07)
[2024-03-22 14:13] LABS: African American GFR (CKD) 69 (>60 ml/min/1.73 sqM); Non-African American GFR(CKD) 60 (>60 ml/min/1.73 sqM)
[2024-03-22 14:15] VITALS: RESP 24
[2024-03-22 15:05] VITALS: BP 100/62; PULSE 66
--- NOTE | 2024-03-22 16:05 | US ---
EXAMINATION TYPE: US paracentesis abd w/image DATE OF EXAM: 03/22/2024 2:32 PM COMPARISON: prior paracentesis. CLINICAL INDICATION:Female, 79 years old with history of K74.60 UNSPECIFIED CIRRHOSIS OF LIVER; , asc ites ATTENDING: Dr. Tyree Portillo PROCEDURE: Informed consent was obtained. The risks of the procedure were extensively explained incl uding risk of damage to surrounding bowel with perforation and need for additional procedures. Proced ure was performed in the ultrasound procedure suite. Ultrasound imaging of the abdomen demonstrate as citic fluid. An appropriate access site was localized to the right lower abdomen. Timeout was taken p er protocol. The skin was prepped and draped in the usual sterile fashion and then locally anesthetiz ed with 1% lidocaine. The peritoneal cavity was then accessed via a 5-Yoruba one-step needle/cathete r. Approximately 6600 mL of clear straw-colored fluid was obtained. Postprocedural imaging of the ab domen demonstrate a minimal amount of abdominal fluid. Patient tolerated procedure well without immediate complication. Hemostasis at the procedural site w as obtained with a sterile bandage placed. The patient was monitored in the holding area following th e procedure and was subsequently discharged in stable condition. IMPRESSION: Ultrasound guided paracentesis, with approximately 6600 mL of clear straw-colored fluid drained. No i mmediate complications were evident. [facility], , 03/22/2024 4:03 PM
== END 2024-03-22 15:10 | disposition home or self-care (01) ==
LOC: RADPROMAIN 12:26
PROVIDERS: ATTEND Internal Medicine Gastroenterology
DX: K74.60 Unspecified cirrhosis of liver (principal); R18.8 Other ascites
CPT/HCPCS: 82565; 85049; 85610; 36415; 49083; P9047

== ENCOUNTER 2024-03-29 12:31 | Day surgery (SDC) | payer MEDICARE, OTHER ==
[2024-03-29 12:55] VITALS: TEMP 98
[2024-03-29 13:11] LABS: Platelet Count 176 k/uL (150-450)
[2024-03-29 13:18] LABS: African American GFR (CKD) 69 (>60 ml/min/1.73 sqM); Non-African American GFR(CKD) 60 (>60 ml/min/1.73 sqM)
[2024-03-29 13:19] LABS: Prothrombin Time 10.6 sec (10.0-12.5)
[2024-03-29] MEDS: ALBUMIN HUMAN 25% 50 ML in EMPTY BAG 1 BAG IVPB SCH (13:25)
[2024-03-29 14:06] VITALS: BP 95/59; PULSE 67; RESP 16
--- NOTE | 2024-03-29 15:32 | US ---
EXAMINATION TYPE: US paracentesis abd w/image DATE OF EXAM: 03/29/2024 1:43 PM COMPARISON: prior paracentesis. CLINICAL INDICATION:Female, 79 years old with history of K74.60 UNSPECIFIED CIRRHOSIS OF LIVER; , asc ites ATTENDING: Dr. Tyree Portillo PROCEDURE: Informed consent was obtained. The risks of the procedure were extensively explained incl uding risk of damage to surrounding bowel with perforation and need for additional procedures. Proced ure was performed in the ultrasound procedure suite. Ultrasound imaging of the abdomen demonstrate as citic fluid. An appropriate access site was localized to the right lower abdomen. Timeout was taken p er protocol. The skin was prepped and draped in the usual sterile fashion and then locally anesthetiz ed with 1% lidocaine. The peritoneal cavity was then accessed via a 5-Czech one-step needle/cathete r. Approximately 6800 mL of clear straw-colored fluid was obtained. Postprocedural imaging of the a bdomen demonstrate a minimal amount of abdominal fluid. Patient tolerated procedure well without immediate complication. Hemostasis at the procedural site w as obtained with a sterile bandage placed. The patient was monitored in the holding area following th e procedure and was subsequently discharged in stable condition. IMPRESSION: Ultrasound guided paracentesis, with approximately 6800 mL of clear straw-colored fluid drained. No immediate complications were evident. [facility], , 03/29/2024 3:29 PM
== END 2024-03-29 14:09 | disposition home or self-care (01) ==
LOC: RADPROMAIN 12:31
PROVIDERS: ATTEND Internal Medicine Gastroenterology
DX: R18.8 Other ascites (principal); K74.60 Unspecified cirrhosis of liver
CPT/HCPCS: 82565; 85049; 85610; 36415; 49083; P9047

== ENCOUNTER 2024-04-05 12:37 | Day surgery (SDC) | payer MEDICARE, OTHER ==
[2024-04-05 13:07] VITALS: RESP 12; TEMP 98.4
[2024-04-05 13:11] LABS: Mean Platelet Volume 8.5; Platelet Count 186 k/uL (150-450)
[2024-04-05 13:23] LABS: African American GFR (CKD) 67 (>60 ml/min/1.73 sqM); Non-African American GFR(CKD) 58 (>60 ml/min/1.73 sqM)
[2024-04-05] MEDS: ALBUMIN HUMAN 25% 50 ML in EMPTY BAG 1 BAG IVPB SCH (13:44)
[2024-04-05 14:33] VITALS: BP 107/60; PULSE 67
--- NOTE | 2024-04-05 14:43 | US ---
EXAMINATION TYPE: US paracentesis abd w/image DATE OF EXAM: 04/05/2024 1:59 PM COMPARISON: None. Previous Paracentesis CLINICAL INDICATION: Female, 79 years old with history of K74.60 UNSPECIFIED CIRRHOSIS OF LIVER; , as cites TECHNIQUE/FINDINGS: The procedure was discussed with the patient. The risks, complications, benefits, and alternatives we re discussed and any questions were answered. Informed consent was obtained. The patient was placed s upine on the ultrasound table and prepped and draped in the usual sterile fashion. All elements of maximal barrier technique were utilized. Under ultrasound guidance, access into the right lower quadrant was obtained, via the paracentesis catheter system and direct ultrasound guidanc e. Approximately 6.4 liters of straw-colored fluid was removed. The patient was stable throughout the pr ocedure and remained stable upon discharge from Department of Radiology. IMPRESSION: Successful paracentesis under ultrasound guidance. [facility], , 04/05/2024 2:40 PM
== END 2024-04-05 14:50 | disposition home or self-care (01) ==
LOC: RADPROMAIN 12:37
PROVIDERS: ATTEND Internal Medicine Gastroenterology
DX: R18.8 Other ascites (principal); K74.60 Unspecified cirrhosis of liver
CPT/HCPCS: 82565; 85049; 85610; 36415; 49083; P9047

== ENCOUNTER 2024-04-12 12:37 | Day surgery (SDC) | payer MEDICARE, OTHER ==
[2024-04-12 13:09] LABS: Mean Platelet Volume 8.3; Platelet Count 170 k/uL (150-450)
[2024-04-12 13:10] VITALS: RESP 12; TEMP 98.7
[2024-04-12 13:18] LABS: INR 0.9 (<1.2); Prothrombin Time 10.3 sec (10.0-12.5)
[2024-04-12 13:27] LABS: African American GFR (CKD) 73 (>60 ml/min/1.73 sqM); Non-African American GFR(CKD) 64 (>60 ml/min/1.73 sqM)
[2024-04-12] MEDS: ALBUMIN HUMAN 25% 50 ML in EMPTY BAG 1 BAG IVPB SCH (13:40)
[2024-04-12 14:55] VITALS: BP 95/63; PULSE 80
--- NOTE | 2024-04-13 10:42 | US ---
EXAMINATION TYPE: US paracentesis abd w/image DATE OF EXAM: 04/12/2024 2:23 PM COMPARISON: prior paracentesis. CLINICAL INDICATION:Female, 79 years old with history of K74.60 UNSPECIFIED CIRRHOSIS OF LIVER; , asc ites ATTENDING: Dr. Tyree Portillo PROCEDURE: Informed consent was obtained. The risks of the procedure were extensively explained incl uding risk of damage to surrounding bowel with perforation and need for additional procedures. Proced ure was performed in the ultrasound procedure suite. Ultrasound imaging of the abdomen demonstrate as citic fluid. An appropriate access site was localized to the right lower abdomen. Timeout was taken p er protocol. The skin was prepped and draped in the usual sterile fashion and then locally anesthetiz ed with 1% lidocaine. The peritoneal cavity was then accessed via a 5-[place]rainian one-step needle/cathete r. Approximately 6600 mL of clear straw-colored fluid was obtained. Postprocedural imaging of the a bdomen demonstrate a minimal amount of abdominal fluid. Patient tolerated procedure well without immediate complication. Hemostasis at the procedural site w as obtained with a sterile bandage placed. The patient was monitored in the holding area following th e procedure and was subsequently discharged in stable condition. IMPRESSION: Ultrasound guided paracentesis, with approximately 6600 mL of clear straw-colored fluid drained. Path ology results pending. No immediate complications were evident. [facility], , 04/13/2024 10:40 AM
== END 2024-04-12 15:00 | disposition home or self-care (01) ==
LOC: RADPROMAIN 12:37
PROVIDERS: ATTEND Internal Medicine Gastroenterology
DX: R18.8 Other ascites (principal); K74.60 Unspecified cirrhosis of liver
CPT/HCPCS: 82565; 85049; 85610; 36415; 49083; P9047

== ENCOUNTER 2024-04-19 12:09 | Day surgery (SDC) | payer MEDICARE, OTHER ==
[2024-04-19 12:51] LABS: Platelet Count 144 k/uL (150-450)
[2024-04-19 12:53] VITALS: RESP 16; TEMP 98.7
[2024-04-19 13:00] LABS: African American GFR (CKD) 60 (>60 ml/min/1.73 sqM); Non-African American GFR(CKD) 52 (>60 ml/min/1.73 sqM)
[2024-04-19 13:02] LABS: Prothrombin Time 10.7 sec (10.0-12.5)
[2024-04-19] MEDS: ALBUMIN HUMAN 25% 50 ML in EMPTY BAG 1 BAG IVPB SCH (13:07)
[2024-04-19 14:31] VITALS: BP 103/68; PULSE 67
--- NOTE | 2024-04-19 15:22 | US ---
EXAMINATION TYPE: US paracentesis abd w/image DATE OF EXAM: 04/19/2024 1:52 PM COMPARISON: prior paracentesis. CLINICAL INDICATION:Female, 79 years old with history of K74.60 UNSPECIFIED CIRRHOSIS OF LIVER; , asc ites ATTENDING: Dr. Tyree Portillo PROCEDURE: Informed consent was obtained. The risks of the procedure were extensively explained incl uding risk of damage to surrounding bowel with perforation and need for additional procedures. Proced ure was performed in the ultrasound procedure suite. Ultrasound imaging of the abdomen demonstrate as citic fluid. An appropriate access site was localized to the right lower abdomen. Timeout was taken p er protocol. The skin was prepped and draped in the usual sterile fashion and then locally anesthetiz ed with 1% lidocaine. The peritoneal cavity was then accessed via a 5-[place] one-step needle/cathete r. Approximately 6500 mL of clear straw-colored fluid was obtained. Postprocedural imaging of the ab domen demonstrate a minimal amount of abdominal fluid. Patient tolerated procedure well without immediate complication. Hemostasis at the procedural site w as obtained with a sterile bandage placed. The patient was monitored in the holding area following th e procedure and was subsequently discharged in stable condition. IMPRESSION: Ultrasound guided paracentesis, with approximately 6500 mL of clear straw-colored fluid drained. No i mmediate complications were evident. [facility], , 04/19/2024 3:20 PM
== END 2024-04-19 14:43 | disposition home or self-care (01) ==
LOC: RADPROMAIN 12:09
PROVIDERS: ATTEND Internal Medicine Gastroenterology
DX: K74.60 Unspecified cirrhosis of liver (principal); R18.8 Other ascites
CPT/HCPCS: 82565; 85049; 85610; 36415; 49083; P9047

== ENCOUNTER 2024-04-26 12:15 | Day surgery (SDC) | payer MEDICARE, OTHER ==
[2024-04-26 13:07] LABS: Mean Platelet Volume 7.9; Platelet Count 144 k/uL (150-450)
[2024-04-26 13:12] LABS: INR 1.1 (<1.2); Prothrombin Time 11.9 sec (10.0-12.5)
[2024-04-26 13:16] LABS: African American GFR (CKD) 63 (>60 ml/min/1.73 sqM); Non-African American GFR(CKD) 54 (>60 ml/min/1.73 sqM)
[2024-04-26] MEDS: ALBUMIN HUMAN 25% 50 ML in EMPTY BAG 1 BAG IVPB SCH (13:26)
[2024-04-26 14:40] VITALS: BP 98/64; PULSE 58; RESP 22
--- NOTE | 2024-04-26 16:02 | US ---
EXAMINATION TYPE: US paracentesis abd w/image DATE OF EXAM: 04/26/2024 1:20 PM COMPARISON: prior paracentesis. CLINICAL INDICATION:Female, 79 years old with history of R18.8 OTHER ASCITES; , ascites ATTENDING: Dr. Tyree Portillo PROCEDURE: Informed consent was obtained. The risks of the procedure were extensively explained incl uding risk of damage to surrounding bowel with perforation and need for additional procedures. Proced ure was performed in the ultrasound procedure suite. Ultrasound imaging of the abdomen demonstrate as citic fluid. An appropriate access site was localized to the right lower abdomen. Timeout was taken p er protocol. The skin was prepped and draped in the usual sterile fashion and then locally anesthetiz ed with 1% lidocaine. The peritoneal cavity was then accessed via a 5-Slovenian one-step needle/cathete r. Approximately 6800 mL of clear straw-colored fluid was obtained. Postprocedural imaging of the ab domen demonstrate a minimal amount of abdominal fluid. Patient tolerated procedure well without immediate complication. Hemostasis at the procedural site w as obtained with a sterile bandage placed. The patient was monitored in the holding area following th e procedure and was subsequently discharged in stable condition. IMPRESSION: Ultrasound guided paracentesis, with approximately 6800 mL of clear straw-colored fluid drained. No immediate complications were evident. [facility], , 04/26/2024 4:00 PM
== END 2024-04-26 14:45 | disposition home or self-care (01) ==
LOC: RADPROMAIN 12:15
PROVIDERS: ATTEND Internal Medicine Gastroenterology
DX: R18.8 Other ascites (principal)
CPT/HCPCS: 82565; 85049; 85610; 36415; 49083; P9047

== ENCOUNTER 2024-05-04 12:30 | Day surgery (SDC) | payer MEDICARE, OTHER ==
[2024-05-04 12:55] VITALS: TEMP 98.9
[2024-05-04 13:09] LABS: Mean Platelet Volume 7.7; Platelet Count 137 k/uL (150-450)
[2024-05-04 13:22] LABS: INR 0.9 (<1.2); Prothrombin Time 10.3 sec (10.0-12.5)
[2024-05-04 13:33] LABS: African American GFR (CKD) 73 (>60 ml/min/1.73 sqM); Non-African American GFR(CKD) 64 (>60 ml/min/1.73 sqM)
[2024-05-04] MEDS: ALBUMIN HUMAN 25% 50 ML in EMPTY BAG 1 BAG IVPB SCH (13:45)
[2024-05-04 14:10] VITALS: RESP 12
[2024-05-04 14:37] VITALS: BP 102/67; PULSE 63
--- NOTE | 2024-05-04 15:14 | US ---
EXAMINATION TYPE: US paracentesis abd w/image DATE OF EXAM: 05/04/2024 1:58 PM COMPARISON: None. Previous Paracentesis CLINICAL INDICATION: Female, 79 years old with history of K74.60 UNSPECIFIED CIRRHOSIS OF LIVER; , as cites TECHNIQUE/FINDINGS: The procedure was discussed with the patient. The risks, complications, benefits, and alternatives we re discussed and any questions were answered. Informed consent was obtained. The patient was placed s upine on the ultrasound table and prepped and draped in the usual sterile fashion. All elements of maximal barrier technique were utilized. Under ultrasound guidance, access into the right lower quadrant was obtained, via the paracentesis catheter system and direct ultrasound guidanc e. Approximately 6.0 liters of straw-colored fluid was removed. The patient was stable throughout the pr ocedure and remained stable upon discharge from Department of Radiology. IMPRESSION: Successful paracentesis under ultrasound guidance. [facility], , 05/04/2024 3:12 PM
== END 2024-05-04 15:00 | disposition home or self-care (01) ==
LOC: RADPROMAIN 12:30
PROVIDERS: ATTEND Internal Medicine Gastroenterology
DX: R18.8 Other ascites (principal); K74.60 Unspecified cirrhosis of liver
CPT/HCPCS: 82565; 85049; 85610; 36415; 49083; P9047

== ENCOUNTER 2024-05-11 08:17 | Day surgery (SDC) | payer MEDICARE, OTHER ==
[2024-05-11 08:56] VITALS: RESP 18; TEMP 98.2
[2024-05-11 09:00] LABS: Mean Platelet Volume 8.6; Platelet Count 145 k/uL (150-450)
[2024-05-11 09:09] LABS: Prothrombin Time 10.9 sec (10.0-12.5)
[2024-05-11 09:11] LABS: African American GFR (CKD) 79 (>60 ml/min/1.73 sqM); Non-African American GFR(CKD) 68 (>60 ml/min/1.73 sqM)
[2024-05-11] MEDS: ALBUMIN HUMAN 25% 50 ML in EMPTY BAG 1 BAG IVPB SCH (10:10)
[2024-05-11 10:55] VITALS: BP 104/60; PULSE 64
--- NOTE | 2024-05-11 15:08 | US ---
EXAMINATION TYPE: US paracentesis abd w/image DATE OF EXAM: 05/11/2024 CLINICAL HISTORY: 79-year-old female K74.60, ascites, referred for routine outpatient ultrasound-belkis ded paracentesis The procedure was discussed with the patient. The risks, complications, benefits, and alternatives we re discussed and any questions were answered. Informed consent was obtained. The patient was placed s upine on the ultrasound table and prepped and draped in the usual sterile fashion. All elements of maximal barrier technique were utilized. Ultrasound was utilized to determine the precise skin entry site along the right lower quadrant. A 5 Estonian One-Step catheter and trocar technique was utilized to access the ascites collection under direct ultrasound guidance. Approximately 7.4 liters of clear, straw-colored fluid was removed. Catheter was removed, hemostasis obtained, and a dressing placed. The patient was stable throughout the procedure and remained stable upon discharge from Department of Radiology. IMPRESSION: Successful therapeutic paracentesis under ultrasound guidance. 7.4 L of fluid removed. [facility], , 05/11/2024 3:05 PM
== END 2024-05-11 11:22 | disposition home or self-care (01) ==
LOC: RADPROMAIN 08:17
PROVIDERS: ATTEND Internal Medicine Gastroenterology
DX: R18.8 Other ascites (principal)
CPT/HCPCS: 82565; 85049; 85610; 36415; 49083; P9047

== ENCOUNTER 2024-05-17 12:43 | Day surgery (SDC) | payer MEDICARE, OTHER ==
[2024-05-17 13:17] VITALS: TEMP 98.1
[2024-05-17 13:33] LABS: Mean Platelet Volume 8.4; Platelet Count 122 k/uL (150-450)
[2024-05-17 13:42] LABS: INR 0.9 (<1.2); Prothrombin Time 10.4 sec (10.0-12.5)
[2024-05-17] MEDS: ALBUMIN HUMAN 25% 50 ML in EMPTY BAG 1 BAG IVPB SCH (13:43)
[2024-05-17 13:44] LABS: African American GFR (CKD) 76 (>60 ml/min/1.73 sqM); Non-African American GFR(CKD) 66 (>60 ml/min/1.73 sqM)
[2024-05-17 14:21] VITALS: BP 94/52; PULSE 62; RESP 18
--- NOTE | 2024-05-18 12:40 | US ---
EXAMINATION TYPE: US paracentesis abd w/image DATE OF EXAM: 05/17/2024 2:03 PM COMPARISON: prior paracentesis. CLINICAL INDICATION:Female, 79 years old with history of K74.60 UNSPECIFIED CIRRHOSIS OF LIVER; , asc ites ATTENDING: Dr. Tyree Portillo PROCEDURE: Informed consent was obtained. The risks of the procedure were extensively explained incl uding risk of damage to surrounding bowel with perforation and need for additional procedures. Proced ure was performed in the ultrasound procedure suite. Ultrasound imaging of the abdomen demonstrate as citic fluid. An appropriate access site was localized to the right lower abdomen. Timeout was taken p er protocol. The skin was prepped and draped in the usual sterile fashion and then locally anesthetiz ed with 1% lidocaine. The peritoneal cavity was then accessed via a 5-Lao one-step needle/cathete r. Approximately 7000 mL of clear straw-colored fluid was obtained. Postprocedural imaging of the ab domen demonstrate a minimal amount of abdominal fluid. Patient tolerated procedure well without immediate complication. Hemostasis at the procedural site w as obtained with a sterile bandage placed. The patient was monitored in the holding area following th e procedure and was subsequently discharged in stable condition. IMPRESSION: Ultrasound guided paracentesis, with approximately 7000 mL of clear straw-colored fluid drained. No immediate complications were evident. [facility], , 05/18/2024 12:37 PM
== END 2024-05-17 14:23 | disposition home or self-care (01) ==
LOC: RADPROMAIN 12:43
PROVIDERS: ATTEND Internal Medicine Gastroenterology
DX: K74.60 Unspecified cirrhosis of liver (principal); R18.8 Other ascites
CPT/HCPCS: 82565; 85049; 85610; 36415; 49083; P9047

== ENCOUNTER 2024-05-24 12:42 | Day surgery (SDC) | payer MEDICARE, OTHER ==
[2024-05-24 13:41] LABS: Mean Platelet Volume 8.7; Platelet Count 117 k/uL (150-450)
[2024-05-24] MEDS: ALBUMIN HUMAN 25% 50 ML in EMPTY BAG 1 BAG IVPB SCH (13:44)
[2024-05-24 13:49] VITALS: RESP 16; TEMP 97.8
[2024-05-24 13:51] LABS: Prothrombin Time 11.2 sec (10.0-12.5)
[2024-05-24 13:55] LABS: African American GFR (CKD) 74 (>60 ml/min/1.73 sqM); Non-African American GFR(CKD) 64 (>60 ml/min/1.73 sqM)
[2024-05-24 15:17] VITALS: BP 105/56; PULSE 58
--- NOTE | 2024-05-25 07:39 | US ---
EXAMINATION TYPE: US paracentesis abd w/image DATE OF EXAM: 05/24/2024 COMPARISON: May 17, 2024 prior paracentesis. CLINICAL INDICATION:Female, 79 years old with history of K74.60 UNSPECIFIED CIRRHOSIS OF LIVER; , asc ites ATTENDING: Dr. Villegas PROCEDURE: Informed consent was obtained. The risks of the procedure were extensively explained incl uding risk of damage to surrounding bowel with perforation and need for additional procedures. Proced ure was performed in the ultrasound procedure suite. Ultrasound imaging of the abdomen demonstrate ascitic fluid. An appropriate access site was localized to the right lower abdomen. Timeout was taken per protocol. The skin was prepped and draped in the u sual sterile fashion and then locally anesthetized with 1% lidocaine. The peritoneal cavity was then accessed via a 5-Tajik one-step needle/catheter. Approximately 5500 mL of clear straw-colored flui d was obtained. Patient tolerated procedure well without immediate complication. Hemostasis at the procedural site w as obtained with a sterile bandage placed. The patient was monitored in the holding area following th e procedure and was subsequently discharged in stable condition. IMPRESSION: Ultrasound guided therapeutic paracentesis, with approximately 5500 mL of clear straw-colored fluid d rained. No immediate complications were evident. [facility], , 05/25/2024 7:36 AM
== END 2024-05-24 15:35 | disposition home or self-care (01) ==
LOC: RADPROMAIN 12:42
PROVIDERS: ATTEND Internal Medicine Gastroenterology
DX: R18.8 Other ascites (principal); K74.60 Unspecified cirrhosis of liver
CPT/HCPCS: 82565; 85049; 85610; 36415; 49083; P9047

== ENCOUNTER 2024-05-31 12:26 | Day surgery (SDC) | payer MEDICARE, OTHER ==
[2024-05-31 13:18] LABS: Platelet Count 133 k/uL (150-450)
[2024-05-31 13:31] LABS: African American GFR (CKD) 74 (>60 ml/min/1.73 sqM); Non-African American GFR(CKD) 64 (>60 ml/min/1.73 sqM)
[2024-05-31 13:37] VITALS: TEMP 98.8
[2024-05-31] MEDS: ALBUMIN HUMAN 25% 50 ML in EMPTY BAG 1 BAG IVPB SCH (13:46)
[2024-05-31 14:57] VITALS: RESP 24
[2024-05-31 15:49] VITALS: BP 99/63; PULSE 63
--- NOTE | 2024-05-31 16:33 | US ---
EXAMINATION TYPE: US paracentesis abd w/image DATE OF EXAM: 05/31/2024 CLINICAL HISTORY: 79-year-old female K74.60, unspecified cirrhosis of liver, referred for routine ou tpatient weekly paracentesis. The procedure was discussed with the patient. The risks, complications, benefits, and alternatives we re discussed and any questions were answered. Informed consent was obtained. The patient was placed s upine on the ultrasound table and prepped and draped in the usual sterile fashion. All elements of maximal barrier technique were utilized. Ultrasound was utilized to determine the precise skin entry site along the right lower quadrant. A 5 Japanese One-Step catheter and trocar technique was utilized to access the ascites collection under direct ultrasound guidance. Approximately liters of 7.5 L clear, straw-colored fluid was removed. Catheter was removed, hemostasis obtained, and a dressing placed. The patient was stable throughout the procedure and remained stable upon discharge from Department of Radiology. IMPRESSION: Successful therapeutic paracentesis under ultrasound guidance. 7.5 L of fluid removed. [facility], , 05/31/2024 4:31 PM
== END 2024-05-31 15:53 | disposition home or self-care (01) ==
LOC: RADPROMAIN 12:26
PROVIDERS: ATTEND Internal Medicine Gastroenterology
DX: R18.8 Other ascites (principal); K74.60 Unspecified cirrhosis of liver
CPT/HCPCS: 82565; 85049; 85610; 36415; 49083; P9047

== ENCOUNTER 2024-06-07 12:39 | Day surgery (SDC) | payer MEDICARE, OTHER ==
[2024-06-07 13:22] VITALS: RESP 18
[2024-06-07 13:39] LABS: Mean Platelet Volume 9.2; Platelet Count 105 k/uL (150-450)
[2024-06-07 13:56] LABS: African American GFR (CKD) 58 (>60 ml/min/1.73 sqM); Non-African American GFR(CKD) 51 (>60 ml/min/1.73 sqM)
[2024-06-07] MEDS: ALBUMIN HUMAN 25% 50 ML in EMPTY BAG 1 BAG IVPB SCH (14:12)
[2024-06-07 14:17] LABS: INR 0.9 (<1.2); Prothrombin Time 10.5 sec (10.0-12.5)
[2024-06-07 15:18] VITALS: BP 97/55; PULSE 68
--- NOTE | 2024-06-07 15:42 | US ---
EXAMINATION TYPE: US paracentesis abd w/image DATE OF EXAM: 06/07/2024 2:25 PM COMPARISON: prior paracentesis. CLINICAL INDICATION:Female, 79 years old with history of K74.60 UNSPECIFIED CIRRHOSIS OF LIVER; , asc ites ATTENDING: Dr. Tyree Portillo PROCEDURE: Informed consent was obtained. The risks of the procedure were extensively explained incl uding risk of damage to surrounding bowel with perforation and need for additional procedures. Proced ure was performed in the ultrasound procedure suite. Ultrasound imaging of the abdomen demonstrate as citic fluid. An appropriate access site was localized to the right lower abdomen. Timeout was taken p er protocol. The skin was prepped and draped in the usual sterile fashion and then locally anesthetiz ed with 1% lidocaine. The peritoneal cavity was then accessed via a 5-Kazakh one-step needle/cathete r. Approximately 7000 mL of clear straw-colored fluid was obtained. Postprocedural imaging of the ab domen demonstrate a minimal amount of abdominal fluid. Patient tolerated procedure well without immediate complication. Hemostasis at the procedural site w as obtained with a sterile bandage placed. The patient was monitored in the holding area following th e procedure and was subsequently discharged in stable condition. IMPRESSION: Ultrasound guided paracentesis, with approximately 7000 mL of clear straw-colored fluid drained. No i mmediate complications were evident. [facility], , 06/07/2024 3:40 PM
== END 2024-06-07 15:30 | disposition home or self-care (01) ==
LOC: RADPROMAIN 12:39
PROVIDERS: ATTEND Internal Medicine Gastroenterology
DX: R18.8 Other ascites (principal); K74.60 Unspecified cirrhosis of liver
CPT/HCPCS: 82565; 85049; 85610; 36415; 49083; P9047

== ENCOUNTER → 2024-07-05 | Day surgery (SDC) | payer MEDICARE, OTHER ==
[2024-07-05 13:19] LABS: Mean Platelet Volume 9.3; Platelet Count 207 k/uL (150-450)
[2024-07-05 13:25] LABS: Prothrombin Time 11.4 sec (10.0-12.5)
[2024-07-05 13:29] LABS: African American GFR (CKD) 44 (>60 ml/min/1.73 sqM); Non-African American GFR(CKD) 38 (>60 ml/min/1.73 sqM)
[2024-07-05] MEDS: ALBUMIN HUMAN 25% 50 ML in EMPTY BAG 1 BAG IVPB SCH (13:56)
[2024-07-05 14:04] VITALS: TEMP 97.6
[2024-07-05 15:32] VITALS: BP 88/55; PULSE 66; RESP 20
--- NOTE | 2024-07-06 08:30 | US ---
EXAMINATION TYPE: US paracentesis abd w/image DATE OF EXAM: 07/05/2024 2:17 PM COMPARISON: prior paracentesis. CLINICAL INDICATION:Female, 79 years old with history of K74.60; , ascites ATTENDING: Dr. Tyree Portillo PROCEDURE: Informed consent was obtained. The risks of the procedure were extensively explained incl uding risk of damage to surrounding bowel with perforation and need for additional procedures. Proced ure was performed in the ultrasound procedure suite. Ultrasound imaging of the abdomen demonstrate as citic fluid. An appropriate access site was localized to the right lower abdomen. Timeout was taken p er protocol. The skin was prepped and draped in the usual sterile fashion and then locally anesthetiz ed with 1% lidocaine. The peritoneal cavity was then accessed via a 5-Swedish one-step needle/cathete r. Approximately 7600 mL of clear straw-colored fluid was obtained. Postprocedural imaging of the ab domen demonstrate a minimal amount of abdominal fluid. Patient tolerated procedure well without immediate complication. Hemostasis at the procedural site w as obtained with a sterile bandage placed. The patient was monitored in the holding area following th e procedure and was subsequently discharged in stable condition. IMPRESSION: Ultrasound guided paracentesis, with approximately 7600 mL of clear straw-colored fluid drained. No i mmediate complications were evident. [facility], , 07/06/2024 8:28 AM
== END ==
LOC: RADPROMAIN 12:49
PROVIDERS: ATTEND Internal Medicine Gastroenterology
DX: R18.8 Other ascites (principal)
CPT/HCPCS: 82565; 85049; 85610; 36415; 49083; P9047

== ENCOUNTER 2024-07-12 12:47 | Day surgery (SDC) | payer MEDICARE, OTHER ==
[2024-07-12 13:33] LABS: Mean Platelet Volume 8.4; Platelet Count 228 k/uL (150-450)
[2024-07-12 13:38] LABS: Prothrombin Time 11.2 sec (10.0-12.5)
[2024-07-12 13:41] LABS: African American GFR (CKD) 49 (>60 ml/min/1.73 sqM); Non-African American GFR(CKD) 42 (>60 ml/min/1.73 sqM)
[2024-07-12] MEDS: ALBUMIN HUMAN 25% 50 ML in EMPTY BAG 1 BAG IVPB SCH (13:45)
[2024-07-12 13:54] VITALS: TEMP 98.4
[2024-07-12 15:06] VITALS: RESP 16
[2024-07-12 15:25] VITALS: BP 95/55; PULSE 64
--- NOTE | 2024-07-12 16:03 | US ---
EXAMINATION TYPE: US paracentesis abd w/image DATE OF EXAM: 07/12/2024 CLINICAL HISTORY: 79-year-old female K74.60, unspecified cirrhosis of the liver, distention, ascites , referred for weekly paracentesis The procedure was discussed with the patient. The risks, complications, benefits, and alternatives we re discussed and any questions were answered. Informed consent was obtained. The patient was placed s upine on the ultrasound table and prepped and draped in the usual sterile fashion. All elements of maximal barrier technique were utilized. Ultrasound was utilized to determine the precise skin entry site along the right lower quadrant. A 5 Kiswahili One-Step catheter and trocar technique was utilized to access the ascites collection under direct ultrasound guidance. Approximately 7.2 liters of clear, straw-colored fluid was removed. Catheter was removed, hemostasis obtained, and a dressing placed. The patient was stable throughout the procedure and remained stable upon discharge from Department of Radiology. IMPRESSION: Successful therapeutic paracentesis under ultrasound guidance. 7.2 L of fluid removed. [facility], , 07/12/2024 4:01 PM
== END 2024-07-12 15:45 | disposition home or self-care (01) ==
LOC: RADPROMAIN 12:47
PROVIDERS: ATTEND Internal Medicine Gastroenterology
DX: R18.8 Other ascites (principal); K74.60 Unspecified cirrhosis of liver
CPT/HCPCS: 49083; 82565; 85049; 85610; 36415; P9047

== ENCOUNTER 2024-07-19 12:49 | Day surgery (SDC) | payer MEDICARE, OTHER ==
[2024-07-19 13:38] LABS: Mean Platelet Volume 8.9; Platelet Count 192 k/uL (150-450)
[2024-07-19 13:49] LABS: African American GFR (CKD) 54 (>60 ml/min/1.73 sqM); Non-African American GFR(CKD) 47 (>60 ml/min/1.73 sqM)
[2024-07-19 13:51] LABS: INR 1.1 (<1.2); Prothrombin Time 11.8 sec (10.0-12.5)
[2024-07-19] MEDS: ALBUMIN HUMAN 25% 50 ML in EMPTY BAG 1 BAG IVPB SCH (14:02)
[2024-07-19 14:12] VITALS: RESP 16; TEMP 97.6
[2024-07-19 15:15] VITALS: BP 99/65; PULSE 56
--- NOTE | 2024-07-20 07:44 | US ---
EXAMINATION TYPE: US paracentesis abd w/image DATE OF EXAM: 07/19/2024 CLINICAL HISTORY: Ascites The procedure was discussed with the patient. The risks, complications, benefits, and alternatives we re discussed and any questions were answered. Informed consent was obtained. The patient was placed s upine on the ultrasound table and prepped and draped in the usual sterile fashion. All elements of maximal barrier technique were utilized. Under ultrasound guidance, access into the right lower quadrant was obtained, via the paracentesis catheter system and direct ultrasound guidanc e. Approximately 6.5 liters of straw-colored fluid was removed. The patient was stable throughout the pr ocedure and remained stable upon discharge from Department of Radiology. IMPRESSION: Successful therapeutic paracentesis under ultrasound guidance. [facility], , 07/20/2024 7:42 AM
== END 2024-07-19 15:35 | disposition home or self-care (01) ==
LOC: RADPROMAIN 12:49
PROVIDERS: ATTEND Internal Medicine Gastroenterology
DX: R18.8 Other ascites (principal)
CPT/HCPCS: 82565; 85049; 85610; 36415; 49083; P9047

== ENCOUNTER 2024-07-26 13:01 | Day surgery (SDC) | payer MEDICARE, OTHER ==
[2024-07-26 13:39] VITALS: RESP 16; TEMP 98.4
[2024-07-26] MEDS: ALBUMIN HUMAN 25% 50 ML in EMPTY BAG 1 BAG IVPB SCH (13:45)
[2024-07-26 14:02] LABS: Mean Platelet Volume 8.2; Platelet Count 176 k/uL (150-450)
[2024-07-26 14:13] LABS: African American GFR (CKD) 47 (>60 ml/min/1.73 sqM); Non-African American GFR(CKD) 41 (>60 ml/min/1.73 sqM)
[2024-07-26 14:15] VITALS: BP 98/54; PULSE 71
[2024-07-26 14:22] LABS: INR 0.9 (<1.2); Prothrombin Time 10.5 sec (10.0-12.5)
--- NOTE | 2024-07-26 14:33 | US ---
EXAMINATION TYPE: US paracentesis abd w/image DATE OF EXAM: July 26, 2024 COMPARISON: Prior study July 19, 2024 prior paracentesis. CLINICAL INDICATION:Female, 79 years old with history of K74.60; cirrhosis of liver, ascites ATTENDING: Dr. Villegas PROCEDURE: Informed consent was obtained. The risks of the procedure were extensively explained incl uding risk of damage to surrounding bowel with perforation and need for additional procedures. Procedure was performed in the ultrasound procedure suite. Ultrasound imaging of the abdomen demonstr ate ascitic fluid. An appropriate access site was localized to the right lower abdomen. Timeout was t aken per protocol. The skin was prepped and draped in the usual sterile fashion and then locally anes thetized with 1% lidocaine. The peritoneal cavity was then accessed via a 5-Ukrainian one-step needle/c atheter. Approximately 4600 mL of clear straw-colored fluid was obtained. Patient tolerated procedure well without immediate complication. Hemostasis at the procedural site w as obtained with a sterile bandage placed. The patient was monitored in the holding area following th e procedure and was subsequently discharged in stable condition. IMPRESSION: Ultrasound guided therapeutic paracentesis, with approximately 4600 mL of clear straw-colored fluid d rained. No immediate complications were evident. [facility], , 07/26/2024 2:30 PM
== END 2024-07-26 16:00 | disposition home or self-care (01) ==
LOC: RADPROMAIN 13:01
PROVIDERS: ATTEND Internal Medicine Gastroenterology
DX: R18.8 Other ascites (principal); K74.60 Unspecified cirrhosis of liver
CPT/HCPCS: 82565; 85049; 85610; 36415; 49083; P9047

== ENCOUNTER 2024-08-02 12:48 | Day surgery (SDC) | payer MEDICARE, OTHER ==
[2024-08-02 13:59] VITALS: RESP 16; TEMP 98.2
[2024-08-02] MEDS: ALBUMIN HUMAN 25% 50 ML in EMPTY BAG 1 BAG IVPB SCH (14:32)
[2024-08-02 14:34] LABS: Mean Platelet Volume 7.7; Platelet Count 171 k/uL (150-450)
[2024-08-02 14:39] LABS: Prothrombin Time 11.3 sec (10.0-12.5)
[2024-08-02 14:48] LABS: African American GFR (CKD) 59 (>60 ml/min/1.73 sqM); Non-African American GFR(CKD) 51 (>60 ml/min/1.73 sqM)
[2024-08-02 15:08] VITALS: BP 98/50; PULSE 69
--- NOTE | 2024-08-03 07:55 | US ---
EXAMINATION TYPE: US paracentesis abd w/image DATE OF EXAM: 08/02/2024 2:30 PM COMPARISON: None. Previous Paracentesis CLINICAL INDICATION: Female, 79 years old with history of K74.60 UNSPECIFIED CIRRHOSIS OF LIVER; , as cites TECHNIQUE/FINDINGS: The procedure was discussed with the patient. The risks, complications, benefits, and alternatives we re discussed and any questions were answered. Informed consent was obtained. The patient was placed s upine on the ultrasound table and prepped and draped in the usual sterile fashion. All elements of maximal barrier technique were utilized. Under ultrasound guidance, access into the right lower quadrant was obtained, via the paracentesis catheter system and direct ultrasound guidanc e. Approximately 5.7 liters of straw-colored fluid was removed. The patient was stable throughout the pr ocedure and remained stable upon discharge from Department of Radiology. IMPRESSION: Successful paracentesis under ultrasound guidance. [facility], , 08/03/2024 7:52 AM
== END 2024-08-02 15:30 | disposition home or self-care (01) ==
LOC: RADPROMAIN 12:48
PROVIDERS: ATTEND Internal Medicine Gastroenterology
DX: R18.8 Other ascites (principal); K74.60 Unspecified cirrhosis of liver
CPT/HCPCS: 82565; 85049; 85610; 36415; 49083; P9047

== ENCOUNTER 2024-08-16 12:43 | Day surgery (SDC) | payer MEDICARE, OTHER ==
[2024-08-16 13:50] LABS: Mean Platelet Volume 10.1 fL (9.5-12.2); Platelet Count 146 10*3/uL (140-440)
[2024-08-16 14:01] LABS: African American GFR (CKD) 44 (>60 ml/min/1.73 sqM); Non-African American GFR(CKD) 38 (>60 ml/min/1.73 sqM)
[2024-08-16 14:04] VITALS: RESP 16; TEMP 98.3
[2024-08-16] MEDS: ALBUMIN HUMAN 25% 50 ML in EMPTY BAG 1 BAG IVPB SCH (14:15)
[2024-08-16 15:19] VITALS: BP 96/51; PULSE 65
--- NOTE | 2024-08-17 12:00 | US ---
EXAMINATION TYPE: US paracentesis abd w/image DATE OF EXAM: 08/16/2024 CLINICAL HISTORY: 79-year-old female K74.60, unspecified cirrhosis of liver with ascites and distent ion The procedure was discussed with the patient. The risks, complications, benefits, and alternatives we re discussed and any questions were answered. Informed consent was obtained. The patient was placed s upine on the ultrasound table and prepped and draped in the usual sterile fashion. All elements of maximal barrier technique were utilized. Ultrasound was utilized to determine the precise skin entry site along the right lower quadrant. A 5 Russian One-Step catheter and trocar technique was utilized to access the ascites collection under direct ultrasound guidance. Approximately 8.6 liters of clear, straw-colored fluid was removed. Catheter was removed, hemostasis obtained, and a dressing placed. The patient was stable throughout the procedure and remained stable upon discharge from Department of Radiology. IMPRESSION: Successful therapeutic paracentesis under ultrasound guidance. 8.6 L of fluid removed. [facility], , 08/17/2024 11:57 AM
== END 2024-08-16 15:37 | disposition home or self-care (01) ==
LOC: RADPROMAIN 12:43
PROVIDERS: ATTEND Internal Medicine Gastroenterology
DX: K74.60 Unspecified cirrhosis of liver (principal); R18.8 Other ascites
CPT/HCPCS: 82565; 85049; 85610; 49083; P9047

== ENCOUNTER 2024-08-16 15:37 | Inpatient (IN) | payer MEDICARE, OTHER ==
[2024-08-16 17:14] LABS: Basophils # (A) 0.02 10*3/uL (0.00-0.10); Basophils % (A) 0.6 %; Eosinophils # (A) 0.03 10*3/uL (0.04-0.35); Eosinophils % (A) 0.9 %; Immature Platelet Fraction 2.7 % (1.1-6.1); Lymphocytes # (A) 0.45 10*3/uL (0.90-5.00); Lymphocytes % (A) 14.2 %; MCH 23.9 pg (27.0-32.0); MCHC 28.1 g/dL (32.0-37.0); Mean Platelet Volume 9.9 fL (9.5-12.2); Monocytes # (A) 0.48 10*3/uL (0.20-1.00); Monocytes % (A) 15.1 %; Neutrophils # (A) 2.19 10*3/uL (1.80-7.70); Neutrophils % (A) 68.9 %; RBC 2.34 10*6/uL (4.10-5.20); RDW 16.9 % (11.5-14.5); WBC 3.18 10*3/uL (4.50-10.00)
[2024-08-16 17:16] LABS: HGB 5.6 g/dL (12.0-15.0); Platelet Count 116 10*3/uL (140-440)
[2024-08-16 17:18] LABS: HCT 19.9 % (37.2-46.3)
[2024-08-16 17:32] LABS: ALT 9 U/L (4-34); AST 19 U/L (14-36); African American GFR (CKD) 49 (>60 ml/min/1.73 sqM); Albumin 2.9 g/dL (3.5-5.0); Alkaline Phosphatase 35 U/L (38-126); Anion Gap 2 mmol/L; Blood Urea Nitrogen 30 mg/dL (7-17); Calcium 8.4 mg/dL (8.4-10.2); Carbon Dioxide 39 mmol/L (22-30); Chloride 94 mmol/L (98-107); Glucose 102 mg/dL (74-99); Non-African American GFR(CKD) 42 (>60 ml/min/1.73 sqM); Potassium 3.3 mmol/L (3.5-5.1); Sodium 135 mmol/L (137-145); Total Bilirubin 0.9 mg/dL (0.2-1.3); Total Protein 5.2 g/dL (6.3-8.2)
[2024-08-16 17:39] LABS: Polychromasia Present
[2024-08-16 17:40] LABS: NT-Pro-B-Type Natriuretic Pept 1140 pg/mL
--- NOTE | 2024-08-16 18:00 | XR ---
EXAMINATION TYPE: XR chest 2V DATE OF EXAM: 08/16/2024 5:19 PM COMPARISON: Chest radiographs from 09/10/2023. CLINICAL INDICATION: Female, 79 years old with history of LE swelling, LAURENT; TECHNIQUE: XR chest 2V Frontal and lateral views of the chest. FINDINGS: Lungs/Pleura: There is no evidence of pleural effusion, focal consolidation, or pneumothorax. Pulmonary vascularity: Unremarkable. Heart/mediastinum: Cardiomediastinal silhouette is unremarkable. Musculoskeletal: No acute osseous pathology. Other findings: Gastric lap band present appears in appropriate position. IMPRESSION: Low lung volumes with a generalized hazy appearance which could represent atelectasis versus pulmonar y edema correlate with serum BNP. [facility], , 08/16/2024 5:58 PM
--- NOTE | 2024-08-16 18:16 | US ---
EXAMINATION TYPE: US venous doppler duplex LE BI DATE OF EXAM: 08/16/2024 5:52 PM COMPARISON: US 2022 CLINICAL INDICATION: Female, 79 years old with history of LE swelling, LAURENT; patient has hx dvt in lef t leg 2022. Patient takes eliquis but has not taken since wednesday due to paracentesis, Pain TECHNIQUE: The lower extremity deep venous system is examined utilizing real time linear array sonog lia with graded compression, color doppler sonography, and spectral doppler. SIDE PERFORMED: Bilateral FINDINGS: VESSELS IMAGED: Common Femoral Vein Deep Femoral Vein Greater Saphenous Vein * Femoral Vein Popliteal Vein Small Saphenous Vein * Proximal Calf Veins (* superficial vessels) Right Leg: appears negative for dvt, Color Doppler imaging shows patency of the vessels. Spectral wa veforms are within normal limits. Left Leg: appears negative for dvt, Color Doppler imaging shows patency of the vessels. Spectral wav eforms are within normal limits. edema seen within bilateral calves IMPRESSION: No ultrasound evidence for deep venous thrombosis. [facility], , 08/16/2024 6:13 PM
--- NOTE | 2024-08-16 19:21 | ED ---
Extremity Problem HPI - General Chief complaint: Extremity Problem,Nontraumatic Stated complaint: bilateral leg swelling Time Seen by Provider: 08/16/24 16:43 Source: patient Mode of arrival: ambulatory Limitations: no limitations - History of Present Illness Initial comments: 79-year-old female presenting with chief complaint of lower extremity swelling. Patient has history of cirrhosis and gets weekly paracentesis. Patient reports that she missed last week due to snow and ice in her area. She went for paracentesis today and then was sent here due to extreme swelling in her lower extremities. This is equal bilaterally. 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 She is having some increased shortness of breath on exertion. No chest pain. No abdominal pain outside of her regular soreness. No bloody or black stools. - Related Data Home Medications Medication Instructions Recorded Confirmed Levothyroxine Sodium [Euthyrox] 112 mcg PO DAILY 04/02/20 08/16/24 Pantoprazole [Protonix] 40 mg PO BID 06/30/21 08/16/24 azaTHIOprine [Imuran] 50 mg PO DAILY 09/02/22 08/16/24 Apixaban [Eliquis] 5 mg PO BID 05/05/23 08/16/24 Furosemide [Lasix] 80 mg PO DAILY 06/15/23 08/16/24 Ipratropium-Albuterol Nebulize 3 ml INHALATION RT-Q4H 09/10/23 08/16/24 [Duoneb 0.5 mg-3 mg/3 ml Soln] Midodrine [ProAmatine] 10 mg PO TID 10/06/23 08/16/24 Acebutolol HCl [Sectral] 200 mg PO BID 02/09/24 08/16/24 Previous Rx's Medication Instructions Recorded Spironolactone [Aldactone] 100 mg PO DAILY #30 tab 05/07/23 Allergies Allergy/AdvReac Type Severity Reaction Status Date / Time No Known Allergies Allergy Verified 08/16/24 20:53 Review of Systems ROS Statement: Those systems with pertinent positive or pertinent negative responses have been documented in the HPI. ROS Other: All systems not noted in ROS Statement are negative. Past Medical History Past Medical History: GERD/Reflux, Hyperlipidemia, Pneumonia, Skin Disorder, Thyroid Disorder Additional Past Medical History / Comment(s): MIGRAINES, ARRYTHMIA, SCOLIOSIS, ascites, hypotension History of Any Multi-Drug Resistant Organisms: MRSA Date of last positivie culture/infection: 2009 MDRO Source:: BREAST-UNKNOWN WHICH SIDE Past Surgical History: Back Surgery, Bariatric Surgery, Bladder Surgery, Breast Surgery, Cholecystectomy, Hysterectomy Additional Past Surgical History / Comment(s): Lap band 01/23/13. Sinus surgery. COLONOSCOPY. BREAST REDUCTION. 2 RT NECK LYMPH NODES REMOVED AND SALIVARY GLAND REMOVAL Past Anesthesia/Blood Transfusion Reactions: No Reported Reaction Past Psychological History: No Psychological Hx Reported Smoking Status: Never smoker Past Alcohol Use History: None Reported Past Drug Use History: None Reported - Past Family History Daughter(s) Family Medical History: Cancer General Exam Limitations: no limitations General appearance: alert, in no apparent distress Head exam: Present: atraumatic, normocephalic, normal inspection Eye exam: Present: normal appearance, EOMI Neck exam: Present: normal inspection. Absent: meningismus Respiratory exam: Present: normal lung sounds bilaterally. Absent: respiratory distress, wheezes, rales, rhonchi, stridor Cardiovascular Exam: Present: regular rate, normal rhythm, normal heart sounds. Absent: systolic murmur, diastolic murmur, rubs, gallop, clicks GI/Abdominal exam: Present: soft. Absent: distended, tenderness, guarding, rebound, rigid Rectal exam: Present: heme (-) stool Extremities exam: Present: pedal edema Neurological exam: Present: alert, oriented X3 Psychiatric exam: Present: normal affect, normal mood Skin exam: Present: warm, dry, normal color Course Vital Signs 08/16/24 08/16/24 08/16/24 16:08 18:55 19:55 Temperature 97.9 F 98.7 F Pulse Rate 75 69 89 Respiratory 20 18 17 Rate Blood Pressure 92/55 87/51 91/48 O2 Sat by Pulse 97 100 97 Oximetry 08/16/24 08/16/24 08/16/24 20:01 20:10 20:30 Temperature 98.7 F 98.7 F 97.7 F Pulse Rate 66 66 73 Respiratory 16 18 16 Rate Blood Pressure 85/50 85/51 83/70 O2 Sat by Pulse 97 97 100 Oximetry 08/16/24 08/16/24 08/16/24 22:55 23:11 23:31 Temperature 97.4 F L 98.6 F 98.7 F Pulse Rate 67 64 64 Respiratory 18 16 18 Rate Blood Pressure 79/54 90/51 85/45 O2 Sat by Pulse 98 100 100 Oximetry 08/17/24 08/17/24 08/17/24 00:36 01:20 01:39 Temperature 97.8 F 97.9 F Pulse Rate 61 68 64 Respiratory 16 16 16 Rate Blood Pressure 81/44 80/47 76/43 O2 Sat by Pulse 98 96 97 Oximetry 08/17/24 08/17/24 08/17/24 05:11 06:37 07:34 Temperature 97.9 F Pulse Rate 65 73 62 Respiratory 18 18 20 Rate Blood Pressure 78/56 86/52 72/41 O2 Sat by Pulse 98 97 95 Oximetry 08/17/24 08/17/24 08/17/24 08:23 08:33 10:01 Temperature Pulse Rate 64 75 74 Respiratory 18 18 18 Rate Blood Pressure 87/48 91/54 92/61 O2 Sat by Pulse 96 98 100 Oximetry 08/17/24 08/17/24 08/17/24 10:27 11:03 12:25 Temperature Pulse Rate 67 Respiratory 18 Rate Blood Pressure 98/66 113/74 O2 Sat by Pulse 100 95 95 Oximetry 08/17/24 08/17/24 08/17/24 13:41 15:48 15:59 Temperature Pulse Rate 62 64 64 Respiratory 20 Rate Blood Pressure 98/62 O2 Sat by Pulse 94 L Oximetry 08/17/24 08/17/24 08/17/24 16:02 16:56 18:00 Temperature Pulse Rate 62 66 66 Respiratory 16 16 18 Rate Blood Pressure 79/45 89/48 89/73 O2 Sat by Pulse 100 99 98 Oximetry 08/17/24 08/17/24 20:31 20:40 Temperature Pulse Rate 72 75 Respiratory 18 18 Rate Blood Pressure O2 Sat by Pulse Oximetry Medical Decision Making - Medical Decision Making Was pt. sent in by a medical professional or institution (, PA, RUBBER TIRE CURER, urgent care, hospital, or senior living...) When possible be specific @ -No Did you speak to anyone other than the patient for history (EMS, parent, family, police, friend...)? What history was obtained from this source @ -No Did you review nursing and triage notes (agree or disagree)? Why? @ -I reviewed and agree with nursing and triage notes Were old charts reviewed (outside hosp., previous admission, EMS record, old EKG, old radiological studies, urgent care reports/EKG's, senior living records)? Report findings @ -No old charts were reviewed Differential Diagnosis (chest pain, altered mental status, abdominal pain women, abdominal pain men, vaginal bleeding, weakness, fever, dyspnea, syncope, headache, dizziness, GI bleed, back pain, seizure, CVA, palpatations, mental health, musculoskeletal)? @ -Differential includes DVT, CHF, cirrhosis, gravity dependent edema, not an a ll-inclusive list EKG interpreted by me (3pts min.). @ -As above X-rays interpreted by me (1pt min.). @ -Chest x-ray shows low lung volumes with a generalized hazy appearance. CT interpreted by me (1pt min.). @ -None done U/S interpreted by me (1pt. min.). @ -Ultrasound negative for DVT bilaterally What testing was considered but not performed or refused? (CT, X-rays, U/S, labs)? Why? @ -None What meds were considered but not given or refused? Why? @ -None Did you discuss the management of the patient with other professionals (professionals i.e. , PA, RUBBER TIRE CURER, lab, RT, psych nurse, health social work professor, putty and patch worker, teacher, helicopter officer, vocational case manager)? Give summary @ -Spoke with Dr. Mathur who accepts admission Was smoking cessation discussed for >3mins.? @ -No Was critical care preformed (if so, how long)? @ -No Were there social determinants of health that impacted care today? How? ([place] elessness, low income, unemployed, alcoholism, drug addiction, transportation, low edu. Level, literacy, decrease access to med. care, half-way, rehab)? @ -No Was there de-escalation of care discussed even if they declined (Discuss DNR or withdrawal of care, Hospice)? DNR status @ -No What co-morbidities impacted this encounter? (DM, HTN, Smoking, COPD, CAD, Cancer, CVA, ARF, Chemo, Hep., AIDS, mental health diagnosis, sleep apnea, morbid obesity)? @ -None Was patient admitted / discharged? Hospital course, mention meds given and route, prescriptions, significant lab abnormalities, going to OR and other pertinent info. @ -79-year-old female presenting with chief complaint of lower extremity swelling. Last week she missed her weekly paracentesis because of snow and ice. This week she is having increased lower extremity swelling after her paracentesis today. She was sent here to the ER. History and physical examination are conducted. Hemoglobin 5.6. Patient denies any bloody stools. She does take Eliquis due to history of DVT. Negative stool occult blood. Chest x-ray shows low lung volumes with a generalized hazy appearance which could represent atelectasis versus pulmonary edema, BNP 1140. Creatinine consistent with her baseline at 1.23. Patient will receive 2 units of packed red blood cells. She will be admitted. She is agreeable with this plan. I discussed this case with my attending Dr. Villegas Undiagnosed new problem with uncertain prognosis? @ -No Drug Therapy requiring intensive monitoring for toxicity (Heparin, Nitro, Insulin, Cardizem)? @ -No Were any procedures done? @ -No Diagnosis/symptom? @ -Anemia requiring blood transfusion, CHF Acute, or Chronic, or Acute on Chronic? @ -Acute Uncomplicated (without systemic symptoms) or Complicated (systemic symptoms)? @ -Complicated Side effects of treatment? @ -No Exacerbation, Progression, or Severe Exacerbation? @ -No Poses a threat to life or bodily function? How? (Chest pain, [place], [place], pneumonia, PE, COPD, DKA, ARF, appy, cholecystitis, CVA, Diverticulitis, Homicidal, Suicidal, threat to staff... and all critical care pts) @ -Yes - Lab Data Result diagrams: 08/17/24 08:40 08/16/24 17:01 Lab Results 08/16/24 08/16/24 08/16/24 Range/Units 17:01 17:01 17:30 WBC 3.18 L (4.50-10.00) 10*3/uL RBC 2.34 L (4.10-5.20) 10*6/uL Hgb 5.6 L* (12.0-15.0) g/dL Hct 19.9 L* (37.2-46.3) % MCV 85.0 (80.0-97.0) fL MCH 23.9 L (27.0-32.0) pg MCHC 28.1 L (32.0-37.0) g/dL Plt Count 116 L (140-440) 10*3/uL MPV 9.9 (9.5-12.2) fL Immature Gran % (Auto) 0.3 % Neutrophils % 68.9 % Lymphocytes % 14.2 % Monocytes % 15.1 % Eosinophils % 0.9 % Basophils % 0.6 % Immature Gran # 0.01 (0.00-0.04) 10*3/uL Neutrophils # 2.19 (1.80-7.70) 10*3/uL Lymphocytes # 0.45 L (0.90-5.00) 10*3/uL Monocytes # 0.48 (0.20-1.00) 10*3/uL Eosinophils # 0.03 L (0.04-0.35) 10*3/uL Basophils # 0.02 (0.00-0.10) 10*3/uL Manual Slide Review Performed Immature Plt Fraction 2.7 (1.1-6.1) % Polychromasia Present PT (10.0-12.5) sec INR (<1.2) APTT (22.0-30.0) sec Sodium 135 L (137-145) mmol/L Potassium 3.3 L (3.5-5.1) mmol/L Chloride 94 L (98-107) mmol/L Carbon Dioxide 39 H (22-30) mmol/L Anion Gap 2 mmol/L BUN 30 H (7-17) mg/dL Creatinine 1.23 H (0.52-1.04) mg/dL Est GFR (CKD-EPI)AfAm 49 (>60 ml/min/1.73 sqM) Est GFR (CKD-EPI)NonAf 42 (>60 ml/min/1.73 sqM) Glucose 102 H (74-99) mg/dL Calcium 8.4 (8.4-10.2) mg/dL Iron (50-170) UG/DL TIBC (228-460) UG/DL % Saturation (12.00-45.00) Transferrin (204.0-354.0) mg/dL Ferritin (10.0-291.0) ng/mL Total Bilirubin 0.9 (0.2-1.3) mg/dL AST 19 (14-36) U/L ALT 9 (4-34) U/L Alkaline Phosphatase 35 L (38-126) U/L NT-Pro-B Natriuret Pep 1140 pg/mL Total Protein 5.2 L (6.3-8.2) g/dL Albumin 2.9 L (3.5-5.0) g/dL Stool Occult Blood (Negative) Blood Type A Positive Blood Type Confirm Blood Type Recheck No Previous Record Bld Type Recheck Status CABO Indicated Antibody Screen NEGATIVE Crossmatch See Detail Spec Expiration Date 08/19/2024 - 232908/16/24 08/16/24 08/16/24 Range/Units 18:19 18:55 20:57 WBC (4.50-10.00) 10*3/uL RBC (4.10-5.20) 10*6/uL Hgb (12.0-15.0) g/dL Hct (37.2-46.3) % MCV (80.0-97.0) fL MCH (27.0-32.0) pg MCHC (32.0-37.0) g/dL Plt Count (140-440) 10*3/uL MPV (9.5-12.2) fL Immature Gran % (Auto) % Neutrophils % % Lymphocytes % % Monocytes % % Eosinophils % % Basophils % % Immature Gran # (0.00-0.04) 10*3/uL Neutrophils # (1.80-7.70) 10*3/uL Lymphocytes # (0.90-5.00) 10*3/uL Monocytes # (0.20-1.00) 10*3/uL Eosinophils # (0.04-0.35) 10*3/uL Basophils # (0.00-0.10) 10*3/uL Manual Slide Review Immature Plt Fraction (1.1-6.1) % Polychromasia PT 10.9 (10.0-12.5) sec INR 1.0 (<1.2) APTT 21.7 L (22.0-30.0) sec Sodium (137-145) mmol/L Potassium (3.5-5.1) mmol/L Chloride (98-107) mmol/L Carbon Dioxide (22-30) mmol/L Anion Gap mmol/L BUN (7-17) mg/dL Creatinine (0.52-1.04) mg/dL Est GFR (CKD-EPI)AfAm (>60 ml/min/1.73 sqM) Est GFR (CKD-EPI)NonAf (>60 ml/min/1.73 sqM) Glucose (74-99) mg/dL Calcium (8.4-10.2) mg/dL Iron (50-170) UG/DL TIBC (228-460) UG/DL % Saturation (12.00-45.00) Transferrin (204.0-354.0) mg/dL Ferritin (10.0-291.0) ng/mL Total Bilirubin (0.2-1.3) mg/dL AST (14-36) U/L ALT (4-34) U/L Alkaline Phosphatase (38-126) U/L NT-Pro-B Natriuret Pep pg/mL Total Protein (6.3-8.2) g/dL Albumin (3.5-5.0) g/dL Stool Occult Blood Negative (Negative) Blood Type Blood Type Confirm A Positive Blood Type Recheck Bld Type Recheck Status Antibody Screen Crossmatch Spec Expiration Date 08/17/24 08/17/24 Range/Units 08:40 08:40 WBC 3.30 L (4.50-10.00) 10*3/uL RBC 3.10 L (4.10-5.20) 10*6/uL Hgb 7.9 L D (12.0-15.0) g/dL Hct 27.6 L (37.2-46.3) % MCV 89.0 (80.0-97.0) fL MCH 25.5 L (27.0-32.0) pg MCHC 28.6 L (32.0-37.0) g/dL Plt Count 100 L (140-440) 10*3/uL MPV 10.8 (9.5-12.2) fL Immature Gran % (Auto) 0.3 % Neutrophils % 66.1 % Lymphocytes % 12.1 % Monocytes % 18.5 % Eosinophils % 2.1 % Basophils % 0.9 % Immature Gran # 0.01 (0.00-0.04) 10*3/uL Neutrophils # 2.18 (1.80-7.70) 10*3/uL Lymphocytes # 0.40 L (0.90-5.00) 10*3/uL Monocytes # 0.61 (0.20-1.00) 10*3/uL Eosinophils # 0.07 (0.04-0.35) 10*3/uL Basophils # 0.03 (0.00-0.10) 10*3/uL Manual Slide Review Immature Plt Fraction (1.1-6.1) % Polychromasia PT (10.0-12.5) sec INR (<1.2) APTT (22.0-30.0) sec Sodium (137-145) mmol/L Potassium (3.5-5.1) mmol/L Chloride (98-107) mmol/L Carbon Dioxide (22-30) mmol/L Anion Gap mmol/L BUN (7-17) mg/dL Creatinine (0.52-1.04) mg/dL Est GFR (CKD-EPI)AfAm (>60 ml/min/1.73 sqM) Est GFR (CKD-EPI)NonAf (>60 ml/min/1.73 sqM) Glucose (74-99) mg/dL Calcium (8.4-10.2) mg/dL Iron 261 H (50-170) UG/DL TIBC 305 (228-460) UG/DL % Saturation 85.57 H (12.00-45.00) Transferrin 218.0 (204.0-354.0) mg/dL Ferritin 10.5 (10.0-291.0) ng/mL Total Bilirubin (0.2-1.3) mg/dL AST (14-36) U/L ALT (4-34) U/L Alkaline Phosphatase (38-126) U/L NT-Pro-B Natriuret Pep pg/mL Total Protein (6.3-8.2) g/dL Albumin (3.5-5.0) g/dL Stool Occult Blood (Negative) Blood Type Blood Type Confirm Blood Type Recheck Bld Type Recheck Status Antibody Screen Crossmatch Spec Expiration Date Disposition Clinical Impression: Anemia, Lower extremity edema Disposition: ADMITTED IP TO THIS HOSP
[2024-08-16] MEDS ORDERED: NALOXONE 0.4 MG/ML 1 ML VIAL IV PRN (19:23)
[2024-08-16] MEDS: FUROSEMIDE 10 MG/ML 4 ML VIAL IV STA (20:25)
[2024-08-16] MEDS: SODIUM CHLORIDE 0.9% 500 ML 500 ML IV ONE (20:25)
[2024-08-16] MEDS: MIDODRINE 5 MG TAB PO STA (20:37)
[2024-08-16 21:52] LABS: Prothrombin Time 10.9 sec (10.0-12.5)
[2024-08-16 21:55] LABS: Partial Thromboplastin Time 21.7 sec (22.0-30.0)
--- NOTE | 2024-08-17 09:36 | P.CRDCN ---
History of Present Illness Consult date: 08/17/24 Reason for Consult (text): This is a 79-year-old female with past medical history of autoimmune cirrhosis of the liver, hypertension, hypothyroidism, history of DVT. Patient was previously seen by Dr. Rosangela Thomas in [place] office in 2019 but has not followed with a television reporter since. We have been asked to evaluate the patient for CHF. Patient states that she is getting paracentesis weekly. Her last 1 was done yesterday with removal of 5.6 L. She usually has removal of closer to 9 L. She states she missed a week due to weather conditions. Patient presented to the emergency center due to increased edema to the lower extremities that have been going on for about 1 month. She states she had a previously it went away and came back. She also has some shortness of breath when she is in need of paracentesis. She states she has had some shortness of breath with activity. She has dizziness in the morning every day which has been chronic. She denies palpitations or syncopal episodes. She denies alcohol use and no history of alcohol abuse. Blood pressure 91/54, heart rate 75, pulse ox 98% on 2 L nasal cannula. Patient is seen today in the emergency center waiting for a bed on the cardiac stepdown unit. GI is also on consult. Yesterday, patient was transfused 2 units packed RBCs. -EKG: None available. -Venous duplex of the bilateral lower extremity negative for DVT. -Chest x-ray: Low lung volumes with generalized hazy appearance which could represent atelectasis versus pulmonary edema. -Laboratory studies: WBC 3.1, hemoglobin 5.6, platelet count 116. Sodium 135, potassium 3.3, chloride 94, CO2 39, BUN 30 and creatinine 1.23. proBNP 1140 normal for age. Stool for occult blood negative. -Home cardiac medications: Eliquis 5 mg twice daily, Lasix 80 mg daily, midodrine 10 mg 3 times daily, spironolactone 100 mg daily, also on levothyr oxine. - Echocardiogram performed 09/11/2023 revealed normal EF with no significant valvular abnormalities. Review Of Systems: At the time of my exam: CONSTITUTIONAL: Denies fever or chills. HEENT: Denies blurred vision, vision changes, or eye pain. Denies hemoptysis CARDIOVASCULAR: Denies chest pain. Denies orthopnea. Denies PND. Denies palpitations. Reports lower extremity edema RESPIRATORY: Denies shortness of breath. GASTROINTESTINAL: Denies abdominal pain. Denies nausea or vomiting. HEMATOLOGIC: Denies bleeding disorders. GENITOURINARY: Denies any blood in urine. SKIN: Denies puritis. Denies rash. Physical examination: Gen: This is 79-year-old female in no acute respiratory distress. VS: reviewed HEENT: Head is atraumatic, normocephalic. Pupils equal, round. Sclerae is anicteric. NECK: Supple. No JVD. LUNGS: Clear to auscultation. No wheezes or rhonchi. No intercostal retrac tions. HEART: Regular rate and rhythm. 2/6 systolic murmur. ABDOMEN: Soft No tenderness. EXTREMITIES: No pedal edema. No calf tenderness. NEUROLOGICAL: Patient is awake, alert and oriented x3. Assessment: Pancytopenia Chronic anemia Hypotension History of DVT on Eliquis Cirrhosis of the liver, autoimmune Lower extremity edema without any clear evidence of heart failure on examination with normal BNP Plan: Resume patient's home cardiac medications Start patient on IV Lasix 40 mg every 12 hours Obtain 2-D echocardiogram and Doppler study to assess cardiac structure and function Further recommendations to follow based upon clinical course Thank you kindly for this consultation. Nurse practitioner note has been reviewed, I agree with documented findings and plan of care. Patient was seen and examined. Past Medical History Past Medical History: GERD/Reflux, Hyperlipidemia, Pneumonia, Skin Disorder, Thyroid Disorder Additional Past Medical History / Comment(s): MIGRAINES, ARRYTHMIA, SCOLIOSIS, ascites, hypotension History of Any Multi-Drug Resistant Organisms: MRSA Date of last positivie culture/infection: 2009 MDRO Source:: BREAST-UNKNOWN WHICH SIDE Past Surgical History: Back Surgery, Bariatric Surgery, Bladder Surgery, Breast Surgery, Cholecystectomy, Hysterectomy Additional Past Surgical History / Comment(s): Lap band 01/23/13. Sinus surgery. COLONOSCOPY. BREAST REDUCTION. 2 RT NECK LYMPH NODES REMOVED AND SALIVARY GLAND REMOVAL Past Anesthesia/Blood Transfusion Reactions: No Reported Reaction Past Psychological History: No Psychological Hx Reported Smoking Status: Never smoker Past Alcohol Use History: None Reported Past Drug Use History: None Reported - Past Family History Daughter(s) Family Medical History: Cancer Medications and Allergies Home Medications Medication Instructions Recorded Confirmed Type Levothyroxine Sodium [Euthyrox] 112 mcg PO DAILY 04/02/20 08/16/24 History Pantoprazole [Protonix] 40 mg PO BID 06/30/21 08/16/24 History azaTHIOprine [Imuran] 50 mg PO DAILY 09/02/22 08/16/24 History Apixaban [Eliquis] 5 mg PO BID 05/05/23 08/16/24 History Spironolactone [Aldactone] 100 mg PO DAILY #30 tab 05/07/23 08/16/24 Rx Furosemide [Lasix] 80 mg PO DAILY 06/15/23 08/16/24 History Ipratropium-Albuterol Nebulize 3 ml INHALATION RT-Q4H 09/10/23 08/16/24 History [Duoneb 0.5 mg-3 mg/3 ml Soln] Midodrine [ProAmatine] 10 mg PO TID 10/06/23 08/16/24 History Acebutolol HCl [Sectral] 200 mg PO BID 02/09/24 08/16/24 History Allergies Allergy/AdvReac Type Severity Reaction Status Date / Time No Known Allergies Allergy Verified 08/16/24 20:53 Physical Exam Vitals: Vital Signs Temp Pulse Resp BP Pulse Ox 08/17/24 07:34 62 20 72/41 95 08/17/24 06:37 97.9 F 73 18 86/52 97 08/17/24 05:11 65 18 78/56 98 08/17/24 01:39 97.9 F 64 16 76/43 97 08/17/24 01:20 68 16 80/47 96 08/17/24 00:36 97.8 F 61 16 81/44 98 08/16/24 23:31 98.7 F 64 18 85/45 100 08/16/24 23:11 98.6 F 64 16 90/51 100 08/16/24 22:55 97.4 F L 67 18 79/54 98 08/16/24 20:30 97.7 F 73 16 83/70 100 08/16/24 20:10 98.7 F 66 18 85/51 97 08/16/24 20:01 98.7 F 66 16 85/50 97 08/16/24 19:55 98.7 F 89 17 91/48 97 08/16/24 18:55 69 18 87/51 100 08/16/24 16:08 97.9 F 75 20 92/55 97 Intake and Output 08/16/24 08/17/24 08/17/24 22:59 06:59 14:59 Intake Total 310 310 Balance 310 310 Intake: Blood Product 310 310 Rc As-1 Unit 310 [id number] Rc As-1 Unit 310 [id number] Other: Weight 63.503 kg Results 08/16/24 17:01 08/16/24 17:01 Cardiac Enzymes 08/16/24 Range/Units 17:01 AST 19 (14-36) U/L Coagulation 08/16/24 Range/Units 20:57 PT 10.9 (10.0-12.5) sec APTT 21.7 L (22.0-30.0) sec CBC 08/16/24 Range/Units 17:01 WBC 3.18 L (4.50-10.00) 10*3/uL RBC 2.34 L (4.10-5.20) 10*6/uL Hgb 5.6 L* (12.0-15.0) g/dL Hct 19.9 L* (37.2-46.3) % Plt Count 116 L (140-440) 10*3/uL Comprehensive Metabolic Panel 08/16/24 Range/Units 17:01 Sodium 135 L (137-145) mmol/L Potassium 3.3 L (3.5-5.1) mmol/L Chloride 94 L (98-107) mmol/L Carbon Dioxide 39 H (22-30) mmol/L BUN 30 H (7-17) mg/dL Creatinine 1.23 H (0.52-1.04) mg/dL Glucose 102 H (74-99) mg/dL Calcium 8.4 (8.4-10.2) mg/dL AST 19 (14-36) U/L ALT 9 (4-34) U/L Alkaline Phosphatase 35 L (38-126) U/L Total Protein 5.2 L (6.3-8.2) g/dL Albumin 2.9 L (3.5-5.0) g/dL Current Medications Generic Name Dose Route Start Last Admin Trade Name Freq PRN Reason Stop Dose Admin Naloxone HCl 0.2 mg 08/16/24 19:23 Naloxone 0.4 Mg/Ml 1 Ml Vial IV Q2M PRN Opioid Reversal Intake and Output 08/16/24 08/17/24 08/17/24 22:59 06:59 14:59 Intake Total 310 310 Balance 310 310 Intake: Blood Product 310 310 Rc As-1 Unit 310 [id number] As-1 Unit 310 [id number] Other: Weight 63.503 kg 08/16/24 17:01 08/16/24 17:01
[2024-08-17 09:38] LABS: Basophils # (A) 0.03 10*3/uL (0.00-0.10); Basophils % (A) 0.9 %; Eosinophils # (A) 0.07 10*3/uL (0.04-0.35); Eosinophils % (A) 2.1 %; HCT 27.6 % (37.2-46.3); Lymphocytes % (A) 12.1 %; MCH 25.5 pg (27.0-32.0); MCHC 28.6 g/dL (32.0-37.0); Mean Platelet Volume 10.8 fL (9.5-12.2); Monocytes # (A) 0.61 10*3/uL (0.20-1.00); Monocytes % (A) 18.5 %; Neutrophils # (A) 2.18 10*3/uL (1.80-7.70); Neutrophils % (A) 66.1 %; Platelet Count 100 10*3/uL (140-440); RDW 16.7 % (11.5-14.5)
[2024-08-17 10:02] LABS: HGB 7.9 g/dL (12.0-15.0)
[2024-08-17] MEDS: FUROSEMIDE 10 MG/ML 4 ML VIAL IV SCH (10:28)
[2024-08-17] MEDS: MIDODRINE 5 MG TAB PO SCH (10:39)
[2024-08-17] MEDS: azaTHIOprine 50 MG TAB PO SCH (10:40)
[2024-08-17] MEDS: LEVOTHYROXINE 112 MCG TAB PO SCH (10:40)
[2024-08-17] MEDS: SPIRONOLACTONE 25 MG TAB PO SCH (10:40)
[2024-08-17] MEDS: PANTOPRAZOLE 40 MG TABLET PO SCH (10:40)
[2024-08-17] MEDS: IPRATROPIUM-ALBUTEROL 3 ML NEB INHALATION SCH (12:24)
[2024-08-17 15:43] LABS: % Iron Saturation 85.57 (12.00-45.00); Ferritin 10.5 ng/mL (10.0-291.0)
[2024-08-17] MEDS: PEG 3350 (236 GM/BTL) + LYTES 4,000 ML BOTTLE PO ONE (16:14)
--- NOTE | 2024-08-17 17:20 | P.CONS ---
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 Patient gets weekly paracentesis underwent paracentesis yesterday with 5.6 L removed. She was noted to have significant lower extremity swelling and interventional radiologist recommended she come to the emergency department for further evaluation. Patient had blood work done and was noted to be anemic with a hemoglobin of 5.6. She was given 2 units of blood. Gastroenterology was consulted for cirrhosis of the liver and anemia. Patient takes Lasix 80 mg daily and spironolactone 100 mg daily. Patient denies any history of needing previous blood transfusion has had some anemia but never this low. Denies any history of GI bleed no history of varices. Last colonoscopy done in August [address] Huber for colon screening with findings of colon polyp and diverticulosis. Last upper endoscopy appears to be in 2019 with findings of gastritis and hiatal hernia. Patient denies any blood in her stool no black stool. She denies any abdominal pain, acid reflux, nausea or vomiting. Patient received 2 units of blood and post hemoglobin today is 7.9 platelet count 100,000 INR 1.0 iron 261 TIBC 305 saturation 85 ferritin 10.5 stool occult blood was negative. Last dose of Eliquis was on 08/15/2024 Review of Systems REVIEW OF SYSTEMS: CARDIOPULMONARY: No chest pain or shortness of breath. Lower extremity swelling Gastrointestinal: No abdominal pain. No nausea or vomiting. No hematemesis, coffee-ground emesis. No rectal bleeding, or melena. History of cirrhosis, ascites. GENITOURINARY: No dysuria or hematuria. MUSCULOSKELETAL: Reports normal range of motion. Joint pain. SKIN: No rashes. No jaundice. Lower extremity swelling. ENDOCRINE: No chills, fevers. No excessive weight gain or loss. No polydipsia or polyuria. PSYCHIATRIC: Unremarkable. NEUROLOGY: No change in mental status. Denies dizziness, headache. ENT: Vision unremarkable. CONSTITUTIONAL: No recent weight loss. No fever, chills, night sweats. Past Medical History Past Medical History: GERD/Reflux, Hyperlipidemia, Pneumonia, Skin Disorder, Thyroid Disorder Additional Past Medical History / Comment(s): MIGRAINES, ARRYTHMIA, SCOLIOSIS, ascites, hypotension History of Any Multi-Drug Resistant Organisms: MRSA Year Discovered:: 2009 MDRO Source:: BREAST-UNKNOWN WHICH SIDE Past Surgical History: Back Surgery, Bariatric Surgery, Bladder Surgery, Breast Surgery, Cholecystectomy, Hysterectomy Additional Past Surgical History / Comment(s): Lap band 01/23/13. Sinus surgery. COLONOSCOPY. BREAST REDUCTION. 2 RT NECK LYMPH NODES REMOVED AND SALIVARY GLAND REMOVAL Past Anesthesia/Blood Transfusion Reactions: No Reported Reaction Past Psychological History: No Psychological Hx Reported Smoking Status: Never smoker Past Alcohol Use History: None Reported Past Drug Use History: None Reported - Past Family History Daughter(s) Family Medical History: Cancer Medications and Allergies Home Medications Medication Instructions Recorded Confirmed Type Levothyroxine Sodium [Euthyrox] 112 mcg PO DAILY 04/02/20 08/16/24 History Pantoprazole [Protonix] 40 mg PO BID 06/30/21 08/16/24 History azaTHIOprine [Imuran] 50 mg PO DAILY 09/02/22 08/16/24 History Apixaban [Eliquis] 5 mg PO BID 05/05/23 08/16/24 History Spironolactone [Aldactone] 100 mg PO DAILY #30 tab 05/07/23 08/16/24 Rx Furosemide [Lasix] 80 mg PO DAILY 06/15/23 08/16/24 History Ipratropium-Albuterol Nebulize 3 ml INHALATION RT-Q4H 09/10/23 08/16/24 History [Duoneb 0.5 mg-3 mg/3 ml Soln] Midodrine [ProAmatine] 10 mg PO TID 10/06/23 08/16/24 History Acebutolol HCl [Sectral] 200 mg PO BID 02/09/24 08/16/24 History Allergies Allergy/AdvReac Type Severity Reaction Status Date / Time No Known Allergies Allergy Verified 08/16/24 20:53 Physical Exam Vitals: Vital Signs Temp Pulse Resp BP Pulse Ox 08/17/24 10:27 98/66 100 08/17/24 10:01 74 18 92/61 100 08/17/24 08:33 75 18 91/54 98 08/17/24 08:23 64 18 87/48 96 08/17/24 07:34 62 20 72/41 95 08/17/24 06:37 97.9 F 73 18 86/52 97 08/17/24 05:11 65 18 78/56 98 08/17/24 01:39 97.9 F 64 16 76/43 97 08/17/24 01:20 68 16 80/47 96 08/17/24 00:36 97.8 F 61 16 81/44 98 08/16/24 23:31 98.7 F 64 18 85/45 100 08/16/24 23:11 98.6 F 64 16 90/51 100 08/16/24 22:55 97.4 F L 67 18 79/54 98 08/16/24 20:30 97.7 F 73 16 83/70 100 08/16/24 20:10 98.7 F 66 18 85/51 97 08/16/24 20:01 98.7 F 66 16 85/50 97 08/16/24 19:55 98.7 F 89 17 91/48 97 08/16/24 18:55 69 18 87/51 100 08/16/24 16:08 97.9 F 75 20 92/55 97 Intake and Output 08/16/24 08/17/24 08/17/24 22:59 06:59 14:59 Intake Total 310 310 Balance 310 310 Intake: Blood Product 310 310 Rc As-1 Unit 310 [id number] Rc As-1 Unit 310 [id number] Other: Weight 63.503 kg General appearance: The patient is alert, oriented, appears in no acute distress. HET: Head is normocephalic and atraumatic. Conjunctiva pink. Sclera anicteric. Neck: Supple without lymphadenopathy. Trachea midline. Heart: Regular. Lungs: Equal expansion, normal respiratory effort. Abdomen: Soft, nontender, ascites, nondistended. Skin: No rashes. No jaundice. Extremities: Normal skin color and turgor. Lower extremity edema. Neurological: No focal deficits. Alert and oriented x3. Results CBC & Chem 7: 08/17/24 08:40 08/16/24 17:01 Labs: Abnormal Lab Results - Last 24 Hours (Table) 04/09/25 04/09/25 04/09/25 Range/Units 17:01 17:01 17:30 WBC 3.18 L (4.50-10.00) 10*3/uL RBC 2.34 L (4.10-5.20) 10*6/uL Hgb 5.6 L* (12.0-15.0) g/dL Hct 19.9 L* (37.2-46.3) % MCH 23.9 L (27.0-32.0) pg MCHC 28.1 L (32.0-37.0) g/dL Plt Count 116 L (140-440) 10*3/uL Lymphocytes # 0.45 L (0.90-5.00) 10*3/uL Eosinophils # 0.03 L (0.04-0.35) 10*3/uL APTT (22.0-30.0) sec Sodium 135 L (137-145) mmol/L Potassium 3.3 L (3.5-5.1) mmol/L Chloride 94 L (98-107) mmol/L Carbon Dioxide 39 H (22-30) mmol/L BUN 30 H (7-17) mg/dL Creatinine 1.23 H (0.52-1.04) mg/dL Glucose 102 H (74-99) mg/dL Alkaline Phosphatase 35 L (38-126) U/L Total Protein 5.2 L (6.3-8.2) g/dL Albumin 2.9 L (3.5-5.0) g/dL Crossmatch See Detail 08/16/24 08/17/24 Range/Units 20:57 08:40 WBC 3.30 L (4.50-10.00) 10*3/uL RBC 3.10 L (4.10-5.20) 10*6/uL Hgb 7.9 L D (12.0-15.0) g/dL Hct 27.6 L (37.2-46.3) % MCH 25.5 L (27.0-32.0) pg MCHC 28.6 L (32.0-37.0) g/dL Plt Count 100 L (140-440) 10*3/uL Lymphocytes # 0.40 L (0.90-5.00) 10*3/uL Eosinophils # (0.04-0.35) 10*3/uL APTT 21.7 L (22.0-30.0) sec Sodium (137-145) mmol/L Potassium (3.5-5.1) mmol/L Chloride (98-107) mmol/L Carbon Dioxide (22-30) mmol/L BUN (7-17) mg/dL Creatinine (0.52-1.04) mg/dL Glucose (74-99) mg/dL Alkaline Phosphatase (38-126) U/L Total Protein (6.3-8.2) g/dL Albumin (3.5-5.0) g/dL Crossmatch Comments: Venous duplex negative for bilateral DVT. Assessment and Plan (1) Anemia Narrative/Plan: 79-year-old female with history of autoimmune hepatitis leading to cirrhosis with ascites. Patient requires weekly paracentesis. Was noted to have increased swelling in her lower extremities despite taking Lasix 80 mg daily and Aldactone 100 mg daily. She is on a Eliquis 5 mg twice daily for history of DVT. She was sent over for lower extremity swelling and blood work was done as part of her workup in the emergency department and was found to be anemic. Patient with symptomatic anemia with complaints of increased fatigue and weakness. Unclear etiology of anemia without any signs of GI bleed however need to consider GI as source. Anticoagulation has been on hold since Wednesday as patient had a scheduled paracentesis yesterday. Continue to hold anticoagulation. Would recommend upper and lower endoscopy for evaluation for anemia. Patient agreeable to proceed. Current Visit: Yes Status: Acute Code(s): D64.9 - ANEMIA, UNSPECIFIED SNOMED Code(s): 450952235 (2) Cirrhosis Current Visit: No Status: Acute Code(s): K74.60 - UNSPECIFIED CIRRHOSIS OF LIVER SNOMED Code(s): 43588521 (3) Lower extremity edema Current Visit: Yes Status: Acute Code(s): R60.0 - LOCALIZED EDEMA SNOMED Code(s): 265157094 (4) History of DVT (deep vein thrombosis) Current Visit: Yes Status: Acute Code(s): Z86.718 - PERSONAL HISTORY OF OTHER VENOUS THROMBOSIS AND EMBOLISM SNOMED Code(s): 197458801 (5) GERD (gastroesophageal reflux disease) Current Visit: Yes Status: Acute Code(s): K21.9 - GASTRO-ESOPHAGEAL REFLUX DISEASE WITHOUT ESOPHAGITIS SNOMED Code(s): 348199488 (6) Hx of laparoscopic gastric banding Current Visit: Yes Status: Acute Code(s): Z98.84 - BARIATRIC SURGERY STATUS SNOMED Code(s): 259762427 (7) Ascites Current Visit: No Status: Acute Code(s): R18.8 - OTHER ASCITES SNOMED Code(s): 617180757 Plan: 1. Continue symptomatic and supportive care 2. Patient may have clear liquid diet, n.p.o. after midnight 3. Bowel prep start this afternoon at 4 PM, may finish bowel prep tomorrow morning starting at 5 AM 4. Hold anticoagulation 5. Protonix 40 mg daily for GI prophylaxis 6. Continue diuretics 7. Daily CBC, transfuse for hemoglobin less than 7 8. Plan for EGD and colonoscopy tomorrow. Procedure with risks and benefits discussed with patient. Patient agreeable with proceeding. 9. Cardiology on consultation, appreciate their recommendations 10. Rest of medical management per primary medical team Thank you for this consultation, we will continue to follow. Dr. Yazan Thomas I agree with the dictator's note, documented as a scribe by Ariadne Barber.
--- NOTE | 2024-08-17 19:31 | P.HPIM ---
History of Present Illness H&P Date: 08/17/24 Chief Complaint: Increased leg swelling Pleasant 79-year-old patient follows Dr. Yanez. Also follows with Dr. Yazan Thomas diagnosed with cirrhosis about 3 years ago. Apparently combination of autoimmune and fatty liver. Patient has schedule paracentesis every week. She had 5.6 L drained yesterday. Patient been having progressive increasing lower extremity swelling for about a month. Now to the point the legs that become very tight painful. When she presented hemoglobin was discovered to be 5.6. Overnight she was transfused 2 units of blood. Review of systems: GEN.: Tired EYES: None HEENT: None NECK: None RESPIRATORY: None CARDIOVASCULAR: Edema e GASTROINTESTINAL: None GENITOURINARY: None MUSCULOSKELETAL: None LYMPHATICS: None HEMATOLOGICAL: None PSYCHIATRY: None NEUROLOGICAL: Does use a walker Social history: Lives alone. Does use a walker. Denies history of alcohol or smoking. Physical examination: VITAL SIGNS: 97.9, 75, 20, 92 x 55, 97% 3 L upon presentation GENERAL: BMI 25.6, laying in bed awake a bit tired. EYES: Pupils equal. Conjunctiva marcy l. HEENT: External appearance of nose and ears normal, oral cavity grossly normal. NECK: JVD not raised; masses not palpable. HEART: First and second heart sounds are normal significant edema. LUNGS: Respiratory rate normal; clear to auscultation. ABDOMEN: Soft some distention, liver spleen not palpable, no masses palpable. PSYCH: Alert and oriented x3; mood and affect marcy l. MUSCULOSKELETAL:No Clubbing/cyanosis;muscles-grossly intact NEUROLOGICAL: Cranial nerves grossly intact; no facial asymmetry, power and sensation grossly intact. LYMPHATICS: No lymph nodes palpable in the axilla and neck INVESTIGATIONS, reviewed in the clinical context: August 17, 2024: White count 3.3 hemoglobin 7.9 platelets 100 August 16: White count 3.1 hemoglobin 5.6 platelets 116 sodium 135 potassium 3.3 BUN 30 creatinine 1.23 AST 19 ALT 9. Stool occult blood negative Chest x-ray film personally reviewed by me-nonspecific Venous Doppler bilateral lower extremity: Negative for DVT Assessment plan: - Acute on chronic severe fluid overload from cirrhosis IV Lasix 40 mg every 12. Aldactone. Fluid restriction 1500 cc a day. - Chronic cirrhosis secondary to autoimmune disorder. 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 Patient has weekly scheduled paracentesis. Last 1 done yesterday 5.6 L removed. Diuretics. Fluid restriction - Severe symptomatic anemia causing weakness. Hemoglobin 5.6 on presentation. 2 units of blood given overnight. Follow H&H Plan for EGD colonoscopy by GI tomorrow - Colonic diverticulosis, per prior colonoscopy - Chronic hypotension on midodrine - Full code Past Medical History Past Medical History: GERD/Reflux, Hyperlipidemia, Pneumonia, Skin Disorder, Thyroid Disorder Additional Past Medical History / Comment(s): MIGRAINES, ARRYTHMIA, SCOLIOSIS, ascites, hypotension History of Any Multi-Drug Resistant Organisms: MRSA Date of last positivie culture/infection: 2009 MDRO Source:: BREAST-UNKNOWN WHICH SIDE Past Surgical History: Back Surgery, Bariatric Surgery, Bladder Surgery, Breast Surgery, Cholecystectomy, Hysterectomy Additional Past Surgical History / Comment(s): Lap band 01/23/13. Sinus surgery. COLONOSCOPY. BREAST REDUCTION. 2 RT NECK LYMPH NODES REMOVED AND SALIVARY GLAND REMOVAL Past Anesthesia/Blood Transfusion Reactions: No Reported Reaction Past Psychological History: No Psychological Hx Reported Smoking Status: Never smoker Past Alcohol Use History: None Reported Past Drug Use History: None Reported - Past Family History Daughter(s) Family Medical History: Cancer Medications and Allergies Home Medications Medication Instructions Recorded Confirmed Type Levothyroxine Sodium [Euthyrox] 112 mcg PO DAILY 04/02/20 08/16/24 History Pantoprazole [Protonix] 40 mg PO BID 06/30/21 08/16/24 History azaTHIOprine [Imuran] 50 mg PO DAILY 09/02/22 08/16/24 History Apixaban [Eliquis] 5 mg PO BID 05/05/23 08/16/24 History Spironolactone [Aldactone] 100 mg PO DAILY #30 tab 05/07/23 08/16/24 Rx Furosemide [Lasix] 80 mg PO DAILY 06/15/23 08/16/24 History Ipratropium-Albuterol Nebulize 3 ml INHALATION RT-Q4H 09/10/23 08/16/24 History [Duoneb 0.5 mg-3 mg/3 ml Soln] Midodrine [ProAmatine] 10 mg PO TID 10/06/23 08/16/24 History Acebutolol HCl [Sectral] 200 mg PO BID 02/09/24 08/16/24 History Allergies Allergy/AdvReac Type Severity Reaction Status Date / Time No Known Allergies Allergy Verified 08/16/24 20:53 Physical Exam Vitals: Vital Signs Temp Pulse Resp BP Pulse Ox 08/17/24 10:27 98/66 100 08/17/24 10:01 74 18 92/61 100 08/17/24 08:33 75 18 91/54 98 08/17/24 08:23 64 18 87/48 96 08/17/24 07:34 62 20 72/41 95 08/17/24 06:37 97.9 F 73 18 86/52 97 08/17/24 05:11 65 18 78/56 98 08/17/24 01:39 97.9 F 64 16 76/43 97 08/17/24 01:20 68 16 80/47 96 08/17/24 00:36 97.8 F 61 16 81/44 98 08/16/24 23:31 98.7 F 64 18 85/45 100 08/16/24 23:11 98.6 F 64 16 90/51 100 08/16/24 22:55 97.4 F L 67 18 79/54 98 08/16/24 20:30 97.7 F 73 16 83/70 100 08/16/24 20:10 98.7 F 66 18 85/51 97 08/16/24 20:01 98.7 F 66 16 85/50 97 08/16/24 19:55 98.7 F 89 17 91/48 97 08/16/24 18:55 69 18 87/51 100 08/16/24 16:08 97.9 F 75 20 92/55 97 Intake and Output 08/16/24 08/17/24 08/17/24 22:59 06:59 14:59 Intake Total 310 310 Balance 310 310 Intake: Blood Product 310 310 Rc As-1 Unit 310 [id number] Rc As-1 Unit 310 [id number] Other: Weight 63.503 kg Results CBC & Chem 7: 08/17/24 08:40 08/16/24 17:01 Labs: Abnormal Lab Results - Last 24 Hours (Table) 08/16/24 08/16/24 08/16/24 Range/Units 17:01 17:01 17:30 WBC 3.18 L (4.50-10.00) 10*3/uL RBC 2.34 L (4.10-5.20) 10*6/uL Hgb 5.6 L* (12.0-15.0) g/dL Hct 19.9 L* (37.2-46.3) % MCH 23.9 L (27.0-32.0) pg MCHC 28.1 L (32.0-37.0) g/dL Plt Count 116 L (140-440) 10*3/uL Lymphocytes # 0.45 L (0.90-5.00) 10*3/uL Eosinophils # 0.03 L (0.04-0.35) 10*3/uL APTT (22.0-30.0) sec Sodium 135 L (137-145) mmol/L Potassium 3.3 L (3.5-5.1) mmol/L Chloride 94 L (98-107) mmol/L Carbon Dioxide 39 H (22-30) mmol/L BUN 30 H (7-17) mg/dL Creatinine 1.23 H (0.52-1.04) mg/dL Glucose 102 H (74-99) mg/dL Alkaline Phosphatase 35 L (38-126) U/L Total Protein 5.2 L (6.3-8.2) g/dL Albumin 2.9 L (3.5-5.0) g/dL Crossmatch See Detail 08/16/24 08/17/24 Range/Units 20:57 08:40 WBC 3.30 L (4.50-10.00) 10*3/uL RBC 3.10 L (4.10-5.20) 10*6/uL Hgb 7.9 L D (12.0-15.0) g/dL Hct 27.6 L (37.2-46.3) % MCH 25.5 L (27.0-32.0) pg MCHC 28.6 L (32.0-37.0) g/dL Plt Count 100 L (140-440) 10*3/uL Lymphocytes # 0.40 L (0.90-5.00) 10*3/uL Eosinophils # (0.04-0.35) 10*3/uL APTT 21.7 L (22.0-30.0) sec Sodium (137-145) mmol/L Potassium (3.5-5.1) mmol/L Chloride (98-107) mmol/L Carbon Dioxide (22-30) mmol/L BUN (7-17) mg/dL Creatinine (0.52-1.04) mg/dL Glucose (74-99) mg/dL Alkaline Phosphatase (38-126) U/L Total Protein (6.3-8.2) g/dL Albumin (3.5-5.0) g/dL Crossmatch
[2024-08-18 07:12] LABS: Basophils # (A) 0.03 10*3/uL (0.00-0.10); Basophils % (A) 1.1 %; Eosinophils # (A) 0.05 10*3/uL (0.04-0.35); Eosinophils % (A) 1.8 %; HCT 26.9 % (37.2-46.3); HGB 7.7 g/dL (12.0-15.0); Immature Platelet Fraction 3.9 % (1.1-6.1); Lymphocytes # (A) 0.51 10*3/uL (0.90-5.00); Lymphocytes % (A) 17.9 %; MCH 25.1 pg (27.0-32.0); MCHC 28.6 g/dL (32.0-37.0); MCV 87.6 fL (80.0-97.0); Mean Platelet Volume 10.6 fL (9.5-12.2); Monocytes # (A) 0.48 10*3/uL (0.20-1.00); Monocytes % (A) 16.8 %; Neutrophils # (A) 1.78 10*3/uL (1.80-7.70); Neutrophils % (A) 62.4 %; RBC 3.07 10*6/uL (4.10-5.20); RDW 16.9 % (11.5-14.5); WBC 2.85 10*3/uL (4.50-10.00)
[2024-08-18 07:42] LABS: ALT 9 U/L (4-34); AST 18 U/L (14-36); African American GFR (CKD) 65 (>60 ml/min/1.73 sqM); Albumin 2.9 g/dL (3.5-5.0); Alkaline Phosphatase 40 U/L (38-126); Blood Urea Nitrogen 22 mg/dL (7-17); Calcium 8.1 mg/dL (8.4-10.2); Chloride 90 mmol/L (98-107); Glucose 86 mg/dL (74-99); Non-African American GFR(CKD) 56 (>60 ml/min/1.73 sqM); Potassium 3.1 mmol/L (3.5-5.1); Sodium 135 mmol/L (137-145); Total Bilirubin 2.1 mg/dL (0.2-1.3); Total Protein 5.2 g/dL (6.3-8.2)
[2024-08-18 07:50] LABS: Anion Gap 2 mmol/L
[2024-08-18 07:54] LABS: Carbon Dioxide 43 mmol/L (22-30)
[2024-08-18 08:50] LABS: Platelet Count 98 10*3/uL (140-440)
[2024-08-18] MEDS: LACTATED RINGERS 1,000 ML IV SCH (09:14)
[2024-08-18] MEDS: IPRATROPIUM-ALBUTEROL 3 ML NEB INHALATION SCH (09:49)
--- NOTE | 2024-08-18 10:36 | CA ---
Transthoracic Echo Report Name: Glendy Soto Age: 79 Gender: F : 1945 Exam Date: 08/17/2024 11:44 Exam Location: [facility] Ht (in): 62 Wt (lb): 140 Ordering Physician: Clarice Woody Attending/Referring Phys: [id number], Bong Window Glazier Helper Jacinda Rodas RDCS Procedure CPT: Indications: LVF Cardiac Hx: Technical Quality: Good Contrast 1: Total Dose (mL): Contrast 2: Total Dose (mL): MEASUREMENTS (Male / Female) Normal Values 2D ECHO LV Diastolic Diameter PLAX 3.9 cm 4.2 - 5.9 / 3.9 - 5.3 cm LV Systolic Diameter PLAX 2.7 cm IVS Diastolic Thickness 0.9 cm 0.6 - 1.0 / 0.6 - 0.9 cm LVPW Diastolic Thickness 0.8 cm 0.6 - 1.0 / 0.6 - 0.9 cm LV Relative Wall Thickness 0.4 RV Internal Dim ED PLAX 3.0 cm LVOT Diameter 1.6 cm LA Systolic Diameter LX 4.8 cm 3.0 - 4.0 / 2.7 - 3.8 cm LA Volume 50.2 cm??? 18 - 58 / 22 - 52 cm??? LA Volume Index 29.9 cm???/m??? 16 - 28 cm???/m??? DOPPLER AV Peak Velocity 200.8 cm/s AV Peak Gradient 16.1 mmHg AV Mean Velocity 138.3 cm/s AV Mean Gradient 8.6 mmHg AV Velocity Time Integral 40.2 cm MV Area PHT 2.7 cm??? Mitral E Point Velocity 63.2 cm/s Mitral A Point Velocity 67.5 cm/s Mitral E to A Ratio 0.9 MV Deceleration Time 282.1 ms TR Peak Velocity 278.7 cm/s TR Peak Gradient 31.1 mmHg Right Atrial Pressure 5.0 mmHg Pulmonary Artery Systolic Pressu 36.1 mmHg Right Ventricular Systolic Press 36.1 mmHg FINDINGS Left Ventricle Left ventricular ejection fraction is estimated at 60 %. Normal Left ventricular size, wall thickness, systolic function with no obvious regional wall motion abnormalities. Right Ventricle Mild right ventricular dilatation. Mild pulmonary hypertension. Right Atrium Normal right atrial size. Left Atrium Severely increased left atrial diameter. Mildly increased left atrial volume. Mitral Valve Structurally normal mitral valve. No mitral stenosis. Trace to mild mitral regurgitation. Aortic Valve Aortic valve sclerosis. Diffuse thickening (sclerosis) of the aortic valve cusps without reduced excursion. No aortic valve stenosis or regurgitation. Tricuspid Valve Structurally normal tricuspid valve. No tricuspid stenosis. Trace to mild tricuspid regurgitation. Pulmonic Valve Structurally normal pulmonic valve. Trace pulmonic regurgitation. Pericardium Trace pericardial effusion. Large pleural effusion. Aorta Normal size aortic root and proximal ascending aorta. CONCLUSIONS Normal LV systolic function Mild pulmonary hypertension Dilated RV Aortic sclerosis Trace pericardial effusion Large pleural effusion Previewed by: Dr. Luis Enrique Whitaker MD (Electronically Signed) Final Date: 18 August 2024 10:35
--- NOTE | 2024-08-18 13:22 | P.PN ---
Progress Note - Text Progress Note Date: 08/18/24 Chief Complaint: Increased leg swelling Pleasant 79-year-old patient follows Dr. Yanez. Also follows with Dr. Yazan Thomas diagnosed with cirrhosis about 3 years ago. Apparently combination of autoimmune and fatty liver. Patient has schedule paracentesis every week. She had 5.6 L drained yesterday. Patient been having progressive increasing lower extremity swelling for about a month. Now to the point the legs that become very tight painful. When she presented hemoglobin was discovered to be 5.6. Overnight she was transfused 2 units of blood. August 18: Patient seen this morning. NPO. Due for EGD colonoscopy t later today. Remains on IV Lasix. Active Medications Albuterol/Ipratropium (Ipratropium-Albuterol 3 Ml Neb) 3 ml INHALATION RT-QID FORMERLY [facility], [facility]1983 Last Admin: 08/18/24 12:18 Dose: 3 ml Albuterol/Ipratropium (Ipratropium-Albuterol 3 Ml Neb) 3 ml INHALATION RT-Q4H PRN PRN Reason: Shortness Of Breath Or Wheezing Azathioprine (Azathioprine 50 Mg Tab) 50 mg PO DAILY FORMERLY [facility], [facility]–1983 Last Admin: 08/18/24 12:32 Dose: Not Given Furosemide (Furosemide 10 Mg/Ml 4 Ml Vial) 40 mg IV Q12HR FORMERLY [facility], [facility]1983 Last Admin: 08/18/24 12:32 Dose: Not Given Lactated Ringer's (Lactated Ringers) 1,000 mls @ 20 mls/hr IV .Q24H FOR[facility]LY [facility], [facility]1983 Last Admin: 08/18/24 09:14 Dose: Not Given Levothyroxine Sodium (Levothyroxine 112 Mcg Tab) 112 mcg PO DAILY@0630 FOR[facility]LY [facility], [facility]1983 Last Admin: 08/18/24 06:28 Dose: 112 mcg Midodrine (Midodrine 5 Mg Tab) 10 mg PO AC-TID FOR[facility], [facility]1983 Last Admin: 08/18/24 11:26 Dose: 10 mg Naloxone HCl (Naloxone 0.4 Mg/Ml 1 Ml Vial) 0.2 mg IV Q2M PRN PRN Reason: Opioid Reversal Pantoprazole Sodium (Pantoprazole 40 Mg Tablet) 40 mg PO AC-BID FOR[facility], [facility] Last Admin: 08/18/24 06:28 Dose: 40 mg Spironolactone (Spironolactone 25 Mg Tab) 100 mg PO DAILY FOR[facility] Last Admin: 08/18/24 12:33 Dose: Not Given Social history: Lives alone. Does use a walker. Denies history of alcohol or smoking. Physical examination: VITAL SIGNS: 98.8, 65, 16, 90 x 46, 100% on 1.5 L GENERAL: Reclining in bed, awake, bit tired.. Scattered bruising EYES: Pupils equal. Conjunctiva marcy l. HEENT: External appearance of nose and ears normal, oral cavity grossly normal. NECK: JVD not raised; masses not palpable. HEART: First and second heart sounds are normal significant edema. LUNGS: Respiratory rate normal; clear to auscultation. ABDOMEN: Soft some distention, liver spleen not palpable, no masses palpable. PSYCH: Alert and oriented x3; mood and affect marcy l. MUSCULOSKELETAL:No Clubbing/cyanosis;muscles-grossly intact INVESTIGATIONS, reviewed in the clinical context: August 18: White count 2.8 hemoglobin 7.7 platelets 98 sodium 135 potassium 3.1 creatinine 0.97 bicarb 43 August 17, 2024: White count 3.3 hemoglobin 7.9 platelets 100 August 16: White count 3.1 hemoglobin 5.6 platelets 116 sodium 135 potassium 3.3 BUN 30 creatinine 1.23 AST 19 ALT 9. Stool occult blood negative Chest x-ray film personally reviewed by me-nonspecific Venous Doppler bilateral lower extremity: Negative for DVT Assessment plan: - Acute on chronic severe fluid overload from cirrhosis: Slow to respond IV Lasix 40 mg twice daily. Aldactone. Fluid restriction 1500 cc a day. 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 Patient has weekly scheduled paracentesis. Last 1 done yesterday 5.6 L removed. Diuretics. Fluid restriction - Severe symptomatic anemia causing weakness. Hemoglobin 5.6 on presentation. Received 2 units of blood Follow H&H Plan for EGD colonoscopy this afternoon by Dr. Yazan Thomas - Colonic diverticulosis, per prior colonoscopy - Chronic hypotension on midodrine - Full code N.p.o. for endoscopy. Continue IV Lasix. Add Diamox. Follow labs. Past Medical History Past Medical History: GERD/Reflux, Hyperlipidemia, Pneumonia, Skin Disorder, Thyroid Disorder Additional Past Medical History / Comment(s): MIGRAINES, ARRYTHMIA, SCOLIOSIS, ascites, hypotension History of Any Multi-Drug Resistant Organisms: MRSA Date of last positivie culture/infection: 2009 MDRO Source:: BREAST-UNKNOWN WHICH SIDE Past Surgical History: Back Surgery, Bariatric Surgery, Bladder Surgery, Breast Surgery, Cholecystectomy, Hysterectomy Additional Past Surgical History / Comment(s): Lap band 01/23/13. Sinus surgery. COLONOSCOPY. BREAST REDUCTION. 2 RT NECK LYMPH NODES REMOVED AND SALIVARY GLAND REMOVAL Past Anesthesia/Blood Transfusion Reactions: No Reported Reaction Past Psychological History: No Psychological Hx Reported Smoking Status: Never smoker Past Alcohol Use History: None Reported Past Drug Use History: None Reported
--- NOTE | 2024-08-18 14:30 | P.PN ---
Subjective Progress Note Date: 08/18/24 This is a 79-year-old female with past medical history of autoimmune cirrhosis of the liver, hypertension, hypothyroidism, history of DVT. Patient was previously seen by Dr. Rosangela Thomas in [place] office in 2019 but has not followed with a brick dropper since. We have been asked to evaluate the patient for CHF. Patient states that she is getting paracentesis weekly. Her last 1 was done yesterday with removal of 5.6 L. She usually has removal of closer to 9 L. She states she missed a week due to weather conditions. Patient presented to the emergency center due to increased edema to the lower extremities that have been going on for about 1 month. She states she had a previously it went away and came back. She also has some shortness of breath when she is in need of paracentesis. She states she has had some shortness of breath with activity. She has dizziness in the morning every day which has been chronic. She denies palpitations or syncopal episodes. She denies alcohol use and no history of alcohol abuse. Blood pressure 91/54, heart rate 75, pulse ox 98% on 2 L nasal cannula. Patient is seen today in the emergency center waiting for a bed on the cardiac stepdown unit. GI is also on consult. Yesterday, patient was transfused 2 units packed RBCs. -EKG: None available. -Venous duplex of the bilateral lower extremity negative for DVT. -Chest x-ray: Low lung volumes with generalized hazy appearance which could represent atelectasis versus pulmonary edema. -Laboratory studies: WBC 3.1, hemoglobin 5.6, platelet count 116. Sodium 135, potassium 3.3, chloride 94, CO2 39, BUN 30 and creatinine 1.23. proBNP 1140 normal for age. Stool for occult blood negative. -Home cardiac medications: Eliquis 5 mg twice daily, Lasix 80 mg daily, midodrine 10 mg 3 times daily, spironolactone 100 mg daily, also on levothyroxine. - Echocardiogram performed 09/11/2023 revealed normal EF with no significant valvular abnormalities. 08/18 Patient is seen and examined on the cardiac stepdown unit. Patient has been seen by GI and is scheduled for EGD and colonoscopy this afternoon. Patient states that her breathing is okay. She has less lower extremity edema. Patient has been started on IV Lasix 40 mg every 12 hours. Blood pressure 90/46, heart rate in the 60s, pulse ox 100% on 1-1/2 L nasal cannula. Repeat blood work reveals hemoglobin 7.7, WBC 2.8, platelet count 98. Sodium 135, potassium 3.1, CO2 43, creatinine 0.97 and BUN 22. Echocardiogram reveals EF of 60%, mild pulmonary hypertension, dilated RV, aortic sclerosis, trace pericardial effusion, large pleural effusion. Physical examination: Gen: This is 79-year-old female in no acute respiratory distress. VS: reviewed HEENT: Head is atraumatic, normocephalic. Pupils equal, round. Sclerae is anicteric. NECK: Supple. No JVD. LUNGS: Clear to auscultation. No wheezes or rhonchi. No intercostal retractions. HEART: Regular rate and rhythm. 2/6 systolic murmur. ABDOMEN: Soft No tenderness. EXTREMITIES: No pedal edema. No calf tenderness. NEUROLOGICAL: Patient is awake, alert and oriented x3. Assessment: Pancytopenia Severe acute anemia presenting with hemoglobin of 5.6 status post transfusion 2 units of packed RBCs. Scheduled for EGD and colonoscopy 08/18 Chronic anemia Hypotension chronic, on midodrine at home History of DVT on Eliquis Cirrhosis of the liver, autoimmune Recurrent ascites with weekly paracentesis Lower extremity edema without clear evidence of heart failure on examination with normal BNP Plan: Continue patient's home cardiac medications Hold Eliquis Continue patient on IV Lasix 40 mg every 12 hours Monitor JOHNNA, daily weights, electrolytes and renal function Further recommendations to follow based upon clinical course Nurse practitioner note has been reviewed, I agree with documented findings and plan of care. Patient was seen and examined. Objective - Vital Signs Vital signs: Vital Signs Temp 98.1 F 08/18/24 09:09 Pulse 67 08/18/24 09:09 Resp 16 08/18/24 09:09 BP 87/43 08/18/24 09:09 Pulse Ox 97 08/18/24 09:09 FiO2 Intake & Output 08/17/24 08/18/24 08/18/24 18:59 06:59 18:59 Intake Total 10 Balance 10 Weight 63.5 kg Intake: IV 10 Invasive Line 2 10 Other: Voiding Method Bedside Commode # Voids 3 # Bowel Movements 3 1 - Labs CBC & Chem 7: 08/18/24 05:19 08/18/24 05:19 Labs: Abnormal Lab Results - Last 24 Hours (Table) 08/17/24 08/17/24 08/18/24 Range/Units 08:40 08:40 05:19 WBC 3.30 L 2.85 L (4.50-10.00) 10*3/uL RBC 3.10 L 3.07 L (4.10-5.20) 10*6/uL Hgb 7.9 L D 7.7 L (12.0-15.0) g/dL Hct 27.6 L 26.9 L (37.2-46.3) % MCH 25.5 L 25.1 L (27.0-32.0) pg MCHC 28.6 L 28.6 L (32.0-37.0) g/dL Plt Count 100 L 98 L (140-440) 10*3/uL Neutrophils # 1.78 L (1.80-7.70) 10*3/uL Lymphocytes # 0.40 L 0.51 L (0.90-5.00) 10*3/uL Sodium (137-145) mmol/L Potassium (3.5-5.1) mmol/L Chloride (98-107) mmol/L Carbon Dioxide (22-30) mmol/L BUN (7-17) mg/dL Calcium (8.4-10.2) mg/dL Iron 261 H (50-170) UG/DL % Saturation 85.57 H (12.00-45.00) Total Bilirubin (0.2-1.3) mg/dL Total Protein (6.3-8.2) g/dL Albumin (3.5-5.0) g/dL 08/18/24 Range/Units 05:19 WBC (4.50-10.00) 10*3/uL RBC (4.10-5.20) 10*6/uL Hgb (12.0-15.0) g/dL Hct (37.2-46.3) % MCH (27.0-32.0) pg MCHC (32.0-37.0) g/dL Plt Count (140-440) 10*3/uL Neutrophils # (1.80-7.70) 10*3/uL Lymphocytes # (0.90-5.00) 10*3/uL Sodium 135 L (137-145) mmol/L Potassium 3.1 L (3.5-5.1) mmol/L Chloride 90 L (98-107) mmol/L Carbon Dioxide 43 H* (22-30) mmol/L BUN 22 H (7-17) mg/dL Calcium 8.1 L (8.4-10.2) mg/dL Iron (50-170) UG/DL % Saturation (12.00-45.00) Total Bilirubin 2.1 H (0.2-1.3) mg/dL Total Protein 5.2 L (6.3-8.2) g/dL Albumin 2.9 L (3.5-5.0) g/dL
[2024-08-18] MEDS: acetaZOLAMIDE 250 MG TAB PO SCH (15:02)
[2024-08-18] MEDS ORDERED: PROPOFOL 10 MG/ML 20 ML VIAL IV ONE (16:50)
[2024-08-18] MEDS ORDERED: LIDOCAINE 1% INJ 10MG/ML (20 ML MDV) ONE (16:50)
[2024-08-18] MEDS: LACTATED RINGERS 1,000 ML IV ONE (17:02)
--- NOTE | 2024-08-18 17:30 | P.PCN ---
Date of Procedure: 08/18/24 Procedure(s) Performed: Brief history: Patient is a pleasant 79-year-old white female with history of cirrhosis of the liver diagnosed 2 years ago history of DVT on Eliquis admitted to hospital hemoglobin of 5.6 g/dL requiring 2 units of PRBC transfusion. No active GI bleed. She is scheduled for an upper endoscopy as well as colonoscopy to evaluate further. Procedure performed: Esophagogastroduodenoscopy with cautery and biopsy Colonoscopy Preoperative diagnosis: Symptomatic iron deficiency anemia History of of liver cirrhosis Anesthesia: MAC Procedure: After informed consent was obtained from the patient was brought into the endoscopy unit and IV sedation was administered by anesthesia under continuous monitoring. Initially upper endoscopy was done. The Olympus GF 160 video endoscope was inserted inserted into the mouth and esophagus intubated without any difficulty and was gradually advanced into the stomach and duodenum and carefully examined. The bulb and second part of the duodenum had multiple small polyps measuring at least 2 to 3 mm in size which were biopsied.. The scope was then withdrawn into the stomach adequately insufflated with air and upon careful examination the antrum and body, had small gastric polyps. In the proximal body of the stomach there were 3 nonbleeding angiectasia which were cauterized using gold probe. Rest of the cardia and fundus appeared normal. The scope was then withdrawn into the esophagus small hiatal hernia noted.. The GE junction was located at 40 cm to the incisors. It appeared regular with no erythema erosions or ulcerations. Rest of the esophagus appeared normal. Patient tolerated the procedure well. At this time the patient continued to remain sedation. Initial digital rectal examination was normal. Olympus CF 160 video colonoscope was then inserted into the rectum and gradually advanced to the cecum without any difficulty. Careful examination was performed as the scope was gradually being withdrawn. The prep was fair. Significant amount of thick liquid stool throughout the colon which was thoroughly irrigated. Mucosa of the the cecum, ascending colon, transverse colon, descending colon, sigmoid colon and rectum appeared normal. Scattered sigmoid diverticulosis. Retroflexion was performed in the rectum and no lesions were noted. Patient tolerated the procedure well. Impression: 1. Upper endoscopy revealed multiple small duodenal polyps, multiple gastric polyps, gastric angioectasia status post cautery using a gold probe and small hiatal hernia 2. Colonoscopy revealed scattered sigmoid diverticulosis but no evidence of colorectal neoplasia Recommendations: Findings of this examination were discussed with the patient. Follow-up with the biopsy results. Resume Eliquis tomorrow morning. Advance to regular diet. Monitor CBC periodically.
[2024-08-18] MEDS: POTASSIUM CHLORIDE ER 20 MEQ TAB.ER PO STA (23:11)
[2024-08-19] MEDS: IPRATROPIUM-ALBUTEROL 3 ML NEB INHALATION PRN (00:25)
[2024-08-19 07:29] LABS: African American GFR (CKD) 51 (>60 ml/min/1.73 sqM); Blood Urea Nitrogen 20 mg/dL (7-17); Calcium 8.7 mg/dL (8.4-10.2); Chloride 91 mmol/L (98-107); Glucose 103 mg/dL (74-99); Non-African American GFR(CKD) 44 (>60 ml/min/1.73 sqM); Potassium 3.6 mmol/L (3.5-5.1); Sodium 133 mmol/L (137-145)
[2024-08-19 07:36] LABS: Anion Gap 4 mmol/L
[2024-08-19 07:38] LABS: Carbon Dioxide 38 mmol/L (22-30)
[2024-08-19] MEDS: APIXABAN 5 MG TAB PO SCH (07:51)
[2024-08-19 11:47] LABS: Basophils # (A) 0.04 10*3/uL (0.00-0.10); Basophils % (A) 0.9 %; Eosinophils # (A) 0.03 10*3/uL (0.04-0.35); Eosinophils % (A) 0.7 %; HCT 28.3 % (37.2-46.3); Lymphocytes # (A) 0.39 10*3/uL (0.90-5.00); Lymphocytes % (A) 8.7 %; MCH 25.2 pg (27.0-32.0); MCHC 28.3 g/dL (32.0-37.0); MCV 89.3 fL (80.0-97.0); Mean Platelet Volume 10.5 fL (9.5-12.2); Monocytes # (A) 0.67 10*3/uL (0.20-1.00); Neutrophils # (A) 3.34 10*3/uL (1.80-7.70); Neutrophils % (A) 74.5 %; Platelet Count 121 10*3/uL (140-440); RBC 3.17 10*6/uL (4.10-5.20); RDW 17.3 % (11.5-14.5); WBC 4.48 10*3/uL (4.50-10.00)
--- NOTE | 2024-08-19 13:52 | P.PN ---
Subjective HISTORY OF PRESENT ILLNESS: This is a 79-year-old female with past medical history of autoimmune cirrhosis of the liver, hypertension, hypothyroidism, history of DVT. Patient was previously seen by Dr. Rosangela Thomas in [place] office in 2019 but has not followed with a foam rubber curer since. We have been asked to evaluate the patient for CHF. Patient states that she is getting paracentesis weekly. Her last 1 was done yesterday with removal of 5.6 L. She usually has removal of closer to 9 L. She states she missed a week due to weather conditions. Patient presented to the emergency center due to increased edema to the lower extremities that have been going on for about 1 month. She states she had a previously it went away and came back. She also has some shortness of breath when she is in need of paracentesis. She states she has had some shortness of breath with activity. She has dizziness in the morning every day which has been chronic. She denies palpitations or syncopal episodes. She denies alcohol use and no history of al cohol abuse. Blood pressure 91/54, heart rate 75, pulse ox 98% on 2 L nasal cannula. Patient is seen today in the emergency center waiting for a bed on the cardiac stepdown unit. GI is also on consult. Yesterday, patient was transfused 2 units packed RBCs. -EKG: None available. -Venous duplex of the bilateral lower extremity negative for DVT. -Chest x-ray: Low lung volumes with generalized hazy appearance which could represent atelectasis versus pulmonary edema. -Laboratory studies: WBC 3.1, hemoglobin 5.6, platelet count 116. Sodium 135, potassium 3.3, chloride 94, CO2 39, BUN 30 and creatinine 1.23. proBNP 1140 normal for age. Stool for occult blood negative. -Home cardiac medications: Eliquis 5 mg twice daily, Lasix 80 mg daily, midodrine 10 mg 3 times daily, spironolactone 100 mg daily, also on levothyroxine. - Echocardiogram performed 09/11/2023 revealed normal EF with no significant valvular abnormalities. 08/18 Patient is seen and examined on the cardiac stepdown unit. Patient has been seen by GI and is scheduled for EGD and colonoscopy this afternoon. Patient states that her breathing is okay. She has less lower extremity edema. Patient has been started on IV Lasix 40 mg every 12 hours. Blood pressure 90/46, heart rate in the 60s, pulse ox 100% on 1-1/2 L nasal cannula. Repeat blood work reveals hemoglobin 7.7, WBC 2.8, platelet count 98. Sodium 135, potassium 3.1, CO2 43, creatinine 0.97 and BUN 22. Echocardiogram reveals EF of 60%, mild pulmonary hypertension, dilated RV, aortic sclerosis, trace pericardial effusion, large pleural effusion. 08/19/2024 Patient underwent EGD and colonoscopy yesterday revealing small duodenal polyps, multiple gastric polyps, gastric angioectasia with cautery, small hiatal hernia, sigmoid diverticulosis with no evidence of colorectal neoplasm. Patient was resumed on her Eliquis this morning. Patient currently denies any chest pain or pressure. She denies any shortness of breath. She reports that her belly feels like it is gurgling this morning. She states that she did not sleep well overnight and is tired this morning. Blood pressures are in the 80s. Patient is maintained on midodrine. PHYSICAL EXAM: VITAL SIGNS: Reviewed. GENERAL: Well-developed in no acute distress. NECK: Supple. No JVD or thyromegaly LUNGS: Respirations even and unlabored. Lungs essentially clear to auscultation bilaterally. HEART: Regular rate and rhythm. S1 and S2 heard. EXTREMITIES: Normal range of motion. No clubbing or cyanosis. Peripheral pulses intact. Bilateral lower extremities with Jesus wraps noted. ASSESSMENT: Pancytopenia Severe acute anemia presenting with hemoglobin of 5.6 status post transfusion 2 units of packed RBCs, status post endoscopy as above Chronic anemia Hypotension chronic, on midodrine at home History of DVT on Eliquis Cirrhosis of the liver, autoimmune Recurrent ascites with weekly paracentesis Lower extremity edema without clear evidence of heart failure on examination with normal BNP PLAN: Patient has been resumed on Eliquis this morning Discontinue IV Lasix. Begin oral Lasix 80 mg daily starting tomorrow Continue midodrine for chronic hypotension Repeat CBC and BMP in a.m. Further recommendations pending patient course Nurse practitioner note has been reviewed by physician. Signing provider agrees with the documented findings, assessment, and plan of care documented by [id number] PROGRAMMER ANALYST as a scribe. Objective - Vital Signs Vital signs: Vital Signs Temp 98.2 F 08/19/24 12:29 Pulse 86 04/12/25 12:36 Resp 20 08/19/24 12:36 BP 88/57 08/19/24 12:29 Pulse Ox 93 L 08/19/24 12:29 FiO2 Intake & Output 08/18/24 08/19/24 08/19/24 18:59 06:59 18:59 Intake Total 710 20 250 Output Total 500 Balance 710 -480 250 Weight 63.4 kg Intake: IV 710 20 10 Invasive Line 2 10 Invasive Line 3 20 10 Oral 240 Output: Urine 500 Other: Voiding Method Bedside Commode Bedside Commode Bedside Commode External Catheter External Catheter # Bowel Movements 1 - Labs CBC & Chem 7: 08/19/24 06:07 08/19/24 06:17 Labs: Abnormal Lab Results - Last 24 Hours (Table) 08/19/24 08/19/24 Range/Units 06:07 06:17 WBC 4.48 L (4.50-10.00) 10*3/uL RBC 3.17 L (4.10-5.20) 10*6/uL Hgb 8.0 L (12.0-15.0) g/dL Hct 28.3 L (37.2-46.3) % MCH 25.2 L (27.0-32.0) pg MCHC 28.3 L (32.0-37.0) g/dL Plt Count 121 L (140-440) 10*3/uL Lymphocytes # 0.39 L (0.90-5.00) 10*3/uL Eosinophils # 0.03 L (0.04-0.35) 10*3/uL Sodium 133 L (137-145) mmol/L Chloride 91 L (98-107) mmol/L Carbon Dioxide 38 H (22-30) mmol/L BUN 20 H (7-17) mg/dL Creatinine 1.18 H (0.52-1.04) mg/dL Glucose 103 H (74-99) mg/dL
--- NOTE | 2024-08-19 14:13 | P.PN ---
Progress Note - Text Progress Note Date: 08/19/24 Chief Complaint: Increased leg swelling Pleasant 79-year-old patient follows Dr. Yanez. Also follows with Dr. Yazan Thomas diagnosed with cirrhosis about 3 years ago. Apparently combination of autoimmune and fatty liver. Patient has schedule paracentesis every week. She had 5.6 L drained yesterday. Patient been having progressive increasing lower extremity swelling for about a month. Now to the point the legs that become very tight painful. When she presented hemoglobin was discovered to be 5.6. Overnight she was transfused 2 units of blood. August 18: Patient seen this morning. NPO. Due for EGD colonoscopy t later today. Remains on IV Lasix. August 19: Yesterday: EGD: Multiple small duodenal polyps, multiple gastric polyps, gastric angiectasia status post cautery. Colonoscopy: Scattered sigmoid diverticulosis with no evidence of bleeding. Per cardiology IV Lasix discontinued. Oral Lasix from tomorrow. Planning for discharge tomorrow. Eating fair. Active Medications Acetazolamide (Acetazolamide 250 Mg Tab) 250 mg PO BID [facility] Last Admin: 08/19/24 07:46 Dose: 250 mg Albuterol/Ipratropium (Ipratropium-Albuterol 3 Ml Neb) 3 ml INHALATION RT-QID [facility] Last Admin: 08/19/24 12:24 Dose: 3 ml Albuterol/Ipratropium (Ipratropium-Albuterol 3 Ml Neb) 3 ml INHALATION RT-Q4H PRN PRN Reason: Shortness Of Breath Or Wheezing Last Admin: 08/19/24 00:25 Dose: 3 ml Apixaban (Apixaban 5 Mg Tab) 5 mg PO BID [facility]; Protocol Last Admin: 08/19/24 07:51 Dose: 5 mg Azathioprine (Azathioprine 50 Mg Tab) 50 mg PO DAILY [facility] Last Admin: 08/19/24 07:46 Dose: 50 mg Furosemide (Furosemide 80 Mg Tab) 80 mg PO DAILY [facility] Lactated Ringer's (Lactated Ringers) 1,000 mls @ 20 mls/hr IV .Q24H [facility] Last Admin: 08/19/24 06:16 Dose: Not Given Levothyroxine Sodium (Levothyroxine 112 Mcg Tab) 112 mcg PO DAILY@0630 [facility] Last Admin: 08/19/24 06:21 Dose: 112 mcg Midodrine (Midodrine 5 Mg Tab) 10 mg PO AC-TID [facility] Last Admin: 08/19/24 14:00 Dose: 10 mg Naloxone HCl (Naloxone 0.4 Mg/Ml 1 Ml Vial) 0.2 mg IV Q2M PRN PRN Reason: Opioid Reversal Pantoprazole Sodium (Pantoprazole 40 Mg Tablet) 40 mg PO AC-BID [facility] Last Admin: 08/19/24 06:21 Dose: 40 mg Simethicone (Simethicone 80 Mg Chewable) 80 mg PO TID PRN PRN Reason: Bloating Spironolactone (Spironolactone 25 Mg Tab) 100 mg PO DAILY [facility] Last Admin: 08/19/24 07:46 Dose: 100 mg Social history: Lives alone. Does use a walker. Denies history of alcohol or smoking. Physical examination: VITAL SIGNS: 98.2, 71, 18, 88 x 57, 93% on 1.5 L GENERAL: Sitting in bed, eating lunch.. Scattered bruising EYES: Pupils equal. Conjunctiva marcy l. HEENT: External appearance of nose and ears normal, oral cavity grossly normal. NECK: JVD not raised; masses not palpable. HEART: First and second heart sounds are normal, decreased t edema. LUNGS: Respiratory rate normal; clear to auscultation. ABDOMEN: Soft some distention, liver spleen not palpable, no masses palpable. PSYCH: Alert and oriented x3; mood and affect marcy l. MUSCULOSKELETAL:No Clubbing/cyanosis;muscles-grossly intact INVESTIGATIONS, reviewed in the clinical context: August 19: White count 4.4 hemoglobin 8 platelets 121 potassium 3.6 BUN 20 creatinine 1.18 August 18: White count 2.8 hemoglobin 7.7 platelets 98 sodium 135 potassium 3.1 creatinine 0.97 bicarb 43 August 17, 2024: White count 3.3 hemoglobin 7.9 platelets 100 August 16: White count 3.1 hemoglobin 5.6 platelets 116 sodium 135 potassium 3.3 BUN 30 creatinine 1.23 AST 19 ALT 9. Stool occult blood negative Chest x-ray film personally reviewed by me-nonspecific Venous Doppler bilateral lower extremity: Negative for DVT Assessment plan: - Acute on chronic severe fluid overload from cirrhosis: Improving IV Lasix 40 mg twice daily, oral Lasix from tomorrow. Aldactone. Fluid restriction 2000 cc a day. 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 Patient has weekly scheduled paracentesis. 5.6 L removed., Day prior to admission Diuretics. Fluid restriction - Severe symptomatic anemia causing weakness. Hemoglobin 5.6 on presentation. Received 2 units of blood Follow H&H -Multiple small duodenal polyps, multiple gastric polyps, gastric angiectasia status post cautery, by Dr. Yazan Thomas - Colonic diverticulosis, per prior colonoscopy - Chronic hypotension on midodrine - Full code Switch to p.o. Lasix tomorrow. Repeat labs. Planning for discharge tomorrow. Eliquis resumed tomorrow Past Medical History Past Medical History: GERD/Reflux, Hyperlipidemia, Pneumonia, Skin Disorder, Thyroid Disorder Additional Past Medical History / Comment(s): MIGRAINES, ARRYTHMIA, SCOLIOSIS, ascites, hypotension History of Any Multi-Drug Resistant Organisms: MRSA Date of last positivie culture/infection: 2009 MDRO Source:: BREAST-UNKNOWN WHICH SIDE Past Surgical History: Back Surgery, Bariatric Surgery, Bladder Surgery, Breast Surgery, Cholecystectomy, Hysterectomy Additional Past Surgical History / Comment(s): Lap band 01/23/13. Sinus surgery. COLONOSCOPY. BREAST REDUCTION. 2 RT NECK LYMPH NODES REMOVED AND SALIVARY GLAND REMOVAL Past Anesthesia/Blood Transfusion Reactions: No Reported Reaction Past Psychological History: No Psychological Hx Reported Smoking Status: Never smoker Past Alcohol Use History: None Reported Past Drug Use History: None Reported
[2024-08-19] MEDS: SIMETHICONE 80 MG CHEWABLE PO PRN (14:26)
[2024-08-20 06:33] LABS: Basophils # (A) 0.03 10*3/uL (0.00-0.10); Basophils % (A) 0.7 %; Eosinophils # (A) 0.07 10*3/uL (0.04-0.35); Eosinophils % (A) 1.7 %; HGB 7.9 g/dL (12.0-15.0); Immature Platelet Fraction 3.1 % (1.1-6.1); Lymphocytes # (A) 0.54 10*3/uL (0.90-5.00); Lymphocytes % (A) 13.1 %; MCH 25.4 pg (27.0-32.0); MCHC 28.2 g/dL (32.0-37.0); Mean Platelet Volume 10.4 fL (9.5-12.2); Monocytes # (A) 0.68 10*3/uL (0.20-1.00); Monocytes % (A) 16.5 %; Neutrophils # (A) 2.79 10*3/uL (1.80-7.70); Neutrophils % (A) 67.8 %; Platelet Count 116 10*3/uL (140-440); RBC 3.11 10*6/uL (4.10-5.20); RDW 17.8 % (11.5-14.5); WBC 4.12 10*3/uL (4.50-10.00)
[2024-08-20 06:50] LABS: African American GFR (CKD) 47 (>60 ml/min/1.73 sqM); Anion Gap 3 mmol/L; Blood Urea Nitrogen 19 mg/dL (7-17); Carbon Dioxide 40 mmol/L (22-30); Chloride 91 mmol/L (98-107); Glucose 108 mg/dL (74-99); Non-African American GFR(CKD) 41 (>60 ml/min/1.73 sqM); Potassium 3.6 mmol/L (3.5-5.1); Sodium 134 mmol/L (137-145)
[2024-08-20] MEDS: FUROSEMIDE 80 MG TAB PO SCH (08:58)
[2024-08-20 09:01] VITALS: RESP 16
--- NOTE | 2024-08-20 12:23 | P.PN ---
Subjective HISTORY OF PRESENT ILLNESS: This is a 79-year-old female with past medical history of autoimmune cirrhosis of the liver, hypertension, hypothyroidism, history of DVT. Patient was previously seen by Dr. Rosangela Thomas in [place] office in 2019 but has not followed with a online merchandising manager since. We have been asked to evaluate the patient for CHF. Patient states that she is getting paracentesis weekly. Her last 1 was done yesterday with removal of 5.6 L. She usually has removal of closer to 9 L. She states she missed a week due to weather conditions. Patient presented to the emergency center due to increased edema to the lower extremities that have been going on for about 1 month. She states she had a previously it went away and came back. She also has some shortness of breath when she is in need of paracentesis. She states she has had some shortness of breath with activity. She has dizziness in the morning every day which has been chronic. She denies palpitations or syncopal episodes. She denies alcohol use and no history of al cohol abuse. Blood pressure 91/54, heart rate 75, pulse ox 98% on 2 L nasal cannula. Patient is seen today in the emergency center waiting for a bed on the cardiac stepdown unit. GI is also on consult. Yesterday, patient was transfused 2 units packed RBCs. -EKG: None available. -Venous duplex of the bilateral lower extremity negative for DVT. -Chest x-ray: Low lung volumes with generalized hazy appearance which could represent atelectasis versus pulmonary edema. -Laboratory studies: WBC 3.1, hemoglobin 5.6, platelet count 116. Sodium 135, potassium 3.3, chloride 94, CO2 39, BUN 30 and creatinine 1.23. proBNP 1140 normal for age. Stool for occult blood negative. -Home cardiac medications: Eliquis 5 mg twice daily, Lasix 80 mg daily, midodrine 10 mg 3 times daily, spironolactone 100 mg daily, also on levothyroxine. - Echocardiogram performed 09/11/2023 revealed normal EF with no significant valvular abnormalities. 08/18 Patient is seen and examined on the cardiac stepdown unit. Patient has been seen by GI and is scheduled for EGD and colonoscopy this afternoon. Patient states that her breathing is okay. She has less lower extremity edema. Patient has been started on IV Lasix 40 mg every 12 hours. Blood pressure 90/46, heart rate in the 60s, pulse ox 100% on 1-1/2 L nasal cannula. Repeat blood work reveals hemoglobin 7.7, WBC 2.8, platelet count 98. Sodium 135, potassium 3.1, CO2 43, creatinine 0.97 and BUN 22. Echocardiogram reveals EF of 60%, mild pulmonary hypertension, dilated RV, aortic sclerosis, trace pericardial effusion, large pleural effusion. 08/19/2024 Patient underwent EGD and colonoscopy yesterday revealing small duodenal polyps, multiple gastric polyps, gastric angioectasia with cautery, small hiatal hernia, sigmoid diverticulosis with no evidence of colorectal neoplasm. Patient was resumed on her Eliquis this morning. Patient currently denies any chest pain or pressure. She denies any shortness of breath. She reports that her belly feels like it is gurgling this morning. She states that she did not sleep well overnight and is tired this morning. Blood pressures are in the 80s. Patient is maintained on midodrine. 08/20/2024 Patient examined this morning at bedside. Patient currently denies chest pain or pressure. She denies shortness of breath. She continues to report gas pains this morning. Blood pressure is stable. She has been transition to oral Lasix yesterday. BUN 19. Creatinine 1.27. PHYSICAL EXAM: VITAL SIGNS: Reviewed. GENERAL: Well-developed in no acute distress. NECK: Supple. No JVD or thyromegaly LUNGS: Respirations even and unlabored. Lungs essentially clear to auscultation bilaterally. HEART: Regular rate and rhythm. S1 and S2 heard. EXTREMITIES: Normal range of motion. No clubbing or cyanosis. Peripheral pulses intact. Bilateral lower extremities with Jesus wraps noted. ASSESSMENT: Pancytopenia Severe acute anemia presenting with hemoglobin of 5.6 status post transfusion 2 units of packed RBCs, status post endoscopy as above Chronic anemia Hypotension chronic, on midodrine at home History of DVT on Eliquis Cirrhosis of the liver, autoimmune Recurrent ascites with weekly paracentesis Lower extremity edema without clear evidence of heart failure on examination with normal BNP PLAN: Continue anticoagulation with Eliquis Continue oral Lasix and Aldactone Continue midodrine for chronic hypotension Repeat CBC and BMP in a.m. Patient is currently stable from a cardiac perspective Further recommendations pending patient course Nurse practitioner note has been reviewed by physician. Signing provider agrees with the documented findings, assessment, and plan of care documented by EXECUTIVE TEAM LEADER as a scribe. Objective - Vital Signs Vital signs: Vital Signs Temp 98.4 F 08/20/24 11:22 Pulse 77 08/20/24 11:22 Resp 16 08/20/24 11:22 BP 101/66 08/20/24 11:22 Pulse Ox 98 08/20/24 11:22 FiO2 Intake & Output 08/19/24 08/20/24 08/20/24 18:59 06:59 18:59 Intake Total 730 20 370 Output Total 300 800 Balance 430 -780 370 Weight 67.4 kg Intake: IV 10 20 10 Invasive Line 3 10 20 10 Oral 720 360 Output: Urine 300 800 Other: Voiding Method Bedside Commode Bedside Commode Bedside Commode External Catheter # Bowel Movements 1 - Labs CBC & Chem 7: 08/20/24 05:56 08/20/24 05:56 Labs: Abnormal Lab Results - Last 24 Hours (Table) 08/20/24 08/20/24 Range/Units 05:56 05:56 WBC 4.12 L (4.50-10.00) 10*3/uL RBC 3.11 L (4.10-5.20) 10*6/uL Hgb 7.9 L (12.0-15.0) g/dL Hct 28.0 L (37.2-46.3) % MCH 25.4 L (27.0-32.0) pg MCHC 28.2 L (32.0-37.0) g/dL Plt Count 116 L (140-440) 10*3/uL Lymphocytes # 0.54 L (0.90-5.00) 10*3/uL Sodium 134 L (137-145) mmol/L Chloride 91 L (98-107) mmol/L Carbon Dioxide 40 H (22-30) mmol/L BUN 19 H (7-17) mg/dL Creatinine 1.27 H (0.52-1.04) mg/dL Glucose 108 H (74-99) mg/dL
[2024-08-20 15:47] VITALS: BP 94/60; PULSE 78; TEMP 98.5
--- NOTE | 2024-08-20 21:24 | P.DS ---
Providers Date of admission: 08/17/24 10:32 Expected date of discharge: 08/20/24 Attending physician: Javier Mathur Consults: 08/16/24 19:23 Consult Physician Urgent Consulting Provider: [facility] Consult Reason/Comments: CHF Do you want consulting provider notified?: Yes, Notify in am Consult Physician Urgent Consulting Provider: Tata Thomas Consult Reason/Comments: Cirrhosis, anemia Do you want consulting provider notified?: Yes, Notify in am Primary care physician: [facility] Course: Chief Complaint: Increased leg swelling Pleasant 79-year-old patient follows Dr. Yanez. Also follows with Dr. Yazan Thomas diagnosed with cirrhosis about 3 years ago. Apparently combination of autoimmune and fatty liver. Patient has schedule paracentesis every week. She had 5.6 L drained yesterday. Patient been having progressive increasing lower extremity swelling for about a month. Now to the point the legs that become very tight painful. When she presented hemoglobin was discovered to be 5.6. Overnight she was transfused 2 units of blood. August 18: Patient seen this morning. NPO. Due for EGD colonoscopy t later today. Remains on IV Lasix. August 19: Yesterday: EGD: Multiple small duodenal polyps, multiple gastric polyps, gastric angiectasia status post cautery. Colonoscopy: Scattered sigmoid diverticulosis with no evidence of bleeding. Per cardiology IV Lasix discontinued. Oral Lasix from tomorrow. Planning for discharge tomorrow. Eating fair. August 20: Doing well. No new issues. Will follow-up with her sap bw architect, Dr. Yazan Thomas and PCP. Questions answered. Patient wears 2 L of oxygen at home Discussion and discharge planning more than 35 minutes Social history: Lives alone. Does use a walker. Denies history of alcohol or smoking. Physical examination: VITAL SIGNS: 98.5, 78, 16, 94 x 60, 98% on 1.5 L GENERAL: Comfortable h.. Scattered bruising EYES: Pupils equal. Conjunctiva marcy l. HEENT: External appearance of nose and ears normal, oral cavity grossly normal. NECK: JVD not raised; masses not palpable. HEART: First and second heart sounds are normal, edema improved LUNGS: Respiratory rate normal; clear to auscultation. ABDOMEN: Soft some distention, liver spleen not palpable, no masses palpable. PSYCH: Alert and oriented x3; mood and affect marcy l. MUSCULOSKELETAL:No Clubbing/cyanosis;muscles-grossly intact INVESTIGATIONS, reviewed in the clinical context: August 20: White count 4.1 hemoglobin 7.9 platelets 116 sodium 134 BUN 19 creatinine 1.27 August 16: White count 3.1 hemoglobin 5.6 platelets 116 sodium 135 potassium 3.3 BUN 30 creatinine 1.23 AST 19 ALT 9. Stool occult blood negative Chest x-ray film personally reviewed by me-nonspecific Venous Doppler bilateral lower extremity: Negative for DVT Assessment plan: - Acute on chronic severe fluid overload from cirrhosis: Improved Received IV Lasix. Now on Lasix 80 mg a day.. Aldactone. 100 Fluid restriction 2000 cc a day. 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 Patient has weekly scheduled paracentesis. 5.6 L removed., Day prior to admission Diuretics. Fluid restriction - Severe symptomatic anemia causing weakness. Hemoglobin 5.6 on presentation. Received 2 units of blood Follow H&H -Multiple small duodenal polyps, multiple gastric polyps, gastric angiectasia status post cautery, by Dr. Yazan Thomas Follow-up with Dr. Yazan Thomas - Colonic diverticulosis, per prior colonoscopy - Chronic hypotension on midodrine - Full code Disposition: Home Lab CBC BMP: 3 days Past Medical History Past Medical History: GERD/Reflux, Hyperlipidemia, Pneumonia, Skin Disorder, Thyroid Disorder Additional Past Medical History / Comment(s): MIGRAINES, ARRYTHMIA, SCOLIOSIS, ascites, hypotension History of Any Multi-Drug Resistant Organisms: MRSA Date of last positivie culture/infection: 2009 MDRO Source:: BREAST-UNKNOWN WHICH SIDE Past Surgical History: Back Surgery, Bariatric Surgery, Bladder Surgery, Breast Surgery, Cholecystectomy, Hysterectomy Additional Past Surgical History / Comment(s): Lap band 01/23/13. Sinus surgery. COLONOSCOPY. BREAST REDUCTION. 2 RT NECK LYMPH NODES REMOVED AND SALIVARY GLAND REMOVAL Past Anesthesia/Blood Transfusion Reactions: No Reported Reaction Past Psychological History: No Psychological Hx Reported Smoking Status: Never smoker Past Alcohol Use History: None Reported Past Drug Use History: None Reported Plan - Discharge Summary Discharge Rx Participant: No New Discharge Prescriptions: New Furosemide [Lasix] 80 mg PO DAILY #30 tab Continue Levothyroxine Sodium [Euthyrox] 112 mcg PO DAILY azaTHIOprine [Imuran] 50 mg PO DAILY Ipratropium-Albuterol Nebulize [Duoneb 0.5 mg-3 mg/3 ml Soln] 3 ml INHALATION RT-Q4H Midodrine [ProAmatine] 10 mg PO TID Pantoprazole [Protonix] 40 mg PO BID Apixaban [Eliquis] 5 mg PO BID Spironolactone [Aldactone] 100 mg PO DAILY #30 tab Discontinued Furosemide [Lasix] 80 mg PO DAILY Acebutolol HCl [Sectral] 200 mg PO BID Discharge Medication List Levothyroxine Sodium [Euthyrox] 112 mcg PO DAILY 04/02/20 [History] Pantoprazole [Protonix] 40 mg PO BID 06/30/21 [History] azaTHIOprine [Imuran] 50 mg PO DAILY 09/02/22 [History] Apixaban [Eliquis] 5 mg PO BID 05/05/23 [History] Spironolactone [Aldactone] 100 mg PO DAILY #30 tab 05/07/23 [Rx] Ipratropium-Albuterol Nebulize [Duoneb 0.5 mg-3 mg/3 ml Soln] 3 ml INHALATION RT-Q4H 09/10/23 [History] Midodrine [ProAmatine] 10 mg PO TID 10/06/23 [History] Furosemide [Lasix] 80 mg PO DAILY #30 tab 08/20/24 [Rx] Follow up Appointment(s)/Referral(s): sap bw architect, [Other] - 1 Week Jovan Yanez MD [Primary Care Provider] - 1-2 days (Offices are closed, please call to make a post hospital follow up appointment when offices are open) Tata Thomas MD [STAFF PHYSICIAN] - 1 Week (Offices are closed, please call to make a post hospital follow up appointment when offices are open ) Patient Instructions/Handouts: Gastritis (DC), Arteriovenous Malformation (DC) Activity/Diet/Wound Care/Special Instructions: GI BLEED Take all new medication as directed. Avoid and foods that can be irritating to your intestines; Caffeine, acidic, spicy foods or foods that cause heartburn. Avoid Motrin (ibuprofen) and Aleve (naproxen). These medications can increase your risk of internal bleeding. Tylenol (acetaminophen) is safe to take as long as you do not have any liver disease. Avoid drinking alcohol and smoking, these can also irritate your intestines and increase risk of internal bleeding. Increase activity gradually, do not overexert yourself. Your blood count is lower and your body will need time to recover. Warning signs of GI Bleeding: Black or tarry colored stools Bright red blood from rectum Bright red or dark blood mixed with stool Bright red vomit Vomit that looks like coffee grounds Signs that also may occur are dizziness, faintness, paleness, shortness of breath, weakness and overall feeling of fatigue Discharge Disposition: HOME SELF-CARE
== END 2024-08-20 16:34 | disposition home or self-care (01) | DRG 809 ==
LOC: EC 15:37 → 3SCARD 19:25 → OBSVTOIN 08-17 10:32 → 3SCARD 08-17 15:45
PROVIDERS: ADMIT Hospitalist; ATTEND Hospitalist
PROC: 30233N1 Transfusion of Nonautologous Red Blood Cells into Peripheral Vein, Percutaneous Approach (ICD-10-PCS; 2024-08-17)
PROC: 0DB98ZX Excision of Duodenum, Via Natural or Artificial Opening Endoscopic, Diagnostic (ICD-10-PCS; principal; 2024-08-18 16:00)
PROC: 0W3P8ZZ Control Bleeding in Gastrointestinal Tract, Via Natural or Artificial Opening Endoscopic (ICD-10-PCS; 2024-08-18 16:00)
PROC: 0DJD8ZZ Inspection of Lower Intestinal Tract, Via Natural or Artificial Opening Endoscopic (ICD-10-PCS; 2024-08-18 16:00)
DX: D61.818 Other pancytopenia (principal); E87.3 Alkalosis; R18.8 Other ascites; D89.89 Other specified disorders involving the immune mechanism, not elsewhere classified; K76.6 Portal hypertension; E03.9 Hypothyroidism, unspecified; I10 Essential (primary) hypertension; K74.60 Unspecified cirrhosis of liver; K75.4 Autoimmune hepatitis; K76.0 Fatty (change of) liver, not elsewhere classified; K31.7 Polyp of stomach and duodenum; K57.30 Diverticulosis of large intestine without perforation or abscess without bleeding; K21.00 Gastro-esophageal reflux disease with esophagitis, without bleeding; I95.89 Other hypotension; I99.8 Other disorder of circulatory system; K31.819 Angiodysplasia of stomach and duodenum without bleeding; K44.9 Diaphragmatic hernia without obstruction or gangrene; Z86.718 Personal history of other venous thrombosis and embolism; Z98.84 Bariatric surgery status; Z79.890 Hormone replacement therapy; Z79.01 Long term (current) use of anticoagulants; Z79.899 Other long term (current) drug therapy; Z90.710 Acquired absence of both cervix and uterus
CPT/HCPCS: 36415; 36430; 43239; 43270; 45378; 71046; 80048; 80053; 82272; 82728; 83540; 83550; 83880; 85025; 85610; 85730; 86850; 86900; 86901; 86920; 88305; 93306; 93970; 94640; 94760; 99285

== ENCOUNTER 2024-08-23 12:54 | Day surgery (SDC) | payer MEDICARE, OTHER ==
[2024-08-23 13:34] LABS: Immature Platelet Fraction 3.2 % (1.1-6.1); Platelet Count 124 10*3/uL (140-440)
[2024-08-23 13:47] LABS: African American GFR (CKD) 44 (>60 ml/min/1.73 sqM); Non-African American GFR(CKD) 38 (>60 ml/min/1.73 sqM)
[2024-08-23] MEDS: ALBUMIN HUMAN 25% 50 ML in EMPTY BAG 1 BAG IVPB SCH (13:50)
[2024-08-23 13:53] VITALS: RESP 16; TEMP 98
[2024-08-23 14:02] LABS: INR 1.1 (<1.2); Prothrombin Time 11.7 sec (10.0-12.5)
--- NOTE | 2024-08-23 15:02 | US ---
EXAMINATION TYPE: US paracentesis abd w/image DATE OF EXAM: 08/23/2024 CLINICAL HISTORY: Ascites The procedure was discussed with the patient. The risks, complications, benefits, and alternatives we re discussed and any questions were answered. Informed consent was obtained. The patient was placed s upine on the ultrasound table and prepped and draped in the usual sterile fashion. All elements of maximal barrier technique were utilized. Under ultrasound guidance, access into the right lower quadrant was obtained, via the paracentesis catheter system and direct ultrasound guidanc e. Approximately 5.8 liters of straw-colored fluid was removed. The patient was stable throughout the pr ocedure and remained stable upon discharge from Department of Radiology. IMPRESSION: Successful therapeutic paracentesis under ultrasound guidance. [facility], , 08/23/2024 3:00 PM
[2024-08-23 15:14] VITALS: BP 111/73; PULSE 75
== END 2024-08-23 15:25 | disposition home or self-care (01) ==
LOC: RADPROMAIN 12:54
PROVIDERS: ATTEND Internal Medicine Gastroenterology
DX: R18.8 Other ascites (principal)
CPT/HCPCS: 82565; 85049; 85610; 36415; 49083; P9047

== ENCOUNTER 2024-08-30 12:52 | Day surgery (SDC) | payer MEDICARE, OTHER ==
[2024-08-30 13:36] LABS: Mean Platelet Volume 9.5 fL (9.5-12.2); Platelet Count 158 10*3/uL (140-440)
[2024-08-30 13:43] LABS: Prothrombin Time 11.2 sec (10.0-12.5)
[2024-08-30 13:50] LABS: African American GFR (CKD) 50 (>60 ml/min/1.73 sqM); Non-African American GFR(CKD) 43 (>60 ml/min/1.73 sqM)
[2024-08-30] MEDS: ALBUMIN HUMAN 25% 50 ML in EMPTY BAG 1 BAG IVPB SCH (13:58)
[2024-08-30 14:06] VITALS: RESP 16; TEMP 97.9
--- NOTE | 2024-08-30 15:12 | US ---
EXAMINATION TYPE: US paracentesis abd w/image DATE OF EXAM: 08/30/2024 CLINICAL HISTORY: Ascites The procedure was discussed with the patient. The risks, complications, benefits, and alternatives we re discussed and any questions were answered. Informed consent was obtained. The patient was placed s upine on the ultrasound table and prepped and draped in the usual sterile fashion. All elements of maximal barrier technique were utilized. Under ultrasound guidance, access into the right lower quadrant was obtained, via the paracentesis catheter system and direct ultrasound guidanc e. Approximately 4.1 liters of straw-colored fluid was removed. The patient was stable throughout the pr ocedure and remained stable upon discharge from Department of Radiology. IMPRESSION: Successful therapeutic paracentesis under ultrasound guidance. [facility], , 08/30/2024 3:10 PM
[2024-08-30 15:16] VITALS: BP 111/73; PULSE 65
== END 2024-08-30 15:10 | disposition home or self-care (01) ==
LOC: RADPROMAIN 12:52
PROVIDERS: ATTEND Internal Medicine Gastroenterology
DX: R18.8 Other ascites (principal)
CPT/HCPCS: 49083; 82565; 85049; 85610; 36415; P9047

== ENCOUNTER 2024-09-06 12:45 | Day surgery (SDC) | payer MEDICARE, OTHER ==
[2024-09-06 13:48] VITALS: RESP 16; TEMP 97.9
[2024-09-06 13:54] LABS: Mean Platelet Volume 9.7 fL (9.5-12.2); Platelet Count 146 10*3/uL (140-440)
[2024-09-06 14:13] LABS: African American GFR (CKD) 49 (>60 ml/min/1.73 sqM); Non-African American GFR(CKD) 43 (>60 ml/min/1.73 sqM)
[2024-09-06] MEDS: ALBUMIN HUMAN 25% 50 ML in EMPTY BAG 1 BAG IVPB SCH (14:22)
[2024-09-06 15:22] VITALS: BP 101/63; PULSE 56
--- NOTE | 2024-09-07 07:11 | US ---
EXAMINATION TYPE: US paracentesis abd w/image DATE OF EXAM: September 06, 2024 CLINICAL INDICATION:Female, 79 years old with history of ascites; COMPARISON: Prior ultrasound August 30, 2024 ATTENDING: Dr. Villegas PROCEDURE: Informed consent was obtained. The risks of the procedure were extensively explained incl uding risk of damage to surrounding bowel with perforation and need for additional procedures. Proced ure was performed in the ultrasound procedure suite. Ultrasound imaging of the abdomen demonstrate as citic fluid. An appropriate access site was localized to the right flank. Timeout was taken per protocol. The skin was prepped and draped in the usual sterile fashion and then locally anesthetized with 1% lidocaine. The peritoneal cavity was then accessed via a 5-Tristanian one-step needle/catheter. Approximately 580 0 cc of clear straw-colored fluid was obtained. Patient tolerated procedure well without immediate complication. Hemostasis at the procedural site w as obtained with a sterile bandage placed. The patient was monitored in the holding area following th e procedure and was subsequently discharged in stable condition. IMPRESSION: Ultrasound guided therapeutic paracentesis, with approximately 5800 cc of clear straw-colored fluid d rained. No immediate complications were evident. [facility], , 09/07/2024 7:09 AM
== END 2024-09-06 15:39 | disposition home or self-care (01) ==
LOC: RADPROMAIN 12:45
PROVIDERS: ATTEND Internal Medicine Gastroenterology
DX: R18.8 Other ascites (principal)
CPT/HCPCS: 49083; 82565; 85049; 85610; 36415; P9047

== ENCOUNTER 2024-09-13 12:58 | Day surgery (SDC) | payer MEDICARE, OTHER ==
[2024-09-13 13:34] LABS: Immature Platelet Fraction 3.2 % (1.1-6.1); Mean Platelet Volume 10.2 fL (9.5-12.2); Platelet Count 132 10*3/uL (140-440)
[2024-09-13 13:43] LABS: INR 0.9 (<1.2); Prothrombin Time 10.6 sec (10.0-12.5)
[2024-09-13 13:45] LABS: African American GFR (CKD) 60 (>60 ml/min/1.73 sqM); Non-African American GFR(CKD) 52 (>60 ml/min/1.73 sqM)
[2024-09-13 13:48] VITALS: RESP 16; TEMP 98
[2024-09-13] MEDS: ALBUMIN HUMAN 25% 50 ML in EMPTY BAG 1 BAG IVPB SCH (14:05)
[2024-09-13 15:12] VITALS: BP 124/73; PULSE 58
--- NOTE | 2024-09-13 17:40 | US ---
EXAMINATION TYPE: US paracentesis abd w/image DATE OF EXAM: 09/13/2024 2:19 PM COMPARISON: prior paracentesis. CLINICAL INDICATION:Female, 79 years old with history of R18.8 ascities; , ascites ATTENDING: Dr. Tyree Portillo PROCEDURE: Informed consent was obtained. The risks of the procedure were extensively explained incl uding risk of damage to surrounding bowel with perforation and need for additional procedures. Proced ure was performed in the ultrasound procedure suite. Ultrasound imaging of the abdomen demonstrate as citic fluid. An appropriate access site was localized to the right lower abdomen. Timeout was taken p er protocol. The skin was prepped and draped in the usual sterile fashion and then locally anesthetiz ed with 1% lidocaine. The peritoneal cavity was then accessed via a 5-Polish one-step needle/cathete r. Approximately 5300 mL of clear straw-colored fluid was obtained. Postprocedural imaging of the a bdomen demonstrate a minimal amount of abdominal fluid. Patient tolerated procedure well without immediate complication. Hemostasis at the procedural site w as obtained with a sterile bandage placed. The patient was monitored in the holding area following th e procedure and was subsequently discharged in stable condition. IMPRESSION: Ultrasound guided paracentesis, with approximately 5300 mL of clear straw-colored fluid drained. No immediate complications were evident. [facility], , 09/13/2024 5:37 PM
== END 2024-09-13 15:25 | disposition home or self-care (01) ==
LOC: RADPROMAIN 12:58
PROVIDERS: ATTEND Internal Medicine Gastroenterology
DX: R18.8 Other ascites (principal)
CPT/HCPCS: 82565; 85049; 85610; 36415; 49083; P9047

== ENCOUNTER 2024-09-20 12:37 | Day surgery (SDC) | payer MEDICARE, OTHER ==
[2024-09-20 13:34] VITALS: RESP 16; TEMP 98.4
[2024-09-20 13:53] LABS: African American GFR (CKD) 48 (>60 ml/min/1.73 sqM); Immature Platelet Fraction 2.6 % (1.1-6.1); Mean Platelet Volume 9.7 fL (9.5-12.2); Non-African American GFR(CKD) 42 (>60 ml/min/1.73 sqM); Platelet Count 121 10*3/uL (140-440)
[2024-09-20 14:06] LABS: Prothrombin Time 11.5 sec (10.0-12.5)
[2024-09-20] MEDS: ALBUMIN HUMAN 25% 50 ML in EMPTY BAG 1 BAG IVPB SCH (14:10)
[2024-09-20 14:52] VITALS: BP 106/56; PULSE 66
--- NOTE | 2024-09-21 08:28 | US ---
EXAMINATION TYPE: US paracentesis abd w/image DATE OF EXAM: Sep 20 2024 CLINICAL INDICATION:Female, 79 years old with history of ascites; unspecified cirrhosis of liver COMPARISON: Prior ultrasound Sep 13 2024 ATTENDING: Dr. Villegas PROCEDURE: Informed consent was obtained. The risks of the procedure were extensively explained incl uding risk of damage to surrounding bowel with perforation and need for additional procedures. Proced ure was performed in the ultrasound procedure suite. Ultrasound imaging of the abdomen demonstrate as citic fluid. An appropriate access site was localized to the right lower quadrant. Timeout was taken per protocol. The skin was prepped and draped in the usual sterile fashion and then locally anesthetized with 1% l idocaine. The peritoneal cavity was then accessed via a 5-Malawian one-step needle/catheter. Approxim ately 4300 cc of clear straw-colored fluid was obtained. Patient tolerated procedure well without immediate complication. Hemostasis at the procedural site w as obtained with a sterile bandage placed. The patient was monitored in the holding area following th e procedure and was subsequently discharged in stable condition. IMPRESSION: Ultrasound guided therapeutic paracentesis, with approximately 4300 cc of clear straw-colored fluid d rained. No immediate complications were evident. [facility], , 09/21/2024 8:25 AM
== END 2024-09-20 15:01 | disposition home or self-care (01) ==
LOC: RADPROMAIN 12:37
PROVIDERS: ATTEND Internal Medicine Gastroenterology
DX: R18.8 Other ascites (principal); K74.60 Unspecified cirrhosis of liver
CPT/HCPCS: 82565; 85049; 85610; 36415; 49083; P9047

== ENCOUNTER 2024-09-27 12:39 | Day surgery (SDC) | payer MEDICARE, OTHER ==
[2024-09-27 13:29] LABS: Immature Platelet Fraction 3.1 % (1.1-6.1); Mean Platelet Volume 9.5 fL (9.5-12.2); Platelet Count 144 10*3/uL (140-440)
[2024-09-27 13:36] LABS: Prothrombin Time 10.9 sec (10.0-12.5)
[2024-09-27] MEDS: ALBUMIN HUMAN 25% 50 ML in EMPTY BAG 1 BAG IVPB SCH (13:50)
[2024-09-27 14:11] VITALS: RESP 16; TEMP 98
[2024-09-27 14:12] LABS: African American GFR (CKD) 66 (>60 ml/min/1.73 sqM); Non-African American GFR(CKD) 57 (>60 ml/min/1.73 sqM)
[2024-09-27 15:07] VITALS: PULSE 75
[2024-09-27 15:26] VITALS: BP 98/61
--- NOTE | 2024-09-27 15:35 | US ---
EXAMINATION TYPE: US paracentesis abd w/image DATE OF EXAM: 09/27/2024 2:14 PM COMPARISON: prior paracentesis. CLINICAL INDICATION:Female, 79 years old with history of K74.60 UNSPECIFIED CIRRHOSIS OF LIVER; , asc ites ATTENDING: Dr. Tyree Portillo PROCEDURE: Informed consent was obtained. The risks of the procedure were extensively explained incl uding risk of damage to surrounding bowel with perforation and need for additional procedures. Proced ure was performed in the ultrasound procedure suite. Ultrasound imaging of the abdomen demonstrate as citic fluid. An appropriate access site was localized to the right lower abdomen. Timeout was taken p er protocol. The skin was prepped and draped in the usual sterile fashion and then locally anesthetiz ed with 1% lidocaine. The peritoneal cavity was then accessed via a 5-Indonesian one-step needle/cathete r. Approximately 6100 mL of clear straw-colored fluid was obtained. Postprocedural imaging of the ab domen demonstrate a minimal amount of abdominal fluid. Patient tolerated procedure well without immediate complication. Hemostasis at the procedural site w as obtained with a sterile bandage placed. The patient was monitored in the holding area following th e procedure and was subsequently discharged in stable condition. IMPRESSION: Ultrasound guided paracentesis, with approximately 6100 mL of clear straw-colored fluid drained. Path ology results pending. No immediate complications were evident. [facility], , 09/27/2024 3:33 PM
== END 2024-09-27 15:27 | disposition home or self-care (01) ==
LOC: RADPROMAIN 12:39
PROVIDERS: ATTEND Internal Medicine Gastroenterology
DX: K74.60 Unspecified cirrhosis of liver (principal)
CPT/HCPCS: 82565; 85049; 85610; 36415; 49083; P9047

== ENCOUNTER 2024-10-11 12:40 | Day surgery (SDC) | payer MEDICARE, OTHER ==
[2024-10-11 13:32] LABS: Immature Platelet Fraction 2.9 % (1.1-6.1); Mean Platelet Volume 9.9 fL (9.5-12.2); Platelet Count 124 10*3/uL (140-440)
[2024-10-11 13:47] LABS: African American GFR (CKD) 55 (>60 ml/min/1.73 sqM); Non-African American GFR(CKD) 48 (>60 ml/min/1.73 sqM)
[2024-10-11 13:51] LABS: INR 0.9 (<1.2); Prothrombin Time 10.6 sec (10.0-12.5)
[2024-10-11] MEDS: ALBUMIN HUMAN 25% 50 ML in EMPTY BAG 1 BAG IVPB SCH (14:10)
[2024-10-11 14:47] VITALS: RESP 24
[2024-10-11 15:26] VITALS: BP 122/63; PULSE 65
--- NOTE | 2024-10-12 07:51 | US ---
EXAMINATION TYPE: US paracentesis abd w/image DATE OF EXAM: 10/11/2024 2:21 PM COMPARISON: prior paracentesis. CLINICAL INDICATION:Female, 79 years old with history of R18.8 ascites; , ascites ATTENDING: Dr. Tyree Portillo PROCEDURE: Informed consent was obtained. The risks of the procedure were extensively explained incl uding risk of damage to surrounding bowel with perforation and need for additional procedures. Proced ure was performed in the ultrasound procedure suite. Ultrasound imaging of the abdomen demonstrate as citic fluid. An appropriate access site was localized to the right lower abdomen. Timeout was taken p er protocol. The skin was prepped and draped in the usual sterile fashion and then locally anesthetiz ed with 1% lidocaine. The peritoneal cavity was then accessed via a 5-Kazakh one-step needle/cathete r. Approximately 6500 mL of clear straw-colored fluid was obtained. Postprocedural imaging of the ab domen demonstrate a minimal amount of abdominal fluid. Patient tolerated procedure well without immediate complication. Hemostasis at the procedural site w as obtained with a sterile bandage placed. The patient was monitored in the holding area following th e procedure and was subsequently discharged in stable condition. IMPRESSION: Ultrasound guided paracentesis, with approximately 6500 mL of clear straw-colored fluid drained. No i mmediate complications were evident. [facility], , 10/12/2024 7:49 AM
== END 2024-10-11 15:39 | disposition home or self-care (01) ==
LOC: RADPROMAIN 12:40
PROVIDERS: ATTEND Internal Medicine Gastroenterology
DX: R18.8 Other ascites (principal); K74.60 Unspecified cirrhosis of liver
CPT/HCPCS: 82565; 85049; 85610; 36415; 49083; P9047

== ENCOUNTER 2024-10-18 12:38 | Day surgery (SDC) | payer MEDICARE, OTHER ==
[2024-10-18 13:35] LABS: Immature Platelet Fraction 3.6 % (1.1-6.1); Platelet Count 108 10*3/uL (140-440)
[2024-10-18 13:41] LABS: INR 0.9 (<1.2); Prothrombin Time 10.4 sec (10.0-12.5)
[2024-10-18 13:45] LABS: African American GFR (CKD) 56 (>60 ml/min/1.73 sqM); Non-African American GFR(CKD) 49 (>60 ml/min/1.73 sqM)
[2024-10-18] MEDS: ALBUMIN HUMAN 25% 50 ML in EMPTY BAG 1 BAG IVPB SCH (13:49)
[2024-10-18 14:07] VITALS: RESP 16; TEMP 97.9
[2024-10-18 15:27] VITALS: BP 116/62; PULSE 58
--- NOTE | 2024-10-18 17:35 | US ---
EXAMINATION TYPE: US paracentesis abd w/image DATE OF EXAM: October 18 2024 CLINICAL INDICATION:Female, 79 years old with history of ascites; unspecified cirrhosis of liver COMPARISON: Prior ultrasound October 11 2024 ATTENDING: Dr. Villegas PROCEDURE: Informed consent was obtained. The risks of the procedure were extensively explained incl uding risk of damage to surrounding bowel with perforation and need for additional procedures. Proced ure was performed in the ultrasound procedure suite. Ultrasound imaging of the abdomen demonstrate as citic fluid. An appropriate access site was localized to the right lower quadrant. Timeout was taken per protocol. The skin was prepped and draped in the usual sterile fashion and then locally anesthetized with 1% l idocaine. The peritoneal cavity was then accessed via a 5-Thai one-step needle/catheter. Approxim ately 5000 cc of clear straw-colored fluid was obtained. Patient tolerated procedure well without immediate complication. Hemostasis at the procedural site w as obtained with a sterile bandage placed. The patient was monitored in the holding area following th e procedure and was subsequently discharged in stable condition. IMPRESSION: Ultrasound guided therapeutic paracentesis, with approximately 5000 cc of clear straw-colored fluid d rained. No immediate complications were evident. [facility], , 10/18/2024 5:33 PM
== END 2024-10-18 15:34 | disposition home or self-care (01) ==
LOC: RADPROMAIN 12:38
PROVIDERS: ATTEND Internal Medicine Gastroenterology
DX: R18.8 Other ascites (principal); K74.60 Unspecified cirrhosis of liver
CPT/HCPCS: 82565; 85049; 85610; 36415; 49083; P9047

== ENCOUNTER 2024-10-25 12:56 | Day surgery (SDC) | payer MEDICARE, OTHER ==
[2024-10-25 13:34] LABS: Mean Platelet Volume 9.6 fL (9.5-12.2); Platelet Count 110 10*3/uL (140-440)
[2024-10-25 13:37] LABS: Prothrombin Time 11.2 sec (10.0-12.5)
[2024-10-25 13:43] VITALS: RESP 16; TEMP 98
[2024-10-25 13:43] LABS: African American GFR (CKD) 54 (>60 ml/min/1.73 sqM); Non-African American GFR(CKD) 47 (>60 ml/min/1.73 sqM)
[2024-10-25 14:51] VITALS: BP 110/68; PULSE 65
[2024-10-25] MEDS: ALBUMIN HUMAN 25% 50 ML in EMPTY BAG 1 BAG IVPB SCH (15:01)
--- NOTE | 2024-10-25 15:20 | US ---
EXAMINATION TYPE: US paracentesis abd w/image DATE OF EXAM: 10/25/2024 CLINICAL HISTORY: 79 year-old female R18.8, ascites, referred for weekly paracentesis The procedure was discussed with the patient. The risks, complications, benefits, and alternatives we re discussed and any questions were answered. Informed consent was obtained. The patient was placed s upine on the ultrasound table and prepped and draped in the usual sterile fashion. All elements of maximal barrier technique were utilized. Ultrasound was utilized to determine the precise skin entry site along the left lower quadrant/left f lank. A 5 Hebrew One-Step catheter and trocar technique was utilized to access the ascites collection under direct ultrasound guidance. Approximately 4.85 liters of clear, straw-colored fluid was removed. Catheter was removed, hemostasis obtained, and a dressing placed. The patient was stable throughout the procedure and remained stable upon discharge from Department of Radiology. IMPRESSION: Successful therapeutic paracentesis under ultrasound guidance. 4.85 L of fluid removed. [facility], , 10/25/2024 3:18 PM
== END 2024-10-25 15:15 | disposition home or self-care (01) ==
LOC: RADPROMAIN 12:56
PROVIDERS: ATTEND Internal Medicine Gastroenterology
DX: R18.8 Other ascites (principal); K74.60 Unspecified cirrhosis of liver
CPT/HCPCS: 36415; 49083; 82565; 85049; 85610

== ENCOUNTER 2024-11-01 13:10 | Day surgery (SDC) | payer MEDICARE, OTHER ==
[2024-11-01 13:42] VITALS: RESP 12; TEMP 98.2
[2024-11-01 13:59] LABS: Immature Platelet Fraction 3.3 % (1.1-6.1); Platelet Count 130 10*3/uL (140-440)
[2024-11-01 14:07] LABS: African American GFR (CKD) 60 (>60 ml/min/1.73 sqM); Non-African American GFR(CKD) 52 (>60 ml/min/1.73 sqM)
[2024-11-01] MEDS: ALBUMIN HUMAN 25% 50 ML in EMPTY BAG 1 BAG IVPB SCH (14:15)
[2024-11-01 14:20] LABS: INR 0.9 (<1.2); Prothrombin Time 10.2 sec (10.0-12.5)
[2024-11-01 14:50] VITALS: BP 112/52; PULSE 60
--- NOTE | 2024-11-01 15:08 | US ---
EXAMINATION TYPE: US paracentesis abd w/image DATE OF EXAM: 11/01/2024 2:10 PM COMPARISON: prior paracentesis. CLINICAL INDICATION:Female, 79 years old with history of K74.60 UNSPECIFIED CIRRHOSIS OF LIVER; , asc ites ATTENDING: Dr. Tyree Portillo PROCEDURE: Informed consent was obtained. The risks of the procedure were extensively explained incl uding risk of damage to surrounding bowel with perforation and need for additional procedures. Proced ure was performed in the ultrasound procedure suite. Ultrasound imaging of the abdomen demonstrate as citic fluid. An appropriate access site was localized to the right lower abdomen. Timeout was taken p er protocol. The skin was prepped and draped in the usual sterile fashion and then locally anesthetiz ed with 1% lidocaine. The peritoneal cavity was then accessed via a 5-Malay one-step needle/cathete r. Approximately 4500 mL of clear straw-colored fluid was obtained. Postprocedural imaging of the ab domen demonstrate a minimal amount of abdominal fluid. Patient tolerated procedure well without immediate complication. Hemostasis at the procedural site w as obtained with a sterile bandage placed. The patient was monitored in the holding area following th e procedure and was subsequently discharged in stable condition. IMPRESSION: Ultrasound guided paracentesis, with approximately 4500 mL of clear straw-colored fluid drained. No immediate complications were evident. [facility], , 11/01/2024 3:05 PM
== END 2024-11-01 15:15 | disposition home or self-care (01) ==
LOC: RADPROMAIN 13:10
PROVIDERS: ATTEND Internal Medicine Gastroenterology
DX: R18.8 Other ascites (principal); K74.60 Unspecified cirrhosis of liver
CPT/HCPCS: 82565; 85049; 85610; 36415; 49083; P9047

== ENCOUNTER 2024-11-08 12:52 | Day surgery (SDC) | payer MEDICARE, OTHER ==
[2024-11-08 13:35] LABS: Immature Platelet Fraction 2.6 % (1.1-6.1); Platelet Count 135 10*3/uL (140-440)
[2024-11-08 13:45] LABS: INR 0.9 (<1.2); Prothrombin Time 10.2 sec (10.0-12.5)
[2024-11-08 13:50] LABS: African American GFR (CKD) 72 (>60 ml/min/1.73 sqM); Non-African American GFR(CKD) 62 (>60 ml/min/1.73 sqM)
[2024-11-08 14:25] VITALS: RESP 16; TEMP 97.8
[2024-11-08] MEDS: ALBUMIN HUMAN 25% 50 ML in EMPTY BAG 1 BAG IVPB SCH (15:00)
[2024-11-08 15:46] VITALS: BP 97/62; PULSE 70
--- NOTE | 2024-11-08 15:58 | US ---
EXAMINATION TYPE: US paracentesis abd w/image DATE OF EXAM: 11/08/2024 CLINICAL HISTORY: 79-year-old female R18.8 ascites, distention, referred for routine weekly paracent esis The procedure was discussed with the patient. The risks, complications, benefits, and alternatives we re discussed and any questions were answered. Informed consent was obtained. The patient was placed s upine on the ultrasound table and prepped and draped in the usual sterile fashion. All elements of maximal barrier technique were utilized. Ultrasound was utilized to determine the precise skin entry site along the right lower quadrant. A 5 Belizean One-Step catheter and trocar technique was utilized to access the ascites collection under direct ultrasound guidance. Approximately 6.5 liters of clear, straw-colored fluid was removed. Catheter was removed, hemostasis obtained, and a dressing placed. The patient was stable throughout the procedure and remained stable upon discharge from Department of Radiology. IMPRESSION: Successful therapeutic paracentesis under ultrasound guidance. 6.5 L of fluid removed. [facility], , 11/08/2024 3:56 PM
== END 2024-11-08 15:45 | disposition home or self-care (01) ==
LOC: RADPROMAIN 12:52
PROVIDERS: ATTEND Internal Medicine Gastroenterology
DX: R18.8 Other ascites (principal); K74.60 Unspecified cirrhosis of liver
CPT/HCPCS: 82565; 85049; 85610; 36415; 49083; P9047

== ENCOUNTER 2024-11-15 12:40 | Day surgery (SDC) | payer MEDICARE, OTHER ==
[2024-11-15 13:27] LABS: Immature Platelet Fraction 3.3 % (1.1-6.1); Platelet Count 139 10*3/uL (140-440)
[2024-11-15 13:34] LABS: INR 1.0 (<1.2); Prothrombin Time 11.4 sec (10.0-12.5)
[2024-11-15 13:46] LABS: African American GFR (CKD) 71 (>60 ml/min/1.73 sqM); Non-African American GFR(CKD) 62 (>60 ml/min/1.73 sqM)
[2024-11-15] MEDS: ALBUMIN HUMAN 25% 50 ML in EMPTY BAG 1 BAG IVPB SCH (13:52)
[2024-11-15 13:58] VITALS: RESP 16; TEMP 97.6
[2024-11-15 15:02] VITALS: BP 105/64; PULSE 58
--- NOTE | 2024-11-16 05:57 | US ---
EXAMINATION TYPE: US paracentesis abd w/image DATE OF EXAM: November 15 2024 CLINICAL INDICATION:Female, 79 years old with history of ascites; COMPARISON: Prior ultrasound November 08 2024 ATTENDING: Dr. Villegas PROCEDURE: Informed consent was obtained. The risks of the procedure were extensively explained incl uding risk of damage to surrounding bowel with perforation and need for additional procedures. Proced ure was performed in the ultrasound procedure suite. Ultrasound imaging of the abdomen demonstrate as citic fluid. An appropriate access site was localized to the right lower quadrant. Timeout was taken per protocol. The skin was prepped and draped in the usual sterile fashion and then locally anesthetized with 1% l idocaine. The peritoneal cavity was then accessed via a 5-Chinese one-step needle/catheter. Approxim ately 5300 cc of clear straw-colored fluid was obtained. Patient tolerated procedure well without immediate complication. Hemostasis at the procedural site w as obtained with a sterile bandage placed. The patient was monitored in the holding area following th e procedure and was subsequently discharged in stable condition. IMPRESSION: Ultrasound guided therapeutic paracentesis, with approximately 5300 cc of clear straw-colored fluid d rained. No immediate complications were evident. [facility], , 11/16/2024 5:54 AM
== END 2024-11-15 15:16 | disposition home or self-care (01) ==
LOC: RADPROMAIN 12:40
PROVIDERS: ATTEND Internal Medicine Gastroenterology
DX: R18.8 Other ascites (principal); K74.60 Unspecified cirrhosis of liver
CPT/HCPCS: 82565; 85049; 85610; 36415; 49083; P9047

== ENCOUNTER 2024-11-22 12:42 | Day surgery (SDC) | payer MEDICARE, OTHER ==
[2024-11-22 13:57] LABS: Immature Platelet Fraction 3.4 % (1.1-6.1); Platelet Count 129 10*3/uL (140-440)
[2024-11-22 13:58] LABS: INR 1.0 (<1.2); Prothrombin Time 10.8 sec (10.0-12.5)
[2024-11-22 14:06] LABS: African American GFR (CKD) 72 (>60 ml/min/1.73 sqM); Non-African American GFR(CKD) 62 (>60 ml/min/1.73 sqM)
[2024-11-22 14:13] VITALS: TEMP 98
[2024-11-22] MEDS: ALBUMIN HUMAN 25% 50 ML in EMPTY BAG 1 BAG IVPB SCH (14:16)
[2024-11-22 15:19] VITALS: BP 106/60; PULSE 58; RESP 16
--- NOTE | 2024-11-24 10:21 | US ---
EXAMINATION TYPE: US paracentesis abd w/image DATE OF EXAM: 11/22/2024 2:00 PM COMPARISON: prior paracentesis. 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 Peraza PROCEDURE: Informed consent was obtained. The risks of the procedure were extensively explained incl uding risk of damage to surrounding bowel with perforation and need for additional procedures. Proced ure was performed in the ultrasound procedure suite. Ultrasound imaging of the abdomen demonstrate as citic fluid. An appropriate access site was localized to the right lower abdomen. Timeout was taken p er protocol. The skin was prepped and draped in the usual sterile fashion and then locally anesthetiz ed with 1% lidocaine. The peritoneal cavity was then accessed via a 5-Icelandic one-step needle/cathete r. Approximately 2700 mL of fluid was obtained. Postprocedural imaging of the abdomen demonstrate a minimal amount of abdominal fluid. Patient tolerated procedure well without immediate complication. Hemostasis at the procedural site w as obtained with a sterile bandage placed. The patient was monitored in the holding area following th e procedure and was subsequently discharged in stable condition. IMPRESSION: Ultrasound guided paracentesis, with approximately 2700 mL of fluid drained. No immediate complicatio ns were evident. [facility], , 11/24/2024 10:19 AM
== END 2024-11-22 15:10 | disposition home or self-care (01) ==
LOC: RADPROMAIN 12:42
PROVIDERS: ATTEND Internal Medicine Gastroenterology
DX: R18.8 Other ascites (principal); I34.0 Nonrheumatic mitral (valve) insufficiency
CPT/HCPCS: 82565; 85049; 85610; 36415; 49083; P9047

== ENCOUNTER 2024-11-29 13:00 | Day surgery (SDC) | payer MEDICARE, OTHER ==
[2024-11-29 13:41] LABS: Basophils # (A) 0.03 10*3/uL (0.00-0.10); Basophils % (A) 0.7 %; Eosinophils # (A) 0.08 10*3/uL (0.04-0.35); Eosinophils % (A) 1.9 %; HCT 34.5 % (37.2-46.3); HGB 10.8 g/dL (12.0-15.0); Lymphocytes # (A) 0.42 10*3/uL (0.90-5.00); Lymphocytes % (A) 9.9 %; MCH 32.0 pg (27.0-32.0); MCHC 31.3 g/dL (32.0-37.0); MCV 102.1 fL (80.0-97.0); Monocytes # (A) 0.77 10*3/uL (0.20-1.00); Monocytes % (A) 18.2 %; Neutrophils # (A) 2.93 10*3/uL (1.80-7.70); Neutrophils % (A) 69.3 %; Platelet Count 148 10*3/uL (140-440); RBC 3.38 10*6/uL (4.10-5.20); RDW 15.8 % (11.5-14.5); WBC 4.23 10*3/uL (4.50-10.00)
[2024-11-29 13:48] VITALS: TEMP 98
[2024-11-29 13:59] LABS: INR 0.9 (<1.2); Prothrombin Time 10.2 sec (10.0-12.5)
[2024-11-29 14:00] LABS: African American GFR (CKD) 64 (>60 ml/min/1.73 sqM); Anion Gap 3 mmol/L; Blood Urea Nitrogen 22 mg/dL (7-17); Calcium 8.6 mg/dL (8.4-10.2); Carbon Dioxide 39 mmol/L (22-30); Chloride 95 mmol/L (98-107); Glucose 94 mg/dL (74-99); Non-African American GFR(CKD) 55 (>60 ml/min/1.73 sqM); Potassium 3.6 mmol/L (3.5-5.1); Sodium 137 mmol/L (137-145)
[2024-11-29 14:27] VITALS: RESP 16
[2024-11-29 14:57] VITALS: BP 116/74; PULSE 54
[2024-11-29] MEDS: ALBUMIN HUMAN 25% 50 ML in EMPTY BAG 1 BAG IVPB SCH (15:01)
--- NOTE | 2024-11-29 15:24 | US ---
EXAMINATION TYPE: US paracentesis abd w/image DATE OF EXAM: 11/29/2024 2:22 PM COMPARISON: prior paracentesis. CLINICAL INDICATION:Female, 79 years old with history of K74.60 UNSPECIFIED CIRRHOSIS OF LIVER; , asc ites ATTENDING: Dr. Tyree Portillo PROCEDURE: Informed consent was obtained. The risks of the procedure were extensively explained incl uding risk of damage to surrounding bowel with perforation and need for additional procedures. Proced ure was performed in the ultrasound procedure suite. Ultrasound imaging of the abdomen demonstrate as citic fluid. An appropriate access site was localized to the right lower abdomen. Timeout was taken p er protocol. The skin was prepped and draped in the usual sterile fashion and then locally anesthetiz ed with 1% lidocaine. The peritoneal cavity was then accessed via a 5-Faroese one-step needle/cathete r. Approximately 4900 mL of clear straw-colored fluid was obtained. Postprocedural imaging of the a bdomen demonstrate a minimal amount of abdominal fluid. Patient tolerated procedure well without immediate complication. Hemostasis at the procedural site w as obtained with a sterile bandage placed. The patient was monitored in the holding area following th e procedure and was subsequently discharged in stable condition. IMPRESSION: Ultrasound guided paracentesis, with approximately 4900 mL of clear straw-colored fluid drained. No immediate complications were evident. [facility], , 11/29/2024 3:22 PM
== END 2024-11-29 15:14 | disposition home or self-care (01) ==
LOC: RADPROMAIN 13:00
PROVIDERS: ATTEND Internal Medicine Gastroenterology
DX: R18.8 Other ascites (principal); K74.60 Unspecified cirrhosis of liver
CPT/HCPCS: 36415; 49083; 80048; 85025; 85610

== ENCOUNTER 2024-12-06 12:55 | Day surgery (SDC) | payer MEDICARE, OTHER ==
[2024-12-06 13:47] LABS: INR 1.0 (<1.2); Prothrombin Time 11.3 sec (10.0-12.5)
[2024-12-06 13:51] LABS: African American GFR (CKD) 66 (>60 ml/min/1.73 sqM); Non-African American GFR(CKD) 57 (>60 ml/min/1.73 sqM)
[2024-12-06] MEDS: ALBUMIN HUMAN 25% 50 ML in EMPTY BAG 1 BAG IVPB SCH (13:55)
[2024-12-06 14:04] VITALS: RESP 16; TEMP 98.4
[2024-12-06 14:40] LABS: Platelet Count 117 10*3/uL (140-440)
[2024-12-06 15:08] VITALS: BP 108/63; PULSE 74
--- NOTE | 2024-12-06 16:38 | US ---
EXAMINATION TYPE: US paracentesis abd w/image DATE OF EXAM: 12/06/2024 CLINICAL HISTORY: 79-year-old female R18.8, ascites, distention, referred for routine outpatient alexandra monroe paracentesis The procedure was discussed with the patient. The risks, complications, benefits, and alternatives we re discussed and any questions were answered. Informed consent was obtained. The patient was placed s upine on the ultrasound table and prepped and draped in the usual sterile fashion. All elements of maximal barrier technique were utilized. Ultrasound was utilized to determine the precise skin entry site along the right lower quadrant. A 5 Canadian One-Step catheter and trocar technique was utilized to access the ascites collection under direct ultrasound guidance. Approximately 5.7 liters of clear, straw-colored fluid was removed. Catheter was removed, hemostasis obtained, and a dressing placed. The patient was stable throughout the procedure and remained stable upon discharge from Department of Radiology. IMPRESSION: Successful therapeutic paracentesis under ultrasound guidance. 5.7 L of fluid removed. [facility], , 12/06/2024 4:36 PM
== END 2024-12-06 15:10 | disposition home or self-care (01) ==
LOC: RADPROMAIN 12:55
PROVIDERS: ATTEND Internal Medicine Gastroenterology
DX: R18.8 Other ascites (principal); K74.60 Unspecified cirrhosis of liver
CPT/HCPCS: 82565; 85049; 85610; 36415; 49083; P9047